=== PATIENT | female | born 1995 | race Caucasian/White ===

== ENCOUNTER 2022-05-11 14:06 | Outpatient (CLI) | payer BC, SELFPAY ==
--- OUTSIDE RECORDS SUMMARY | 2022-05-11 14:14 | XMS_ITS | Encounter Summary ---
:1995 Author Organization [place] Address [address] [place] [address] Care Team Providers Name Role Phone Arnol Cesar Unavailable Jonny Moralez Primary Care Provider Encounter Details Date Type Department Care Team Description 02/25/2021 Travel Social History Tobacco Use Types Packs/Day Years Used Date Smoking Tobacco: Former Cigarettes 6 Quit : 07/09/2016 Smokeless Tobacco: Never Sex Assigned at Date Recorded Not on file COVID-19 Exposure Response Date Recorded In the last month, have you been in contact with No / Unsure 02/25/2021 6:40 AM CDT someone who was confirmed or suspected to have Coronavirus / COVID-19? documented as of this encounter Plan of Treatment Not on filedocumented as of this encounter Visit Diagnoses Not on filedocumented in this encounter Care Teams Construction Coordinator Relationship Specialty Start Date End Date Jonny Moralez PCP - General Family Medicine 02/11/21 [facility] [address] [facility] [place] [address] Arnol Cesar Assigned Heart and Vascular 11/21/20 [facility] [address] [place] [address] documented as of this encounter
--- OUTSIDE RECORDS SUMMARY | 2022-05-11 14:14 | XMS_ITS | Encounter Summary ---
:1995 Author Organization [place] Address [facility] [place] [address] Care Team Providers Name Role Phone Arnol Cesar Unavailable Jonny Moralez Primary Care Provider Reason for Visit Diagnostic Imaging Ultrasound (Routine) - Closed Specialty Diagnoses / Procedures Referred By Contact Refer red To Contact Diagnoses Varicose veins of bilateral lower extremities with pain Arnol Cesar Procedures US Lower Extremity Venous Duplex Left [address] [place] [address] Referral ID Status Reason Start Date Expiration Date Visits Requ ested Visits Authorized [id number] Closed 02/01/2021 02/01/2022 1 1 Encounter Details Date Type Department Care Team Description 02/28/2021 Ancillary Procedure [facility] Arnol Cesar [facility] bilateral lower Solutions [address] extremities with [address] [place] [address] [address] [place] (Work) [phone] Social History Tobacco Use Types Packs/Day Years Used Date Smoking Tobacco: Former Cigarettes 6 Quit : 07/09/2016 Smokeless Tobacco: Never Sex Assigned at Date Recorded Not on file COVID-19 Exposure Response Date Recorded In the last month, have you been in contact with No / Unsure 02/28/2021 8:02 AM CDT someone who was confirmed or suspected to have Coronavirus / COVID-19? documented as of this encounter Plan of Treatment Not on filedocumented as of this encounter Procedures Procedure Name Priority Date/Time Associated Diagnosis Comme nts US LOWER EXTREMITY Routine 02/28/2021 8:36 AM Varicose veins o f Results for this VENOUS DUPLEX LEFT CDT bilateral lower proced ure are in extremities with the results pain section. documented in this encounter Results US Lower Extremity Venous Duplex Left (02/28/2021 8:36 AM CDT) Anatomical Region Laterality Modality Vascular, Thigh, Leg Ultrasound Specimen (Source) Anatomical Location Collection Method / Collectio n Time Received Time / Laterality Volume Impressions 02/28/2021 12:05 PM CDT ? Examined by: Janell Mcclure RVT Age: ??25 year old ? Reading MD: LARISSA ?? INDICATIONS: ?Post VNUS Closure ?? EXAM TYPE LEFT LOWER EXTREMITY VENOUS DUPLEX 72 HOUR POST VNUS CLOSURE GSV ?? TECHNICAL SUMMARY ?? Multiple transverse and longitudinal lula ges of left lower extremity were obtained. ?? LEFT: ? The CFV demonstrates phasic flow, compre sses ,and responds to augmentations. ??No evidence of DVT at t his time. ??The remainder of deep veins including left femoral, popliteal, posterior tibial, and peroneal veins are widely patent and fully compre ssible with no evidence for DVT at this time. ?? The GSV is closed 20.9 mm from the SFJ t o the proximal calf with evidence of thrombus seen throughout. ?? FINAL SUMMARY: 1. ? Left CFV is patent. 2. ? The left GSV is closed 20 .9 mm from the SFJ to the proximal calf. ?? Narrative 02/28/2021 12:05 PM CDT US Lower Extremity Venous Duplex Left Order #: [id number] Study Notes? Dacia Mcclure on 02/28/2021 ??8:36 AM Name: ??Chiqui Olmos Leilani ? Date: February 28, 2021 ?: 1995 Sex: female Arnol Cesar IMPippa ORDERABLES documented in this encounter Visit Diagnoses Diagnosis Varicose veins of bilateral lower extrem ities with pain documented in this encounter Care Teams Motorcycle Subassembly Repairer Relationship Specialty Start Date End Date Jonny Moralez PCP - General Family Medicine 02/11/21 [facility] [address] [place] [address] Arnol Cesar Assigned Heart and Vascular 11/21/20 [address] [place] [address] documented as of this encounter
--- OUTSIDE RECORDS SUMMARY | 2022-05-11 14:14 | XMS_ITS | Encounter Summary ---
:1995 Author Organization [place] Address [address] [place] [address] Care Team Providers Name Role Phone Arnol Cesar Unavailable Jonny Moralez Primary Care Provider Encounter Details Date Type Department Care Team Description 02/28/2021 Travel Social History Tobacco Use Types Packs/Day [...] on filedocumented in this encounter Care Teams Glass Decorator Relationship Specialty Start Date End Date Jonny Moralez PCP - General Family Medicine 02/11/21 [facility] [address] [facility] [address] Arnol Cesar Assigned Heart and Vascular 11/21/20 [address] [facility] [address] [place] [address] documented as of this encounter
--- OUTSIDE RECORDS SUMMARY | 2022-05-11 14:14 | XMS_ITS | Encounter Summary ---
:1995 Author Organization [place] Address [facility] [place] [address] Care Team Providers Name Role Phone AbdielArnol pittman Unavailable Jonny Moralez Primary Care Provider Reason for Visit Reason Comments Surgical Followup 6 month post op, left leg VN US closure GSV and phlebs and right leg GSV and phlebs. Encounter Details Date Type Department Care Team Description 04/10/2022 Office Visit [facility] Arsenio Arnol Varicose veins of leg with pain, left (Primary Dx); [facility] Elissa Bullard Spider veins of both lower extremities; [address] Va ricose veins of leg with pain, right; [address] Dermatitis [place] [phone] [place] [address] [phone] Social History Tobacco Use Types Packs/Day Years Used Date Smoking Tobacco: Former Cigarettes 6 Quit : 07/09/2016 Smokeless Tobacco: Never Sex Assigned at Date Recorded Not on file COVID-19 Exposure Response Date Recorded In the last 10 days, have you been in contact with No / Unsu re 04/10/2022 3:07 PM CDT someone who was confirmed or suspected to have Coronavirus/COVID-19? documented as of this encounter Progress Notes Arsenio Arnol Juan Miguel - 04/10/2022 4:00 PM CDT [facility]: Elissa Olmos Leilani returns for 6-week follow-up. She had previously undergone closure of the right greater saphenous vein on 02/11/2021 with cosmetic phlebectomies with very good results. She developed painful varicosities in the left leg related to incompetence of the greater and lesser saphenous veins. 02/25/2021 radiofrequency ablation left GSV from saphenofemoral junction to ankle. The left accessorysaphenous vein leading to the thigh varicosities was too short for ablation but we did ligate this is removed the surface varicosities along with the other stab phlebectomies(#33). She did well following the procedure. Appropriate closure of the GSV 20.9 mm from the junction. Did notice some numbness in the medial ankle and burning paresthesias on the dorsal left foot on her 72-hour follow-up. As far as her venous issues she is done well with no recurrent varicosities or discomfort. She did have some numbness along the left greater saphenous nerve distribution several centimeters above our entrance site. This is improved and more localized almost to the medial malleolus. Numbness is quite mild and not bothersome at all. Her major concern is very small punctate subcutaneous nodules that developed primarily on her right calf from the knee to the ankle with marked pruritus and excoriations resulting in superficial woundsthat are gradually healing. This is been present for several months and still a major issue on her right leg. She has tried Benadryl spray with no help. A few issues on the left calf but very minor. Nohistory of any significant allergies. Exam: Alert and appropriate. Normal affect. Significant excoriations on her right leg from the knee to the ankle. One early less than a millimeter subcutaneous nodule just below the right patella anterior laterally which is how these develop initially before she started scratching these. No visible recurrent varicose veins. Multiple tattoos. Very fine spider veins Slight numbness along the left ankle GSN. Very well-healed almost imperceptible phlebectomy incisions. Ultrasound today revealed no DVT. Right GSV is closed 6.2 mm from the junction of the distal calf. Left GSV closed 9.4 mm from the junction to the distal calf. IMPRESSION: #1. Successful closure of both greater saphenous veins and cosmetic stab phlebectomies. No recurrent varicosities. Slight numbness which is gradually improving on the left greater saphenousnerve distribution that was discussed. No need for further venous follow-up. Compression as needed for comfort reasons only. #2. Very small asymptomatic spider veins. She is not interested in treatment which is just fine. #3. Multiple very small subcutaneous nodules that have significant pruritus and excoriations particular on the right calf. She will try an [id number] topical steroid and if this is not successful she needs to see a board handler since this is been going on several months and she has significantexcoriation throughout entire right calf and to a lesser degree on the left calf. Post procedure bilateral VCSS= 0 CEAP: C1 Arnol Cesar MD documented in this encounter Plan of Treatment Not on filedocumented as of this encounter Visit Diagnoses Diagnosis Varicose veins of leg with pain, left - Primary Spider veins of both lower extremities Varicose veins of leg with pain, right Dermatitis Contact dermatitis and other eczema, due to unspecified cause documented in this encounter Care Teams Biological Inspector Relationship Specialty Start Date End Date Jonny Moralez PCP - General Family Medicine 02/11/21 [facility] [address] [place] [address] Arnol Cesar Assigned Heart and Vascular 11/21/20 [address] Provider [place] [address] documented as of this encounter
--- OUTSIDE RECORDS SUMMARY | 2022-05-11 14:14 | XMS_ITS | Encounter Summary ---
:1995 Author Organization [place] Address [facility] [place] [address] Care Team Providers Name Role Phone Arnol Cesar Unavailable Jonny Moralez Primary Care Provider Reason for Visit Diagnostic Imaging Ultrasound (Routine) - Pending Review Specialty Diagnoses / Procedures Referred By Contact Refer red To Contact Diagnoses Postop check Varicose veins of both lower extremities with pain Arnol Cesar Procedures US Lower Extremity Venous Duplex Bilateral [address] [place] [address] Referral ID Status Reason Start Date Expiration Date Visits V isits Requested Authorized [id number] Pending 06/27/2021 06/27/2022 1 1 Review Encounter Details Date Type Department Care Team Description 04/10/2022 Ancillary Procedure [facility] Arnol Cesar ostop check; [place] Bullard Varicose veins of both lower extremities with pain Solutions [address] [facility] [address] [facility] [place] [address] [address] [place] (Work) [phone] Social History Tobacco Use Types Packs/Day Years [...] have Coronavirus/COVID-19? documented as of this encounter Plan of Treatment Not on filedocumented as of this encounter Procedures Procedure Name Priority Date/Time Associated Diagnosis Comme nts US LOWER EXTREMITY Routine 04/10/2022 3:54 PM Postop karolyn ck Results for this VENOUS DUPLEX CDT Varicose veins of procedure are in BILATERAL both lower the results extremities with section. pain documented in this encounter Results US Lower Extremity Venous Duplex Bilateral (04/10/2022 3:54 PM CDT) Anatomical Region Laterality Modality Vascular, Thigh, Leg Ultrasound Specimen (Source) Anatomical Location Collection Method / Collectio n Time Received Time / Laterality Volume Impressions 04/12/2022 9:33 AM CDT Examined by: Ge Longo RVT Age: ??26 year old ? Reading MD: Toshia Cesar MD ?? INDICATIONS: ?Post VNUS Closure ?? EXAM TYPE BILATERAL LOWER EXTREMITY VENOUS DUPLEX 6 MONTH POST VNUS CLOSURE GSV ?? TECHNICAL SUMMARY ?? Multiple transverse and longitudinal lula ges of bilateral lower extremities were obtained. ? RIGHT: ? The CFV demonstrates phasic flow, compre sses and responds to augmentations. ??No evidence of DVT at t his time. ??The remainder of deep veins including right femoral, popliteal , posterior tibial and peroneal veins are widely patent and fully compre ssible with no evidence for DVT at this time. ?? The GSV is closed ??6.2 mm from the SFJ to the distal calf with evidence of thrombus seen throughout. ?? LEFT: ? The CFV demonstrates phasic flow, compre sses and responds to augmentations. ??No evidence of DVT at t his time. ??The remainder of deep veins including left femoral, popliteal, posterior tibial and peroneal veins are widely patent and fully compre ssible with no evidence for DVT at this time. ?? The GSV is closed ??9.4 mm from the SFJ to the distal calf with evidence of thrombus seen throughout. ? FINAL SUMMARY: 1. ? Bilateral CFV's are paten t. 2. ? The right GSV is closed 6 .2 mm from the SFJ to the distal calf. 3. ? The left GSV is closed 9. 4 mm from the SFJ to the distal calf. ?? Narrative 04/12/2022 9:33 AM CDT Lower Extremity Venous Duplex Bilater al Order #: [id number] Study Notes? Emeterio Longo on 04/10/2022 ??3:54 PM Name: ??Chiqui Duke ? Date: April 10, 2022 ?: 1995 Sex: female Arnol Cesar [facility] ORDERABLES documented in this encounter Visit Diagnoses Diagnosis Postop check Follow-up examination, following unspeci fied surgery Varicose veins of both lower extremities with pain Varicose veins of lower extremities with other complications documented in this encounter Care Teams Fish Conservationist Relationship Specialty Start Date End Date Jonny Moralez PCP - General Family Medicine 02/11/21 [facility] [address] [place] [address] Arnol Cesar Assigned Heart and Vascular 11/21/20 [address] Provider [place] [address] documented as of this encounter
--- OUTSIDE RECORDS SUMMARY | 2022-05-11 14:14 | XMS_ITS | Encounter Summary ---
:1995 Author Organization [place] Address [facility] [place] [address] Care Team Providers Name Role Phone Arnol Cesar Unavailable Jonny Moralez Primary Care Provider Reason for Visit Reason Onset Date Comments Symptoms 03/02/2021 Left leg post proced ure Encounter Details Date Type Department Care Team Description 03/02/2021 Telephone [facility] Vein Arnol Cesra ptoms (Left leg post Clinic [place] Juan Miguel procedure) [address] [place], [place] [id number] [phone] Social History Tobacco Use Types Packs/Day Years [...] / COVID-19? documented as of this encounter Miscellaneous Notes Telephone Encounter - Davis Mendez RN - 03/02/2021 4:15 PM CDT Pt called stating she had Left leg VNUS closure GSV(med nec) 1 unit phlebs(cosmetic) on 02/25/21 [address] Cesar. She noted that on left anteriomedial calf near ankle (she states insertion site of the catheter), has some clear weeping from area. She did say when the dressings were removed at home she hada 'string' type area pulled with the bandage. She denies redness, warmth or any signs of infection in this area. She is wearing her compression hose during the day and some drainage is on her hose. Plan: Continue to observe area, apply a band aide over area, wear compression hose as directed and elevate leg 2-3x a day for 15 min. She will call back if signs of infection, change in amount of drainage or any concerns. Pt agrees with plan. documented in this encounter Plan of Treatment Not on filedocumented as of this encounter Visit Diagnoses Not on filedocumented in this encounter Care Teams Mold Bunch Trimmer Relationship Specialty Start Date End Date Jonny Moralez PCP - General Family Medicine 02/11/21 [facility] [address] [place] [address] Arnol Cesar Assigned Heart and Vascular 11/21/20 [address] Provider [place] [address] documented as of this encounter
--- OUTSIDE RECORDS SUMMARY | 2022-05-11 14:14 | XMS_ITS | Encounter Summary ---
:1995 Author Organization [place] Address [address] [place] [address]. [place] [address] Care Team Providers Name Role Phone Arnol Cesar Unavailable Jonny Moralez Primary Care Provider Encounter Details Date Type Department Care Team Description 04/09/2022 Travel Social History Tobacco Use Types Packs/Day Years Used Date Smoking Tobacco: Former Cigarettes 6 Quit : 07/09/2016 Smokeless Tobacco: Never Sex Assigned at Date Recorded Not on file COVID-19 Exposure Response Date Recorded In the last 10 days, have you been in contact with No / Unsu re 04/09/2022 1:12 PM CDT someone who was confirmed or suspected to have Coronavirus/COVID-19? documented as of this encounter Plan of Treatment Not on filedocumented as of this encounter Visit Diagnoses Not on filedocumented in this encounter Care Teams Leadership Coach Relationship Specialty Start Date End Date Jonny Moralez PCP - General Family Medicine 02/11/21 [facility] [address] [facility] [place] [address] Arnol Cesar Assigned Heart and Vascular 11/21/20 [address] Provider [place] [address] documented as of this encounter
--- OUTSIDE RECORDS SUMMARY | 2022-05-11 14:14 | XMS_ITS | Encounter Summary ---
:1995 Author Organization [place] Address [facility] [place] [address] Care Team Providers Name Role Phone FiliArnol pacheco Unavailable Jonny Moralez Primary Care Provider Encounter Details Date Type Department Care Team Description 02/28/2021 Telephone [facility]ascular Arnol Cesar [facility] [place] [address] [place] [address] [place] [phone] Social History Tobacco Use Types Packs/Day Years [...] this encounter Miscellaneous Notes Telephone Encounter - Arnol Cesar - 02/28/2021 12:10 PM CDT [facility]: Elissa I called Chiqui Duke about her left GSV closure and extensive stab phlebectomies on 02/25/2023. She had a follow-up duplex performed this morning. She was reporting some tingling along the left distal greater saphenous nerve which is not uncommon and usually improves with time and we have discussed this preoperatively. Greater saphenous vein was closed 20.9 mm from the junction down to the mid calf where there is a thickened GSV but still some patency and closed in the distal calf and ankle. We did treat this. We do note the partially thrombosed GSV which does occasionally occur but usually of no clinical significance. Since are no feeding sidebranch is oftentimes this will thrombose on further follow-up. I discussed this with her on the phone this afternoon. All questions were answered. She will have her 6-week follow-up where we can reevaluate the situation. Arnol Cesar MD documented in this encounter Plan of Treatment Not on filedocumented as of this encounter Visit Diagnoses Not on filedocumented in this encounter Care Teams Button Breaker Operator Relationship Specialty Start Date End Date Jonny Moralez PCP - General Family Medicine 02/11/21 [facility] [address] [place] [address] Arnol Cesar Assigned Heart and Vascular 11/21/20 [address] [facility] [address] Provider [place] [address] documented as of this encounter
--- OUTSIDE RECORDS SUMMARY | 2022-05-11 14:14 | XMS_ITS | Encounter Summary ---
:1995 Author Organization [place] Address [address] [place] [address]. [place] [address] Care Team Providers Name Role Phone Arnol Cesar Unavailable Jonny Moralez Primary Care Provider Encounter Details Date Type Department Care Team Description 04/10/2022 Travel Social History Tobacco Use Types Packs/Day [...] on filedocumented in this encounter Care Teams Senior Electronics Technician Relationship Specialty Start Date End Date Jonny Moralez PCP - General Family Medicine 02/11/21 [facility] [address] [facility] [place] [address] rAnol Cesar Assigned Heart and Vascular 11/21/20 [address] Provider [place] [address] documented as of this encounter
--- OUTSIDE RECORDS SUMMARY | 2022-05-11 14:14 | XMS_ITS | Encounter Summary ---
:1995 Author Organization [place] Address [facility] [place] [address] Care Team Providers Name Role Phone Arnol Cesar Unavailable Jonny Moralez Primary Care Provider Reason for Referral Diagnostic Imaging Ultrasound (Routine) - Pending Review Specialty Diagnoses / Procedures Referred By Contact Refer red To Contact Diagnoses Postop check Varicose veins of both lower extremities with pain Arnol Cesar Procedures US Lower Extremity Venous Duplex Bilateral [address] [place] [address] Referral ID Status Reason Start Date Expiration Date Visits V isits Requested Authorized [id number] Pending 06/27/2021 06/27/2022 1 1 Review ATIONAL DIAGNOSTICIAN Reason for Visit Reason Comments Surgical Followup post op, eval numbness Encounter Details Date Type Department Care Team Description 06/27/[address] [facility] Arnol Cesar Postop c roxyk (Primary Dx); Vein Clinic Elissa Bullard Varicose veins of both lower extremities with pain [address] [place] [address] [place] [address] [phone] Social History Tobacco Use Types Packs/Day Years Used Date Smoking Tobacco: Former Cigarettes 6 Quit : 07/09/2016 Smokeless Tobacco: Never Sex Assigned at Date Recorded Not on file COVID-19 Exposure Response Date Recorded In the last month, have you been in contact with No / Unsure 06/27/2021 3:55 PM EDUCATIONAL DIAGNOSTICIAN someone who was confirmed or suspected to have Coronavirus / COVID-19? documented as of this encounter Progress Notes Arnol Cesar - 06/27/2021 4:00 PM CST [facility] Chiqui Duke returns for venous follow-up. She had undergone ablation of the right greater saphenous vein and cosmetic stab phlebectomies on 02/11/2021 with a very good result. She had a similar procedure performed on her left leg with ablation of the greater saphenous vein and stab phlebectomies on02/25/2021. Several residual right posterior thigh varicosities were also removed. 72-hour follow-up on both of the procedures confirmed appropriate closure of the greater saphenous vein. In the mid calf the left greater saphenous vein still had some patency but occluded proximally and distally thus ofno clinical significance. She did have some numbness along the left greater saphenous nerve following the treatments. Her follow-up is mid to late since she had left great toe bunion surgery for which she is recoveringvery well. She does notice still some residual numbness that is not painful or hypersensitive in the left ankleregion. No problems on the right. The stab phlebectomy sites are gradually fading. She does have a palpable cord on the right side from the knee to the proximal one third of the calf with some very mild brawny skin discoloration overlying this. Exam: All sites are doing well. Palpable cord along the ablated right greater saphenous vein in the calf. No visible or palpable remaining varicose veins in either leg Mild subcutaneous fullness in the left medial ankle-not related to venous issue Reticular veins are noted in the posterior thigh bilaterally Very fine area of spider veins in the left proximal medial calf And also on the mid anterior lateral left calf Impression: #1. Overall doing very well following ablation of both greater saphenous veins and extensive stab phlebectomies. Does have the residual cord in the right medial calf that should improve with time and this was discussed. Heat may also be helpful such as a heating pad. Follow-up duplex in 6 months post procedure. #2. Still ongoing distal left ankle greater saphenous nerve numbness. This may or may not improve with time and this is discussed. #3. We will send a 6-month follow-up with me isolated segment in the left proximal medial calf has thrombosed. #4. Very fine spider veins particular in the left calf. Discussed sclerotherapy with its pros and cons. At the present time these are not overly bothersome to her and thus no treatment is indicated. Arnol Cesar MD ATIONAL DIAGNOSTICIAN documented in this encounter Plan of Treatment Not on filedocumented as of this encounter Results US Lower Extremity Venous [...] Extremity Venous Duplex Bilater al Order #: [id number] Study Notes? Emeterio Longo on 04/10/2022 ??3:54 PM Name: ??Chiqui Duke ? Date: April 10, 2022 ?: 1995 Sex: female Arnol Cesar [facility] [place] ORDERABLES documented in this encounter Visit Diagnoses Diagnosis Postop check - Primary Follow-up examination, following unspeci fied surgery Varicose veins of both lower extremities with pain Varicose veins of lower extremities with other complications Postop check Follow-up examination, following unspeci fied surgery Varicose veins of both lower extremities with pain Varicose veins of lower extremities with other complications documented in this encounter Care Teams Mult Au Matic Operator Relationship Specialty Start Date End Date Jonny Moralez PCP - General Family Medicine 02/11/21 [facility] [address] [place] [address] Arnol Cesar Assigned Heart and Vascular 11/21/20 1026 [facility] [address] Provider [place] [id number] documented as of this encounter
--- OUTSIDE RECORDS SUMMARY | 2022-05-11 14:14 | XMS_ITS | Encounter Summary ---
:1995 Author Organization [place] Address [facility] [place] [address] Care Team Providers Name Role Phone AbdielArnol pittman Unavailable Jonny Moralez Primary Care Provider Reason for Visit Reason Comments Surgical Followup 72 hour postop Encounter Details Date Type Department Care Team Description 02/28/2021 Office Visit [facility] Arnol Cesar [address] [place] [address] Postop check (Primary Vein Clinic Mara Nurse, Sh Vein Dx) [address] [place] [address] Social History Tobacco Use Types Packs/Day [...] / COVID-19? documented as of this encounter Patient Instructions Patient InstructionsAnat Rivero RN - 02/28/2021 8:30 AM CDT Vein Closure (Ablation) Common Things to Expect - Small lumps may develop beneath phlebectomy sites and the site where the vein closure device was inserted. This is a normal step in healing. These should not be painful, but may be tender to the touch. It can take 6 weeks to 3 months for these lumps/firmness to resolve. - Bruising will look worse before it looks better and can last for 4-6 weeks. - After about 10 days, you may notice tightness/pulling on the inside thigh and knee. As your ablated vein is healing, it contracts, causing a tightness or pulling sensation. This may last for several weeks, but will resolve. Treat it with Ibuprofen or Advil. - Numbness will get better with time, but may take 3 months to a year to resolve. - You may notice that the skin on your legs has become ultra-sensitive to touch. For example, the weight of your sheets may feel painful. This usually resolves in 6 weeks. - Ankle swelling is not uncommon and may last 4-6 weeks. - To get optimal results from your procedure, wearing your compression hose is tovar for the first 7 days. This is necessary to ensure proper closure of the ablated vein. - For 2 weeks, no weight lifting over 25lbs, no running, and no vigorous aerobic exercise. After this time, ease back into your normal activities. If you do too much too soon, you will have more pain and bruising and possibly re-open the vein that was closed. It takes about 2 weeks for the ablated vein to permanently close. Keep in mind your body is still healing. - For 2 weeks, do not shave your legs or use lotions, powders, creams to allow proper healing of phlebectomy sites and vein access sites. Vein Removal (Phlebectomy) Common Things to Expect - Small lumps may develop beneath phlebectomy sites and the site where the vein closure device was inserted. This is a normal step in healing. These should not be painful, but may be tender to the touch. It can take 6 weeks to 3 months for these lumps/firmness to resolve. - Bruising will look worse before it looks better and can last for 4-6 weeks. - Ankle swelling is not uncommon and may last 4-6 weeks. If you are experiencing any of the following symptoms, please seek immediate medical attention at your local emergency department. - Significant pain in the back of the calf possibly with difficulty walking - Significant swelling and/or tenderness in the back of the calf - Redness that continues to spread - Chest pain and/or shortness of breath documented in this encounter Progress Notes Anat Rivero RN - 02/28/2021 8:30 AM CDT Images from the original note were not included. Vein Clinic Postoperative Nurse Note Patient is here for their 72 hour postoperative visit. Procedure: Left leg VNUS closure GSV(med nec) 1 unit phlebs($) Procedure Date: 02/25/21 Surgeon: Dr. Cesar Ultrasound Result: The left GSV is closed 20.9mm from the SFJ to the proximal calf with evidence of thrombus throughout. No evidence of LLE DVT. Physical Exam: Incisions are approximated without signs of infection. Ecchymosis: moderate especially to left medial thigh/groin and left lateral leg Swelling: minimal Paresthesia: pt stated she does have numbness to her left medial ankle and a burning sensation on top of left foot which is exacerbated when she elevates her leg/foot. Pt also stated having kind of a jolt or shock sensation to her left ankle/foot. Patient Questions or Concerns: Pt is doing well and has no concerns. Denies pain. Reviewed postoperative instructions with patient and provided them with written material of common things to expect from their procedure. Patient's Next Vein Clinic Appointment: [address] Cesar (scheduled for 05/09/21 as pt has bunionectomy surgery on 03/22/21 and her feet/legs may be casted for 6 weeks following.). Anat Rivero RN documented in this encounter Plan of Treatment Not on filedocumented as of this encounter Visit Diagnoses Diagnosis Postop check - Primary Follow-up examination, following unspeci fied surgery documented in this encounter Care Teams Cash Surrender Calculator Relationship Specialty Start Date End Date Jonny Moralez PCP - General Family Medicine 02/11/21 [facility] [address] [place] [address] Arnol Cesar Assigned Heart and Vascular 11/21/20 [address] Provider [place] [address] documented as of this encounter
--- OUTSIDE RECORDS SUMMARY | 2022-05-11 14:14 | XMS_ITS | Clinical Summary ---
:1995 Author Organization [facility] Address [address] [place] [address] Care Team Providers Name Role Phone Arnol Cesar Unavailable Jonny Moralez Primary Care Provider Allergies No known active allergies Medications Medication Sig Dispensed Refills Start Date End Date Status buPROPion (WELLBUTRIN Take 300 mg by 0 Active XL) 300 MG 24 hr mouth every tablet morning ALBUTEROL IN Inhale into the 0 A ctive lungs as needed WEI 07/28 1-20 MG-MCG 0 01/19/2021 Active tablet AZAR 3-0.03 MG tablet 0 03/27/2022 Active Encounters Date Type Specialty Care Team Description 04/10/2022 Office Visit Vascular Surgery Arnol Cesar Varicose veins of leg with pain, left (Primary Dx); Juan Miguel Spider veins of both lower extremities; Varicose veins of leg with pain, right; Dermatitis 04/10/2022 Ancillary Procedure Radiology. Arnol Cesar Postop check; Juan Miguel Varicose veins of both lower extremities with pain 04/10/2022 Travel 04/09/2022 Travel from Last 3 Months Social History Tobacco Use Types Packs/Day Years Used Date Smoking Tobacco: Former Cigarettes 6 Quit : 07/09/2016 Smokeless Tobacco: Never Sex Assigned at Date Recorded Not on file Last Filed Vital Signs Vital Sign Reading Time Taken Comments Blood Pressure 105/67 02/25/2021 8:45 AM CDT Pulse 84 02/25/2021 8:45 AM CDT Temperature - - Respiratory Rate - - Oxygen Saturation 95% 02/25/2021 8:45 AM CDT Inhaled Oxygen Concentration - - Weight - - Height - - Body Mass Index - - Plan of Treatment Health Maintenance Due Date Last Done Comments ADVANCE CARE PLANNING 1995 ANNUAL REVIEW OF HM ORDERS 1995 HIV SCREENING 2008 HEPATITIS C SCREENING 2011 PAP 2014 YEARLY PREVENTIVE VISIT 02/19/2020 02/18/2019, 04/23/2018 COVID-19 Vaccine (3 - 10/22/2020 08/27/2020, 07/30/2020 Booster for Moderna series) PHQ-2 (once per calendar 07/09/2021 year) INFLUENZA VACCINE (#1) 2022 04/09/2018, 04/10/2017 DTAP/TDAP/TD IMMUNIZATION 05/27/2029 05/27/2019, 10/16/2017 , (8 - Td or Tdap) 12/20/2005, Additional history exists HEPATITIS B IMMUNIZATION Completed 04/25/1994, 01/11/1994, 1995 IPV IMMUNIZATION Completed 09/29/1998, 04/23/1995, 04/23/1995, Additional history exists MENINGITIS IMMUNIZATION Aged Out 03/01/2005 No longe r eligible based on patient 's age to complete this topic Pneumococcal Vaccine: Aged Out No longer eligible Pediatrics (0 to 5 Years) based on patient's age and At-Risk Patients (6 to to co mplete this topic 64 Years) Medical Devices Explanted Type Area Insole Rasper Device Shelf Model / Serial Identifier Expiration Date / L ot Catheter-02/11/2021 Catheter [employer] [id number] 09/05/2022 / Implanted: 02/11/2021 by Arnol Cesar (Quantity not on file) / Explanted: 02/11/2021 by Arnol Cesar (Quantity not on file) [id number] Catheter-02/25/2021 Catheter [employer] [id number] 09/05/2022 / Implanted: 02/25/2021 by Arnol Cesar (Quantity not on file) / Explanted: 02/25/2021 by Arnol Cesar (Quantity not on file) [id number] Procedures Procedure Name Priority Date/Time Associated Diagnosis Comme nts US LOWER EXTREMITY Routine 04/10/2022 3:54 PM Postop karolyn ck Results for this VENOUS DUPLEX CDT Varicose veins of procedure are in BILATERAL both lower the results extremities with section. pain from Last 3 Months Results US Lower Extremity Venous Duplex Bilateral [...] calf. ?? Narrative 04/12/2022 9:33 AM CDT US Lower Extremity Venous Duplex Bilater al Order #: [id number] Study Notes? Emeterio Longo on 04/10/2022 ??3:54 PM Name: ??Chiqui Duke ? Date: April 10, 2022 ?: 1995 Sex: female Arnol Cesar IMG US ORDERABLES from Last 3 Months Insurance Payer Benefit Plan / Subscriber ID Effective Dates Phone Addre ss Type Group BCBS BCBS OUT OF [id number] 2021-Present [phone] [address] [address] [place] [address] Care Teams Litigation Associate Relationship Specialty Start Date End Date Jnony Moralez PCP - General Family Medicine 02/11/21 [facility] [address] [place] [address] Arnol Cesar Assigned Heart and Vascular 11/21/20 [address] [place] [id number]
--- OUTSIDE RECORDS SUMMARY | 2022-05-11 14:14 | XMS_ITS | Encounter Summary ---
:1995 Author Organization [place] Address [address] [place] [address] Care Team Providers Name Role Phone Arnol Cesar Unavailable Jonny Moralez Primary Care Provider Encounter Details Date Type Department Care Team Description 06/27/2021 Travel Social History Tobacco Use Types Packs/Day Years Used Date Smoking Tobacco: Former Cigarettes 6 Quit : 07/09/2016 Smokeless Tobacco: Never Sex Assigned at Date Recorded Not on file COVID-19 Exposure Response Date Recorded In the last month, have you been in contact with No / Unsure 06/27/2021 3:55 PM [facility] someone who was confirmed or suspected to have Coronavirus / COVID-19? documented as of this encounter Plan of Treatment Not on filedocumented as of this encounter Visit Diagnoses Not on filedocumented in this encounter Care Teams Post Hole Digger Relationship Specialty Start Date End Date Jonny Moralez PCP - General Family Medicine 02/11/21 [facility] [address] [facility] [place] [address] Arnol Cesar Assigned Heart and Vascular 11/21/20 [address] [facility] [address] [facility] [place] [id number] documented as of this encounter
--- OUTSIDE RECORDS SUMMARY | 2022-05-11 14:15 | XMS_ITS | Encounter Summary ---
:1995 Author Organization [place] Address [address] [place] [address] Care Team Providers Name Role Phone Unavailable Primary Care Provider Unavailable Encounter Details Date Type Department Care Team Description 11/15/2020 Travel Social History Tobacco Use Types Packs/Day Years Used Date Smoking Tobacco: Former Cigarettes 6 Quit : 07/09/2016 Smokeless Tobacco: Never Sex Assigned at Date Recorded Not on file COVID-19 Exposure Response Date Recorded In the last month, have you been in contact with No / Unsure 11/15/2020 3:54 PM CDT someone who was confirmed or suspected to have Coronavirus / COVID-19? documented as of this encounter Plan of Treatment Not on filedocumented as of this encounter Visit Diagnoses Not on filedocumented in this encounter
--- OUTSIDE RECORDS SUMMARY | 2022-05-11 14:15 | XMS_ITS | Encounter Summary ---
:1995 Author Organization [facility] Address [address] [place] [address] Care Team Providers Name Role Phone Arnol Cesar Unavailable Jonny Moralez Primary Care Provider Reason for Visit Reason Comments Vein Procedure Encounter Details Date Type Department Care Team Description 02/25/2021 Office Visit [facility] ArsenioArnol [address] [place] [id number] Varicose veins of leg with pain, left (P rimary Dx); Vein [facility] [place] Nurse, Sh Vein Varicose veins of left lower extremity w ith pain [address] [place] [phone] Social History Tobacco Use Types Packs/Day Years [...] / COVID-19? documented as of this encounter Last Filed Vital Signs Vital Sign Reading Time Taken Comments Blood Pressure 105/67 02/25/2021 8:45 AM CDT Pulse 84 02/25/2021 8:45 AM CDT Temperature - - Respiratory Rate - - Oxygen Saturation 95% 02/25/2021 8:45 AM CDT Inhaled Oxygen Concentration - - Weight - - Height - - Body Mass Index - - documented in this encounter Patient Instructions Patient InstructionsMayer, Jenny, RN - 02/25/2021 7:30 AM CDT Post-Procedure Instructions: VNUS Closure and Phlebectomies Post-Op Day Zero - The Day of Your Procedure:0 1. Medication for Pain Control and Inflammation Control - The numbing medication injected during your procedure will last for several hours. The pre-procedure tablets may make you very sleepy and you might not remember everything from the procedure or from the day. This will usually wear off by the next day. - Ibuprofen: If tolerated, take ibuprofen (e.g., Advil) to reduce inflammation whether or not you have pain. For three days, take two tablets (200mg each) with every meal and at bedtime with a snack. If your pain is not controlled with ibuprofen, you may take prescription pain medication (such as [place]), if prescribed. - You may resume taking any medications you were taking before your procedure. 2. Activity - Rest with your leg(s) elevated above your heart. This will prevent from a lot of swelling and bleeding. You do not need to elevate your leg(s) while sleeping at night. You may go upstairs, sit up to eat, use the bathroom, and take several five minute walks. Otherwise, keep your leg(s) elevated. Minimize the amount of time you are up on your feet to about 30 minutes at a time. 3. Bandages - The incision sites will be covered with soft bandages and an HAI wrap. Keep your bandages on and dry for 48 hours. The HAI should provide ???snug?? compression, but should not cause pain or numbness in the toes. If you have significant discomfort or your toes become cold or numb, unwrap your HAI and rewrap with less tension starting at the toes wrapping upward. 4. Incisions - Bleeding: You may see some incision sites that are oozing through the bandages. This is not unusual and can be managed with Rest, Ice, Compression and Elevation (CHARITO). Apply ice and firm pressure directly to the site that is bleeding and rest with your leg(s) elevated above your heart for 20-30minutes. Post-Op Day One: 1. Medication - Ibuprofen: Continue the same as the Day of Your Procedure. If your pain is not controlled with ibuprofen, you may take prescription pain medication (such as [place]), if prescribed. 2. Activity - We would like you to get up at least six times and walk around for short periods of time, unless it is causing you pain. You should not be on your feet more than 90 minutes at a time. Elevate your leg above your heart when you are not walking. 3. Bandages - Your bandages must be kept on and dry for 48 hours. 4. Driving - You may resume driving when you can do so safely. Do not drive if you are taking narcotic pain medication. Post-Op Day Two: 1. Medication - Ibuprofen: Continue the same as the Day of Your Procedure. 2. Activity - Walk as tolerated. Elevate as much as possible when not walking. 3. Bandages and Compression - Remove HAI wrap and padding. Shower and put on your compression hose during waking hours only for at least 5 days. (Your doctor may instruct you to keep your bandages on until your return appointment; please follow your doctor's instructions.) 4. Incisions - Your leg(s) will be bruised; there may be swelling, hard knots under the skin and possibly some numbness. These will likely resolve over time. If you see ???hair-like?? strings coming out of your incisions, do not pull them (this will only cause pain/discomfort). We will trim them when you come back for your follow-up appointment. 5. Call Us If: - You see any areas on your leg that are red and angry in appearance. - You notice any drainage that is milky or cloudy in appearance or that has a foul odor. - You run a temperature of 100.5 or greater. Post-Op Day Three: Your follow up appointment is: At this appointment, you will have an ultrasound and we will check your incisions. If your doctor isnot scheduled to be in the clinic at the time of your appointment, you will be seen by a different doctor or nurse. The Two Weeks Following Your Procedure 1. Skin Care - Do not use any lotions, creams or powders on your leg for 14 days or until the incisions have healed. - Do not soak in a bathtub, whirlpool, or hot tub or go swimming for 14 days or until your incisions have healed. 2. Medications - You may use ibuprofen or acetaminophen (e.g., Tylenol) as needed for pain or discomfort. 3. Activity - Do not lift over 25 pounds. After about two weeks you may resume exercise such as aerobics, running, tennis or weight lifting. Use your common sense and ease back into your exercise routine slowly. - You may feel a cord-like tightness along the inside of your leg. Gentle stretching can be helpful. 4. Compression Hose - Your doctor may instruct you to wear compression for longer than seven days; please follow your doctor's instructions. As a comfort measure, you may choose to wear compression for longer than required. 5. Travel - Do not fly in an airplane for 14 days after your procedure. If you have a long car trip planned within two to three weeks following your procedure, stop and walk for a few minutes every two hours. Periodic ankle pumps during the ride may be helpful. Six Week Appointment At your six week appointment, you will see your surgeon for an exam and evaluation. This office visit will be scheduled when you return for Post-op Day Three Return Appointment. Return to Work 1. If you work outside the home, you may return to work in a few days depending on the extent of your procedure, how you tolerate it, and the type of work you perform. 2. Paperwork: If your employer requires paperwork or you would like a letter written to your employer, please let us know. We will complete disability type forms at no charge. Please allow five business days for forms to be completed. documented in this encounter Progress Notes Jenny Reynaga RN - 02/25/2021 7:30 AM CDT Pre-procedure Nursing Note Chiqui Duke presents to clinic for Vein Procedure . Technology Integration Specialist/Person Responsible for Patient: Ramon gupat) Prophylactic Medication:Anti-Nausea Zofran 4 mg Time Taken: 0600 Sedation Medication: Ativan, 3 mg Time Taken: 0640 and Clonidine, 0.1 mg, Time Taken: 0640 Compression Stockings: Hose at home The procedure is being performed on LLE. Patient understanding of procedure matches consent? YES Patient's pre-procedure medications verified by Jenny Reynaga RN. Jenny Reynaga RN on 02/25/2021 at 6:42 AM Arnol Cesar - 02/25/2021 7:30 AM CDTAssociated Order(s): Ela Closure; Phlebectomy Post-Procedure Diagnose(s): Varicose veins of leg with pain, left Images from the original note were not included. Vein Clinic Procedure Note Preoperative diagnosis: 1. Painful left leg varicose veins due to incompetent greater and lesser saphenous vein 2. Residual right posterior thigh painful varicose veins Post operative diagnosis: Same Procedure: 1. Radiofrequency ablation left greater saphenous vein from saphenofemoral junction and ankle 2. Extensive stab phlebectomies left thigh/lateral calf/anterior ankle varicosities 3. Stab phlebectomy right posterior thigh residual varicosities Preoperative medications: 3 mg ativan, 0.1 mg clonidine Ela Closure Date/Time: 02/25/2021 8:58 AM Performed by: Arnol Cesar Authorized by: Arnol Cesar Time out: Immediately prior to the procedure a time out was called Preparation: Patient was prepped and draped in usual sterile fashion 1st Assist: Vanessa Peña CST/CHET Mechanical Design Engineer Products: Anat Rivero RN Procedure: VNUS Procedure side: Left Vein Treated: GSV Patient tolerance: Patient tolerated the procedure well with no immediate complications Wrap/Hose: Wraps Phlebectomy Date/Time: 02/25/2021 8:59 AM Performed by: Arnol Cesar Authorized by: Arnol Cesar Procedure: Phlebectomies Type: Cosmetic Procedure side: Bilateral Session: Full Patient tolerance: Patient tolerated the procedure well with no immediate complications Wrap/Hose: Wraps Operative description Indications: 25-year-old patient had bilateral painful varicose veins due to incompetent greater saphenous veins bilaterally in the left accessory saphenous vein. She is undergone successful ablation of the right greater saphenous vein extensive stab bacteremias. She does have a residual varicosity inthe right proximal posterior thigh that we did not previously appreciated. On the left leg extensive varicosities were noted in the thigh region proximally. Discontinued aboutthe lateral thigh to the left lateral mid calf. Also varicosity over the ankle lateral to the greater saphenous vein. Thigh varicosities are related to the greater saphenous vein but also the accessory saphenous vein. It was unclear for ultrasound whether there would be adequate length of treatment ofthis with a closure device. Plan closure the entire left greater saphenous vein where there may be some temporary permanent numbness of the cutaneous saphenous nerve that was discussed. This was reviewed with the patient and her fianc?? this morning. With her standing we marked all the varicosities in the left leg and the residual varicosity in the right posterior thigh. Procedure: Brought to the procedure room. Placed supine. The entire left leg and groin were prepped and draped. Patient was noted to be thin. Timeout was called the sites were identified. VNUS: Placed in reverse Trendelenburg. We identified a single incompetent greater saphenous vein which is quite dilated from the saphenofemoral junction down to the ankle. We anesthetized the ankle needle was introduced into the ankle greater saphenous vein under ultrasound 7 [place] sheath. Significant reflux was noted and this was flushed with saline. Closure past catheter was selected and flushed and easily passed to the saphenofemoral junction. This was withdrawn 2.25 cm from the junction and secured. Placed in Trendelenburg where the tip of the catheter was confirmed and documented. We then injected the tumescent solution under ultrasound guidance from the knee to the groin and from the ankle to the knee ensuring a minimum of 1 cm of tumescence between the catheter and the dermis. Begin the treatment sessions. 5 of the 6 thigh segments required 2 treatments at 120 ??C for 20 seconds. Ultrasound compression was held with good visualization effect and no discomfort. In the calf the proximal first segment required 2 treatments and the rest of single treatment with a similar fashion with no discomfort and good visualization effect. Treatment. Pressure was held at the ankle. We documented patency of the common femoral vein at the saphenofemoral junction upon completion. Stab phlebectomy: We then anesthetized the thigh/calf/ankle sites. With a microophthalmic blade a total of 33 stepladder incisions were made. Veins were removed in entirety. We follow that the accessory saphenous vein was too short for treatment and we did ligate the branches of the groin going into this with a 3-0 Vicryl suture to prevent bleeding and allow thrombosis of the segment. This was also ligated in the ankle region. All marked segments were removed. Vaseline ointment was applied over all areas followed by ABD pads/ cast roll. Right posterior thigh phlebectomy: We then placed the patient supine and again in Trendelenburg. We prepped the right posterior thigh at the marked sites. Timeout was again called. Tumescent solution was injected. The 9 stepladder incisions were made and the varicosities were removed in their entirety. Similar dressings were applied. Hai bandages to both sides of the patient in the supine position. Patient tolerated both procedures well. Continuous blood pressure/pulse oximeter/pulse were monitored by myself and was very stable. Patient was quite comfortable. She recovered with us and discharged to home with her fianc?? with postop instructions and follow-up. EBL: Less than 5 mL Flowsheet Data 02/25/2021 Procedure Start Time: 7:34 AM Prep: Chloraprep Side: Bilateral Tx Length (cm): LEFT GSV: 85.5 Junction (cm): LEFT GSV: 2.25 RF Cycles: LEFT GSV: 20 RF TX Time (Minutes): LEFT GSV: 6:38 # PHLEB Sites: RIGHT: 8 LEFT: 33 Sedation taken: Yes Pre Pt. Physical / Cognitive Limitations: WNL TOTAL Local anesthesia Injected (ml): 1.5 Max Volume Local Anesthesia (ml): 11 TOTAL Tumescent Injected volume (ml): 572 Max Volume Tumescent (ml): 572 Post Pt. Physical / Cognitive Limitations: WNL Procedure End Time: 8:48 AM D/C Instructions given, states readiness to leave and escorted to car: Yes Patient's blood pressure, pulse and pulse oximetry were continuously monitored throughout the procedure under my direct supervision and was stable during the procedure. Patient recovered in our suites and discharged home with their family with postoperative instructions and follow up. Arnol Cesar MD documented in this encounter Plan of Treatment Not on filedocumented as of this encounter Procedures Procedure Name Priority Date/Time Associated Comments Diagnosis WI SC PHLEBECTOMY PER Routine 02/25/2021 8:59 AM Varicose vein s of Results for this QUADRANT CDT leg with pain, left procedur e are in the results section. WI SC FACILITY CHARGE Routine 02/25/2021 8:58 AM Varicose vein s of Results for this FOR PHLEBECTOMY WHEN CDT leg with pain, left procedure are in DONE WITH VNUS the results section. documented in this encounter Results WI SC PHLEBECTOMY PER QUADRANT (02/25/2021 8:59 AM CDT) Narrative Arnol Cesar - 02/25/2021 8:59 AM CDT Arnol Cesar ? 02/25/2021 ??8:59 AM Phlebectomy Date/Time: 02/25/2021 8:59 AM Performed by: Arnol Cesar Authorized by: Arnol Cesar Procedure: ??Phlebectomies Type: ??Cosmetic Procedure side: ??Bilateral Session: ??Full Patient tolerance: ??Patient tolerated t he procedure well with no immediate complications Wrap/Hose: ??Wraps Arnol Cesar PROCEDURE/MINOR SURGICAL ORD ERABLES [place] Closure (02/25/2021 8:58 AM CDT) Narrative Arnol Cesar - 02/25/2021 8:58 AM CDT Arnol Cesar ? 02/25/2021 ??8:59 AM Ela Closure Date/Time: 02/25/2021 8:58 AM Performed by: Arnol Cesar Authorized by: Arnol Cesar Time out: Immediately prior to the proce dure a time out was called ?? Preparation: Patient was prepped and chicho ped in usual sterile fashion ?? 1st Assist: ??Vanessa Peña CST/CSFA Mechanical Design Engineer Products: ??Anat Rivero RN Procedure: ??VNUS Procedure side: ??Left Vein Treated: ??GSV Patient tolerance: ??Patient tolerated t he procedure well with no immediate complications Wrap/Hose: ??Wraps Arnol Cesar PROCEDURE/MINOR SURGICAL ORD ERABLES documented in this encounter Visit Diagnoses Diagnosis Varicose veins of leg with pain, left - Primary Varicose veins of left lower extremity w ith pain Varicose veins of lower extremities with other complications documented in this encounter Care Teams Community Marketing Manager Relationship Specialty Start Date End Date Jonny Moralez PCP - General Family Medicine 02/11/21 [facility] [address] [place] [address] Arnol Cesar Assigned Heart and Vascular 11/21/20 [address] Provider [place] [id number] documented as of this encounter
--- OUTSIDE RECORDS SUMMARY | 2022-05-11 14:15 | XMS_ITS | Encounter Summary ---
:1995 Author Organization [facility] Address Replaced by [facility] [place] [address] Care Team Providers Name Role Phone Arnol Cesar Unavailable Jonny Moralez Primary Care Provider Reason for Visit Diagnostic Imaging Ultrasound (Routine) - Closed Specialty Diagnoses / Procedures Referred By Contact Refer red To Contact Diagnoses Varicose veins of right lower extremity with pain Arnol Cesar Procedures US Lower Extremity Venous Duplex Right [address] [place] [id number] Referral ID Status Reason Start Date Expiration Date Visits Requ ested Visits Authorized [id number] Closed 01/26/2021 01/26/2022 1 1 Encounter Details Date Type Department Care Team Description 02/14/2021 Ancillary Procedure [facility] Arnol Cesar V aricose veins of [facility] Vein Juan Miguel right lower Solutions [address] extremity with pain [address] [facility] [place] [address] [address] [place] (Work) [phone] Social History Tobacco Use Types Packs/Day Years Used Date Smoking Tobacco: Former Cigarettes 6 Quit : 07/09/2016 Smokeless Tobacco: Never Sex Assigned at Date Recorded Not on file COVID-19 Exposure Response Date Recorded In the last month, have you been in contact with No / Unsure 02/14/2021 8:36 AM CDT someone who was confirmed or suspected to have Coronavirus / COVID-19? documented as of this encounter Plan of Treatment Not on filedocumented as of this encounter Procedures Procedure Name Priority Date/Time Associated Diagnosis Comme nts US LOWER EXTREMITY Routine 02/14/2021 8:55 AM Varicose veins o f Results for this VENOUS DUPLEX RIGHT CDT right lower procedur e are in extremity with pain the resu lts section. documented in this encounter Results US Lower Extremity Venous Duplex Right (02/14/2021 8:55 AM CDT) Anatomical Region Laterality Modality Lower Extremity Ultrasound Specimen (Source) Anatomical Location Collection Method / Collectio n Time Received Time / Laterality Volume Impressions 02/14/2021 9:13 AM CDT ? Examined by: Janell Mcclure RVT Age: ??25 year old ? Reading MD: LARISSA ?? INDICATIONS: ?Post VNUS Closure ?? EXAM TYPE RIGHT LOWER EXTREMITY VENOUS DUPLEX 72 HOUR POST VNUS CLOSURE GSV ?? TECHNICAL SUMMARY ?? Multiple transverse and longitudinal lula ges of right lower extremity were obtained. ?? RIGHT: ? The CFV demonstrates phasic flow, compre sses, and responds to augmentations. ??No evidence of DVT at t his time. ??The remainder of deep veins including left femoral, popliteal, posterior tibial, and peroneal veins are widely patent and fully compre ssible with no evidence for DVT at this time. ?? The GSV is closed 15.4 mm from the SFJ t o the distal calf with evidence of thrombus seen throughout. ?? FINAL SUMMARY: 1. Right CFV is patent. 2. The right GSV is closed 15.4 mm from the SFJ to the distal calf. Narrative 02/14/2021 9:13 AM CDT US Lower Extremity Venous Duplex Right Order #: [id number] Study Notes? Dacia Mcclure on 02/14/2021 ??8:55 AM Name: ??Chiqui Duke ? Date: February 14, 2021 ? : 1995 Sex: female Arnol Cesar IMPippa ORDERABLES documented in this encounter Visit Diagnoses Diagnosis Varicose veins of right lower extremity with pain Varicose veins of lower extremities with other complications documented in this encounter Care Teams Corridor Redevelopment Manager Relationship Specialty Start Date End Date Jonny Moralez PCP - General Family Medicine 02/11/21 [facility] [address] [place] [address] Arnol Cesar Assigned Heart and Vascular 11/21/20 [address] Provider [place] [id number] documented as of this encounter
--- OUTSIDE RECORDS SUMMARY | 2022-05-11 14:15 | XMS_ITS | Encounter Summary ---
:1995 Author Organization [facility] Address [address] [place] [address] Care Team Providers Name Role Phone Arsenio Arnol Juan Miguel Unavailable Jonny Moralez Primary Care Provider Reason for Visit Reason Comments Surgical Followup 72 hour postop Encounter Details Date Type Department Care Team Description 02/14/2021 Office Visit [facility] Arnol Cesar Juan Miguel [address] [place] [address] Postop check (Primary Dx); Vein Clinic [place] Nurse, Sh Vein Varicose veins of bilateral lower extrem ities with pain [address] [place] [phone] Social History Tobacco Use Types Packs/Day [...] Patient Instructions Patient InstructionsAnat Rivero RN - 02/14/2021 9:00 AM CDT Vein Closure (Ablation) Common Things [...] encounter Progress Notes Anat Rivero RN - 02/14/2021 9:00 AM CDT Vein Clinic Postoperative Nurse Note Patient is here for their 72 hour postoperative visit. Procedure: Right leg VNUS closure GSV(med nec) and 1 unit phlebs($) Procedure Date: 02/11/21 Surgeon: Dr. Cesar Ultrasound Result: The right GSV is closed 15.4mm from the SFJ to the distal calf with evidence of thrombus throughout. No evidence of RLE DVT. Physical Exam: Incisions are approximated without signs of infection. Ecchymosis: moderate Swelling: minimal Paresthesia: pt denies numbness Patient Questions or Concerns: Pt stated she was really nauseous when she got home after her procedure. Pt did go into work for a couple hours on Sunday morning from about 3-5am. Pt stated she did havea light breakfast. Recommended taking 1 tablet (4mg) zofran a half hour prior to her sedation medication for her next procedure on 02/25/21. Pt stated her leg is really sore and tender to touch. Instructed pt to continue ibuprofen and tylenol for the discomfort and instructed her to try and take breaks throughout her work day to rest her leg/elevate it for a bit if possible as pt stands at work all day. Reviewed postoperative instructions with patient and provided them with written material of common things to expect from their procedure. Patient's Next Vein Clinic Appointment: Left leg procedure with Dr. Cesar (02/26/21). Anat Rivero RN documented in this encounter Plan of Treatment Not on filedocumented as of this encounter Visit Diagnoses Diagnosis Postop check - Primary Follow-up examination, following unspeci fied surgery Varicose veins of bilateral lower extrem ities with pain documented in this encounter Care Teams Security Shift Manager Relationship Specialty Start Date End Date Jonny Moralez PCP - General Family Medicine 02/11/21 [facility] [address] [place] [address] Arnol Cesar Assigned Heart and Vascular 11/21/20 [address] [place] [address] documented as of this encounter
--- OUTSIDE RECORDS SUMMARY | 2022-05-11 14:15 | XMS_ITS | Encounter Summary ---
:1995 Author Organization [place] Address [facility] [place] [address] Care Team Providers Name Role Phone Arnol Cesar Unavailable Encounter Details Date Type Department Care Team Description 02/01/2021 Telephone [facility] [place] [address] [facility] [address] [place], [place] [phone] [address] [place] [address] (Wo rk) Social History Tobacco Use Types Packs/Day Years Used Date Smoking Tobacco: Former Cigarettes 6 Quit : 07/09/2016 Smokeless Tobacco: Never Sex Assigned at Date Recorded Not on file documented as of this encounter Miscellaneous Notes Telephone Encounter - Kadi Wray - 02/02/2021 2:17 PM CDT Faxed compression order to [employer]. Kadi Wray, Squash Centre Manager [facility] Vein Clinic Telephone Encounter - Kadi Wray - 02/01/2021 2:19 PM CDT [employer] Compression Hose Order Pt would like 1 pair(s) of black, open-toe, thigh high, 20-30mmhg compression hose. Please fax patient's Rx to the [employer]. Fax number Phone number Patient has Procedure on 02/11/[address] Cesar. Kadi Wray [facility] Vein Clinic documented in this encounter Plan of Treatment Not on filedocumented as of this encounter Visit Diagnoses Not on filedocumented in this encounter Care Teams Dry Boss Relationship Specialty Start Date End Date Arnol Cesar Assigned Heart and Vascular 11/21/20 [address] Provider [place] [address] documented as of this encounter
--- OUTSIDE RECORDS SUMMARY | 2022-05-11 14:15 | XMS_ITS | Encounter Summary ---
:1995 Author Organization [place] Address [address] [facility] [place] [address] Care Team Providers Name Role Phone Jonny Moralez Primary Care Provider Arnol Cesar Unavailable Reason for Visit Diagnostic Imaging Ultrasound (Routine) - Closed Specialty Diagnoses / Procedures Referred By Contact Refer red To Contact Diagnoses Varicose veins of both lower extremities with pain Arnol Cesar Procedures US Venous Competency Bilateral [address] [place] [address] Referral ID Status Reason Start Date Expiration Date Visits Requ ested Visits Authorized [id number] Closed 11/15/2020 11/15/2021 1 1 Encounter Details Date Type Department Care Team Description 11/23/2020 Ancillary Procedure [facility] Arnol Cesar V aricose veins of [place] [facility] Juan Miguel both lower Solutions [address] extremities with [address] [place] [address] [address] [place] (Work) [phone] Social History Tobacco Use Types Packs/Day Years Used Date Smoking Tobacco: Former Cigarettes 6 Quit : 07/09/2016 Smokeless Tobacco: Never Sex Assigned at Date Recorded Not on file COVID-19 Exposure Response Date Recorded In the last month, have you been in contact with No / Unsure 11/23/2020 12:52 PM CDT someone who was confirmed or suspected to have Coronavirus / COVID-19? documented as of this encounter Plan of Treatment Not on filedocumented as of this encounter Procedures Procedure Name Priority Date/Time Associated Diagnosis Comme nts US VENOUS COMPETENCY Routine 11/24/2020 4:44 PM Varicose veins of Results for this BILATERAL CDT both lower procedure are i n extremities with the results pain section. US VASCULAR - HIM 11/24/2020 12:00 SCAN AM CDT documented in this encounter Results US Venous Competency Bilateral (11/24/2020 4:44 PM CDT) Anatomical Region Laterality Modality Lower Extremity Ultrasound Specimen (Source) Anatomical Location Collection Method / Collectio n Time Received Time / Laterality Volume Impressions 11/25/2020 6:31 PM CDT ? Examined by: Janell Mcclure RVT Age: ??25 year old ? Reading MD: LARISSA ?? INDICATION: ??Varicose veins of bilatera l lower extremities with pain. ?? EXAM TYPE BILATERAL LOWER EXTREMITY VENOUS DUPLEX FOR VENOUS INSUFFICIENCY TECHNICAL SUMMARY ?? A duplex ultrasound study using color fl ow was performed, to evaluate the bilateral lower extremity veins for valv ular incompetence with the patient in a steep reversed trendelenberg. ?? RIGHT: ?? The deep veins demonstrate phasic flow, compress, and respond to augmentations. ??There is no evidence of DVT. ??The common femoral vein is incompetent and free of thrombus. The re maining deep veins are competent and free of thrombus. ?? The GSV demonstrates phasic flow, compre sses, and responds to augmentations from the saphenofemoral ju nction to the ankle with no evidence of thrombus. The greater saphen ous vein measures 11.6 mm at the saphenofemoral junction, 10.6 in the pro ximal thigh, and 8.6 mm at the knee. ??The GSV is incompetent from the SFJ to the proximal calf with the greatest reflux time of 5840 millisecond s. ?? The GSV gives rise to multiple incompetent varicose veins, the largest measures 7.5 mm off the proximal calf that courses medially with a reflux time of 4735 milliseconds. ?? The AASV is competent ( 3.8 mm) from the saphenofemoal junction to the proximal thigh. ?? The Giacomini vein is absent. ?? The SSV demonstrates phasic flow, compre sses, and responds to augmentations from the popliteal space t o the ankle. ??No reflux or thrombus is seen. The saphenopopliteal j unction is competent (2.7 mm). ?? The SSV gives rise to a varicose branch measuring 3.2 mm off the mid calf that courses posteromedially with a refl ux time of 2194 milliseconds. ?? Perforators: There is an incompetent per forator vein ( 6.2 mm) at 15 cm from medial malleolus that communicates with a varicose vein measuring 7.6 mm. A second incompetent treasury manager (2.9 mm) is found 29 cm from the medial malleolus that communicates with the GSV. ?? LEFT: ?? The deep veins demonstrate phasic flow, compress, and respond to augmentations. ??There is no evidence of DVT. ??The common femoral and proximal femoral veins are incompetent a nd free of thrombus. The remaining deep veins are competent and free of thr ombus. ?? The GSV demonstrates phasic flow, compre sses, and responds to augmentations from the saphenofemoral ju nction to the ankle with no evidence of thrombus. The greater saphen ous vein measures 9.6 mm at the saphenofemoral junction, 5.9 mm in the p roximal thigh, and 7.9 mm at the knee. ??The GSV is incompetent from the SFJ to the distal calf with the greatest reflux time of 6467 millisecond s. The GSV gives rise to multiple incompetent varicose veins, the largest measures 6.3 mm off the mid thigh that courses medially with a reflux time of 1353 milliseconds. ?? The AASV is incompetent ( 9.9 mm) ??from the saphenofemoal junction to the mid thigh with a reflux time of 6054 mil liseconds. The AASV takes a straight course for 18 cm before coursin g out of the fascia and giving rise to a varicose vein measuring 4.0 mm . ?? The Giacomini vein is absent. ?? The SSV demonstrates phasic flow, compre sses, and responds to augmentations from the popliteal space t o the ankle. ??No reflux or thrombus is seen. The saphenopopliteal j unction is competent ( 2.7 mm). ?? Perforators: There is an incompetent per forator vein ( 4.9 mm) at 14cm from medial malleolus that communicates with a varicose vein measuring 4.8 mm. ?? FINAL SUMMARY: 1. ? No evidence of bilateral lower extremity deep vein thrombus. 2. ? Right common femoral vein incompetence. ??Left common femoral and proximal femoral vein incompetence. 3. ? Right greater saphenous v ein incompetence. 4. ? Right multiple incompeten t treasury manager veins. 5. ? Right varicose vein incom petence. 6. ? Left greater saphenous ve in incompetence. 7. ? Left anterior accessory s aphenous vein incompetence. 8. ? Left incompetent perforat or vein. 9. ? Left varicose vein incomp etence. 10. ? Superficial and perforating vein time of incompetence is >500 ms and >1000 ms for deep vein incompetence. Narrative 11/25/2020 6:31 PM CDT Venous Competency Bilateral Order #: [id number] Study Notes? Dacia Mcclure on 11/24/2020 ??4:44 PM Name: ??Chiqui Duke ? Date: November 24, 2020 ? : 1995 Sex: female Arnol Cesar [facility] US ORDERABLES US VASCULAR - HIM SCAN (11/24/2020 12:00 AM CDT) Anatomical Region Laterality Modality Ultrasound Specimen (Source) Anatomical Location Collection Method / Collectio n Time Received Time / Laterality Volume 11/24/2020 Narrative This result has an attachment that is no t available. Provider Outside IMG US ORDERABLES documented in this encounter Visit Diagnoses Diagnosis Varicose veins of both lower extremities with pain Varicose veins of lower extremities with other complications documented in this encounter Care Teams Ocean Forwarder Relationship Specialty Start Date End Date Jonny Moralez PCP - General Family Medicine 11/23/20 11/23/20 [facility] [address] [place] [address] Arnol Cesar Assigned Heart and Vascular 11/21/20 [address] Provider [place] [address] documented as of this encounter
--- OUTSIDE RECORDS SUMMARY | 2022-05-11 14:15 | XMS_ITS | Encounter Summary ---
:1995 Author Organization [place] Address [address] [place] [address] Care Team Providers Name Role Phone Arnol Cesar Unavailable Jonny Moralez Primary Care Provider Encounter Details Date Type Department Care Team Description 02/11/2021 Travel Social History Tobacco Use Types Packs/Day Years Used Date Smoking Tobacco: Former Cigarettes 6 Quit : 07/09/2016 Smokeless Tobacco: Never Sex Assigned at Date Recorded Not on file COVID-19 Exposure Response Date Recorded In the last month, have you been in contact with No / Unsure 02/11/2021 6:35 AM CDT someone who was confirmed or suspected to have Coronavirus / COVID-19? documented as of this encounter Plan of Treatment Not on filedocumented as of this encounter Visit Diagnoses Not on filedocumented in this encounter Care Teams Field Staff Relationship Specialty Start Date End Date Jonny Moralez PCP - General Family Medicine 02/11/21 [facility] [address] [facility] [place] [address] Arnol Cesar Assigned Heart and Vascular 11/21/20 [address] [facility] [address] [place] [address] documented as of this encounter
--- OUTSIDE RECORDS SUMMARY | 2022-05-11 14:15 | XMS_ITS | Encounter Summary ---
:1995 Author Organization [place] Address [address] [facility] [place] [address] Care Team Providers Name Role Phone Arnol Cesar Unavailable Jonny Moralez Primary Care Provider Reason for Visit Reason Comments Nurse Visit purchased thigh high hose Encounter Details Date Type Department Care Team Description 02/11/2021 Office Visit [facility] Vein Nurse, Vein [place] icose veins of [facility] [place] bilateral lower [address] extremi ties with pain [address] (Primary Dx) [place] [address] Social History Tobacco Use Types [...] documented as of this encounter Progress Notes Anat Rivero, RN - 02/11/2021 7:45 AM CDT Patient purchased (via telephone on 02/10/21) 1 pair(s) of black, thigh high, open-toe, size 3 compression hose from the clinic today. Re-measured pt's ankle to be about 24.5cm (after her procedure, while lying down) and size 3 should fit more snug around her thigh compared to a size 4. Pt in agreement with plan. Informed patient all compression hose purchases are final. Anat Rivero, RN on 02/11/2021 at 7:21 AM documented in this encounter Plan of Treatment Not on filedocumented as of this encounter Visit Diagnoses Diagnosis Varicose veins of bilateral lower extrem ities with pain - Primary documented in this encounter Care Teams Utilization Specialist Relationship Specialty Start Date End Date Jonny Moralez PCP - General Family Medicine 02/11/21 [facility] [address] [place] [address] Arnol Cesar Assigned Heart and Vascular 11/21/20 [address] Provider [place] [address] documented as of this encounter
--- OUTSIDE RECORDS SUMMARY | 2022-05-11 14:15 | XMS_ITS | Encounter Summary ---
:1995 Author Organization [place] Address [address] [place] [address] Care Team Providers Name Role Phone Arnol Cesar Unavailable Jonny Moralez Primary Care Provider Encounter Details Date Type Department Care Team Description 02/14/2021 Travel Social History Tobacco Use Types Packs/Day [...] on filedocumented in this encounter Care Teams Science Manager Relationship Specialty Start Date End Date Jonny Moralez PCP - General Family Medicine 02/11/21 [facility] [address] [facility] [address] Arnol Cesar Assigned Heart and Vascular 11/21/[address] [facility] [address] Provider [place] [address] documented as of this encounter
--- OUTSIDE RECORDS SUMMARY | 2022-05-11 14:15 | XMS_ITS | Encounter Summary ---
:1995 Author Organization [place] Address [facility] [place] [address] Care Team Providers Name Role Phone Arnol Cesar Unavailable Reason for Referral Diagnostic Imaging Ultrasound (Routine) - Closed Specialty Diagnoses / Procedures Referred By Contact Refer red To Contact Diagnoses Varicose veins of bilateral lower extremities with pain Arnol Cesar Procedures US Lower Extremity Venous Duplex Left [address] [place] [address] Referral ID Status Reason Start Date Expiration Date Visits Requ ested Visits Authorized [id number] Closed 02/01/2021 02/01/2022 1 1 Encounter Details Date Type Department Care Team Description 02/01/2021 Orders Only [facility] Vein Arnol Cesar veins of Clinic Elissa Bullard bilateral lower [address] ex tremities with pain [address] (Primary Dx) [place] [address] [place] [address] [phone] Social History Tobacco Use Types Packs/Day Years Used Date Smoking Tobacco: Former Cigarettes 6 Quit : 07/09/2016 Smokeless Tobacco: Never Sex Assigned at Date Recorded Not on file documented as of this encounter Plan of [...] RVT Age: ??25 year old ? Reading : LARISSA ?? INDICATIONS: ?Post VNUS Closure ?? [...] calf. ?? Narrative 02/28/2021 12:05 PM CDT Lower Extremity Venous Duplex Left Order #: [id number] Study Notes? Dacia Mcclure on 02/28/2021 ??8:36 AM Name: ??Chiqui Duke ? Date: February 28, 2021 ?: 1995 Sex: female Arnol Cesar [facility] ORDERABLES documented in this encounter Visit Diagnoses Diagnosis Varicose veins of bilateral lower extrem ities with pain - Primary Varicose veins of bilateral lower extrem ities with pain documented in this encounter Care Teams Blood Bank Business Manager Relationship Specialty Start Date End Date Arnol Cesar Assigned Heart and Vascular 11/21/20 [address] Provider [place] [address] documented as of this encounter
--- OUTSIDE RECORDS SUMMARY | 2022-05-11 14:15 | XMS_ITS | Encounter Summary ---
:1995 Author Organization [place] Address [address] [place] [address]. [place] [address] Care Team Providers Name Role Phone Jonny Moralez Primary Care Provider Arnol Cesar Unavailable Encounter Details Date Type Department Care Team Description 11/23/2020 Travel Social History Tobacco Use Types Packs/Day [...] on filedocumented in this encounter Care Teams Correctional Supervisor Lieutenant Relationship Specialty Start Date End Date Jonny Moralez PCP - General Family Medicine 11/23/20 11/23/20 [facility] [address] [facility] [place] [address] Arnol Cesar Assigned Heart and Vascular 11/21/20 [address] Provider [place] [address] documented as of this encounter
--- OUTSIDE RECORDS SUMMARY | 2022-05-11 14:15 | XMS_ITS | Encounter Summary ---
:1995 Author Organization [place] Address [facility] [place] [address] Care Team Providers Name Role Phone Arnol Cesar Unavailable Reason for Visit Reason Onset Date Comments Vein Procedure 01/19/2021 Encounter Details Date Type Department Care Team Description 01/19/2021 Telephone [facility] Vein [facility] Vein Procedure [facility] [place] [address] [place] [address] [address] [place] [id number] [phone] Social History Tobacco Use Types Packs/Day Years Used Date Smoking Tobacco: Former Cigarettes 6 Quit : 07/09/2016 Smokeless Tobacco: Never Sex Assigned at Date Recorded Not on file documented as of this encounter Miscellaneous Notes Telephone Encounter - Wanda Miguel MA - 02/04/2021 12:04 PM CDT On day of surgery, patient will like to purchase 1 pair(s) of black, thigh high, open-toe, size 5 compression hose from the clinic. Informed patient all compression hose purchases are final. A pair was saved for pt at the back of the clinic. SEVEN Muñoz on 02/04/2021 at 12:04 PM Telephone Encounter - Kadi Wray - 01/24/2021 2:48 PM CDT LM to schedule Telephone Encounter - Wanda Miguel MA - 01/19/2021 4:28 PM CDT Pt had a ultrasound results video visit with Dr. Cesar on 11/15/20. She was recommended surgery, but has not heard back from anyone since. Please call her for an update. She was also given your direct line. documented in this encounter Plan of Treatment Not on filedocumented as of this encounter Visit Diagnoses Not on filedocumented in this encounter Care Teams Steward/Stewardess Third Class Relationship Specialty Start Date End Date Arnol Cesar Assigned Heart and Vascular 11/21/20 [address] Provider [place] [address] documented as of this encounter
--- OUTSIDE RECORDS SUMMARY | 2022-05-11 14:15 | XMS_ITS | Encounter Summary ---
:1995 Author Organization [place] Address [facility] [place] [address] Care Team Providers Name Role Phone AbdielArnol pittman Unavailable Jonny Moralez Primary Care Provider Encounter Details Date Type Department Care Team Description 02/14/2021 Telephone [facility] Vascular Arnol Cesar [facility] [address] [place] [address] [place] [id number] [phone] Social History Tobacco Use Types Packs/Day Years [...] Notes Telephone Encounter - Arnol Cesar - 02/14/2021 12:44 PM CDT [facility]: Elissa Duke had closure of her incompetent greater saphenous vein and stab phlebectomies on 02/11/2021. She overall is done very well complaining of only mild soreness. 72-hour duplex this morning confirmed closure of the greater saphenous vein 14.6 mm from the junction with no DVT. She actually returned from work this afternoon and I spoke with her at work during her break. She iswearing her thigh-high compression. She should wear this for a minimum of 10 days with 10 days during the day but since her job does require that she standing may want to wear this for a longer period of time. Arnol Cesar MD documented in this encounter Plan of Treatment Not on filedocumented as of this encounter Visit Diagnoses Not on filedocumented in this encounter Care Teams Adobe Developer Relationship Specialty Start Date End Date Jonny Moralez PCP - General Family Medicine 02/11/21 [facility] [address] [place] [address] Arnol Cesar Assigned Heart and Vascular 11/21/20 [address] [facility] [address] Provider [place] [address] documented as of this encounter
--- OUTSIDE RECORDS SUMMARY | 2022-05-11 14:15 | XMS_ITS | Encounter Summary ---
:1995 Author Organization [place] Address [facility] [place] [address] Care Team Providers Name Role Phone Arnol Cesar Unavailable Reason for Referral Diagnostic Imaging Ultrasound (Routine) - Closed Specialty Diagnoses / Procedures Referred By Contact Refer red To Contact Diagnoses Varicose veins of right lower extremity with pain Arnol Cesar Procedures US Lower Extremity Venous Duplex Right [address] [place] [address] Referral ID Status Reason Start Date Expiration Date Visits Requ ested Visits Authorized [id number] Closed 01/26/2021 01/26/2022 1 1 Encounter Details Date Type Department Care Team Description 01/26/[address] [facility] Vein Arnol Cesar veins of Clinic Elissa Bullard right lower extremity [address] wi th pain (Primary Dx) [address] [place] [address] [place] [address] [phone] Social History Tobacco Use Types Packs/Day Years [...] distal calf. Narrative 02/14/2021 9:13 AM CDT Lower Extremity Venous Duplex Right Order #: [id number] Study Notes? Dacia Mcclure on 02/14/2021 ??8:55 AM Name: ??Chiqui Duke ? Date: February 14, 2021 ? : 1995 Sex: female Arnol Cesar [place] ORDERABLES documented in this encounter Visit Diagnoses Diagnosis Varicose veins of right lower extremity with pain - Primary Varicose veins of lower extremities with other complications Varicose veins of right lower extremity with pain Varicose veins of lower extremities with other complications documented in this encounter Care Teams Legal Examiner Relationship Specialty Start Date End Date Arnol Cesar Assigned Heart and Vascular 11/21/20 [address] Provider [place] [address] documented as of this encounter
--- OUTSIDE RECORDS SUMMARY | 2022-05-11 14:15 | XMS_ITS | Encounter Summary ---
:1995 Author Organization [place] Address [facility] [place] [address] Care Team Providers Name Role Phone Arnol Cesar Unavailable Jonny Moralez Primary Care Provider Reason for Visit Reason Comments Vein Procedure Encounter Details Date Type Department Care Team Description 02/11/2021 Office Visit [facility] ArsenioArnol [address] [place] [id number] Varicose veins of leg Vein Clinic [place] Nurse, Sh Vein with pain, right [address] (Primar y Dx) [address] [place] [address] Social History Tobacco Use Types [...] Sign Reading Time Taken Comments Blood Pressure 111/72 02/11/2021 8:17 AM CDT Pulse 73 02/11/2021 8:17 AM CDT Temperature - - Respiratory Rate - - Oxygen Saturation 100% 02/11/2021 8:17 AM CDT Inhaled Oxygen Concentration - - Weight - - Height - - Body Mass Index - - documented in this encounter Progress Notes Anat Rivero, RN - 02/11/2021 7:30 AM CDT Pre-procedure Nursing Note Chiqui Duke presents to clinic for Vein Procedure . Senior Investigator/Person Responsible for Patient: Ramon gupta) Prophylactic Medication:N/A Sedation Medication: Ativan, 3mg , Time Taken: 0639 and Clonidine, 0.1mg, Time Taken: 0639 Compression Stockings: Picked up in clinic today The procedure is being performed on RLE. Patient understanding of procedure matches consent? YES Patient's pre-procedure medications verified by JIMBO Coppola. Anat Rivero RN on 02/11/2021 at 6:42 AM Arnol Cesar - 02/11/2021 7:30 AM CDTAssociated Order(s): Gilbert Closure; Phlebectomy Post-Procedure Diagnose(s): Varicose veins of leg with pain, right Images from the original note were not included. Vein Clinic Procedure Note Preoperative diagnosis: 1. Painful right leg varicose veins 2. Incompetent right greater saphenous vein Post operative diagnosis: Same Procedure: 1. Radiofrequency ablation right greater saphenous vein from saphenofemoral junction to ankle. 2. Cosmetic stab phlebectomies right distal lateral thigh/medial calf/lateral ankle varicosities Preoperative medications: 3 mg ativan, 0.1 mg clonidine Gilbert Closure Date/Time: 02/11/2021 8:47 AM Performed by: Arnol Cesar Authorized by: Arnol Cesar Time out: Immediately prior to the procedure a time out was called Preparation: Patient was prepped and draped in usual sterile fashion 1st Assist: Vanessa Peña CST/CHET Extension Division Director: Anat Rivero RN Procedure: VNUS Procedure side: Right One Vein Patient tolerance: Patient tolerated the procedure well with no immediate complications Wrap/Hose: Wraps Phlebectomy Date/Time: 02/11/2021 8:47 AM Performed by: Arnol Cesar Authorized by: Arnol Cesar Procedure: Phlebectomies Type: Cosmetic Procedure side: Right Session: Full Operative description Indications: 25-year-old patient has developed significant painful varicosities primarily in the right medial calf and lateral ankle. This is associated with primarily with her second . 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 She has a markedly incompetent dilated greater saphenous vein from the saphenofemoral junction down to thedistal calf measuring 10.6 mm in the proximal thigh and 9.2 mm in the calf. Multiple varicosities come off primarily the medial calf area and is also lateral ankle varicosity. She has a large vein in the right groin area also noted. Marked reflux noted throughout the entire greater saphenous vein avera ging over 5000 ms. We felt that she benefit from complete closing entire greater saphenous vein aware that she may have some temporary permanent numbness in the distal greater saphenous nerve. Risks and benefits reviewed and the surface varicosities marked with her standing. She is quite thin. Procedure: Brought to our procedure room. Entire right leg and groin were prepped and draped in thispetite woman. Timeout was called and sites were identified. VNUS: Placed in reverse Trendelenburg. We identified the incompetent greater saphenous vein from thesaphenofemoral junction down to the ankle. The vein that she could palpate in the groin was a sidebranch coming off the common femoral vein into short for treatment for removal. We anesthetized the ankle and under ultrasound guidance entered the vein with with a needle followed by a guidewire a 7 Bulgarian sheath. Closure fast catheter was selected and flushed and passed through the sheath to the saphenofemoral junction. We did require some manipulation to get the sheath up to the junction and then withdrew this 2.38 cm and secured in position. Confirmed with the patient now in Trendelenburg. Tumescent solution injected initially from the knee to the groin and from the ankle to the knee under ultrasound guidance ensuring there was a minimal 1 cm between the sheath and the catheter. We then began the treatment sessions. There were four 7 cm segments treated with a dual treatment at120 ??C for 20 seconds in the thigh with ultrasound pressure being held and good visualization effect and no discomfort. Segments were treated with a single session with good visualization effect and no discomfort. Sheath and catheter removed. Documented patency of the common femoral vein at the saphenofemoral junction in the groin. Stab phlebectomy: With the patient still in Trendelenburg we anesthetized the marked sites right lateral distal thigh/anterior medial calf/lateral ankle. Using a microophthalmic blade and 25 stepladderincisions all varicosities removed. The left lateral ankle there were multiple feeding branches which were ligated with 3-0 Vicryl suture. Vaseline ointment was applied over all sites followed by ABD pads cast rolls and Hai bandage from the toes to the groin. Patient tolerated procedure well. Continuous blood pressure/pulse oximeter/pulse were monitored under my direct supervision very stable. EBL: Less than 5 mL mL Flowsheet Data 02/11/2021 Procedure Start Time: 7:36 AM Prep: Chloraprep Side: Right Tx Length (cm): RIGHT GSV 81.5 Junction (cm): RIGHT GSV 2.35 RF Cycles: RIGHT GSV 15 RF TX Time (Minutes): RIGHT GSV 5:00 # PHLEB Sites: RIGHT LE Sedation taken: Yes Pre Pt. Physical / Cognitive Limitations: WNL TOTAL Local anesthesia Injected (ml): 3.5 Max Volume Local Anesthesia (ml): 11 TOTAL Tumescent Injected volume (ml): 500 Max Volume Tumescent (ml): 572 Post Pt. Physical / Cognitive Limitations: WNL Procedure End Time: 8:38 AM D/C Instructions given, states readiness to [...] Procedure Name Priority Date/Time Associated Comments Diagnosis RI SC PHLEBECTOMY PER Routine 02/11/2021 8:47 AM Varicose vein s of Results for this QUADRANT CDT leg with pain, procedure are in right the results section. RI SC ENDOVENOUS Routine 02/11/2021 8:47 AM Varicose veins of Results for this ABLAT THERAPY INCOMP CDT leg with pain, proce dure are in VEIN, INCL GUIDANCN right the resu lts section. documented in this encounter Results RI SC PHLEBECTOMY PER QUADRANT (02/11/2021 8:47 AM CDT) Narrative Arnol Cesar - 02/11/2021 8:47 AM CDT Arnol Cesar ? 02/11/2021 ??8:48 AM Phlebectomy Date/Time: 02/11/2021 8:47 AM Performed by: Arnol Cesar Authorized by: Arnol Cesar Procedure: ??Phlebectomies Type: ??Cosmetic Procedure side: ??Right Session: ??Full Arnol Cesar PROCEDURE/MINOR SURGICAL ORD ERABLES RI SC ENDOVENOUS ABLAT THERAPY INCOMP VEIN, INCL GUIDANCN (02/11/2021 8:47 AM CDT) Narrative Arnol Cesar - 02/11/2021 8:47 AM CDT Arnol Cesar ? 02/11/2021 ??8:48 AM Ela Closure Date/Time: 02/11/2021 8:47 AM Performed by: Arnol Cesar Authorized by: Arnol Cesar Time out: Immediately prior to the proce dure a time out was called ?? Preparation: Patient was prepped and chicho ped in usual sterile fashion ?? 1st Assist: ??Vanessa Peña, JACKIE/CSFA Extension Division Director: ??Anat Rivero, hris analyst: ??VNUS Procedure side: ??Right One Vein ?? Patient tolerance: ??Patient tolerated t he procedure well with no immediate complications Wrap/Hose: ??Wraps Arnol Cesar PROCEDURE/MINOR SURGICAL ORD ERABLES documented in this encounter Visit Diagnoses Diagnosis Varicose veins of leg with pain, right - Primary documented in this encounter Care Teams Asset Protection Manager Relationship Specialty Start Date End Date Jonny Moralez PCP - General Family Medicine 02/11/21 [facility] [address] [place] [address] Arnol Cesar Assigned Heart and Vascular 11/21/20 [address] [place] [id number] documented as of this encounter
--- OUTSIDE RECORDS SUMMARY | 2022-05-11 14:15 | XMS_ITS | Encounter Summary ---
:1995 Author Organization [place] Address [address] [facility] [place] [address] Care Team Providers Name Role Phone Arnol Cesar Unavailable Reason for Visit Reason Comments RECHECK Oni venous comp U/S 11/23 130 0. Video F/U 11/26 1100 w/ WRO. Encounter Details Date Type Department Care Team Description 11/26/2020 Virtual Visit [facility] Arnol Cesar Varicos e veins of Vein Clinic Boiselalo [place] bilateral lower [address] ex tremities with pain [address] (Primary Dx) [place] [address] [place] [address] Social History Tobacco Use Types Packs/Day Years [...] this encounter Progress Notes Arnol Cesar - 11/26/2020 11:00 AM CDT [facility]: [place] Duke was recently seen in the clinic for evaluation of bilateral varicose veins and spider veins with occasional leg swelling. Initially in the right medial calf and left proximal anterior thigh associated with her pregnancies in 2018. No evidence of DVT. 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 Had one compression intermittently but not on a constant basis until her recent visit on 11/15/2020. Exam with 4 to 5 mm right mid medial calf varicose veins. 3 to 4 mm varicosities left proximal thigh. We performed a venous duplex ultrasound. No DVT. Right common femoral vein was incompetent but the rest of the deep veins were normal. Left common femoral and proximal superficial femoral vein were incompetent but the rest of the deep veins were competent and of no clinical significance. On the right leg greater saphenous vein was dilated and incompetence from the saphenofemoral junction all the way down to the mid calf giving off varicosities in the proximal and mid calf. Diameter up to 10.5 mm in the distal thigh with a maximum reflux of 5840 ms and over 4200 ms in all other segments. Accessory and lesser saphenous veins were normal and small. On the left leg again the greater saphenous vein was quite dilated incompetent from the saphenofemoral junction all the way down to the ankle. Diameter of 10.1 mm at the distal thigh with a maximum reflux of 6467 ms. Accessory saphenous vein is also dilated at 7.1 mm incompetent with a reflux time of 4949 ms giving off the varicosities in the thigh. Multiple varicosities coming off the greater saphenous vein at the mid thigh/knee/proximal/mid/distal calf. Lesser saphenous vein is normal. There are 2 incompetent perforators on the right leg and 1 in the left ankle of no clinical significance. VIDEO CONFERENCE: I visited with Chiqui Duke via [facility]. She has been wearing compression but has ongoing issues. I discussed the duplex findings. No significant deep venous insufficiency despite the proximal common femoral and SFV incompetence with the rest of the SFV and popliteal valves are working well. Both greater saphenous veins are incompetent with marked dilatation significant reflux causing the marked Varicosities in the right and left thigh and calf varicosities in the left. We again discussed the treatment options. If she decides to proceed with surgery which is likely thesituation due to her job and age. Her right leg is more bothersome and we recommend closing entire right greater saphenous vein from the saphenofemoral junction down to the ankle or that she may have some temporary permanent numbness of the greater saphenous nerve along with cosmetic stab phlebectomies on the calf. I do not feel the incompetent perforators need to be treated. This would be performed under tumescent anesthetic with a light oral sedation as an outpatient in the office. She would be able to return to work in several days but would be wearing her compression thigh-high stockings for a minimum of 2 weeks and perhaps longer due to her job requirements. When she is recovered from the right surgery a very similar procedure will be performed on the left and this was also discussed. Spent 12 minutes on the video conference today ending at 1130 hrs. Arnol Cesar MD Arnol Cesar - 11/26/2020 11:00 AM CDT Chiqui is a 25 year old who is being evaluated via a billable video visit. How would you like to obtain your AVS? Mail a copy If the video visit is dropped, the invitation should be resent by: Text to cell phone: [phone] Will anyone else be joining your video visit? No Video Start Time: 1115 {Video-Visit Details Type of service: Video Visit Video End Time:1130 Originating Location (pt. Location): Home Distant Location (provider location): [facility] [place] Platform used for Video Visit: Doximity documented in this encounter Plan of Treatment Not on filedocumented as of this encounter Visit Diagnoses Diagnosis Varicose veins of bilateral lower extrem ities with pain - Primary documented in this encounter Care Teams Employment Assistant Relationship Specialty Start Date End Date Arnol Cesar Assigned Heart and Vascular 11/21/20 [address] Provider [place] [id number] documented as of this encounter
--- OUTSIDE RECORDS SUMMARY | 2022-05-11 14:15 | XMS_ITS | Encounter Summary ---
:1995 Author Organization [place] Address [facility] [place] [address] Care Team Providers Name Role Phone Arnol Cesar Unavailable Jonny Moralez Primary Care Provider Reason for Visit Reason Onset Date Comments Preop Call 02/02/2021 Encounter Details Date Type Department Care Team Description 02/02/2021 Telephone [facility] Dario Cesar Preop Call Clinic Dorothy [address] [place] [place] [address] [address] [place] [id number] [phone] Social History Tobacco Use Types Packs/Day Years [...] this encounter Miscellaneous Notes Telephone Encounter - Anat Rivero RN - 02/04/2021 12:43 PM CDT Faxed completed Certificate of Medical Necessity form back to [facility] at [phone]. Fax confirmed. KLAUDIA Houser, RN [facility] Vein Clinic Telephone Encounter - Anat Rivero RN - 02/02/2021 2:46 PM CDT Images from the original note were not included. Vein Clinic Preoperative Nurse Call Procedure: Right leg VNUS closure GSV(med nec) and 1 unit phlebs($) Date: Sunday 02/11 Surgeon: Dr. Cesar Time: 729 Check in time: 629 Called and spoke to patient. Informed patient: when to check in (629) to sign consent, to bring their preop medications in their original bottle with them (3mg ativan, 0.1mg clonidine (2 sets)). Patient will take the medications after signing the consent to the procedure. Instructed patient to wear amask, wear loose-fitting comfortable clothing, and bring their compression hose. Ensured patient hasa four horse hitch driver/someone that will be responsible for them the rest of the day. Visitors are allowed in the clinic, but they would need to stay in an exam room or wait in the parking lot or leave. If four horse hitch driver does leave, IF POSSIBLE, we ask that they do not go more than 15-20 mins from our clinic. Once procedure is completed, we will keep patient in recovery for 30-45 mins, and call four horse hitch driver with aftercare instructions. Informed patient, that if possible, they should sit in the backseat to elevate their leg on the ride home. Pt needs thigh-high compression hose for procedure. Status of the hose: patient's Rx was faxed to [facility] (see previous telephone note) and she should receive them in time. Special COVID-19 instructions: Patient aware they need to wear a mask to our clinic and during theirprocedure. Patient aware that their four horse hitch driver can come in with them, but would need to stay in an exam room during the procedure or wait in the parking lot or leave. Nurse will call pt's four horse hitch driver when procedure is over. Patient understands that if they have any of the following symptoms (fever, cough, shortness of breath, rash), they need to notify us immediately to cancel their procedure and will have to reschedule for a later date. Pt in agreement with plan and had no further questions at this time. Anat Rivero RN 02/02/2021 documented in this encounter Plan of Treatment Not on filedocumented as of this encounter Visit Diagnoses Not on filedocumented in this encounter Care Teams Tower Supervisor Relationship Specialty Start Date End Date Jonny Moralez PCP - General Family Medicine 02/11/21 [facility] [address] [place] [address] Arnol Cesar Assigned Heart and Vascular 11/21/20 [address] [place] [id number] documented as of this encounter
--- OUTSIDE RECORDS SUMMARY | 2022-05-11 14:15 | XMS_ITS | Encounter Summary ---
:1995 Author Organization [place] Address [facility] [place] [address] Care Team Providers Name Role Phone Unavailable Primary Care Provider Unavailable Reason for Referral Diagnostic Imaging Ultrasound (Routine) - Closed Specialty Diagnoses / Procedures Referred By Contact Refer red To Contact Diagnoses Varicose veins of both lower extremities with pain Arnol Cesar Procedures US Venous Competency Bilateral [address] [place] [id number] Referral ID Status Reason Start Date Expiration Date Visits Requ ested Visits Authorized [id number] Closed 11/15/2020 11/15/2021 1 1 Reason for Visit Reason Comments Consult BVV w/pain and swelling, no previous surgeries Encounter Details Date Type Department Care Team Description 11/15/2020 Office Visit [facility] Arnol Cesar Varicose veins of both Vein Clinic Elissa Bull[place] lower extremities with [address] pa in (Primary Dx) [address] [place] [id number] [place] [address] [phone] Social History Tobacco Use Types Packs/Day Years [...] documented as of this encounter Progress Notes FiliabnerArnol pittman - 11/15/2020 4:00 PM CDT [facility]: Elissa Duke comes to see us today for evaluation of her bilateral varicose veins and spider veins along with occasional leg swelling. She did apparently have an ultrasound at [facility] in 2017 that ruled out a DVT. Varicose veins started in her right medial calf and left proximal anterior thigh with her first delivering in December 2017. She did wear compression during most of the . Did have pain in her right calf which led to the ultrasound that was negative. Her veins did improve somewhat after the delivery. However she became again and delivered in July 2019. She wore compression on both her legs during the entire but again she stillhad ongoing swelling particular in the calfs and discomfort. Much more uncomfortable in the right medial calf varicosities in the left thigh. Has not worn compression for the last several months. (Primarily since it did not help during her pregnancies). No history of phlebitis/DVT/ulceration/bleeding. 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 Her job requires that she is standing all day by the end of the day her legs are swollen and quite uncomfortable. PMH: Medications: Wellbutrin 300 mg daily Medical: History of depression and anxiety Former smoker quitting 2014 ROS: Unremarkable except for varicose veins. Depression has been well controlled with her medications that she started in approximately 2049 but held during her pregnancies. FMH: Mother with some varicose veins but did not require surgery. Exam: Very pleasant petite young woman. Alert and appropriate. Normal affect. Glasses. Chest= clear Cardiovascular= regular rate Extremities= mild swelling of both calf And ankles distally. Normal skin. +3 palpable DP pulses bilaterally 4 to 5 mm right mid medial calf varicose veins. 3 to 4 mm varicosities over the left proximal thigh Impression: Symptomatic right medial calf and left thigh varicose veins. Associate with . No evidence of deep venous insufficiency though this would be evaluated duplex ultrasound. I suspect that at least on the right she has incompetence of the greater saphenous vein causing these varicosities. On the left this perhaps is related to the accessory saphenous vein from location of the varicosities. She has done extensive over 2 years of compression therapy with her pregnancies and not helped as described above. We will perform a bilateral venous duplex ultrasound to look at the deep and superficial venous systems. Particular in the right leg if we do see incompetence of the greater saphenous vein and recommend closure the entire right greater saphenous vein along with cosmetic stab phlebectomies. I discussed the procedure with its risks and benefits and recovery and compression protocol along with duplex protocol with the patient. On the left side treatment will depend on the state of the superficial veins. It is isolated in the accessory saphenous vein only this could be removed as a cosmetic procedure at the same time of the right leg surgery. However if the greater saphenous vein is involved 2 separate procedures would be necessary and this was discussed. 30 minutes with patient today. Once the ultrasound has been completed we will call her on the video conference to discuss the findings and recommendations. VCSS Right=6 Left=5 CEAP: C3 Bilateral Arnol Cesar MD documented in this encounter Plan of Treatment Not on filedocumented as of this encounter Results US Venous Competency Bilateral (11/24/2020 4:44 PM CDT) Anatomical Region Laterality Modality Lower Extremity Ultrasound Specimen (Source) Anatomical Location Collection Method / Collectio n Time Received Time / Laterality Volume Impressions 11/25/2020 6:31 PM CDT ? Examined by: Janell Mcclure RVT Age: ??25 year old ? Reading : LARISSA ?? INDICATION: ??Varicose veins of bilatera [...] vein measuring 7.6 mm. A second incompetent club attendant (2.9 mm) is found 29 cm from [...] incompetence. 4. ? Right multiple incompeten t club attendant veins. 5. ? Right varicose vein incom [...] PM CDT Venous Competency Bilateral Order #: [id number] Study Notes? Dacia Mcclure on 11/24/2020 ??4:44 PM Name: ??Chiqui Duke ? Date: November 24, 2020 ? : 1995 Sex: female Arnol CASH US ORDERABLES documented in this encounter Visit Diagnoses Diagnosis Varicose veins of both lower extremities with pain - Primary Varicose veins of lower extremities with other complications Varicose veins of both lower extremities with pain Varicose veins of lower extremities with other complications documented in this encounter
--- OUTSIDE RECORDS SUMMARY | 2022-05-11 14:15 | XMS_ITS | Encounter Summary ---
:1993 Author Organization [facility] Address [facility] [place] [address] Care Team Providers Name Role Phone Arnol Cesar Unavailable Jonny Moralez Primary Care Provider Reason for Visit Reason Onset Date Comments Refill Request 02/02/2021 Encounter Details Date Type Department Care Team Description 02/02/2021 Refill M [facility] Vein Dario Cesar Refill Request Clinic [facility] [address] [place] [place] [address] [address] [place] [phone] Social History Tobacco Use Types Packs/Day Years [...] Primary documented in this encounter Care Teams Screener And Blender Operator Relationship Specialty Start Date End Date Jonny Moralez PCP - General Family Medicine 02/11/21 [facility] [address] [facility] [place] [address] Arnol Cesar Assigned Heart and Vascular 11/21/20 [address] Provider ION TERRY [id number] documented as of this encounter
--- OUTSIDE RECORDS SUMMARY | 2022-05-11 14:15 | XMS_ITS | Encounter Summary ---
:1993 Author Organization [facility] Address [address] [place] [address] Care Team Providers Name Role Phone Unavailable Primary Care Provider Unavailable Encounter Details Date Type Department Care Team Description 03/03/2005 Abstract [facility] [place] Viry Love [address] [place], [place] [phone] Social History Tobacco Use Types Packs/Day Years Used Date Smoking Tobacco: Never Assessed Sex Assigned at Date Recorded Not on file documented as of this encounter Plan of Treatment Not on filedocumented as of this encounter Visit Diagnoses Not on filedocumented in this encounter
--- OUTSIDE RECORDS SUMMARY | 2022-05-11 14:15 | XMS_ITS | Encounter Summary ---
:1995 Author Organization [place] Address [address] [place] [address]. [place] [address] Care Team Providers Name Role Phone Jonny Moralez A Primary Care Provider Jonny Moralez A Primary Care Provider Arnol Cesar Unavailable Encounter Details Date Type Department Care Team Description 10/11/2020 Medical Correspondence [facility] Scan, CLINIC REFERRAL Health Info [facility] Non-Provider [facility] [address] [place] [phone] Social History Tobacco Use Types Packs/Day Years [...] on filedocumented in this encounter Care Teams Punch Press Operator Relationship Specialty Start Date End Date Jonny Moralez PCP - General Family Medicine 10/14/20 10/14/20 [facility] [address] [place] [address] Jonny Moralez PCP - General Family Medicine 11/23/20 11/23/20 [facility] [address] [place] [address] Arnol Cesar Assigned Heart and Vascular 11/21/20 [address] Provider ION TERRY [id number] documented as of this encounter
--- OUTSIDE RECORDS SUMMARY | 2022-05-11 14:16 | XMS_ITS | Encounter Summary ---
:1995 Author Organization [facility] Address [address] [place] [address] Care Team Providers Name Role Phone Herbert Mcguire M.D. Primary Care Provider Encounter Details Date Type Department Care Team Description 10/08/2020 Orders Only [facility] Sa luca Devi M.D. [address] [place], [place] [phone] (Wo rk) Social History Tobacco Use Types Packs/Day Years Used Date Smoking Tobacco: Former Cigarettes Quit : 05/07/2017 Smokeless Tobacco: Never Alcohol Use Standard Drinks/Week Comments No 0 (1 standard drink = 0.6 oz pure alcoho l) Alcohol Habits Answer Date Recorded How often do you have a drink containing alcohol? Never 02/17/2019 How many drinks containing alcohol do you have on a typical day 1 or 2 12/31/2018 when you are drinking? How often do you have six or more drinks on one occasion? Ne delbert 12/31/2018 Social Isolation Answer Date Recorded In a typical week, how many times do you talk on Once a week 02/17/2019 the phone with family, friends, or neighbors? How often do you get together with friends or Once a week 12/31/2018 relatives? How often do you attend nondenominational or samaritan Never 12/31/2018 services? Do you belong to any clubs or organizations such as No 12/31/2018 nondenominational groups, unions, fraternal or athletic groups, or school groups? How often do you attend meetings of the clubs or Never 12/31/2018 organizations you belong to? Are you now , , , , Living wi th partner 02/17/2019 never or living with a partner? Physical Activity Answer Date Recorded On average, how many days per week do you engage in moderate to 1 day 02/17/2019 strenuous exercise (like walking fast, running, jogging, dancing, swimming, biking, or other activities that cause a light or heavy sweat)? On average, how many minutes do you engage in exercise at th is 20 min 02/17/2019 level? Stress Answer Date Recorded Do you feel stress - tense, restless, nervous, or anxious, o r Very much 02/17/2019 unable to sleep at night because your mind is troubled all the time - these days? Financial Resource Strain Answer Date Recorded How hard is it for you to pay for the very basics like Not v missy hard 12/31/2018 food, housing, medical care, and heating? Intimate Partner Violence Answer Date Recorded Within the last year, have you been afraid of your partner o r No 12/31/2018 ex-partner? Within the last year, have you been humiliated or emotionall y No 12/31/2018 abused in other ways by your partner or ex-partner? Within the last year, have you been kicked, hit, slapped, or No 12/31/2018 otherwise physically hurt by your partner or ex-partner? Within the last year, have you been raped or forced to have any No 12/31/2018 kind of sexual activity by your partner or ex-partner? Food Insecurity Answer Date Recorded Within the past 12 months, you worried that your food would Never true 12/31/2018 run out before you got money to buy more. Within the past 12 months, the food you bought just didn't N ever true 12/31/2018 last and you didn't have money to get more. Transportation Needs Answer Date Recorded In the past 12 months, has lack of transportation kept you f rom No 12/31/2018 medical appointments or from getting medications? In the past 12 months, has lack of transportation kept you f rom No 12/31/2018 meetings, work, or getting things needed for daily living? Education Answer Date Recorded What is the highest level of school you have GED or equivale nt 12/30/2018 completed or the highest degree you have received? Sex Assigned at Date Recorded Not on file documented as of this encounter Plan of Treatment Not on filedocumented as of this encounter Visit Diagnoses Not on filedocumented in this encounter Additional Health Concerns Assessment Noted Time PHQ-9 Depression Total Score: 10 12/29/2019 6:21 PM CD T documented as of this encounter Care Teams Fan Blade Aligner Relationship Specialty Start Date End Date Herbert Mcguire M.D. PCP - General Family Medicine 01/07/[address] [place] [phone] documented as of this encounter
--- OUTSIDE RECORDS SUMMARY | 2022-05-11 14:16 | XMS_ITS | Clinical Summary ---
:1995 Author Organization [facility] Address [address] [place] [address] Care Team Providers Name Role Phone Herbert Mcguire M.D. Primary Care Provider Source Comments Patient records contain information from all sites at [facility]. For routine questions regarding patient records, call [phone] during business hours, M-F 8:00 AM - 5:00 PM Central Time. Record requests for emergency care only can be directed to [phone] at any time.[facility] Allergies No known active allergies Medications Medication Sig Dispensed Refills Start Date End Date Status METOPROLOL TARTRATE ORAL Take by mouth as 0 Active needed. ondansetron ODT 0 04/30/2019 Act anoop (ZOFRAN-ODT) 4 mg disintegrating tablet albuterol (Ventolin HFA) Inhale 2 puffs 4 1 Inhaler 0 07/01/20 19 Active 90 mcg/actuation inhaler (four) times a day. Active Problems Problem Noted Date Examination Other Normal Second Tri [facility] 02/18/2019 Depression Major Recurrent Full Remission 01/24/2018 Asthma NOS 05/10/2017 Overview: Asthma NOS Resolved Problems Problem Noted Date Resolved Date Retained Placenta Without Hemorrhage 02/07/2018 05/14/2018 Overview: Added automatically from request for suzanna price [id number] Need Vaccine Immunization Rubella 01/02/20182017 Asthma 01/02/2018 01/07/2018 Delivery Vaginal Normal Spontaneous 01/02/2018 07/0 08/2017 39 Weeks Gestation 01/01/2018 01/02/2018 Encounter For Supervision Of Normal First Unspecif ied 05/22/2017 01/02/2018 Trimester Depression Anxiety 05/10/2017 01/24/2018 Overview: Depression Anxiety Labor Threatened Not Premature 8 Immunizations Name Administration Dates Next Due DTP / Hib 04/23/1995 DTaP (Infanrix, Tripedia) 09/29/1998, 04/23/1995, 01/11/1994 , 1993, 1993 HepB Pediatric/Adolescent 04/25/1994, 01/11/1994, 1993 IPV 09/29/1998, 04/23/1995, 03/14/1994, 1993 Influenza, Unspecified 04/10/2017 MCV4 (Menactra) 03/01/2005 MMR 01/04/2018, 09/29/1998, 10/11/1994 OPV 04/23/1995 Tdap 10/16/2017, 12/20/2005 influenza vaccine quad 04/09/2018 (FLUZONE/FLUARIX) (6 months and older)(PF) Social History Tobacco Use Types Packs/Day Years [...] 12/31/2018 relatives? How often do you attend jew or yarsanism Never 12/31/2018 services? Do you belong to any clubs or organizations such as No 12/31/2018 jew groups, unions, fraternal or athletic groups, or [...] Sign Reading Time Taken Comments Blood Pressure 119/70 02/18/2019 7:27 AM CDT Pulse 79 02/18/2019 7:27 AM CDT Temperature 36.9 ??C (98.4 ??F) 02/18/2019 7:27 AM CDT Respiratory Rate 16 02/18/2019 7:27 AM CDT Oxygen Saturation 100% 02/18/2019 7:27 AM CDT Inhaled Oxygen Concentration - - Weight 67.8 kg (149 lb 7.6 oz) 02/18/2019 7:27 AM CDT Height 175.3 cm (5' 9.02) 02/18/2019 7:27 AM CDT Body Mass Index 22.06 02/18/2019 7:27 AM CDT Plan of Treatment Health Maintenance Due Date Last Done Comments Hepatitis C Screening 1993 Pneumococcal vaccine (0-64 years) 1999 (1 - PCV) Asthma Action Plan 05/12/2017 Asthma Control Test Questionnaire 05/12/2017 Depression Monitoring (PHQ-9) 04/29/2020 12/29/2019 COVID-19 Vaccine (3 - Booster for 10/22/2020 08/27/2020, Moderna series) Influenza Vaccine (#1) 2022 04/09/2018, 04/10/2017 Cervical Cancer Screening 09/09/2022 09/10/2019, 05/10/2017 DTaP,Tdap,and Td Vaccines (8 - Td 05/27/2029 05/27/2019, , or Tdap) 12/20/2005, Additional history exists Hepatitis B Vaccines Completed 04/25/1994, 01/11/1994, 1993 Insurance Payer Benefit Plan / Subscriber ID Effective Dates Phone Addre ss Type Group CIGNA CIGNA OPEN [id number] 2017-Present [phone] [id number] PPO ACCESS PLUS JESI GUILLORY [id number] Advance Directives For more information, please contact: [phone] Latest Code Status on File Code Status Date Activated Date Inactivated Comments Full Code 02/07/2018 11:42 AM 02/07/2018 8:17 PM Question Answer Comments Full Code: Discussed Code Status History Code Status Date Activated Date Inactivated Comments Full Code 01/02/2018 8:26 AM 01/04/2018 1:53 PM Question Answer Comments Full Code: Discussed Full Code 01/02/2018 8:26 AM 01/02/2018 8:26 AM Question Answer Comments Full Code: Discussed Care Teams Digital Marketing Intern Relationship Specialty Start Date End Date Herbert Mcguire M.D. PCP - General Family Medicine 01/07/[address] [place] [address] [phone]
--- OUTSIDE RECORDS SUMMARY | 2022-05-11 14:16 | XMS_ITS | Encounter Summary ---
:1995 Author Organization [facility] Address [address] [place] [address] Care Team Providers Name Role Phone Herbert Mcguire M.D. Primary Care Provider Reason for Visit Outpatient (Routine) - Canceled Specialty Diagnoses / Procedures Referred By Contact Refer red To Contact Diagnoses Bunion Left Marty Bauman, D.P.MGermaine [facility] Procedures [place] Fluoro Less Than [address] [place] [phone] Referral ID Status Reason Start Date Expiration Date Visits V isits Requested Authorized [id number] Canceled 04/12/2021 04/12/2022 1 1 Encounter Details Date Type Department Care Team Description 04/12/2021 Hospital Encounter Department of Radiology Eloy Bauman [place] [facility] [place] [facility] [address] [address] [place], [place] [phone] (Wo rk) Social History Tobacco Use Types [...] 12/31/2018 relatives? How often do you attend sikh or jewish Never 12/31/2018 services? Do you belong to any clubs or organizations such as No 12/31/2018 sikh groups, unions, fraternal or athletic groups, or [...] minutes do you engage in exercise at is 20 min 02/17/2019 level? Stress Answer [...] on file documented as of this encounter Medications at Time of Discharge Medication Sig Dispensed Refills Start Date End Date albuterol (Ventolin HFA) 90 Inhale 2 puffs 4 1 Inhaler 0 mcg/actuation inhaler (four) times a day. METOPROLOL TARTRATE ORAL Take by mouth as 0 needed. ondansetron ODT (ZOFRAN-ODT) 0 019 4 mg disintegrating tablet documented as of this encounter Plan of Treatment Not on filedocumented as of this encounter Visit Diagnoses Diagnosis Bunion Left documented in this encounter Additional Health Concerns Assessment Noted Time PHQ-9 Depression Total Score: 10 12/29/2019 6:21 PM CD T documented as of this encounter Care Teams Asphalt Distributor Tender Relationship Specialty Start Date End Date Herbert Mcguire M.D. PCP - General Family Medicine 01/07/[address] [place] [phone] documented as of this encounter
--- OUTSIDE RECORDS SUMMARY | 2022-05-11 14:16 | XMS_ITS | Encounter Summary ---
:1995 Author Organization [facility] Address [address] [place] [address] Care Team Providers Name Role Phone Herbert Mcguire M.D. Primary Care Provider Reason for Referral Specialty Diagnoses / Procedures Referred By Contact Refer red To Contact Herbert Mcguire M. D. [address] [phone] Referral ID Status Reason Start Date Expiration Date Visits Requ ested Visits Authorized AROUND FACILITATOR Encounter Details Date Type Department Care Team Description 06/02/2021 [facility] Herbert Mcguire M.D. [address] [place] [phone] (Wo rk) Social History Tobacco Use Types [...] 12/31/2018 relatives? How often do you attend baptism or holiness Never 12/31/2018 services? Do you belong to any clubs or organizations such as No 12/31/2018 baptism groups, unions, fraternal or athletic groups, or school groups? How often do you attend meetings of the clubs or Never 12/31/2018 organizations you belong to? Are you now , , , , Living wi partner 02/17/2019 never or living with a [...] as of this encounter Plan of Treatment Scheduled Referrals Name Type Priority Associated Order Schedule Diagnoses Covid immunization Outpatient Referral Routine Ex pected: office visit Booster 021 (Approximate), Expires: 06/02/2022 documented as of this encounter Visit Diagnoses Not on filedocumented in this encounter Additional Health Concerns Assessment Noted Time PHQ-9 Depression Total Score: 10 12/29/2019 6:21 PM CD T documented as of this encounter Care Teams Traffic Court Magistrate Relationship Specialty Start Date End Date Herbert Mcguire M.D. PCP - General Family Medicine 01/07/[address] [place] [phone] documented as of this encounter
--- OUTSIDE RECORDS SUMMARY | 2022-05-11 14:16 | XMS_ITS | Encounter Summary ---
:1995 Author Organization [facility] Address [address] [place] [address] Care Team Providers Name Role Phone Herbert Mcguire M.D. Primary Care Provider Encounter Details Date Type Department Care Team Description 09/10/2021 Lab Department of Herbert Montemayor Pr eprocedural Lab Exam [facility], in [address] [address] [place] [address] [facility] [phone] Social History Tobacco Use Types Packs/Day Years [...] How often do you attend baptism or anglican Never 12/31/2018 services? Do you belong to [...] Name Priority Date/Time Associated Diagnosis Comme nts SARS CORONAVIRUS-2 Routine 09/10/2021 10:59 Preprocedural Lab Exam Results for this RNA, V AM POWER PROJECT MANAGER procedure are i n the results section. documented in this encounter Results SARS Coronavirus-2 RNA, V Asymptomatic (09/10/2021 10:59 AM POWER PROJECT MANAGER) [facility] Method Time Signature SARS-CoV-2 Swab, 09/11/2021 [facility] Specimen Nasopharynx 9:02 AM POWER PROJECT MANAGER Source SARS CoV-2 Undetected Undetected 09/11/2021 MKTO RNA, TMA 9:02 AM POWER PROJECT MANAGER Comment: SARS-CoV-2 RNA absent. This result does not rule out COVID-19 in the patient, as the sensitivity of the test depends o n the timing of the specimen collection and the quality of the specim en. Result should be correlated with patient's history and clinical presentat ion. ----ADDITIONAL INFORMATION---- This molecular amplification test was pe rformed using the Aptima SARS-CoV-2 assay ([employer] on the Kidaros tem under emergency use authorization (EUA) by the U.S. Food and Drug Administ ration. Fact sheets for this EUA assay can be fo und at the following links: For Healthcare Providers: https://www.fd a.gov/media/120694/download For Patients: https://www.fda.gov/media/ 143784/download Specimen Anatomical Collection Method Collection Time Receive d Time (Source) Location / / Volume Laterality Varies 09/10/2021 10:59 09/11/2021 5:19 (Nasopharynx) AM POWER PROJECT MANAGER AM POWER PROJECT MANAGER Herbert Mcguire M.D. LAB MICROBIOLOGY - GENERAL O RDERABLES Performing Organization Address City/State/ZIP Code Phon e Number [facility]- [address] [place] [id number] [place] [address] System in [address] documented in this encounter Visit Diagnoses Diagnosis Preprocedural Lab Exam documented in this encounter Additional Health Concerns Infection Onset Date Last Indicated Resolved Time COVID19 Pending 09/09/2021 09/10/2021 09/11/2021 9:03 AM POWER PROJECT MANAGER Assessment Noted Time PHQ-9 Depression Total Score: 10 12/29/2019 6:21 PM CD T documented as of this encounter Care Teams Neonatal Intensive Care Nurse Relationship Specialty Start Date End Date Herbert Mcguire M.D. PCP - General Family Medicine 01/07/[address] [place] [phone] documented as of this encounter
--- OUTSIDE RECORDS SUMMARY | 2022-05-11 14:16 | XMS_ITS | Encounter Summary ---
:1993 Author Organization [facility] Address [address] [place] [address] Care Team Providers Name Role Phone Herbert Mcguire M.D. Primary Care Provider Reason for Visit Outpatient (Routine) - Canceled Specialty Diagnoses / Procedures Referred By Contact Refer red To Contact Diagnoses Bunion Right Marty Bauman, D.P.MGermaine [facility] Procedures [place] Fluoro Less Than [address] [place] [phone] Referral ID Status Reason Start Date Expiration Date Visits V isits Requested Authorized [id number] Canceled 09/13/2021 09/13/2022 1 1 Encounter Details Date Type Department Care Team Description 09/13/2021 Hospital Encounter Department of Radiology Eloy Bauman Bunion Right in [facility] Herman victoria D.P.M. [address] [phone] [place], [place] [phone] Social History Tobacco Use Types Packs/Day Years [...] 12/31/2018 relatives? How often do you attend quaker or holiness Never 12/31/2018 services? Do you belong to any clubs or organizations such as No 12/31/2018 quaker groups, unions, fraternal or athletic groups, or [...] of this encounter Visit Diagnoses Diagnosis Bunion Right documented in this encounter Additional Health Concerns Assessment Noted Time PHQ-9 Depression Total Score: 10 12/29/2019 6:21 PM CD T documented as of this encounter Care Teams Splunk Architect Relationship Specialty Start Date End Date Herbert Mcguire M.D. PCP - General Family Medicine 01/07/[address] [place] [phone] documented as of this encounter
--- OUTSIDE RECORDS SUMMARY | 2022-05-11 14:17 | XMS_ITS | Encounter Summary ---
:1993 Author Organization [facility] Address [address] [place] [address] Care Team Providers Name Role Phone Herbert Mcguire M.D. Primary Care Provider Reason for Visit Reason Comments Depression PHQ-9 sent for follow-up. Encounter Details Date Type Department Care Team Description 05/04/2020 Clinical Communication Department of Marielle Mcguire (PHQ-9 [facility] for [address] follow-up.) Clinic, in [address] [phone] [facility] [phone] [place], [place] (Work) [phone] Social History Tobacco Use Types Packs/Day Years [...] 12/31/2018 relatives? How often do you attend temple or druze Never 12/31/2018 services? Do you belong to any clubs or organizations such as No 12/31/2018 temple groups, unions, fraternal or athletic groups, or [...] this encounter Miscellaneous Notes Telephone Encounter - Cindy Nolan - 05/04/2020 12:16 PM CDT PHQ-9 sent for follow-up. documented in this encounter Plan of Treatment Not on filedocumented as of this encounter Visit Diagnoses Not on filedocumented in this encounter Additional Health Concerns Assessment Noted Time PHQ-9 Depression Total Score: 12/29/2019 6:21 PM CD T documented as of this encounter Care Teams Production Underwriter Relationship Specialty Start Date End Date Herbert Mcguire M.D. PCP - General Family Medicine 01/07/[address] [place] [phone] documented as of this encounter
--- OUTSIDE RECORDS SUMMARY | 2022-05-11 14:17 | XMS_ITS | Encounter Summary ---
:1995 Author Organization [facility] Address [address] [place] [address] Care Team Providers Name Role Phone Herbert Mcguire M.D. Primary Care Provider Reason for Visit Reason Comments URI Cough, runny nose, chills, s weats, Lost voice, Sore throat, Headache. Symptoms started sunday. Appointment Request (Routine) - Closed Specialty Diagnoses / Procedures Referred By Contact Refer red To Contact Family Medicine Referral ID Status Reason Start Date Expiration Date Visits Requ ested Visits Authorized [id number] Closed 06/13/2018 06/13/2019 1 Encounter Details Date Type Department Care Team Description 06/13/2018 Office Visit Department of Family Kisha North, In [facility] Upper Medicine, [place] CUFF SLITTER, C.N.P., Resp iratory (Primary Clinic, in Kin Saxena.N.P. Dx) [address] [phone] Social History Tobacco Use Types Packs/Day [...] How often do you attend quaker or adventist Never 12/31/2018 services? Do you belong to [...] pay for the very basics like Not charisse missy hard 12/31/2018 food, housing, medical care, [...] or getting things needed for daily living? Sex Assigned at Date Recorded Not on file documented as of this encounter Last Filed Vital Signs Vital Sign Reading Time Taken Comments Blood Pressure 126/77 06/13/2018 10:11 AM MASTERCAM PROGRAMMER Pulse 90 06/13/2018 10:11 AM MASTERCAM PROGRAMMER Temperature 36.9 ??C (98.4 ??F) 06/13/2018 10:11 AM MASTERCAM PROGRAMMER Respiratory Rate 18 06/13/2018 10:11 AM MASTERCAM PROGRAMMER Oxygen Saturation 98% 06/13/2018 10:11 AM MASTERCAM PROGRAMMER Inhaled Oxygen Concentration - - Weight 63.7 kg (140 lb 6.9 oz) 06/13/2018 10:11 AM MASTERCAM PROGRAMMER Height - - Body Mass Index 20.73 05/14/2018 12:43 PM MASTERCAM PROGRAMMER documented in this encounter Progress Notes Kisha North, DIDIER, C.N.P., D.N.P. - 06/13/2018 10:15 AM CST SUBJECTIVE CHIEF COMPLAINT / REASON FOR VISIT Chiqui Duke is a 22 y.o. female who presents for evaluation of URI (Cough, runny nose, chills, sweats, Lost voice, Sore throat, Headache. Symptoms started sunday. ). HISTORY OF PRESENT ILLNESS Chiqui is a pleasant 22 y.o. female, with a history of asthma, that presents to the clinic today forevaluation of upper respiratory symptoms - chills, sweats, hoarse voice, sore throat, headaches, runny nose and cough for the past 3 days. She has tried rxzi-inn-inrmadk DayQuil/NyQuil, ibuprofen, and throat lozenges with some improvement in symptoms. She was also recently treated for acute pharyngitis about a month ago with a course of Augmentin. She reports these symptoms are different. She did recently travel to [place] when symptoms started. She denies any ill contacts. She has a 4-month-old son but is not . The following portions of the patient's history were reviewed and updated as appropriate: allergies,current medications, family history, medical history, social history, surgical history and problem list. REVIEW OF SYSTEMS A brief review of systems was negative except for that mentioned in the history of present of illness. Current Outpatient Medications Medication Sig ??? acetaminophen (TYLENOL) 325 mg tablet Take 325 mg by mouth every 6 (six) hours. Pt took 3 tabs earlier today ??? albuterol (VENTOLIN HFA) 90 mcg/actuation inhaler Inhale 2 puffs 4 (four) times a day. ??? buPROPion XL (WELLBUTRIN XL) 300 mg 24 hr tablet Take 1 tablet (300 mg total) by mouth every morning. ??? METOPROLOL TARTRATE ORAL Take by mouth as needed. ??? norgestimate-ethinyl estradiol (ORTHO-CYCLEN, 28,) 0.25- mg-35 mcg per tablet Take 1 tablet by mouth daily. No Known Allergies OBJECTIVE PHYSICAL EXAMINATION BP 126/77 (BP Location: Left arm, Patient Position: Sitting, Cuff Size: Regular) Pulse 90 Temp 36.9 ??C (Temporal) Resp 18 Wt 63.7 kg SpO2 98% ? No BMI 20.73 kg/m?? Body massindex is 20.73 kg/m??. General: Patient is in no distress. Capable of full communication without difficulty. Patient is polite and cooperative. HEENT: Normocephalic. EOMI, PERRL, Canals patent, TMs normal. Nasal turbinates are erythematous and swollen bilaterally. Oropharynx without lesion of mucosa. Pharyngeal rises symmetrically without exudate. Neck: Supple. No nodes. Heart: Regular rate and rhythm. No murmurs, gallops or rubs noted. Lungs: Clear to auscultation bilaterally. No expiratory wheeze. No accessory muscles of respiration noted. Skin: No rashes noted. Neuro: Alert and oriented x3, nonfocal, moving all 4 extremities. CN II-XII grossly intact. Psych: Affect is appropriate. ASSESSMENT / PLAN ASSESSMENT/PLAN #1 Infection Upper Respiratory Given the length of time with symptoms, I suspect viral infection at this time. I did offer a burst of prednisone for symptoms however patient declines today. She will continue oicl-fkf-njeofhz remedies for symptoms, push plenty of fluids and rest. If symptoms persist over the next couple days, she will contact the clinic and we can consider a Z-Tomás at that time. Patient was instructed to present urgently to the clinic/ER if symptoms worsen or fail to improve over the next several days. Follow-up otherwise as mentioned above. Plan was discussed with patient and is in agreement with plan. All questions were answered, side effects of any/all new medications were discussed. Patient left in no acute distress. Ready to learn. No apparent learning barriers were identified. Learning preferences include listening. Explained diagnosis and treatment plan. Patient/Child/Caregiver expressed understanding of the content. Kisha North APRN, C.N.P., D.N.P. ERCAM PROGRAMMER documented in this encounter Plan of Treatment Not on filedocumented as of this encounter Visit Diagnoses Diagnosis Infection Upper Respiratory - Primary documented in this encounter Additional Health Concerns Assessment Noted Time PHQ-9 Depression Total Score: 16 04/23/2018 11:08 AM C DT documented as of this encounter Care Teams Student Driving Instructor Relationship Specialty Start Date End Date Herbert Mcguire M.D. PCP - General Family Medicine 01/07/[address] [place] [phone] documented as of this encounter
--- OUTSIDE RECORDS SUMMARY | 2022-05-11 14:17 | XMS_ITS | Encounter Summary ---
:1995 Author Organization [facility] Address [address] [place] [address] Care Team Providers Name Role Phone Herbert Mcguire M.D. Primary Care Provider Encounter Details Date Type Department Care Team Description 03/14/2018 Clinical Communication Department of Madeline Montemayor, Medicine, Kin Becerra M.D. [facility], in [address] [phone] Social History Tobacco Use Types Packs/Day [...] 12/31/2018 relatives? How often do you attend yazidi or quaker Never 12/31/2018 services? Do you belong to any clubs or organizations such as No 12/31/2018 yazidi groups, unions, fraternal or athletic groups, or [...] this encounter Miscellaneous Notes Telephone Encounter - Madeleine Leo L.P.N. - 03/16/2018 1:14 PM CDT A copy of this note mailed to patient. Telephone Encounter - Nelida Briggs L.P.N. - 03/14/2018 1:50 PM CDT Left message asking patient to return our call, regarding Dr. Mcguire's message. Telephone Encounter - Herbert Mcguire M.D. - 03/14/2018 1:00 PM CDT New prescription for Ortho tri-cyclen (without the lo) was sent to pharmacy. Please let me know how it goes for her over the next few months. Thanks much. documented in this encounter Plan of Treatment Not on filedocumented as of this encounter Visit Diagnoses Not on filedocumented in this encounter Additional Health Concerns Assessment Noted Time PHQ-9 Depression Total Score: 12 01/24/2018 5:43 PM CD T documented as of this encounter Care Teams Diamond Sawer Relationship Specialty Start Date End Date Herbert Mcguire M.D. PCP - General Family Medicine 01/07/[address] [place] [phone] documented as of this encounter
--- OUTSIDE RECORDS SUMMARY | 2022-05-11 14:17 | XMS_ITS | Encounter Summary ---
:1995 Author Organization [facility] Address [address] [place] [address] Care Team Providers Name Role Phone Herbert Mcguire M.D. Primary Care Provider Reason for Visit Reason Onset Date Comments Depression 06/30/2019 PHQ9 Follow-up 2nd A ttempt Encounter Details Date Type Department Care Team Description 06/30/2019 Clinical Communication Department of Marielle Mcguire (PHQ9 Family MedicineHerbert M.D. Follow-up 2nd [address] Clinic, in [address] [phone] [facility] [phone] [place], [place] (Work) [phone] Social History Tobacco Use [...] 12/31/2018 relatives? How often do you attend rastafari or jew Never 12/31/2018 services? Do you belong to any clubs or organizations such as No 12/31/2018 rastafari groups, unions, fraternal or athletic groups, or [...] this encounter Miscellaneous Notes Telephone Encounter - Leslie Elizabeth - 06/30/2019 3:48 PM CST PHQ9 Follow-up 2nd Attempt CLEANER documented in this encounter Plan of Treatment Not on filedocumented as of this encounter Visit Diagnoses Not on filedocumented in this encounter Additional Health Concerns Assessment Noted Time PHQ-9 Depression Total Score: 13 07/18/2019 3:00 PM CS T documented as of this encounter Care Teams Academic Support Coordinator Relationship Specialty Start Date End Date Herbert Mcguire M.D. PCP - General Family Medicine 01/07/[address] [place] [phone] documented as of this encounter
--- OUTSIDE RECORDS SUMMARY | 2022-05-11 14:17 | XMS_ITS | Encounter Summary ---
:1995 Author Organization [facility] Address [address] [place] [address] Care Team Providers Name Role Phone Herbert Mcguire M.D. Primary Care Provider Reason for Visit Reason Onset Date Comments Asthma 02/05/2019 ACT/AMQ Encounter Details Date Type Department Care Team Description 02/05/2019 Clinical Communication Department of Ngozi Smith ma (ACT/AMQ) [place] [address] [facility] [place], [place] [phone] [place] [address] [facility] (Work) [place] [phone] Social History Tobacco Use Types Packs/Day [...] 12/31/2018 relatives? How often do you attend amish or yarsanism Never 12/31/2018 services? Do you belong to any clubs or organizations such as No 12/31/2018 amish groups, unions, fraternal or athletic groups, or [...] this encounter Miscellaneous Notes Telephone Encounter - dAe Smith - 02/05/2019 1:43 PM CDT Update ACT/AMQ at appt on 02-18 documented in this encounter Plan of Treatment Not on filedocumented as of this encounter Visit Diagnoses Not on filedocumented in this encounter Additional Health Concerns Assessment Noted Time PHQ-9 Depression Total Score: 16 04/23/2018 11:08 AM C DT documented as of this encounter Care Teams Environmental Professional Relationship Specialty Start Date End Date Herbert Mcguire M.D. PCP - General Family Medicine 01/07/[address] [place] [phone] documented as of this encounter
--- OUTSIDE RECORDS SUMMARY | 2022-05-11 14:17 | XMS_ITS | Encounter Summary ---
:1995 Author Organization [facility] Address [address] [place] [address] Care Team Providers Name Role Phone Herbert Mcguire M.D. Primary Care Provider Reason for Visit Reason Comments Follow-up cramping/bleeding Outpatient (Routine) - Closed Specialty Diagnoses / Procedures Referred By Contact Refer red To Contact Obstetrics and Dior Guerrero APRN, [facility] Gynecology C.N.P. [address] [place] [address] Referral ID Status Reason Start Date Expiration Date Visits Requ ested Visits Authorized [id number] Closed 02/06/2018 02/06/2019 1 1 Encounter Details Date Type Department Care Team Description 02/07/2018 Comprehensive Visit Department of Jona Clifford Retaine d Placenta Obstetrics and M.B.B.S. Without Hemor rhage Gynecology in [facility] [place], [place] (Primary Dx) [address] [place] [address] Social History Tobacco Use Types Packs/Day Years [...] 12/31/2018 relatives? How often do you attend yarsani or temple Never 12/31/2018 services? Do you belong to any clubs or organizations such as No 12/31/2018 yarsani groups, unions, fraternal or athletic groups, or [...] Sign Reading Time Taken Comments Blood Pressure 118/74 02/07/2018 10:09 AM CDT Pulse - - Temperature - - Respiratory Rate - - Oxygen Saturation - - Inhaled Oxygen Concentration - - Weight 68.1 kg (150 lb 2.1 oz) 02/07/2018 10:09 AM CDT Height - - Body Mass Index 21.98 09/23/2017 10:06 AM CDT documented in this encounter Progress Notes Jona Clifford M.D., M.B.B.S. - 02/07/2018 10:15 AM CDT Subjective: Patient is a 22 y.o. female who status post vaginal delivery on 01/02/2018 who is here with heavy vaginal bleeding for the past 5 weeks. She presented to the ER on 01/16/2018, for heavy bleeding. She was discharged home on cytotec. She notes that she continued to have vaginal bleeding. She had an ultrasound on 02/05/18 that shows a mass like expansion measuring 36 mm x 33 mm in the endometrial cavity. She denies vaginal discharge, fever. She is having significant cramping. Objective: Blood pressure 118/74, weight 68.1 kg, not currently . General: no acute distress Assessment/Plan: 1. Retained Products of Conception - I reviewed with the patient her history and recent ultrasound findings that are suggestions of retained products of conception. I discussed with her surgical management in the form of a Suction D&C. Patient has not had any food to eat or liquids to drink since 9 am. I reviewed the procedure including the risks such as that of hemorrhage, blood transfusion, perforation, Asherman's syndrome. retained tissue, hysterectomy and laparotomy. Patient agrees and is wanting to proceed with surgery. I spoke to the OR and the next available time is at 2 pm. I spoke to who is coupon collection clerk. He met with the patient and reviewed the plan. - Plan is procedure a Suction D&C today at 2 pm. ?? I spent a total of 20 minutes with the patient out of which 15 minutes were spent counseling and coordinating care documented in this encounter Plan of Treatment Not on filedocumented as of this encounter Visit Diagnoses Diagnosis Retained Placenta Without Hemorrhage Pos tpartum (HCC) - Primary documented in this encounter Additional Health Concerns Assessment Noted Time PHQ-9 Depression Total Score: 12 01/24/2018 5:43 PM CD T documented as of this encounter Care Teams Gas Plant Specialist Relationship Specialty Start Date End Date Herbert Mcguire M.D. PCP - General Family Medicine 01/07/[address] [place] [phone] documented as of this encounter
--- OUTSIDE RECORDS SUMMARY | 2022-05-11 14:17 | XMS_ITS | Encounter Summary ---
:[address] [facility] Address [address] [place] [address] Care Team Providers Name Role Phone Herbert Mcguire M.D. Primary Care Provider Reason for Visit Reason Comments Sore Throat Started , headache o n Sunday and having some neck pain Appointment Request (Routine) - Closed Specialty Diagnoses / Procedures Referred By Contact Refer red To Contact Family Medicine Referral ID Status Reason Start Date Expiration Date Visits Requ ested Visits Authorized [id number] Closed 05/14/2018 05/14/2019 1 Encounter Details Date Type Department Care Team Description 05/14/2018 Office Visit Department of Family Trinh Bright Phadelaney yngitis Acute (Primary Dx); Medicine, [place] Dinesh PGermaineADavid Herron Sore Throat; Clinic, in [address] Pain Neck [phone] [place] [address] [phone] (Work) [phone] Social History Tobacco Use Types Packs/Day Years [...] 12/31/2018 relatives? How often do you attend zoroastrian or gnosticist Never 12/31/2018 services? Do you belong to any clubs or organizations such as No 12/31/2018 zoroastrian groups, unions, fraternal or athletic groups, or [...] Sign Reading Time Taken Comments Blood Pressure 119/78 05/14/2018 12:43 PM SYNTHETIC FILAMENT EXTRUDER Pulse 92 05/14/2018 12:43 PM SYNTHETIC FILAMENT EXTRUDER Temperature 37.1 ??C (98.8 ??F) 05/14/2018 12:43 PM SYNTHETIC FILAMENT EXTRUDER Respiratory Rate 16 05/14/2018 12:43 PM SYNTHETIC FILAMENT EXTRUDER Oxygen Saturation - - Inhaled Oxygen Concentration - - Weight 64.5 kg (142 lb 3.2 oz) 05/14/2018 12:43 PM SYNTHETIC FILAMENT EXTRUDER Height 175.3 cm (5' 9.02) 05/14/2018 12:43 PM SYNTHETIC FILAMENT EXTRUDER Body Mass Index 20.99 05/14/2018 12:43 PM SYNTHETIC FILAMENT EXTRUDER documented in this encounter Progress Notes Trinh Bright P.A.-C. - 05/14/2018 1:00 PM CST SUBJECTIVE CHIEF COMPLAINT / REASON FOR VISIT Chiqui Duke is a 22 y.o. female who presents for evaluation of Sore Throat (Started , headache on Sunday and having some neck pain). HISTORY OF PRESENT ILLNESS Chiqui is a 22 year old female who presents today for evaluation of sore throat. The patient notes she has been ill with a sore throat for about 5 days. The throat is sore on the right side only and she has tender/swollen lymph nodes as well. The patient indicates she awoke 3 days ago with a headache and nausea. The nausea is still intermittent however the headache is gone. She developed neck pain later that same day the headache started and that has continued. She is wondering if she slept on the neck wrong. She has been using ibuprofen and topical heat over the neck. She denies any cough, nasal congestion, rhinorrhea, fevers or chills. The following portions of the patient's history were reviewed and updated as appropriate: allergies,current medications, medical history, social history and problem list. Brief Review of Systems: A brief review of systems was negative [...] mouth daily. No Known Allergies OBJECTIVE PHYSICAL EXAM BP 119/78 Pulse 92 Temp 37.1 ??C (Temporal) Resp 16 Ht 175.3 cm Wt 64.5 kg BMI 20.99 kg/m?? Body mass index is 20.99 kg/m??. GENERAL: Patient is in no distress. HEENT: Normocephalic. PERRL, Canals patent, bilateral TMs are nonerythematous and non-bulging. Nasalmucosa is nonerythematous and not boggy, turbinates bilaterally are normal in appearance. Right posterior oropharynx and peritonsillar area is erythematous and mildly edematous compared to left side. No uvular deviation NECK: Tender anterior right cervical lymphadenopathy. No supraclavicular lymphadenopathy. Tendernessover the right superior trapezius muscle. No nuchal rigidity. HEART: Regular rate and rhythm. No murmurs, gallops or rubs noted. LUNGS: Clear to auscultation bilaterally. No expiratory wheeze. No accessory muscles of respiration noted. NEURO: Alert and nonfocal, moving all 4 extremities ASSESSMENT/PLAN: #1 Pharyngitis Acute Patient does not have acute peritonsillar abscess at this time however there is some asymmetry on her exam. Due to the exam showing erythema of the right posterior oropharynx as well as a tender right anterior lymphadenopathy I felt acute treatment with antibiotics was indicated. I did caution patientthat if her symptoms worsen or she begins to have significant swelling in the right side of her throat she should return immediately or present to the ER. Otherwise she can continue with symptomatic relief including ibuprofen at home. #2 Sore Throat As noted above. #3 Pain Neck In regards to patient's neck pain I think this is mechanical in nature. She has tenderness in the right trapezius muscle. I recommended she continue with topical heat and she can alternate ice as well.She can use ibuprofen as needed for pain. I did offer a muscle relaxer however she declined. Trinh Bright P.A.-C. HETIC FILAMENT EXTRUDER documented in this encounter Plan of Treatment Not on filedocumented as of this encounter Visit Diagnoses Diagnosis Pharyngitis Acute - Primary Sore Throat Pain Neck documented in this encounter Additional Health Concerns Assessment Noted Time PHQ-9 Depression Total Score: 16 04/23/2018 11:08 AM C DT documented as of this encounter Care Teams Flat Breakdown Processor Relationship Specialty Start Date End Date Herbert Mcguire M.D. PCP - General Family Medicine 01/07/[address] [place] [phone] documented as of this encounter
--- OUTSIDE RECORDS SUMMARY | 2022-05-11 14:17 | XMS_ITS | Encounter Summary ---
:1995 Author Organization [facility] Address [address] [place] [address] Care Team Providers Name Role Phone Herbert Mcguire M.D. Primary Care Provider Encounter Details Date Type Department Care Team Description 03/14/2018 Orders Only Department of Amos Montemayor M.D. [address], [facility] [phone] [place] [address] [place] [phone] Social History Tobacco Use Types Packs/Day Years [...] 12/31/2018 relatives? How often do you attend holiness or mormonism Never 12/31/2018 services? Do you belong to any clubs or organizations such as No 12/31/2018 holiness groups, unions, fraternal or athletic groups, or [...] documented as of this encounter Care Teams Operations Supervisor 2Nd Shift Relationship Specialty Start Date End Date Herbert Mcguire M.D. PCP - General Family Medicine 01/07/[address] [place] [phone] documented as of this encounter
--- OUTSIDE RECORDS SUMMARY | 2022-05-11 14:17 | XMS_ITS | Encounter Summary ---
:1995 Author Organization [facility] Address [address] [place] [address] Care Team Providers Name Role Phone Herbert Mcguire M.D. Primary Care Provider Reason for Visit Reason Onset Date Comments Outpatient COVID-19 Testing 12/29/2019 Encounter Details Date Type Department Care Team Description 12/29/2019 External Outreach Department of Mark Kincaid [facility] Internal Medicine in [place]. Respiratory (Primary [place], [place] [address] Dx) [address] [place] [phone] Social History Tobacco Use Types Packs/Day Years [...] 12/31/2018 relatives? How often do you attend christian or sabianist Never 12/31/2018 services? Do you belong to any clubs or organizations such as No 12/31/2018 christian groups, unions, fraternal or athletic groups, or [...] on file documented as of this encounter Progress Notes Raegan Campa R.N. - 12/29/2019 4:37 PM CDT Encounter created for the drive-through COVID-19 testing. documented in this encounter Plan of Treatment Not on filedocumented as of this encounter Procedures Procedure Name Priority Date/Time Associated Diagnosis Comme nts SARS CORONAVIRUS-2 Routine 12/29/2019 5:05 PM Infection Upper Results for this RNA, V CDT Respiratory procedure are i n the results section. documented in this encounter Results SARS Coronavirus-2 RNA, V Symptomatic (12/29/2019 5:05 PM CDT) [facility] Method Time Signature SARS-CoV-2 Swab, 12/30/2019 MKTO Specimen Nasopharynx 11:31 PM Source CDT SARS CoV-2 Undetected Undetected 12/30/2019 MKTO RNA, TMA 11:31 PM CDT Comment: SARS-CoV-2 RNA absent. This result does not rule out COVID-19 in the patient, as the sensitivity of the test depends o n the timing of the specimen collection and the quality of the specim en. Result should be correlated with patient's history and clinical presentat ion. ----ADDITIONAL INFORMATION---- This test is performed using the Aptima SARS-CoV-2 assay ([employer] which has received Emergency Use Authori zation (EUA) by the U.S. Food and Drug Administration. Fact sheets for this Emergency Use Autho rization (EUA) assay can be found at the following links: For Healthcare Providers: https://www.fd a.gov/media/201840/download For Patients: https://www.fda.gov/media/ 034900/download Specimen Anatomical Collection Method Collection Time Receive d Time (Source) Location / / Volume Laterality Varies 12/29/2019 5:05 PM 0 8:00 (Nasopharynx) CDT PM CDT Mark Kincaid D.O. LAB MICROBIOLOGY - GENERAL O ROBI Performing Organization Address City/State/ZIP Code Phon e Number [facility]- [address] [place] [id number] [place] [address] System in [place] [address] [place] [address] documented in this encounter Visit Diagnoses Diagnosis Infection Upper Respiratory - Primary documented in this encounter Additional Health Concerns Infection Onset Date Last Indicated Resolved Time COVID19 Pending 12/29/2019 12/29/2019 12/30/2019 11:32 PM CDT Assessment Noted Time PHQ-9 Depression Total Score: 10 12/29/2019 6:21 PM CD T documented as of this encounter Care Teams Air Brush Artist Relationship Specialty Start Date End Date Herbert Mcguire M.D. PCP - General Family Medicine 01/07/[address] [place] [phone] documented as of this encounter
--- OUTSIDE RECORDS SUMMARY | 2022-05-11 14:17 | XMS_ITS | Encounter Summary ---
:1995 Author Organization [facility] Address [address] [place] [address] Care Team Providers Name Role Phone Herbert Mcguire M.D. Primary Care Provider Reason for Visit Reason Comments Sore Throat Thinks she had an abcess too th earlier this week but feels that infection has possibly moved into her throat Appointment Request (Routine) - Closed Specialty Diagnoses / Procedures Referred By Contact Refer red To Contact Family Medicine Referral ID Status Reason Start Date Expiration Date Visits Requ ested Visits Authorized [id number] Closed 09/11/2018 09/11/2019 1 Encounter Details Date Type Department Care Team Description 09/11/2018 Office Visit Department of Family Kisha North, So re Throat (Primary Medicine, [place] PRECISION ASSEMBLER BENCH, C.N.P., Dx) Clinic, in [address] [phone] Social History Tobacco Use Types Packs/Day Years [...] 12/31/2018 relatives? How often do you attend uatsdin or scientology Never 12/31/2018 services? Do you belong to any clubs or organizations such as No 12/31/2018 uatsdin groups, unions, fraternal or athletic groups, or [...] Sign Reading Time Taken Comments Blood Pressure 121/89 09/11/2018 10:09 AM CLIENT SERVICES ACCOUNT MANAGER Pulse 76 09/11/2018 10:09 AM CLIENT SERVICES ACCOUNT MANAGER Temperature 37.2 ??C (99 ??F) 09/11/2018 10:09 AM CLIENT SERVICES ACCOUNT MANAGER Respiratory Rate 16 09/11/2018 10:09 AM CLIENT SERVICES ACCOUNT MANAGER Oxygen Saturation 99% 09/11/2018 10:09 AM CLIENT SERVICES ACCOUNT MANAGER Inhaled Oxygen Concentration - - Weight 61.2 kg (135 lb) 09/11/2018 10:09 AM CLIENT SERVICES ACCOUNT MANAGER Height 175.3 cm (5' 9.02) 09/11/2018 10:09 AM CLIENT SERVICES ACCOUNT MANAGER Body Mass Index 19.93 09/11/2018 10:09 AM CLIENT SERVICES ACCOUNT MANAGER documented in this encounter Progress Notes Kisha North, DIDIER, C.N.P., D.N.P. - 09/11/2018 10:15 AM CST SUBJECTIVE CHIEF COMPLAINT / REASON FOR VISIT Chiqui Duke is a 23 y.o. female who presents for evaluation of Sore Throat (Thinks she had an abcess tooth earlier this week but feels that infection has possibly moved into her throat). HISTORY OF PRESENT ILLNESS Chiqui is a pleasant 23 y.o. female that presents to the clinic today for evaluation of an abscess behind her front tooth that she noticed about 5 days ago. She reports that since that time the abscesshas drained purulent fluid significantly improving her pain symptoms. She reports the drainage continues as milky white fluid. She denies any subsequent pain. She also reports sore throat and is concerned that the infection has possibly moved. She denies any significant fevers or chills. She denies any swallowing concerns. She was able to see her dentist 2 days ago who reassured her that she does nothave a dental abscess at this time. The following portions of the patient's history were reviewed and updated as appropriate: allergies,current medications, family history, medical history, social history, surgical history and problem list. REVIEW OF SYSTEMS A brief review of systems was negative except for that mentioned in the history of present of illness. CURRENT MEDICATIONS Current Outpatient Medications Medication Sig ??? buPROPion XL (WELLBUTRIN XL) 300 mg 24 hr tablet Take 1 tablet (300 mg total) by mouth every morning. ??? norgestimate-ethinyl estradiol (ORTHO-CYCLEN, 28,) 0.25- mg-35 mcg per tablet Take 1 tablet by mouth daily. ??? albuterol (VENTOLIN HFA) 90 mcg/actuation inhaler Inhale 2 puffs 4 (four) times a day. ??? METOPROLOL TARTRATE ORAL Take by mouth as needed. ALLERGIES/CONTRAINDICATIONS No Known Allergies OBJECTIVE PHYSICAL EXAMINATION Vital Signs: BP 121/89 Pulse 76 Temp 37.2 ??C (Temporal) Resp 16 Ht 175.3 cm Wt 61.2 kg SpO2 99% BMI 19.93 kg/m?? Body mass index is 19.93 kg/m??. General: Patient is in no distress. Capable of full communication without difficulty. Patient is polite and cooperative. HEENT: Normocephalic. EOMI, PERRL.Oropharynx without lesion of mucosa. Pharyngx rises symmetrically without exudate. Dentition is intact. I am unable to express any fluid from the gums behind her frontlower teeth. Gums are pink without evidence of gingivitis. Neck: Supple. No nodes. Neuro: Alert and oriented x3, nonfocal, moving all 4 extremities. CN II-XII grossly intact. Psych: Affect is appropriate. ASSESSMENT / PLAN #1 Sore Throat Patient was reassured that I do not suspect ongoing dental abscess. She does have a follow-up appointment with an Superintendent Track tomorrow morning for further evaluation. At this time I do not feel antibiotics is warranted however she was encouraged to keep her appointment tomorrow with her pomologist. She will continue to monitor symptoms closely. If symptoms persist, may consider empiric treatment with an antibiotic at that time. Patient was instructed to [...] understanding of the content. Kisha North APRN, C.NSuzanne., D.N.P. NT SERVICES ACCOUNT MANAGER documented in this encounter Plan of Treatment Not on filedocumented as of this encounter Visit Diagnoses Diagnosis Sore Throat - Primary documented in this encounter Additional Health Concerns Assessment Noted Time PHQ-9 Depression Total Score: 16 04/23/2018 11:08 AM C DT documented as of this encounter Care Teams Mineral Technologist Relationship Specialty Start Date End Date Herbert Mcguire M.D. PCP - General Family Medicine 01/07/[address] [place] [phone] documented as of this encounter
--- OUTSIDE RECORDS SUMMARY | 2022-05-11 14:17 | XMS_ITS | Encounter Summary ---
:1995 Author Organization [facility] Address [address] [place] [address] Care Team Providers Name Role Phone Herbert Mcguire M.D. Primary Care Provider Reason for Visit Auth/Cert Specialty Diagnoses / Procedures Referred By Contact Refer red To Contact Diagnoses Retained Placenta Without Hemorrhage (HCC) DILATATION AND SUCTION CURETTAGE for retained product(Dr. Juvencio Vera) Procedures DILATATION AND SUCTION CURETTAGE for retained product(Dr. Juvencio Vera) Referral ID Status Reason Start Date Expiration Date Visits Requ ested Visits Authorized [id number] 1 1 Encounter Details Date Type Department Care Team Description 02/07/2018 Anesthesia Event [facility] MAIN OR Wen Lopez M.D. [address] [place] [address] [place] [phone] (Wo rk) Anesthesia Record Procedure Summary Procedure Name Responsible Anesthesia Start Anesthesia Stop Anesthesiologist Time Time SRAVANTHI AND Wen Lopez M.D. 02/07/18 1431 02/07/18 15 23 SUCTION CURETTAGE for retained product(Dr. Juvencio Vera) Events Date Time Event Comment 02/07/2018 1315 1431 An Start Machine/Equipmen t Checked Infection Precautions Foll owed Procedure/Site Verified NPO Sta tus Verified Supine Standard ASA Mon itors Applied 1432 In Room 1438 Turnover to Proceduralist 1447 Proc Start 1504 Proc Fin 1509 Turnover to ANE Staff 1516 an stop data 1519 Out of Room 1523 An End I completed my h andoff to the receiving staff during i ch we 1. Identified the patient 2. Ident ified the responsible provider 3. Revi ewed the pertinent medical history 4. Discu ssed the surgical course 5. Reviewed intra-o p anesthesia management and issues during an esthesia 6. Set expectations for post-procedure period 7. Allowed opportun ity for questions and acknowledgement of understanding. Name Total midazolam PF injection 1 mg/mL 4 mg fentanyl injection 50 mcg/mL 200 mcg propofol 10 mg/mL infusion 286.02 mg ketamine 10 mg/mL injection 50 mg ondansetron PF 4 mg/2 mL injection 4 mg methylergonovine 0.2 mg/mL injection 0.2 mg miSOPROStol 200 mcg tablet 800 mcg lactated ringers 800 mL Agents No agents on file. Blood No blood administrations on file. Lines, Drains, and Airways Type Details Placement Removal Peripheral IV Placement Date: 02/07/18; 02/07/18 1240 by 02/07 1713 by Placement Time: 1240; Stephanie Almeida, Meghan Acosta, R.NGermaine Catheter Size: 20 G; R.N. Orientation: Left; Location: Wrist; Site Prep: Chlorhexidine (Preferred); Technique: Anatomical landmarks; Insertion Attempts: 1; Removal Date: 02/07/18; Removal Time: 1713 (RETIRED) Incision 02/07/18; 1500; Perineum; 02/07/18 1500 by 1418 by Peripad to perineum; Narcisa Peters, [facility] c-Backgroun 03/29/21 (Removed by Ovi Tomlinson background completion Automated Batch Job utility); 1418 (Removed by background completion utility) documented in this encounter Social History Tobacco Use Types Packs/Day Years [...] How often do you attend uatsdin or gnosticism Never 12/31/2018 services? Do you belong to [...] on file documented as of this encounter OR Notes Anesthesia Postprocedure Evaluation - Wen Lopez M.D. - 02/07/2018 3:37 PM CDT Patient: Chiqui Duke Procedure Summary Date: 02/07/18 Room / Location: OR [address] [place] [address] 1407 / [facility] OR Anesthesia Start: 1431 Anesthesia Stop: 1523 Procedure: DILATATION AND SUCTION CURETTAGE for retained product(Dr. Juvencio Vera) (N/A ) Diagnosis: Retained Placenta Without Hemorrhage (HCC) (Retained Placenta Without Hemorrhage (HCC) [O73.0]) Surgeon: Jona Clifford M.D., M.B.B.S. Responsible Provider: Wen Lopez M.D. Anesthesia Type: MAC ASA Status: 2 Anesthesia Type: MAC Last vitals BP (!) 124/91 (02/07/18 1520) Temp 37 ??C (02/07/18 1156) Pulse 88 (02/07/18 1520) Resp 16 (02/07/18 1520) SpO2 100 % (02/07/18 1520) Anesthesia Post Evaluation 02/07/2018 3:37 PM Patient Disposition: dismissal Cardiovascular status: hemodynamics (HR & BP) acceptable Respiratory status: patent airway with spontaneous effort Temperature: normothermic Oxygen requirements: room air Level of consciousness: awake Pain score: pain adequately controlled and/or at baseline Post Op nausea/vomiting: none Hydration status: euvolemic Anesthesia Preprocedure Evaluation - Wen Lopez M.D. - 02/07/2018 11:41 AM CDT Anesthesia Pre-Evaluation Pertinent components of the patient's history including current problem list, medical history, surgical history, family history, social history, medications and allergies were reviewed and updated as appropriate. The patient was examined and the Pre-op diagnosis, planned procedure, and H&P were reviewed and remain unchanged. PROBLEM LIST Relevant Problems RESP (+) Asthma NOS S/p delivery 01/01/18 Lip piercing OBJECTIVE PHYSICAL EXAMINATION Airway (HEENT) Mallampati: II TM Distance: >3 FB Neck ROM: Full Cardiovascular Rhythm: Regular Rate: Normal Cardiovascular Assessment: Normal Pulmonary Pulmonary Assessment: Clear Neurological Normal Dental Normal General / Constitutional Normal ASSESSMENT / PLAN ANESTHESIA PLAN ASA: 2 Anesthesia Plan: MAC Patient seen and allergies reviewed; anesthesia plan and risks discussed directly with patient / legal guardian, or through an rotary filter operator; patient evaluated and approved for anesthesia / sedation. The use of blood products not discussed documented in this encounter Plan of Treatment Not on filedocumented as of this encounter Visit Diagnoses Not on filedocumented in this encounter Administered Medications Inactive Administered Medications - up to 3 most recent administrations Medication Order MAR Action Action Date Dose Rate Site fentaNYL injection (SUBLIMAZE) Given 02/07/2018 2:59 PM CDT 50 mcg intravenous, As needed, severe pain or score 7-10 of 10, Starting on Mary Jane 02/07/18 at 1431, Anesthesia Intra-op Given 02/07/2018 2:50 PM CDT 50 mcg Given 02/07/2018 2:31 PM CDT 100 mcg ketamine injection (KETALAR) Given 02/07/2018 2:50 PM CDT 20 mg intravenous, As needed, Starting on Mary Jane 02/07/18 at 1435, Anesthesia Intra-op Given 02/07/2018 2:35 PM CDT 10 mg Given 02/07/2018 2:33 PM CDT 20 mg lactated ringers Rate/Dose Verify 02/07/2018 2:31 PM CDT 20 mL/hr, intravenous, Continuous, Starting on Mary Jane 02/07/18 at 1145, Pre-Op methylergonovine injection (METHERGINE) Given 02/07/2018 3:01 PM CDT 0.2 mg As needed, Starting on Mary Jane 02/07/18 at 1501, Anesthesia Intra-op midazolam (PF) injection (VERSED) Given 02/07/2018 2:32 PM CDT 2 mg As needed, Starting on Mary Jane 02/07/18 at 1431, Anesthesia Intra-op Given 02/07/2018 2:31 PM CDT 2 mg miSOPROStol tablet (CYTOTEC) Given 02/07/2018 3:01 PM CDT 800 mcg As needed, Starting on Mary Jane 02/07/18 at 1501, Anesthesia Intra-op ondansetron (PF) injection (ZOFRAN) Given 02/07/2018 2:44 PM CDT 4 mg As needed, nausea, vomiting, Starting on Mary Jane 02/07/18 at 1444, Anesthesia Intra-op propofol 10 mg/mL infusion New Bag 02/07/2018 2:35 100 mcg/kg/min 40.9 mL/hr (DIPRIVAN) PM CDT intravenous, Continuous Infusion: Per Instructions PRN, Starting on Mary Jane 02/07/18 at 1435, Anesthesia Intra-op documented in this encounter Additional Health Concerns Assessment Noted Time PHQ-9 Depression Total Score: 12 01/24/2018 5:43 PM CD T documented as of this encounter Care Teams Mill Laborer Relationship Specialty Start Date End Date Herbert Mcguire M.D. PCP - General Family Medicine 01/07/[address] [place] [phone] documented as of this encounter
--- OUTSIDE RECORDS SUMMARY | 2022-05-11 14:17 | XMS_ITS | Encounter Summary ---
:1995 Author Organization [facility] Address [address] [place] [id number] Care Team Providers Name Role Phone Herebrt Mcguire M.D. Primary Care Provider Reason for Visit Reason Comments Depression follow up Outpatient (Routine) - Closed Specialty Diagnoses / Procedures Referred By Contact Refer red To Contact Family Herbert Nieves M. D. [address] [phone] Referral ID Status Reason Start Date Expiration Date Visits Requ ested Visits Authorized [id number] Closed 01/24/2018 01/24/2019 1 1 Encounter Details Date Type Department Care Team Description 04/23/2018 Office Visit Department of Herbert [facility]emay[facility] n[facility] Medical Examination Adult (Primary Dx); Lisa Witt M.D. [facility], in [address] [phone] Social History Tobacco Use Types Packs/Day [...] How often do you attend christian or baptist Never 12/31/2018 services? Do you belong to [...] Sign Reading Time Taken Comments Blood Pressure 118/78 04/23/2018 11:01 AM CDT Pulse 76 04/23/2018 11:01 AM CDT Temperature 37.1 ??C (98.8 ??F) 04/23/2018 11:01 AM CDT Respiratory Rate 16 04/23/2018 11:01 AM CDT Oxygen Saturation - - Inhaled Oxygen Concentration - - Weight 65.4 kg (144 lb 2.9 oz) 04/23/2018 11:01 AM CDT Height 175.3 cm (5' 9) 04/23/2018 11:01 AM CDT Body Mass Index 21.29 04/23/2018 11:01 AM CDT documented in this encounter Progress Notes Herbert Mcguire M.D. - 04/23/2018 11:00 AM CDT SUBJECTIVE CHIEF COMPLAINT / REASON FOR VISIT Chiqui is a 22 y.o. female who presents for evaluation of Depression (follow up). HISTORY OF PRESENT ILLNESS Chiqui is a pleasant 22 y.o. female who presents to clinic today with concerns of ongoing managementof depression and intermittent, substernal chest pain. Pain is described as a burning sensation. Lasts less than 5 minutes. Random. Not associated with food. No caffeine or nicotine. Mood improved withWellbutrin. No other concerns. The following portions of the patient's history were reviewed and updated as appropriate: allergies,current medications, family history, medical history, social history, surgical history and problem list. Brief Review of [...] ORAL Take by mouth as needed. ??? amoxicillin-pot clavulanate (AUGMENTIN) 875-125 mg per tablet Take 1 tablet by mouth 2 (two) times a day for 10 days. ??? norgestimate-ethinyl estradiol (ORTHO-CYCLEN, 28,) 0.25- mg-35 mcg per tablet Take 1 tablet by mouth daily. No Known Allergies OBJECTIVE PHYSICAL EXAM BP 118/78 Pulse 76 Temp 37.1 ??C (Temporal) Resp 16 Ht 175.3 cm Wt 65.4 kg BMI 21.29 kg/m?? Body mass index is 21.29 kg/m??. GENERAL: Patient is in no distress. Capable of full communication without difficulty. Patient is polite and cooperative. HEENT: Normocephalic. EOMI, PERRL, Canals patent, TMs normal. Oropharynx without lesion of mucosa. Pharyngeal rises symmetrically without exudate. HEART: Regular rate and rhythm. No murmurs, gallops or rubs noted. LUNGS: Clear to auscultation bilaterally. No expiratory wheeze. No accessory muscles of respiration noted. ABDOMEN: Nontender to palpation. No hepato-splenomegaly. No mass. Normal bowel sounds in all 4 quadrants. EXTREMITIES: No neurovascular compromise. No cyanosis, clubbing or edema. NEURO: Alert and oriented x3, nonfocal, moving all 4 extremities. CN II-XII grossly intact. PSYCH: Affect is appropriate DIAGNOSTICS: Office Visit on 04/23/2018 Component Date Value Ref Range Status ??? Ventricular Rate ECG/Min 04/23/2018 71 BPM Final ??? NC Interval 04/23/2018 152 ms Final ??? QRSD Interval 04/23/2018 86 ms Final ??? QT Interval 04/23/2018 386 ms Final ??? QTC Interval 04/23/2018 419 ms Final ??? P [place] 04/23/2018 53 degrees Final ??? R [place] 04/23/2018 57 degrees Final ??? T Wave [place] 04/23/2018 58 degrees Final ??? Cholesterol, Total, S 04/23/2018 208* mg/dL Final ??? Triglycerides, S 04/23/2018 88 mg/dL Final ? ? Cholesterol, HDL, S 04/23/2018 66 >=50 mg/dL Final ??? Calculated LDL 04/23/2018 124 mg/dL Final ??? Non HDL Cholesterol 04/23/2018 142 mg/dL Final ??? Glucose, Fasting, S 04/23/2018 82 70 - 99 mg/dL Final ??? Hemoglobin A1c, B 04/23/2018 5.2 4.2 - 5.6 % Final ASSESSMENT / PLAN #1 General Medical Examination Adult Provided age appropriate lifestyle and risk reduction eduction. Lab evaluation requested for health maintenance. ECG requested given chest pain. Symptoms most consistent with JORDAN. Discussed conservative management. #2 Depressive Disorder Improved on Wellbutrin. Continue as prescribed. Follow up in 3 months. Patient was instructed to follow up in primary care if symptoms are worsening or there is no improvement over the next several days. Plan was discussed with patient and is in agreement with plan. All questions were answered, side effects of any/all new medications were discussed. Patient left in no acute distress. Ready to learn. No apparent learning barriers were identified. Learning preferences include listening. Explained diagnosis and treatment plan. Patient/Child/Caregiver expressed understanding of the content. Bonifacio Mcguire M.D. RELIEF documented in this encounter Plan of Treatment Not on filedocumented as of this encounter Procedures Procedure Name Priority Date/Time Associated Diagnosis Comme nts LIPID PANEL, S Routine 04/23/2018 12:37 General Medical Result s for this PM CDT Examination Adult procedure are in the results section. HEMOGLOBIN A1C, B Routine 04/23/2018 12:37 General Medical Res ults for this PM CDT Examination Adult procedure are in the results section. GLUCOSE, FASTING, Routine 04/23/2018 12:37 General Medical Res ults for this S/P PM CDT Examination Adult procedure are in the results section. ECG Routine 04/23/2018 12:22 General Medical Results for this PM CDT Examination Adult procedure are in the results section. documented in this encounter Results Hemoglobin A1c (04/23/2018 12:37 PM CDT) athologist [facility] Hemoglobin A1c, 5.2 4.2 - 5.6 04/23/2018 [facility] B % 1:18 PM CDT [facility] Specimen Anatomical Collection Method Collection Time Receive d Time (Source) Location / / Volume Laterality Blood (Blood, 04/23/2018 12:37 04/23/2018 Venous) PM CDT 12:47 PM CDT Herbert Mcguire M.D. LAB BLOOD ADD-ON Performing Organization Address City/[facility] Phon e Number [address] [id number] [facility] Glucose, Fasting (04/23/2018 12:37 PM CDT) athologist [facility] Glucose, 82 70 - 99 04/23/2018 [facility] Fasting, S mg/dL 2:06 PM CDT [facility] Specimen Anatomical Collection Method Collection Time Receive d Time (Source) Location / / Volume Laterality Blood (Blood, 04/23/2018 12:37 04/23/2018 Venous) PM CDT 12:47 PM CDT Herbert Mcguire M.D. LAB BLOOD NON ADD-ON Performing Organization Address City/[facility] Phon e Number [address] [phone] [facility] (ABNORMAL) Lipid Panel (04/23/2018 12:37 PM CDT) athologist [facility] Cholesterol, 208 (H) mg/dL 04/23/2018 [facility] Total 2:06 PM CDT [facility] Comment: ----REFERENCE VALUE---- Desirable: < 200 Borderline high: 200 - 239 High: > or = 240 Triglycerides 88 mg/dL 04/23/2018 2:06 PM CDT [facility] Comment: ----REFERENCE VALUE---- Normal: <150 Borderline high: 150-199 High: 200-499 Very high: > or =500 Cholesterol, HDL, S 66 >=50 mg/dL 04/23/2018 2:06 PM CDT [facility] Calculated LDL 124 mg/dL 04/23/2018 2:[address] [facility] [employer] [facility] [facility] Comment: ----REFERENCE VALUE---- Desirable: <100 Above Desirable: 100-129 Borderline high: 130-159 High: 160-189 Very high: > or =190 Cholesterol, Non-HDL, 142 mg/dL 04/23/2018 2:06 PM CDT [facility] Comment: ----REFERENCE VALUE---- Desirable: <130 Above Desirable: 130-159 Borderline high: 160-189 High: 190-219 Very high: > or =220 Specimen Anatomical Collection Method Collection Time Receive d Time (Source) Location / / Volume Laterality Blood (Blood, 04/23/2018 12:37 04/23/2018 Venous) PM CDT 12:47 PM CDT Herbert Mcguire M.D. LAB BLOOD ADD-ON Performing Organization Address City/[facility]/ZIP Code Phon e Number [phone] [place] [address] LAB ECG 12 Lead (04/23/2018 12:22 PM CDT) P athologist Signature Ventricular Rate 71 BPM MUSE ECG/Min NC Interval 152 ms MUSE QRSD Interval 86 ms MUSE QT Interval 386 ms MUSE QTC Interval 419 ms MUSE P [place] 53 degrees MUSE R [place] 57 degrees MUSE T Wave [place] 58 degrees MUSE Specimen Anatomical Collection Method Collection Time Receive d Time (Source) Location / / Volume Laterality 04/23/2018 12:22 04/23/2018 PM CDT 12:26 PM CDT Impressions MUSE - 04/23/2018 12:26 PM CDT Normal sinus rhythm Normal ECG No previous ECGs available Narrative This result has an attachment that is no t available. Herbert Mcguire M.D. ECG ORDERABLES Performing Organization Address City/[facility]/ZIP Code Phon e Number MUSE MUSE NA documented in this encounter Visit Diagnoses Diagnosis General Medical Examination Adult - Prim chinedu Depressive Disorder documented in this encounter Additional Health Concerns Assessment Noted Time PHQ-9 Depression Total Score: 16 04/23/2018 11:08 AM C DT documented as of this encounter Care Teams Trust Administrator Relationship Specialty Start Date End Date Herbert Mcguire M.D. PCP - General Family Medicine 01/07/[address] [place] [phone] documented as of this encounter
--- OUTSIDE RECORDS SUMMARY | 2022-05-11 14:17 | XMS_ITS | Encounter Summary ---
:1995 Author Organization [facility] Address [address] [place] [address] Care Team Providers Name Role Phone Herbert [...] Expiration Date Visits Requ ested Visits Authorized [id number] 1 1 Encounter Details Date Type Department Care Team Description 02/07/2018 Surgery [facility] OR Anika Clifford, DILATATION AND SUCTION [address] MALDON[address]O M.B.B.S. [place] [phone] product(Dr. Henning [phone] Jody) Social History Tobacco Use Types Packs/Day Years [...] 12/31/2018 relatives? How often do you attend restoration or presybeterian Never 12/31/2018 services? Do you belong to any clubs or organizations such as No 12/31/2018 restoration groups, unions, fraternal or athletic groups, or [...] Sign Reading Time Taken Comments Blood Pressure 116/76 02/07/2018 11:56 AM CDT Pulse - - Temperature 37 ??C (98.6 ??F) 02/07/2018 11:56 AM CDT Respiratory Rate 16 02/07/2018 11:56 AM CDT Oxygen Saturation 99% 02/07/2018 11:56 AM CDT Inhaled Oxygen Concentration - - Weight 68.1 kg (150 lb 2.1 oz) 02/07/2018 11:56 AM CDT Height - - Body Mass Index 21.98 09/23/2017 10:06 AM CDT documented in this encounter Discharge Instructions AttachmentsThe following attachments cannot be sent through Care Everywhere. Dilation and Curettage (D & C) (Uzbek)documented in this encounter Medications at Time of Discharge Medication Sig Dispensed Refills Start Date End Date buPROPion XL (WELLBUTRIN Take 1 tablet 90 tablet 3 01/25/20 18 04/23/2018 XL) 300 mg 24 hr tablet (300 mg total) by mouth every morning. norgestimate-ethinyl Take 1 tablet by 84 tablet 3 8 03/14/2018 estradiol (ORTHO mouth daily. TRI-CYCLEN LO, 28,) 0.18/0.215/0.25 mg-25 mcg per tablet ibuprofen (ADVIL,MOTRIN) Take 1 tablet 30 tablet 1 02/08/20 18 03/09/2018 600 mg tablet (600 mg total) by mouth every 6 (six) hours as needed for mild pain or score 1-3 of 10 or moderate pain or score 4-6 of 10. methylergonovine Take 1 tablet 6 tablet 0 02/07/201802/09 (METHERGINE) 0.2 mg tablet (0.2 mg total) by mouth 3 (three) times a day for 2 days. acetaminophen (TYLENOL) Take 325 mg by 0 09/11/2018 325 mg tablet mouth every 6 (six) hours. Pt took 3 tabs earlier today albuterol (VENTOLIN HFA) Inhale 2 puffs 4 0 11/2307/01/2019 90 mcg/actuation inhaler (four) times a day. docusate sodium (DOK) 100 Take 1 capsule 100 capsule 1 10/2205/14/2018 mg capsuleIndications: (100 mg total) by Constipation mouth 2 (two) times a day. TAKE WITH FULL GLASS OF WATER documented as of this encounter OR Notes Op Note - Rafita Vera M.D. - 02/07/2018 3:24 PM CDT Operative Note Patient: Chiqui Ram : 1995 Date of Service: 02/07/2018 Pre-operative diagnosis: - Vaginal bleeding - Retained products of conception Post-operative diagnosis: - Same Procedure: - Suction dilation and curettage Surgeon: Rafita Vera M.D. Anesthesia: Local with MAC Antibiotics: doxycycline EBL: 50 mL Urine: 100 mL clear Fluids: 700 mL crystalloid Specimens: retained products of conception Complications: none Findings: Normal vagina and cervix, uterus enlarged to 8 weeks size, bleeding per os, suction with good return of tissue and clot Indications: Chiqui Ram is a 22 y.o. female who is 5 weeks s/p with persistent vaginal bleeding. US showed mass like expansion measuring 36 mm x 33 mm in the endometrial cavity. She denies vaginal discharge, fever. She is having significant cramping. Decision made to proceed with above procedures. Discussed risks, benefits, and alternatives to the procedure including risk of infection, bleeding, damage to local organs, blood clots, perforation. The patient's questions were answered, understanding confirmed, and the patient signed written informed consent. Technique: The patient was taken to the operating room and placed on the table in dorsal lithotomy position with legs in yellow-fin stirrups. MAC anesthesia was administered. An EUA was performed. The patient was prepped and draped in the usual sterile fashion. A time-out was performed. The bladder was drained with a straight catheter. The anterior lip of the cervix was infiltrated with 1% lidocaine with epinephrine and a single-toothed tenaculum placed. A paracervical block of same local anesthetic was placed at 4 and 8 o'clock of the cervicovaginal junction. The cervix was dilated using sequential dilators up to 10 mm. A 10 mm curved suction curet was inserted through the cervix to the uterine fundus and suction applied to 60 PSI. The curet was rotated in the uterine cavity with noted return of tissue. This process was repeated until no tissue was returned. A sharp curet was used on all aspects of the uterine cavity with minimal return of tissue and a gritty texture throughout. The suction contents were sent to pathology for examination. The tenaculum was removed from the cervix and good hemostasis achieved with pressure from ring forceps. The speculumwas removed from the vagina. The uterus was palpated and noted to be atonic, and bimanual massage was performed. The patient received methylergonovine 0.2 mg IM and misoprostol 800 mcg KS. The uterus became firm with massage and medication. Final vaginal exam yielded no foreign objects. Instrument, needle, and sponge counts were correct times 2. The patient was transferred to the PACU in stable condition. Rafita Vera M.D. Full Operative Note Details documented in this encounter Plan of Treatment Not on filedocumented as of this encounter Procedures Procedure Name Priority Date/Time Associated Comments Diagnosis PATHOLOGY SERVICES Routine 02/07/2018 3:06 PM Retained Placent a Results for this CDT Without Hemorrhage procedure are in (HCC) the results section. DILATATION AND 02/07/2018 2:32 PM Retained Placenta SUCTION CURETTAGE CDT Without Hemorrhage (HCC) documented in this encounter Results Pathology Services (02/07/2018 3:06 PM CDT) Component Value Ref Test Analysis Performed At [facility] Range Method Time Signature PATHOLOGY Patient Name: CHIQUI RAM [facility] MR#: [id number] [facility] Submitting Physician: ANIKA CLIFFORD MD [id number] Specimen #[id number] Performing Lab: ??[facility] ? [address] [place] [id number] Source: Products of conception Clinical History/Pre-Op Retained placenta without hemorrhage [O73.0] Gross Description Received in a container labeled uterus is a 6.2 x 5.5 x 2. 3 cm aggregate of red-brown soft tissue and cl otted blood. ??No tissue is grossly identified. Statistical Engineer sections are submitted in three cassettes. KG/ed ?? Diagnosis Products of conception: PLACENTAL TISSUE INCLUDING N ONMOLAR CHORIONIC VILLI WITH BLOOD AND FRAGMENTS OF BENIGN ENDOMETRIUM. Electronically Signed By CONCEPCION COOPER MD - 02/11/2018 tc/02/11/2018 Specimen (Source) Anatomical Collection Method Collection Time Re ceived Time Location / / Volume Laterality Products of 02/07/2018 3:06 Conception PM CDT (Uterus) Anika Chanel LAB SURG PATH ORDERABLES Performing Organization Address City/State/ZIP Code Phon e Number [facility] [address] [place] [id number] documented in this encounter Visit Diagnoses Diagnosis Retained Placenta Without Hemorrhage Pos tpartum (HCC) Retained Placenta Without Hemorrhage Pos tpartum (HCC) - Primary documented in this encounter Admitting Diagnoses Diagnosis Retained Placenta Without Hemorrhage Pos tpartum (HCC) documented in this encounter Administered Medications Inactive Administered Medications - up to 3 most recent administrations Medication Order MAR Action Action Date Dose Rate Site doxycycline 200 mg in NaCl New Bag 02/07/2018 1:07 PM CDT 200 mg 125 mL/hr 0.9% IVPB (VIBRAMYCIN) 200 mg, intravenous, at 125 mL/hr, Administer over 120 Minutes, Once, On Mary Jane 02/07/18 at 1230, For 1 dose, AVOID EXTRAVASATION, Indications: Prophylaxis, surgical fentaNYL injection 25 mcg (SUBLIMAZE) Given 02/07/2018 3:49 PM CDT 25 mcg 25 mcg, intravenous, Every 2 min PRN, For pain 4 or greater (maximum 100 mcg). If max dose of Fentanyl is reached and if pain is greater than 4, discontinue Fentanyl: give Hydromorphone, Starting on Mary Jane 02/07/18 at 1525, PACU (only) Given 02/07/2018 3:40 PM CDT 25 mcg Given 02/07/2018 3:38 PM CDT 25 mcg ibuprofen tablet 600 mg (ADVIL,MOTRIN) 600 mg, oral, Every 6 hours, First dose on Sun02/08/18 at 1615, start 6 hours after last ketorolac dose administered ketorolac injection 15 mg (TORADOL) Given 02/07/2018 4:18 PM CDT 15 mg 15 mg, intravenous, Every 6 hours, First dose on Mary Jane 02/07/18 at 1615, For 4 doses, start no sooner than 6 hours after last intraoperative dose Adult IV push rate: Over 15 seconds. Peds IV push rate: Over 1 minute. 60 mg dose only for IM, not recommended for IV., Drug Monitoring Program: Pharmacist to adjust medication order based on comorbities and indication. lactated ringers Rate/Dose Verify 02/07/2018 2:31 PM CDT 20 mL/hr, intravenous, Continuous, Starting on Mary Jane 02/07/18 at 1145, Pre-Op lactated ringers New Bag 02/07/2018 1:07 PM CDT 30 mL/hr 30 mL/hr 30 mL/hr, intravenous, Continuous, Starting on Mary Jane 02/07/18 at 1145, Pre-Op lidocaine-EPINEPHrine 1 %-1:100,000 injection Given 2:56 PM CDT 10 mL (XYLOCAINE W/EPI) As needed, Starting on Mary Jane 02/07/18 at 1456, Intra-Op sodium chloride injection 3 mL 3 mL, intravenous, As needed, line care, Starting on Mary Jane 02/07/18 at 1142, Pre-Op, Prior to and following infusion and betw een multiple consecutive infusions: sodium chloride 0.9 % injection sodium chloride injection 3 mL 3 mL, intravenous, Every 12 hours scheduled, First dos e on Mary Jane 02/07/18 at 2100, Pre-Op, Peripheral Intravenous Catheter and Rapid Infu bari Catheter, when no infusion to maintain patency documented in this encounter Active and Recently Administered Medications Times are shown in CDT. Scheduled Medication Order 02/05/2018 02/06/2018 02/07/2018 doxycycline 200 mg in NaCl 0.9% IVPB (VIBRAMYCIN) (COMPLETED) 1307 (New Bag - Provider: Stephanie Almeida R.N.) 200 mg, intravenous, at 125 mL/hr, Admin ister over 120 Minutes, Once, On Mary Jane 02/07/18 at 1230, For 1 dose, AVOID EXTRAVASATION, Indications: Prophylaxis, surgical ibuprofen tablet 600 mg (ADVIL,MOTRIN)(Linked Group 1) 600 mg, oral, Every 6 hours, First dose on Sun02/08/18 at 1615, start 6 hours after last ketorolac dose administered ketorolac injection 15 mg (TORADOL)(Linked Group 1) 1618 (Given - Provider: Solange Cortés RGermaineNGermaine) 15 mg, intravenous, Every 6 hours, First dose on Mary Jane 02/07/18 at 1615, For 4 doses, start no sooner than 6 hours after last intraoperative dose Adult IV push rate: Over 15 seconds. Peds IV push rate: Over 1 minute. 60 mg dose only for IM, not r ecommended for IV., Drug Monitoring Program: Pharmacist to adjust medication order based on comorbities and indication. lidocaine 10 mg/mL (1 %) injection 1 mL (XYLOCAINE) 1145 (Due) 1 mL, infiltration, Once, Mary Jane 02/07/18 at 1145, For 1 dose, Pre-Op, May admin up to 1 mL at the site of IV site if not allergic to lidocaine sodium chloride injection 10 mL 1500 (Due) 10 mL, intravenous, Every 8 hours schedu led (RT), First dose on Mary Jane 02/07/18 at 1500, Pre-Op, Peripheral Intravenous Catheter and Rapid Infusion Catheter, prior to blood sampling, post blood transfusion or post blood sampling sodium chloride injection 3 mL 3 mL, intravenous, Every 12 hours schedu led, First dose on Mary Jane 02/07/18 at 2100, Pre-Op, Peripheral Intravenous Catheter and Rapid Infusion Catheter, when no infusion to maintain patency sodium chloride injection 3 mL 3 mL, intravenous, Every 12 hours schedu led, First dose on Mary Jane 8 at 2100, Pre-Op, Peripheral Intravenous Catheter and Rapid Infusion Catheter, when no infusion to maintain patency Continuous Medication Order 02/05/2018 02/06/2018 02/07/2018 lactated ringers 1145 (Due)1431 (Rate/Dose Verify - Provider: Selwyn Nur APRN, MELYSSA, D.N.P.)1517 (Anesthesia Volume Adjustment - Provider: Selwyn Nur APRN, MELYSSA, D.N.P.) 20 mL/hr, intravenous, Continuous, Starting on Mary Jane 02/07/18 at 114 5, Pre-Op lactated ringers 1307 (New Bag - Provider: Stephanie Almeida RGermaineNGermaine) 30 mL/hr, intravenous, Continuous, Starting on Mary Jane 8/2/18 at 114 5, Pre-Op PRN Medication Order 02/05/2018 02/06/2018 02/07/2018 dexamethasone injection 4 mg (DECADRON) 4 mg, intravenous, Once as needed, nause a, vomiting, Starting Mary Jane 18 at 1525, For 1 dose, PACU (only), Give only if NOT given during the pre or intraoperative period. If ondansetron ordered, give dexamethasone with first dose of ondansetron. dexamethasone injection 4 mg (DECADRON) 4 mg, intravenous, Once as needed, nause a, vomiting, Starting Mary Jane 818 at 1600, For 1 dose, Give only if NOT given during the pre or intraoperative period. If ondansetron ordered, give dexamethasone with first dose of ondansetron. droperidol injection 0.625 mg (INAPSINE) 0.625 mg, intravenous, Every 6 hours PRN , nausea, vomiting, Starting Mary Jane 8/18 at 1525, For 48 hours, PACU (only), Total of 3 doses in 24 hour period. RASS must be -2 or higher to administer. Reassess for nausea or vomiting after at least 10 minutes. If nausea or vomiting persists administer next ordered antiemetic medications (order for antiemetic medication administration ondansetron then droperido l then promethazine)., Indications: Nausea and Vomiting droperidol injection 0.625 mg (INAPSINE) 0.625 mg, intravenous, Every 6 hours PRN , nausea, vomiting, Starting Mary Jane 8/18 at 1600, For 48 hours, Total of 3 doses in 24 hour period. RASS must be -2 or higher to administer. Reassess for nausea or vomiting after at least 10 minutes. If nausea or vomiting persists administer next ordered antiemetic medications (order for antiemetic medication administration ondansetron then droperidol then promethazine). fentaNYL injection 25 mcg (SUBLIMAZE) 1536 (Given - Provider: Solange Cortés, R.N.)1538 (Given - Provider: Solange Cortés, R.N.)1540 (Given - Provider: Solange Cortés, R.N.)1549 (Given - Provider: Solange Cortés R.N.) 25 mcg, intravenous, Every 2 min PRN, Fo r pain 4 or greater (maximum 100 mcg). If max dose of Fentanyl is reached and if pain is greater than 4, discontinue Fentanyl: give Hydromorphone, Starting on Mary Jane 02/07/18 at 1525, PACU (only) HYDROmorphone injection 0.2 mg (DILAUDID) 0.2 mg, intravenous, Every 2 hour PRN, f or breakthrough pain, Starting Mary Jane 02/07/18 at 1600, Unrelieved 30 minutes after PRN oral pain medication is used; if unable to take oral pain medication; or if clarisa n is greater than or equal to 7, use instead of oral pain medica tion. HYDROmorphone injection 0.5 mg (DILAUDID) 0.5 mg, intravenous, Every 5 min PRN, mo derate pain or score 4-6 of 10, severe pain or score 7-10 of 10, Starting Mary Jane 02/07/18 at 1525, For 4 doses, PACU (only), Up to maximum total dose of 2 mg lidocaine-EPINEPHrine 1 %-1:100,000 injection (XYLOCAINE W/EPI) (CANCELED) 1456 (Given - Provider: Anika Clifford M.D., M.B.B.S. - Comment: Med given by Dr. Juvencio Brown) As needed, Starting on Mary Jane 02/07/18 at 1456, Intra-Op naloxone injection 0.2 mg (NARCAN) 0.2 mg, intravenous, As needed, respirat ory depression, Starting Mary Jane 02/07/18 at 1600, For respiratory rate less than 8 breaths per minute or RASS score of -3, - 4, -5. Apply oxygen to keep oxygen saturations greater than 90% and notify service. ondansetron (PF) injection 4 mg (ZOFRAN) 4 mg, intravenous, Every 6 hours PRN, na usea, vomiting, Starting Mary Jane 02/07/18 at 1525, For 48 hours, PACU (only), Reassess for nausea or vomiting after at least 10 minutes. If nausea or vomiting persists administer next ordered antiemetic medic ations (order for antiemetic medication administration ondansetron then droperidol then promethazine). ondansetron (PF) injection 4 mg (ZOFRAN) 4 mg, intravenous, Every 6 hours PRN, na usea, vomiting, Starting Mary Jane 02/07/18 at 1600, For 48 hours, Reassess for nausea or vomiting after at least 10 minutes. If nausea or vomiting persists administer ne xt ordered antiemetic medications (order for antiemetic medication administration ondansetron then droperidol then promethazine). promethazine injection 6.25 mg (PHENERGAN) 6.25 mg, intravenous, Every 6 hours PRN, nausea, vomiting, Starting Mary Jane 02/07/18 at 1525, For 48 hours, PACU (only), RASS must be -2 or higher to administer. Reassess for nausea/vomiting after at least 10 minutes. If nausea or vomiting persists administer next ordered antiemetic medications (order for antiemetic medication administration ondansetron then droperidol then promethazine). promethazine injection 6.25 mg (PHENERGAN) 6.25 mg, intravenous, Every 6 hours PRN, nausea, vomiting, Starting Mary Jane 02/07/18 at 1600, For 48 hours, RASS must be -2 or higher to administer. Reassess for nausea/vomiting after at least 10 minutes. If nausea or vomiting persists administer n ext ordered antiemetic medications (order for antiemetic medication administration ondansetron then droperidol then promethazine). sodium chloride injection 3 mL 3 mL, intravenous, As needed, line care, Starting on Mary Jane 02/07/18 at 1142, Pre-Op, Prior to and following infusion and between multiple consecutive infusions: sodium chloride 0.9 % injection Linked Groups Order Group 1: ketorolac injection 15 mg (TORADOL)Jump to med 15 mg, intravenous, Every 6 hours, First dose on Mary Jane 02/07/18 at 1615, For 4 doses
start no sooner than 6 hours after last intraoperative dose Adult IV push rate: Over 15 seconds.&nb sp;Peds IV push rate: Over 1 minute.&nbs p;60 mg dose only for IM, not recommended for IV.
Drug Monitoring Program: Pharmacist to adjust medication order based on comorbities and indication. Followed by ibuprofen tablet 600 mg (ADVIL,MOTRIN)Jump to med 600 mg, oral, Every 6 hours, First dose on Sun02/08/18 at 1615
start 6 hours after last ketorolac dose administered
documented in this encounter Additional Health Concerns Assessment Noted Time PHQ-9 Depression Total Score: 12 01/24/2018 5:43 PM CD T documented as of this encounter Care Teams Water Ski Assembler Relationship Specialty Start Date End Date Herbert Mcguire M.D. PCP - General Family Medicine 01/07/[address] [place] [phone] documented as of this encounter
--- OUTSIDE RECORDS SUMMARY | 2022-05-11 14:17 | XMS_ITS | Encounter Summary ---
:1995 Author Organization [facility] Address [address] [place] [address] Care Team Providers Name Role Phone Herbert Mcguire M.D. Primary Care Provider Reason for Visit Reason Comments Care 6 weeks- c/o still bleeding Encounter Details Date Type Department Care Team Description 02/19/2018 Office Visit Department of Dior Guerrero Care Postpar ross (HCC) Obstetrics and DIDIER C.N.PGermaine (Primary Dx) Gynecology in [address] [address] [place], [place] [phone] (Work) [phone] Social History Tobacco Use Types Packs/Day Years [...] 12/31/2018 relatives? How often do you attend hoahaoism or synagogue Never 12/31/2018 services? Do you belong to any clubs or organizations such as No 12/31/2018 hoahaoism groups, unions, fraternal or athletic groups, or [...] Sign Reading Time Taken Comments Blood Pressure 111/71 02/19/2018 9:54 AM CDT Pulse 82 02/19/2018 9:54 AM CDT Temperature - - Respiratory Rate 20 02/19/2018 9:54 AM CDT Oxygen Saturation - - Inhaled Oxygen Concentration - - Weight 67.2 kg (148 lb 2.4 oz) 02/19/2018 9:54 AM CDT Height - - Body Mass Index 21.69 09/23/2017 10:06 AM CDT documented in this encounter Progress Notes Dior Guerrero, Addison VELÁSQUEZNSuzanne. - 02/19/2018 10:00 AM CDT CHIEF COMPLAINT/REASON FOR VISIT Chief Complaint Patient presents with ??? Care 6 weeks- c/o still bleeding HISTORY OF PRESENT ILLNESS: Ms. Duke is a 22 y.o. here for a 6-week checkup. She had a vaginal delivery of a viable boy weight with complication of retained products requiring D&C. Since delivery, she has not been breast feeding. She has no signs of infection. She is 2 weeks post D&C and her bleeding has been buckle assembler, intermittent, with minimal to no cramping. She is using OCPs as prescribed. She did skip the placebo pills this month. Last pap smear 05/2017 and was NIL Patient Active Problem List Diagnosis ??? Asthma NOS ??? Depression Major Recurrent Full Remission (HCC) ??? Retained Placenta Without Hemorrhage (HCC) Past Medical History: Diagnosis Date ??? Anxiety Generalized Disorder ??? Asthma NOS ??? Depression Anxiety ??? Depressive Disorder Past Surgical History: Procedure Laterality Date ??? APPENDECTOMY N/A 06/22/2015 Appendectomy ??? DILATATION AND SUCTION CURETTAGE N/A 02/07/2018 Procedure: DILATATION AND SUCTION CURETTAGE for retained product(Dr. Juvencio Vera); Surgeon: Jona Clifford M.D., M.B.B.S.; Location: [facility] OR Current Outpatient Prescriptions Medication Sig Dispense Refill ??? acetaminophen (TYLENOL) 325 mg tablet Take 325 mg by mouth every 6 (six) hours. Pt took 3 tabs earlier today ??? albuterol (VENTOLIN HFA) 90 mcg/actuation inhaler Inhale 2 puffs 4 (four) times a day. ??? buPROPion XL (WELLBUTRIN XL) 300 mg 24 hr tablet Take 1 tablet (300 mg total) by mouth every morning. 90 tablet 3 ??? docusate sodium (DOK) 100 mg capsule Take 1 capsule (100 mg total) by mouth 2 (two) times a day.TAKE WITH FULL GLASS OF WATER (Patient taking differently: Take 100 mg by mouth as needed. TAKE WITHFULL GLASS OF WATER ) 100 capsule 1 ??? ibuprofen (ADVIL,MOTRIN) 600 mg tablet Take 1 tablet (600 mg total) by mouth every 6 (six) hoursas needed for mild pain or score 1-3 of 10 or moderate pain or score 4-6 of 10. 30 tablet 1 ??? norgestimate-ethinyl estradiol (ORTHO TRI-CYCLEN LO, 28,) 0.18/0.215/0.25 mg-25 mcg per tablet Take 1 tablet by mouth daily. 84 tablet 3 No current facility-administered medications for this visit. No Known Allergies SYSTEMS REVIEW GENERAL: negative BREASTS: negative GI: no constipation, diarrhea REPRODUCTIVE: see above, no pelvic pain : no burning/pain with urination, no urinary incontinence PSYCH: no depression or anxiety BP 111/71 Pulse 82 Resp 20 Wt 67.2 kg BMI 21.69 kg/m?? PHYSICAL EXAMINATION GENERAL: Patient is in no distress, alert HEENT: Grossly normal NECK: No nodes, no thyromegaly. HEART: Regular rate and rhythm. LUNGS: Clear to auscultation bilaterally. No rales, no crackles ABDOMEN: Soft, nontender to palpation. BS + x4. No masses, guarding or tenderness. PELVIS: Normal external genitalia, repair well healed. BUS normal Urethra normal Bladder non tender, not enlarged Vagina no abnormal discharge. No lesions. Normal mucosa and rugae Cervix appears normal, without lesion, well healed. Pap smear is not taken No cervical motion tenderness. Dark red blood noted in vaginal vault. Bimanual exam uterus non in size. Firm, mobile. Adnexa nontender, without masses Anus normal EXTREMITIES: No neurovascular compromise. No cyanosis, clubbing or edema. No edema, non tender ASSESSMENT/PLAN #1 exam Normal exam today. She understandably has concern about bleeding and what to expect. We discussed that while she is taking the OCPs, she may have some bleeding has her body is adjusting to the hormones. She will continue with the pills for at least 3 months, and contact me as needed if she has concerns about bleeding. documented in this encounter Plan of Treatment Not on filedocumented as of this encounter Visit Diagnoses Diagnosis Care (HCC) - Primary documented in this encounter Additional Health Concerns Assessment Noted Time PHQ-9 Depression Total Score: 12 01/24/2018 5:43 PM CD T documented as of this encounter Care Teams Apigee Developer Relationship Specialty Start Date End Date Herbert Mcguire M.D. PCP - General Family Medicine 01/07/[address] [place] [phone] documented as of this encounter
--- OUTSIDE RECORDS SUMMARY | 2022-05-11 14:17 | XMS_ITS | Encounter Summary ---
:1995 Author Organization [facility] Address [address] [place] [address] Care Team Providers Name Role Phone Herbert Mcguire M.D. Primary Care Provider Reason for Visit Reason Comments Employment Physical Outpatient (Routine) - Closed Specialty Diagnoses / Procedures Referred By Contact Refer red To Contact Family Medicine Herbert Mcguire M. D. [address] [address] Referral ID Status Reason Start Date Expiration Date Visits Requ ested Visits Authorized [id number] Closed 11/26/2018 11/26/2019 1 1 Encounter Details Date Type Department Care Team Description 02/18/2019 Comprehensive Visit Department of Shayla General Medical Examination Adult (Primary Dx); Family Herbert Witt M.D. Depression Major Recurrent Full Remissio n (HCC); [place] [id number] Asthma Mild Intermittent (HCC); Clinic, in [facility] Examination Other Normal Pregna ncy Second Trimester [address] [address] [facility] [phone] [place], [place] (Work) [phone] Social History Tobacco Use [...] 12/31/2018 relatives? How often do you attend yarsanism or jehovah's witness Never 12/31/2018 services? Do you belong to any clubs or organizations such as No 12/31/2018 yarsanism groups, unions, fraternal or athletic groups, or [...] Mass Index 22.06 02/18/2019 7:27 AM CDT documented in this encounter H&P Notes Herbert Mcguire M.D. - 02/18/2019 7:30 AM CDT SUBJECTIVE CHIEF COMPLAINT / REASON FOR VISIT Chiqui Duke is a 23 y.o. female who presents for evaluation of Employment Physical. HISTORY OF PRESENT ILLNESS Patient is a pleasant 23-year-old female who presents to clinic today for wellness exam. No active concerns. Currently 16 weeks with her 2nd child. No complications noted so far. She has been feeling well. Plans obtain her OB care at [facility] is closer to her home. Continues to work without difficulty. Mood has been excellent. No difficulty with breathing no experiences wheezing with extreme exercise. Has not needed to use her inhaler in quite some time. Current Outpatient Medications Medication Sig ??? albuterol (VENTOLIN HFA) 90 mcg/actuation inhaler Inhale 2 puffs 4 (four) times a day. ??? METOPROLOL TARTRATE ORAL Take by mouth as needed. Patient Active Problem List Diagnosis ??? Asthma NOS ??? Depression Major Recurrent Full Remission (HCC) ??? Examination Other Normal Second Trimester The following portions of the patient's history were reviewed and updated as appropriate: allergies,current medications, social history, surgical history and problem list. REVIEW OF SYSTEMS Constitutional: Positive for fatigue and weight gain of more than 10 pounds. Respiratory: Positive for dyspnea. Cardiovascular: Positive for rapid or fluttering heart beat. Gastrointestinal: Positive for constipation. Neurological: Positive for excessive daytime sleepiness. Psychiatric/Behavioral: Positive for excessive daytime sleepiness/tiredness, little interest or pleasure in doing things over past two weeks, feeling down, depressed, or hopeless over past two weeks, not being able to stop or control worrying over past two weeks and feeling nervous, anxious, or on edge in past two weeks. The following systems were negative: Skin, Eyes, ENT, , Hematologic, Musculoskeletal OBJECTIVE Blood pressure 119/70, pulse 79, temperature 36.9 ??C, temperature source Temporal, resp. rate 16, height 175.3 cm, weight 67.8 kg, SpO2 100 %, not currently . Body mass index is 22.06 kg/m??. PHYSICAL EXAM Constitutional: She is oriented to person, place, and time. She appears well-developed. HENT: Head: Normocephalic and atraumatic. Eyes: Conjunctivae and EOM are normal. Pupils are equal, round, and reactive to light. Cardiovascular: Normal rate, regular rhythm, normal heart sounds and intact distal pulses. Exam reveals no gallop and no friction rub. No murmur heard. Pulmonary/Chest: Effort normal and breath sounds normal. No respiratory distress. She has no wheezes. She has no rales. She exhibits no tenderness. Musculoskeletal: Normal range of motion. Neurological: She is alert and oriented to person, place, and time. Skin: Capillary refill takes less than 2 seconds. Psychiatric: She has a normal mood and affect. DIAGNOSTICS Results for orders placed or performed in visit on 04/23/18 Lipid Panel Result Value Ref Range Cholesterol, Total, S 208 (H) mg/dL Triglycerides, S 88 mg/dL Cholesterol, HDL, S 66 >=50 mg/dL Calculated LDL 124 mg/dL Non HDL Cholesterol 142 mg/dL Glucose, Fasting Result Value Ref Range Glucose, Fasting, S 82 70 - 99 mg/dL Hemoglobin A1c Result Value Ref Range Hemoglobin A1c, B 5.2 4.2 - 5.6 % ECG 12 Lead Result Value Ref Range Ventricular Rate ECG/Min 71 BPM IA Interval 152 ms QRSD Interval 86 ms QT Interval 386 ms QTC Interval 419 ms P [place] 53 degrees R [place] 57 degrees T Wave [place] 58 degrees ASSESSMENT / PLAN #1 General Medical Examination Adult Provided age appropriate lifestyle and risk reduction eduction. Immunizations up-to-date. Cervical cancer screening completed May 2017. She plans to have this completed at [facility] at completion of her . Will fax work form to number noted upon lab results. - Lipid Panel; Future; Expected date: 02/18/2019 - Hemoglobin A1c; Future; Expected date: 02/18/2019 - Glucose, Fasting; Future; Expected date: 02/18/2019 - Glucose, Fasting - Hemoglobin A1c - Lipid Panel #2 Depression Major Recurrent Full Remission (HCC) Stable at this time. No medications. Continue to monitor. #3 Asthma Mild Intermittent (HCC) Excellent control. #4 Examination Other Normal Second Trimester Obtaining care at [facility]. Continue support as indicated. Other orders - Family Medicine office visit (clinic) documented in this encounter Plan of Treatment Not on filedocumented as of this encounter Procedures Procedure Name Priority Date/Time Associated Diagnosis Comme nts GLUCOSE, FASTING, Routine 02/18/2019 8:31 AM General Medical R esults for this S/P CDT Examination Adult procedure are in the results section. LIPID PANEL, S Routine 02/18/2019 8:28 AM General Medical Resu lts for this CDT Examination Adult procedure are in the results section. HEMOGLOBIN A1C, B Routine 02/18/2019 8:28 AM General Medical R esults for this CDT Examination Adult procedure are in the results section. documented in this encounter Results Glucose, Fasting (02/18/2019 8:31 AM CDT) P athologist Signature Glucose, P 85 70 - 100 02/18/2019 mg/dL 8:47 AM CDT Last Intake 15 hr 02/18/2019 8:31 AM CDT Specimen Anatomical Collection Method Collection Time Receive d Time (Source) Location / / Volume Laterality Blood (Blood, 02/18/2019 8:31 AM 02/19/20 19 8:31 Venous) CDT AM CDT Herbert Mcguire M.D. LAB BLOOD NON ADD-ON Performing Organization Address [facility] Phon e Number [address] [id number] [facility] Hemoglobin A1c (02/18/2019 8:28 AM CDT) athologist Signature Hemoglobin A1c, 5.1 4.2 - 5.6 02/18/2019 B % 8:46 AM CDT Specimen Anatomical Collection Method Collection Time Receive d Time (Source) Location / / Volume Laterality Blood (Blood, 02/18/2019 8:28 AM 02/19/20 19 8:31 Venous) CDT AM CDT Herbert Mcguire M.D. LAB BLOOD ADD-ON Performing Organization Address [facility] Phon e Number [address] [phone] [facility] (ABNORMAL) Lipid Panel (02/18/2019 8:28 AM CDT) athologist Signature Cholesterol, 200 (H) mg/dL 02/18/2019 Total 9:51 AM CDT Comment: ----REFERENCE VALUE---- Desirable: < 200 Borderline high: 200 - 239 High: > or = 240 Triglycerides 87 mg/dL 02/18/2019 9:51 AM CDT Comment: ----REFERENCE VALUE---- Normal: <150 Borderline high: 150-199 High: 200-499 Very high: > or =500 Cholesterol, HDL, S 76 >=50 mg/dL 02/18/2019 9:51 AM CDT Calculated LDL 107 mg/dL 02/18/2019 9:51 AM CDT Comment: ----REFERENCE VALUE---- Desirable: <100 Above Desirable: 100-129 Borderline high: 130-159 High: 160-189 Very high: > or =190 Cholesterol, Non-HDL, Calculated 124 mg/dL 019 9:51 AM CDT Comment: ----REFERENCE VALUE---- Desirable: <130 Above Desirable: 130-159 Borderline high: 160-189 High: 190-219 Very high: > or =220 Specimen Anatomical Collection Method Collection Time Receive d Time (Source) Location / / Volume Laterality Blood (Blood, 02/18/2019 8:28 AM 02/19/20 19 8:31 Venous) CDT AM CDT Herbert Mcguire M.D. LAB BLOOD ADD-ON Performing Organization Address City/State/[facility] Code Phon e Number [facility]- [address] [place] [phone] [facility] documented in this encounter Visit Diagnoses Diagnosis General Medical Examination Adult - Prim chinedu Depression Major Recurrent Full Remissio n (HCC) Asthma Mild Intermittent (HCC) Examination Other Normal Pregna ncy Second Trimester (HCC) documented in this encounter Additional Health Concerns Assessment Noted Time PHQ-9 Depression Total Score: 11 02/18/2019 7:26 AM CD T documented as of this encounter Care Teams Inspector Aligning Relationship Specialty Start Date End Date Herbert Mcguire M.D. PCP - General Family Medicine 01/07/[address] [place] [phone] documented as of this encounter
--- OUTSIDE RECORDS SUMMARY | 2022-05-11 14:17 | XMS_ITS | Encounter Summary ---
:1995 Author Organization [facility] Address [address] [place] [address] Care Team Providers Name Role Phone Herbert Mcguire M.D. Primary Care Provider Reason for Visit Reason Comments Follow-up Outpatient (Routine) - Closed Specialty Diagnoses / Procedures Referred By Contact Refer red To Contact Obstetrics and Dior Guerrero APRN, [facility] C.N[facility] [address] [place] [address] Referral ID Status Reason Start Date Expiration Date Visits Requ ested Visits Authorized [id number] Closed 02/06/2018 02/06/2019 1 1 Encounter Details Date Type Department Care Team Description 02/07/2018 Routine Department of Jona Clifford Canceled ( Clinic: Obstetrics and M.B.B.S. Request) Gynecology in [place], [place] [address] [place] [address] Social History Tobacco Use Types [...] How often do you attend yarsani or mu-ism Never 12/31/2018 services? Do you belong to [...] documented as of this encounter Care Teams Circulation Director Relationship Specialty Start Date End Date Herbert Mcguire M.D. PCP - General Family Medicine 01/07/[address] [place] [phone] documented as of this encounter
--- OUTSIDE RECORDS SUMMARY | 2022-05-11 14:17 | XMS_ITS | Encounter Summary ---
:1995 Author Organization [facility] Address [address] [place] [address] Care Team Providers Name Role Phone Herbert Mcguire M.D. Primary Care Provider Encounter Details Date Type Department Care Team Description 05/12/2020 Clinical Communication Central Appointment Cesario lucas, Office in [facility] [address] [place] [address] Social History Tobacco Use Types Packs/Day Years [...] How often do you attend amish or baptist Never 12/31/2018 services? Do you [...] this encounter Miscellaneous Notes Telephone Encounter - Chavira Angella Reed - 05/12/2020 3:24 PM CST COVID DOS/PASS Screening What is the patient requesting?: COVID-19 Testing Only (End screening - follow local process) Plan: Endpoint recommendation: Testing indicated, sent patient to [facility] located at [address] [place] [address]. The entrance is on the north side of the building. A staff member will kristal you access to get inside. You must call [phone] for an appointment time.Testing hours are M-F 10 am to 5 pm and Sat-Sun 9 am to 2 pm. and Please avoid using public transportation per CDC recommendation. If you do not have personal transportation please self-quarantine until a personal transportation option is available. *Reminder if sending patient for testing [facility], an email notification is required. UTIVE RECEPTIONIST documented in this encounter Plan of Treatment Not on filedocumented as of this encounter Visit Diagnoses Not on filedocumented in this encounter Additional Health Concerns Assessment Noted Time PHQ-9 Depression Total Score: 10 12/29/2019 6:21 PM CD T documented as of this encounter Care Teams Heating Operators Engineer Relationship Specialty Start Date End Date Herbert Mcguire M.D. PCP - General Family Medicine 01/07/[address] [place] [phone] documented as of this encounter
--- OUTSIDE RECORDS SUMMARY | 2022-05-11 14:17 | XMS_ITS | Encounter Summary ---
:1995 Author Organization [facility] Address [address] [place] [address] Care Team Providers Name Role Phone Herbert Mcguire M.D. Primary Care Provider Reason for Referral Outpatient (Routine) - Closed Specialty Diagnoses / Procedures Referred By Contact Refer red To Contact Family Medicine Herbert Mcguire M. D. [address] [address] Referral ID Status Reason Start Date Expiration Date Visits Requ ested Visits Authorized [id number] Closed 11/26/2018 11/26/2019 1 1 Scheduling Instructions Please schedule her at 1200 on the 27th for 30 minutes. Thanks much. Encounter Details Date Type Department Care Team Description 11/26/2018 Orders Only Department of Amos Montemayor M.D. [address], [facility] [phone] [place] [address] [place], [place] [address] [phone] Social History Tobacco Use Types Packs/Day Years [...] 12/31/2018 relatives? How often do you attend sabianism or mandaen Never 12/31/2018 services? Do you belong to any clubs or organizations such as No 12/31/2018 sabianism groups, unions, fraternal or athletic groups, or [...] Treatment Scheduled Referrals Name Type Priority Associated Diagnoses Order S [facility] Family Medicine Outpatient Referral Routine Expec misael: office visit 01/02/2019 (clinic) (Approximate), Expires: 11/26/2021 documented as of this encounter Visit Diagnoses Not on filedocumented in this encounter Additional Health Concerns Assessment Noted Time PHQ-9 Depression Total Score: 16 04/23/2018 11:08 AM C DT documented as of this encounter Care Teams Front Services Agent Relationship Specialty Start Date End Date Herbert Mcguire M.D. PCP - General Family Medicine 01/07/[address] [place] [phone] documented as of this encounter
--- OUTSIDE RECORDS SUMMARY | 2022-05-11 14:17 | XMS_ITS | Encounter Summary ---
:1995 Author Organization [facility] Address [address] [place] [address] Care Team Providers Name Role Phone Herbert [...] Expiration Date Visits Requ ested Visits Authorized [id number] 1 1 Encounter Details Date Type Department Care Team Description 02/07/2018 Hospital Encounter [facility] OR Venessa Tenorio, Retained Placenta [address] [facility] Without Hemorrhage [place], [place] (HCC ) [address] Social History Tobacco Use Types Packs/Day [...] 12/31/2018 relatives? How often do you attend muslim or worship Never 12/31/2018 services? Do you belong to any clubs or organizations such as No 12/31/2018 muslim groups, unions, fraternal or athletic groups, or [...] Sign Reading Time Taken Comments Blood Pressure 121/79 02/07/2018 4:30 PM CDT Pulse 80 02/07/2018 5:00 PM CDT Temperature 37 ??C (98.6 ??F) 02/07/2018 11:56 AM CDT Respiratory Rate 16 02/07/2018 3:20 PM CDT Oxygen Saturation 96% 02/07/2018 5:00 PM CDT Inhaled Oxygen Concentration - - Weight 68.1 kg (150 lb 2.1 oz) 02/07/2018 11:56 AM CDT Height - - Body Mass Index 21.98 09/23/2017 10:06 AM CDT documented in this encounter Discharge Instructions AttachmentsThe following attachments cannot be sent through Care Everywhere. Dilation and Curettage (D & C) (Slovak)documented in this encounter Medications at Time of [...] 0.2 mg IM and misoprostol 800 mcg AR. The uterus became firm with massage and [...] Component Value Ref Test Analysis Performed At [facility] Range Method Time Signature PATHOLOGY Patient Name: CHIQUI RAM [facility] MR#: [id number] [facility] Submitting Physician: ANIKA CLIFFORD MD [id number] Specimen #[id number] Performing Lab: ??[facility] ? [address] [place] [id number] Source: Products of conception Clinical History/Pre-Op Retained placenta without hemorrhage [O73.0] Gross Description Received in a container labeled uterus is a 6.2 x 5.5 x 2. 3 cm aggregate of red-brown soft tissue and cl otted blood. ??No tissue is grossly identified. Skip Loader sections are submitted in three cassettes. KG/ed [...] Address City/State/ZIP Code Phon e Number [facility] [address] [place] [phone] documented in this encounter Visit Diagnoses Diagnosis [...] on Mary Jane 02/07/18 at 1145, Pre-Op sodium chloride injection 3 mL 3 mL, [...] 1) 1618 (Given - Provider: Solange Cortés R.N.) 15 mg, intravenous, Every 6 hours, First dose on Mary Jane 8/2/18 at 1615, For 4 doses, start no [...] (Rate/Dose Verify - Provider: Selwyn Nur APRN, SENIOR SOFTWARE PROJECT MANAGER, D.N.P.)1517 (Anesthesia Volume Adjustment - Provider: Selwyn Nur APRN, SENIOR SOFTWARE PROJECT MANAGER, D.N.P.) 20 mL/hr, intravenous, Continuous, Starting on Mary Jane 02/07/18 at 114 5, Pre-Op lactated ringers 1307 (New Bag - Provider: Stephanie Almeida R.N.) 30 mL/hr, intravenous, Continuous, Starting on Mary Jane 8 at 114 5, Pre-Op PRN Medication Order 02/05/2018 02/06/2018 02/07/2018 dexamethasone injection 4 mg (DECADRON) 4 mg, intravenous, Once as needed, nause a, vomiting, Starting Mary Jane 02/07/18 at 1525, For 1 dose, PACU (only), Give only if NOT given during the pre or intraoperative period. If ondansetron ordered, give dexamethasone with first dose of ondansetron. dexamethasone injection 4 mg (DECADRON) 4 mg, intravenous, Once as needed, nause a, vomiting, Starting Mary Jane 02/07/18 at 1600, For 1 dose, Give only if NOT given during the pre or intraoperative period. If ondansetron ordered, give dexamethasone with first dose of ondansetron. droperidol injection 0.625 mg (INAPSINE) 0.625 mg, intravenous, Every 6 hours PRN , nausea, vomiting, Starting Mary Jane 02/07/18 at [...] PRN , nausea, vomiting, Starting Mary Jane 02/07/18 at 1600, For 48 hours, Total of [...] Solange Cortés, R.N.)1549 (Given - Provider: Solange Cortés, R.N.) 25 mcg, intravenous, Every 2 min [...] score 7-10 of 10, Starting Mary Jane 8 at 1525, For 4 doses, PACU (only), [...] PRN, na usea, vomiting, Starting Mary Jane 818 at 1600, For 48 hours, Reassess for [...] hours PRN, nausea, vomiting, Starting Mary Jane 18 at 1600, For 48 hours, RASS must [...] oral, Every 6 hours, First dose on 02/08/18 at 1615
start 6 hours after last ketorolac dose administered
documented in this encounter Additional Health Concerns Assessment Noted Time PHQ-9 Depression Total Score: 12 01/24/2018 5:43 PM CD T documented as of this encounter Care Teams Casino Porter Relationship Specialty Start Date End Date Herbert Mcguire M.D. PCP - General Family Medicine 01/07/[address] [place] [phone] documented as of this encounter
--- OUTSIDE RECORDS SUMMARY | 2022-05-11 14:18 | XMS_ITS | Encounter Summary ---
:1995 Author Organization [facility] Address [address] [place] [address] Care Team Providers Name Role Phone Unavailable Primary Care Provider Unavailable Reason for Visit Reason Comments Contractions Auth/Cert Specialty Diagnoses / Procedures Referred By Contact Refer red To Contact Diagnoses na Procedures na Referral ID Status Reason Start Date Expiration Date Visits Requ ested Visits Authorized [id number] 1 1 Encounter Details Date Type Department Care Team Description 12/26/2017 Hospital Encounter [facility] Agustin Butt M.D. [address] [place] [address] 39 Weeks [facility] Janak Aden M.D., Ph.D. [address] [place] [address] [facility], Third Floor [address] [place] [address] Social History Tobacco Use Types [...] 12/31/2018 relatives? How often do you attend congregational or buddhism Never 12/31/2018 services? Do you belong to any clubs or organizations such as No 12/31/2018 congregational groups, unions, fraternal or athletic groups, or [...] Sign Reading Time Taken Comments Blood Pressure 119/76 12/26/2017 10:22 PM CDT Pulse - - Temperature 36.5 ??C (97.7 ??F) 12/26/2017 10:22 PM CDT Respiratory Rate 18 12/26/2017 10:22 PM CDT Oxygen Saturation - - Inhaled Oxygen Concentration - - Weight - - Height - - Body Mass Index - - documented in this encounter Discharge Instructions Discharge InstructionsPerla Okeefe R.N. - 12/26/2017 10:59 PM CDT PATIENT EDUCATION Ready, Set, Not Yet . . . These last weeks of sometimes seem to go forever. Contractions may get stronger at times and make you wonder if this could be it. Sometimes it???s frustrating to come to the hospital with these labor pains, only to be sent home without a baby in your arms. Contractions may stop or your labormay be in its early stages. This pre-labor period is helping your body get ready for the big day, but not yet. We recommend that during this early, pre-labor period you find a comfortable place to relax. In the meantime, if you are finding it difficult to concentrate on anything but the of this baby, here are some tips to help keep you comfortable through these hours, days or weeks while you are waiting. If labor has stopped or slowed down: ??? Sleep or just rest. ??? Snuggle with or be close to your partner. ??? Listen to relaxing music. ??? Eat or drink something. ??? Get a hug. ??? Go for a walk. ??? Get a foot, hand, back, or shoulders massage. ??? Go shopping. ??? Go to a movie or rent the funniest video you can find. ??? Go to your favorite room in the apartment or house and slowly relax each part of your body. Remind yourself that you will not be forever. As contractions get stronger, you may need added ways to cope with labor: ??? Go for a walk ??? Rock in a rocking chair ??? Take a shower or a bath ??? Slow dance ??? Relax between contractions ??? Change positions often ??? Find someone to tell you what a good job you are doing ??? Try slow, deep breathing ??? Drink water, juice or other clear liquids ??? Use lip balm on dry lips ??? Watch a movie ??? Hold hands with someone you love ??? [place] ??? Tell jokes; listen to jokes ??? Call your labor rhythmic gymnastics coach ??? Suck on a sour lollipop or popsicle ??? Cool yourself with a washcloth dipped in ice water ??? Use the bathroom often ??? For lower backache try ice packs or heat or switch between hot and cold; use tennis balls or rolling pin or doorknob for counter pressure/MOVE YOUR PELVIS. Congratulate yourself for being such a patient new parent. Think of the baby coming down and out to meet you very soon. When should you come to the hospital? Anytime you have bright red vaginal bleeding -- like a period. ??? When your water breaks or if you notice a leaking of fluids or wetness in your underwear. ??? When you are having strong contractions every 5 minutes for an hour. documented in this encounter Medications at Time of Discharge Medication Sig Dispensed Refills Start Date End Date ferrous gluconate 324 mg Take 37.5 mg of 0 01/16/2018 (37.5 mg iron) tablet iron by mouth daily. vitamin-iron Take 1 tablet by 0 01/16/2018 fumarate-FA 28 mg iron- mouth daily. 800 mcg per tablet acetaminophen (TYLENOL) Take 325 mg by 0 [...] OF WATER documented as of this encounter Nursing Notes Perla Okeefe R.N. - 12/26/2017 11:00 PM CDT Patient left ambulatory at this time. Labor precautions explained. Patient states that ctx have spaced out since earlier. Every 6-10 min. At home when resting space to 10-20 min. AVS given. Will call with any questions. documented in this encounter Plan of Treatment Not on filedocumented as of this encounter Visit Diagnoses Diagnosis 39 Weeks Gestation (HCC) documented in this encounter Additional Health Concerns Assessment Noted Time PHQ-9 Depression Total Score: 12 05/10/2017 2:20 PM CD T documented as of this encounter
--- OUTSIDE RECORDS SUMMARY | 2022-05-11 14:18 | XMS_ITS | Encounter Summary ---
:1995 Author Organization [facility] Address [address] [place] [address] Care Team Providers Name Role Phone Unavailable Primary Care Provider Unavailable Reason for Visit Reason Comments Contractions Auth/Cert Specialty Diagnoses / Procedures Referred By Contact Refer red To Contact Diagnoses N/A Procedures N/A Referral ID Status Reason Start Date Expiration Date Visits Requ ested Visits Authorized [id number] 1 1 Encounter Details Date Type Department Care Team Description 12/29/2017 - Hospital Encounter [facility] Jona Clifford, 39 Weeks Gestation 12/30/2017 [facility], Third Floor [address] [place] [address] Social History Tobacco Use Types [...] How often do you attend amish or buddhist Never 12/31/2018 services? Do you belong to [...] Sign Reading Time Taken Comments Blood Pressure 130/88 12/29/2017 10:49 PM CDT Pulse 79 12/29/2017 10:47 PM CDT Temperature 36.6 ??C (97.9 ??F) 12/29/2017 10:47 PM CDT Respiratory Rate 18 12/29/2017 10:47 PM CDT Oxygen Saturation - - Inhaled Oxygen Concentration - - Weight - - Height - - Body Mass Index - - documented in this encounter Discharge Instructions Discharge InstructionsEhAlexa samano R.N. - 12/29/2017 11:57 PM CDT PATIENT EDUCATION Ready, Set, Not [...] Hold hands with someone you love ??? [place] ??? Tell jokes; listen to jokes ??? 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 Suck on a sour lollipop or [...] Sig Dispensed Refills Start Date End Date acetaminophen (TYLENOL) Take 325 mg by mouth 0 09/11/2018 325 mg tablet every 6 (six) hours. Pt took 3 tabs earlier today docusate sodium (DOK) Take 1 capsule (100 100 capsule 1 10/0705/14/2018 100 mg mg total) by mouth 2 capsuleIndications: (two) times a day. Constipation TAKE WITH FULL GLASS OF WATER ferrous gluconate 324 Take 37.5 mg of iron 0 01/16/2018 mg (37.5 mg iron) by mouth daily. tablet vitamin-iron Take 1 tablet by 0 01/16/2018 fumarate-FA 28 mg iron- mouth daily. 800 mcg per tablet albuterol (VENTOLIN Inhale 2 puffs 4 0 11/24/2015 07/01/2019 HFA) 90 mcg/actuation (four) times a day. inhaler breast pump device 1 each Cyclic PN - 1 Device 1 8 01/24/2018 see admin instructions. ibuprofen Take 1 tablet (600 30 tablet 1 01/04/20182017 (ADVIL,MOTRIN) 600 mg mg total) by mouth tablet every 6 (six) hours as needed for mild pain or score 1-3 of 10 or moderate pain or score 4-6 of 10. witch ashok (TUCKS) 50 Apply 1 application 100 each 0 12/0801/16/2018 % pad topically 3 (three) times a day as needed (or pain.). documented as of this encounter Progress Notes Jona Clifford M.D., M.B.B.S. - 12/29/2017 11:46 PM CDT Subjective: Patient is a 22 yo female at 39w3d gestation who is here for contractions that started up again at around 20:30 tonight. She denies leaking or vaginal bleeding. She denies recent intercourse or trauma. 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 Objective: Blood pressure 130/88, pulse 79, temperature 36.6 ??C, temperature source Temporal, resp. rate 18, last menstrual period 03/08/2017, not currently . General: uncomfortable and breathing through her contractions Abdomen: soft and non tender, gravid FHT: 135/mod [place]/accel+/ no decels [place]: q 2 -5 minutes Cervix: 1-2/80/-2 rechecked no change (checks by RN) Assessment/Plan: 22 yo at 39w4d 1. Rule out labor - I offered the patient therapeutic rest. Ambien 5 mg PO given to the patient - I discussed with the patient the option to keep her for longer hours and recheck or let her go home. Since she has not changed since her last check on Sunday12/26/2017 patient decided to go home. - Labor precautions reviewed - Patient to return for her next scheduled appointment on 01/03/2018 2. Back pain in - Tylenol 1000 mg PO once given to patient, heat packs - Abdominal binder as a maternity support belt given to the patient documented in this encounter Nursing Notes Alexa Garsia R.N. - 12/30/2017 12:15 AM CDT Pt here for r/o labor. VSS. Rates ctx pain 10/10 in abdomen and lower back. Cat 1 tracing, FHTs 135.Ctx irreg 2-5 min. Moderate to palpation, soft at rest. Cervix with no change, remained 1-2/80/-2 1 hr after initial exam. Some spotting present. Given ambien and ES tylenol and heat packs to back and discharged home with labor precautions. documented in this encounter Plan of Treatment Not on filedocumented as of this encounter Visit Diagnoses Diagnosis 39 Weeks Gestation (HCC) Labor Threatened Not Premature (HCC) documented in this encounter Administered Medications Inactive Administered Medications - up to 3 most recent administrations Medication Order MAR Action Action Date Dose Rate Site acetaminophen (TYLENOL) 500 mg tablet - ADS Override Pull Starting on 12/29/17 at 2340, For 1 dose, Created b y cabinet override acetaminophen tablet 1,000 mg (TYLENOL) Given 12/29/2017 11:41 PM CDT 1,000 mg 1,000 mg, oral, Once, On 12/29/17 at 2345, For 1 dose zolpidem (AMBIEN) 5 mg tablet - ADS Over ride Pull Starting on 12/29/17 at 2336, For 1 dose, Created b y cabinet override zolpidem tablet 5 mg (AMBIEN) Given 12/29/2017 11:41 PM CDT 5 mg 5 mg, oral, Once, On 12/29/17 at 2345, For 1 dose documented in this encounter Active and Recently Administered Medications Times are shown in CDT. Scheduled Medication Order 12/28/2017 12/29/2017 12/30/2017 acetaminophen tablet 1,000 mg (TYLENOL) (COMPLETED) 2341 (Given - Provider: Alexa Garsia R.N. - Comment: per provider order based on ctx pain) 1,000 mg, oral, Once, On 12/29/17 at 2345, For 1 dose zolpidem tablet 5 mg (AMBIEN) (COMPLETED) 2341 (Given - Provider: Alexa Garsia R.N.) 5 mg, oral, Once, On 12/29/17 at 2345, For 1 dose documented in this encounter Additional Health Concerns Assessment Noted Time PHQ-9 Depression Total Score: 12 05/10/2017 2:20 PM CD T documented as of this encounter
--- OUTSIDE RECORDS SUMMARY | 2022-05-11 14:18 | XMS_ITS | Encounter Summary ---
:1995 Author Organization [facility] Address [address] [place] [address] Care Team Providers Name Role Phone Herbert Mcguire M.D. Primary Care Provider Encounter Details Date Type Department Care Team Description 02/05/2018 Hospital Encounter Department of Dior Guerrero [facility] [address] [phone] Social History Tobacco Use Types Packs/Day Years [...] 12/31/2018 relatives? How often do you attend taoism or denominational Never 12/31/2018 services? Do you belong to any clubs or organizations such as No 12/31/2018 taoism groups, unions, fraternal or athletic groups, or [...] took 3 tabs earlier today albuterol (VENTOLIN Inhale 2 puffs 4 0 11/24/2015 07/01/2019 HFA) 90 mcg/actuation (four) times a day. inhaler buPROPion (WELLBUTRIN Take 1 tablet (150 60 tablet 2 201702/07/2018 SR) 150 mg 12 hr tablet mg total) by mouth 2 (two) times a day for 60 doses. Take 1 tab daily for 3 days then take one tab 2x daily for 4 days. Quit smoking on day 7 and continue to take medication 2x daily. buPROPion XL Take 1 tablet (300 90 tablet 3 01/24/201804/08 (WELLBUTRIN XL) 300 mg mg total) by mouth 24 hr tablet every morning. docusate sodium (DOK) Take 1 capsule (100 100 capsule 1 10/0705/14/2018 100 mg mg total) by mouth 2 capsuleIndications: (two) times a day. Constipation TAKE WITH FULL GLASS OF WATER ibuprofen Take 1 tablet (600 30 tablet 1 01/04/20182017 (ADVIL,MOTRIN) 600 mg mg total) by mouth tablet every 6 (six) hours as needed for mild pain or score 1-3 of 10 or moderate pain or score 4-6 of 10. norgestimate-ethinyl Take 1 tablet by 84 tablet 3 8 03/14/2018 estradiol (ORTHO mouth daily. TRI-CYCLEN LO, 28,) 0.18/0.215/0.25 mg-25 mcg per tablet documented as of this encounter Plan of Treatment Not on filedocumented as of this encounter Procedures Procedure Name Priority Date/Time Associated Comments Diagnosis US PELVIS RAD - Routine 02/05/2018 2:57 Exam Results for TRANSVAGINAL AND (most inpatients PM CDT (HCC) this pr ocedure TRANSABDOMINAL and all are in the outpatients) results section. documented in this encounter Results US Pelvis Transvaginal and Transabdominal (02/05/2018 2:57 PM CDT) Anatomical Region Laterality Modality Pelvis, Ultrasound RST LOS N/A Ultrasound Specimen (Source) Anatomical Collection Method Collection Time Re ceived Time Location / / Volume Laterality 02/05/2018 3:28 PM CDT Impressions 02/05/2018 3:32 PM CDT IMPRESSION: Masslike expansion of the endometrium in the upper uterine segment measuring 36 mm in greatest diameter demonstrating in ternal vascularity on color flow analysis, particularly along its superio r margin. Imaging findings are suspicious for focal endometrial hyperpl chely, endometrial malignancy or a large endometrial polyp. Normal-appearing ovaries. Narrative 02/05/2018 3:32 PM CDT EXAM: US PELVIS TRANSVAGINAL AND TRANSABDOMINAL COMPARISON: None FINDINGS: Uterus: ??5.9 x 8.7 x 10.0 cm cm Myometrium: Probable submucosal fibroid along the lower right uterine segment measuring 2.1 cm. Endometrial thickness: Abnormal. Masslik e expansion of the endometrium measuring 36 x 33 mm. Color flow demonstrates inte rnal vascularity within this masslike expansion of the upper endometrium, part icularly along its superior margin. Other: N/A. Right ovary volume: 13.2 mL. Normal size and appearance. Left ovary volume: 8.1 mL. Normal size and appearance. Fluid: No free fluid. Transvaginal exam performed to better vi sualize the endometrium and adnexa. Procedure Note Hunter Blevins M.D. - 02/05/2018Formatt ing of this note might be different from the original. EXAM: US PELVIS TRANSVAGINAL AND TRANSAB DOMINAL COMPARISON: None FINDINGS: Uterus: 5.9 x 8.7 x 10.0 cm cm Myometrium: Probable submucosal fibroid along the lower right uterine segment measuring 2.1 cm. Endometrial thickness: Abnormal. Masslik e expansion of the endometrium measuring 36 x 33 mm. Color flow demonstrates inte rnal vascularity within this masslike expansion of the upper endometrium, part icularly along its superior margin. Other: N/A. Right ovary volume: 13.2 mL. Normal size and appearance. Left ovary volume: 8.1 mL. Normal size and appearance. Fluid: No free fluid. Transvaginal exam performed to better vi sualize the endometrium and adnexa. IMPRESSION: Masslike expansion of the endometrium in the upper uterine segment measuring 36 mm in greatest diameter demonstrating in ternal vascularity on color flow analysis, particularly along its superio r margin. Imaging findings are suspicious for focal endometrial hyperpl chely, endometrial malignancy or a large endometrial polyp. Normal-appearing ovaries. Addison Archuleta APRNNGraeme IMG US PROCEDURES documented in this encounter Visit Diagnoses Diagnosis Exam (HCC) documented in this encounter Additional Health Concerns Assessment Noted Time PHQ-9 Depression Total Score: 12 01/24/2018 5:43 PM CD T documented as of this encounter Care Teams Tinner Automatic Relationship Specialty Start Date End Date Herbert Mcguire M.D. PCP - General Family Medicine 01/07/[address] [place] [phone] documented as of this encounter
--- OUTSIDE RECORDS SUMMARY | 2022-05-11 14:18 | XMS_ITS | Encounter Summary ---
:1995 Author Organization [facility] Address [address] [place] [address] Care Team Providers Name Role Phone Herbert Mcguire M.D. Primary Care Provider Reason for Referral Outpatient (Routine) - Closed Specialty Diagnoses / Procedures Referred By Contact Refer red To Contact Obstetrics and Dior Guerrero APRN, [facility] C.N.P. [address] [place] [phone] Referral ID Status Reason Start Date Expiration Date Visits Requ ested Visits Authorized [id number] Closed 02/06/2018 02/06/2019 1 1 Encounter Details Date Type Department Care Team Description 02/06/2018 Orders Only Department of Obstetrics Dior Guerrero, [place] PRN, and Gynecology in [place], C.N. P. [address] [address] [place] [address] [phone] Social History Tobacco Use Types Packs/Day Years [...] 12/31/2018 relatives? How often do you attend catholic or scientology Never 12/31/2018 services? Do you belong to any clubs or organizations such as No 12/31/2018 catholic groups, unions, fraternal or athletic groups, or [...] Name Type Priority Associated Order Schedule Diagnoses Obstetrics and Outpatient Referral Routine Expect ed: Gynecology office 02/06/2018 visit (clinic) (Approximate) , Expires: 02/06/2021 documented as of this encounter Visit Diagnoses Not on filedocumented in this encounter Additional Health Concerns Assessment Noted Time PHQ-9 Depression Total Score: 12 01/24/2018 5:43 PM CD T documented as of this encounter Care Teams Rail Manager Relationship Specialty Start Date End Date Herbert Mcguire M.D. PCP - General Family Medicine 01/07/[address] [place] [phone] documented as of this encounter
--- OUTSIDE RECORDS SUMMARY | 2022-05-11 14:18 | XMS_ITS | Encounter Summary ---
:[address] [facility] Address [address] [place] [address] Care Team Providers Name Role Phone Unavailable Primary Care Provider Unavailable Reason for Visit Reason Comments Routine Visit Outpatient (Routine) - Canceled Specialty Diagnoses / Procedures Referred By Contact Refer red To Contact Obstetrics and Dior Guerrero APRN, [facility] C.N.P. [address] [facility] [place] [address] Referral ID Status Reason Start Date Expiration Date Visits V isits Requested Authorized [id number] Canceled 12/06/2017 12/06/2018 1 1 Encounter Details Date Type Department Care Team Description 12/20/2017 Routine Department of Dior Guerrero Encounte r For Obstetrics and DIDIER, C.N.P. Supervision Of Normal Gynecology in [facility] [address] [facility] [place], [place] Unspecified Trimester [address] [place] [phone] (Primary Dx) [place], [place] [phone] [address] (Work) [phone] Social History Tobacco Use Types Packs/Day Years [...] How often do you attend yarsani or jainism Never 12/31/2018 services? Do you belong to [...] Sign Reading Time Taken Comments Blood Pressure 112/60 12/20/2017 9:25 AM CDT Pulse - - Temperature - - Respiratory Rate - - Oxygen Saturation - - Inhaled Oxygen Concentration - - Weight 81.4 kg (179 lb 7.3 oz) 12/20/2017 9:25 AM CDT Height - - Body Mass Index 26.28 09/23/2017 10:06 AM CDT documented in this encounter Progress Notes Dior Guerrero APRN, C.N.P. - 12/20/2017 9:45 AM CDT Feeling well. No signs of labor. Good movement. Reviewed where to go when in labor. Questions answered. documented in this encounter Plan of Treatment Not on filedocumented as of this encounter Visit Diagnoses Diagnosis Encounter For Supervision Of Normal Firs t Unspecified Trimester (HCC) - Primary documented in this encounter Additional Health Concerns Assessment Noted Time PHQ-9 Depression Total Score: 12 05/10/2017 2:20 PM CD T documented as of this encounter
--- OUTSIDE RECORDS SUMMARY | 2022-05-11 14:18 | XMS_ITS | Encounter Summary ---
:1995 Author Organization [facility] Address [address] [place] [address] Care Team Providers Name Role Phone Unavailable Primary Care Provider Unavailable Reason for Visit Auth/Cert Specialty Diagnoses / Procedures Referred By Contact Refer red To Contact Diagnoses 39 Weeks Gestation (HCC) 39 Weeks Gestation (HCC) Procedures NA Referral ID Status Reason Start Date Expiration Date Visits Requ ested Visits Authorized [id number] 1 1 Encounter Details Date Type Department Care Team Description 01/01/2018 Anesthesia Event [facility] LEAD PROGRAMMER ANALYST Third Floor [address] [place] [phone] Anesthesia Record Procedure Summary Procedure Name Responsible Anesthesia Start Time Anesthesia Stop Time Anesthesiologist LABOR ANALGESIA Anita Polk APRN, MELYSSA 01/01/182236 Events Date Time Event Comment 01/01/2018 1906 2237 An Start Machine/Equipmen t Checked Infection Precautions Followed Procedure/Site V erified NPO Status Verified Supine Standard ASA Monitors Jael lied 01/02/2018 06 An End Name Total bupivacaine PF 0.25% injection 0.8 mL fentaNYL PF 50 mcg/mL Regional 100 mcg Agents No agents on file. Blood No blood administrations on file. Lines, Drains, and Airways Type Details Placement Removal Peripheral IV Placement Date: 01/01/18; 01/01/182044 by 01/02 1500 by Placement Time: 2044; Alexa Garsia Pearson, Ashley M, Catheter Size: 20 G; R.N. R.N. Orientation: Left; Location: Wrist; Site Prep: Chlorhexidine (Preferred); Inserted by: joao CHOI; Insertion Attempts: 2; Removal Date: 01/02/18; Removal Time: 1500; Removal Reason: Per protocol Epidural Catheter Placement Date: 01/01/18; 01/01/18 2305 by [id number] by Placement Time: 2305; Joao Gan Pearson, Ashley M, Inserted by: Anita Polk R.N. R.N. CRNA; Removal Date: 01/02/18; Removal Time: 1120; Removal Assessment: Tip intact, Hemostasis achieved Indwelling Urinary Placement Date: 01/02/18; 01/02/18 0100 by [id number] by Catheter Placement Time: 0100; Joao Gan Riester, Carrie M, Inserted by: Joao Gan RN; Size: 16 Fr.; Balloon Size: 10 mL; Urine Returned: Yes; Removal Date: 01/02/18; Removal Time: 610; Removal Reason: Criteria for drain removal met documented in this encounter Social History Tobacco [...] 12/31/2018 relatives? How often do you attend orthodox or shinto Never 12/31/2018 services? Do you belong to any clubs or organizations such as No 12/31/2018 orthodox groups, unions, fraternal or athletic groups, or [...] Postprocedure Evaluation - Wen Lopez M.D. - 01/02/2018 11:04 AM CDT Patient: Chiqui Duke Procedure Summary Date: 01/01/18 Room / Location: Anesthesia Start: 2236 Anesthesia Stop: 01/02/18622 Procedure: LABOR ANALGESIA Diagnosis: Scheduled Providers: Responsible Provider: Anita Polk APRN, CRNA Anesthesia Type: regional ASA Status: 1 Anesthesia Type: regional Last vitals BP 126/82 (01/02/18 0815) Temp 37 ??C (01/02/18 0714) Pulse 93 (01/01/18 2314) Resp 18 (01/02/18 0800) SpO2 100 % (01/01/18 2314) Anesthesia Post Evaluation 01/02/2018 11:04 AM Patient Disposition: general care unit Cardiovascular status: hemodynamics (HR & BP) acceptable Respiratory status: patent airway with spontaneous effort Temperature: normothermic Oxygen requirements: room air Level of consciousness: awake Pain score: pain adequately controlled and/or at baseline Post Op nausea/vomiting: none Hydration status: euvolemic Anesthesia Procedure Notes - Anita Polk APRN, CRNA - 01/01/2018 11:16 PM CDT Associated Order(s): ANESTHESIA REGIONAL BLOCK Regional Block Date/Time: 01/01/2018 11:30 PM Performed by: ANITA POLK Authorized by: ANITA POLK Location: labor room [place] protocol: All relevant documentation and testing were reviewed and available. All required blood products, implants, devices and/or special equipment were made available as applicable. The pre-procedure verification was conducted, the correct site was marked if required, and the procedural time out was conducted prior to performing the procedure and confirmed in a procedural pause: yes Pre-procedure details: Appropriate hand hygiene, gown, cap, mask, protective eyewear, sterile gloves, skin preparation, sterile drape, and strict aseptic technique were utilized as applicable for the procedure.: yes Skin prep: chlorhexidine Sedation/Anesthesia (see MAR for exact dosages): Anesthesia method: local infiltration Procedure details: Block type: OB block Neuraxial: combined spinal and epidural Positioning: sitting Approach: midline Level inserted: L 4-5 Injection technique: combined spinal epidural Epidural space identification technique: loss of resistance - air Loss of resistance depth: 4 Needle type: saavedra Gauge: 17G Length: 10 Needle type spinal: bull Needle gauge - spinal: 25G Needle length- spinal (cm): 10 CSF for CSE: CSF with spinal needle Test dose: yes- negative test dose Pain with needle advancement or injection of local anesthetic: no Post-procedure details: Procedure completed successfully: successful procedure Other complications: none Anesthesia Preprocedure Evaluation - Wen Lopez M.D. - 01/01/2018 11:14 PM CDT Anesthesia Pre-Evaluation Pertinent components of the patient's history including current problem list, medical history, surgical history, family history, social history, medications and allergies were reviewed and updated as appropriate. The patient was examined and the Pre-op diagnosis, planned procedure, and H&P were reviewed and remain unchanged. PROBLEM LIST Relevant Problems RESP (+) Asthma NOS OBJECTIVE PHYSICAL EXAMINATION Airway (HEENT) Mallampati: II TM Distance: >3 FB Neck ROM: Full Cardiovascular Rhythm: Regular Rate: Normal Cardiovascular Assessment: Normal Pulmonary Pulmonary Assessment: Clear Neurological Neurologic Assessment: Alert and oriented X 3 Dental Dental Assessment: Dentition intact General / Constitutional Normal ASSESSMENT / PLAN ANESTHESIA PLAN ASA: 1 Anesthesia Plan: regional Patient seen and allergies reviewed; anesthesia plan and risks discussed directly with patient / legal guardian, or through an die presser; patient evaluated and approved for anesthesia / sedation. The use of blood products not discussed documented in this encounter Plan of Treatment Not on filedocumented as of this encounter Procedures Procedure Name Priority Date/Time Associated Comments Diagnosis ANESTHESIA REGIONAL Routine 01/01/2018 11:16 PM R esults for this BLOCK CDT procedure are i n the results section. documented in this encounter Results LDA ANE EPIDURAL CATHETER (01/01/2018 11:16 PM CDT) Narrative Anita Polk APRN, CRNA - 01/01/2018 1 1:16 PM CDT Anita Polk APRN, CRNA ? 01/01/2018 11:17 PM Regional Block Date/Time: 01/01/2018 11:30 PM Performed by: ANITA POLK Authorized by: ANITA POLK Location: labor room [place] protocol: All relevant documentation and testing w ere reviewed and available. All required blood products, implants, devic es and/or special equipment were made available as applicable. The pre-pr ocedure verification was conducted, the correct site was marked i f required, and the procedural time out was conducted prior to performi ng the procedure and confirmed in a procedural pause: yes ?? Pre-procedure details: Appropriate hand hygiene, gown, cap, mas k, protective eyewear, sterile gloves, skin preparation, sterile drape, and strict aseptic technique were utilized as applicable for the procedure .: yes ?? Skin prep: chlorhexidine Sedation/Anesthesia (see MAR for exact d osages): Anesthesia method: local infiltration Procedure details: Block type: OB block ?? Neuraxial: combined spinal and epidural ?? Positioning: sitting ?? Approach: midline Level inserted: L 4-5 Injection technique: combined spinal epi dural Epidural space identification technique: loss of resistance - air Loss of resistance depth: 4 Needle type: saavedra Gauge: 17G Length: 10 Needle type spinal: bull Needle gauge - spinal: 25G Needle length- spinal (cm): 10 CSF for CSE: CSF with spinal needle Test dose: yes- negative test dose ?? Pain with needle advancement or injectio n of local anesthetic: no ?? Post-procedure details: Procedure completed successfully: succes sful procedure Other complications: none Procedure Note Anita Polk, PSYCHIATRIC TECHNICIAN ASSISTANT, LEAD PROGRAMMER ANALYST - 01/01/2018 1 1:16 PM CDT Regional Block Date/Time: 01/01/2018 11:30 PM Performed by: ANITA POLK Authorized by: ANITA POLK Location[facility] [place] protocol: All relevant documentation and testing w ere reviewed and available. All required blood products, implants, devices and/or special equipment were made available as applicable. The pre-procedure verification was conducted, the correct site was marked i f required, and the procedural time out was conducted prior to performing the procedure and confirmed in a procedural pause: yes Pre-procedure details: Appropriate hand hygiene, gown, cap, mas k, protective eyewear, sterile gloves, skin preparation, sterile drape, and strict aseptic technique were utilized as applicable for the procedure.: yes Skin prep: chlorhexidine Sedation/Anesthesia (see MAR for exact d osages): Anesthesia method: local infiltration Procedure details: Block type: OB block Neuraxial: combined spinal and epidural Positioning: sitting Approach: midline Level inserted: L 4-5 Injection technique: combined spinal epi dural Epidural space identification technique: loss of resistance - air Loss of resistance depth: 4 Needle type: saavedra Gauge: 17G Length: 10 Needle type spinal: bull Needle gauge - spinal: 25G Needle length- spinal (cm): 10 CSF for CSE: CSF with spinal needle Test dose: yes- negative test dose Pain with needle advancement or injectio n of local anesthetic: no Post-procedure details: Procedure completed successfully: succes sful procedure Other complications: none Anita Polk PSYCHIATRIC TECHNICIAN ASSISTANT, LEAD PROGRAMMER ANALYST PROCEDURE/MINOR SURGICAL ORD ERABLES documented in this encounter Visit Diagnoses Not on filedocumented in this encounter Administered Medications Inactive Administered Medications - up to 3 most recent administrations Medication Order MAR Action Action Date Dose Rate Site bupivacaine PF 0.25 % (2.5 mg/mL) Given 01/02/2018 6:21 AM CDT 2 5 mg injection (MARCAINE) As needed, Starting on Sun01/01/18 at 2250, Anesthesia Intra-op Given 01/02/2018 6:20 AM CDT 25 mg Given 01/01/2018 10:50 PM CDT 0.8 mL fentaNYL injection Regional (SUBLIMAZE) Given 01/01/2018 11:00 PM CDT 80 mcg As needed, Starting on Sun01/01/18 at 2250, Anesthesia Intra-op Given 01/01/2018 10:50 PM CDT 20 mcg documented in this encounter Additional Health Concerns Assessment Noted Time PHQ-9 Depression Total Score: 12 05/10/2017 2:20 PM CD T documented as of this encounter
--- OUTSIDE RECORDS SUMMARY | 2022-05-11 14:18 | XMS_ITS | Encounter Summary ---
:1995 Author Organization [facility] Address [address] [place] [address] Care Team Providers Name Role Phone Herbert Mcguire M.D. Primary Care Provider Encounter Details Date Type Department Care Team Description 01/08/2018 Encounter Social History Tobacco Use Types Packs/Day Years [...] 12/31/2018 relatives? How often do you attend mandaeism or jew Never 12/31/2018 services? Do you belong to any clubs or organizations such as No 12/31/2018 mandaeism groups, unions, fraternal or athletic groups, or [...] documented as of this encounter Miscellaneous Notes Note - Mylene Mcneil R.N., I.B.C.L.C. - 01/08/2018 2:41 PM CDT This note was copied from a baby's chart. SUBJECTIVE Jose Roberto Vieira, at 6 days old of age, was [facility] [place] OBJECTIVE Delivery Details: Risk Factors: Asthma Other Obstetric Procedures-This : None Labor Complications: Delivery Type: Vaginal, Spontaneous Delivery [place] Weight: 3710 g 1 Minute 5 Minute 10 Minute Totals: 9 9 Maternal Breast Assessment Assessment Baby was slightly jaundiced in the eyes, cord was off , circ was healing well, no adhesions Vaselineapplied. White milk protein to baby's tongue. Encouraged to use a wet wash cloth to gently scrub baby's tongue. Assessed mouth and no white patched to gums or buccal area. Encouraged mom to clean everyday and watch for potential white patches to gums and buccal area then see MD. Infant Input: 8 feedings/24 hours Output: 8 voids/24 hours, 1 yellow stools/24 hours, weight: 3710 g Current weight: Weight: 3629 g Percent of weight change since : -2% Weight change since previous weight: Weight Change (gm) : 0 Pct Wt Change: -2.19 % ASSESSMENT/PLAN Mom stated that she went to formula. No pumping, she wants to stop . She is using a tight bra and ice to stay comfortable. She is feeding formula every 4 hrs day 2-3 oz. And at night baby feeds more frequently. PLAN; try to feed every 2-3 hrs during the day. She is going to give 2 oz and s lowly increase to 3 oz as tolerated over the next week. Currently baby is very spit-ty post 3 oz. But no spiting with 2 oz. [facility] Follow Up: follow up plan: consult at [facility] next sunday Mylene Mcneil R.N., I.B.C.L.C.} documented in this encounter Plan of Treatment Not on filedocumented as of this encounter Visit Diagnoses Not on filedocumented in this encounter Additional Health Concerns Assessment Noted Time PHQ-9 Depression Total Score: 19 01/07/2018 12:49 PM C DT documented as of this encounter Care Teams News Video Editor Relationship Specialty Start Date End Date Herbert Mcguire M.D. PCP - General Family Medicine 01/07/[address] [address] documented as of this encounter
--- OUTSIDE RECORDS SUMMARY | 2022-05-11 14:18 | XMS_ITS | Encounter Summary ---
:1995 Author Organization [facility] Address [address] [place] [address] Care Team Providers Name Role Phone Herbert Mcgiure M.D. Primary Care Provider Encounter Details Date Type Department Care Team Description 02/06/2018 Orders Only Department of Jona Clifford Mole Hydatidif orava (HCC) Obstetrics and M.B.B.S. (Primary Dx) Gynecology in [address] [phone] Social History Tobacco Use Types Packs/Day [...] 12/31/2018 relatives? How often do you attend rastafarian or evangelical Never 12/31/2018 services? Do you belong to any clubs or organizations such as No 12/31/2018 rastafarian groups, unions, fraternal or athletic groups, or [...] on filedocumented as of this encounter Results hCG (Human Chorionic Gonadotropin), Quantitative, (02/06/2018 12:37 PM CDT) P athologist Signature HCG, 7.3 IU/L 02/06/2018 [facility] Quantitative, 1:50 PM CDT [facility] Comment: The test result is indetermina te, repeat the test in 72 hours. Biotin has been identified by the deondre mayorga as a potential interfering substance. ??Higher concentr ations of biotin may be found in multivitamins, hair/nail supple ments, and workout supplements. ??If the result does not [facility] clinical observations, repeat testing after patient refrains fr om the use of supplements for at least 12 hours. 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 PCP - General Family Medicine 01/07/[address] [place], [place] [address] [place] [address] documented as of this encounter
--- OUTSIDE RECORDS SUMMARY | 2022-05-11 14:18 | XMS_ITS | Encounter Summary ---
:1995 Author Organization [facility] Address [address] [place] [address] Care Team Providers Name Role Phone Unavailable Primary Care Provider Unavailable Encounter Details Date Type Department Care Team Description 01/06/2018 Encounter Social History Tobacco Use Types Packs/Day [...] 12/31/2018 relatives? How often do you attend episcopalian or church Never 12/31/2018 services? Do you belong to any clubs or organizations such as No 12/31/2018 episcopalian groups, unions, fraternal or athletic groups, or [...] of this encounter Miscellaneous Notes Note - Kenna Olivarez RGermaineN. - 01/06/2018 2:31 PM CDT This note was copied from a baby's chart. 4 day old here for weight/TcB check. Today's weight 3588 g, -3% loss from . Tcb 12.1, low risk zone. Switched to formula feeding over night. Mom not wanting to latch/pump. Baby has been taking 1 oz. Of formula every 2-3 hours, tolerating well. Encouraged to mix with distilled water. Baby with large cephalohematoma to left side of head, Dr. Schmidt assessed and reassured parents at this time, no n ew orders. Circ site healing, some swelling noted with yellow healing tissue present. Encouraged to use ice therapy throughout the day along with expressing some for comfort if needed to help with breast fullness. Baby has had 3 brown stools/5-6+ voids last 24 hours. Encouraged to gradually increase volumes of formula to 2-2.5 oz. Every 2-3 hours. Paced bottle feeding discussed. Plans on attending [facility] in [place] Sunday for weight check. documented in this encounter Plan of Treatment Not on filedocumented as of this encounter Visit Diagnoses Not on filedocumented in this encounter Additional Health Concerns Assessment Noted Time PHQ-9 Depression Total Score: 12 05/10/2017 2:20 PM CD T documented as of this encounter
--- OUTSIDE RECORDS SUMMARY | 2022-05-11 14:18 | XMS_ITS | Encounter Summary ---
:1995 Author Organization [facility] Address [address] [place] [address] Care Team Providers Name Role Phone Unavailable Primary Care Provider Unavailable Reason for Visit Reason Comments Contractions Auth/Cert Specialty Diagnoses / Procedures Referred By Contact Refer red To Contact Diagnoses NA Procedures NA Referral ID Status Reason Start Date Expiration Date Visits Requ ested Visits Authorized [id number] 1 1 Encounter Details Date Type Department Care Team Description 12/25/2017 Hospital Encounter [facility] Janak Aden [address] [facility], Jose Bird M.D., Ph.D . [facility], [address] [place] [address] [address] [place], [place] [phone] [address] (Work) [phone] Social History Tobacco Use Types Packs/Day Years [...] 12/31/2018 relatives? How often do you attend confucianist or episcopal Never 12/31/2018 services? Do you belong to any clubs or organizations such as No 12/31/2018 confucianist groups, unions, fraternal or athletic groups, or [...] Sign Reading Time Taken Comments Blood Pressure 112/83 12/25/2017 6:47 AM CDT Pulse - - Temperature 37.3 ??C (99.1 ??F) 12/25/2017 6:13 AM CDT Respiratory Rate 16 12/25/2017 6:13 AM CDT Oxygen Saturation - - Inhaled Oxygen Concentration - - Weight - - Height - - Body Mass Index - - documented in this encounter Discharge Instructions Discharge InstructionsStefania Farris R.N. - 12/25/2017 8:25 AM CDT PATIENT EDUCATION Ready, Set, Not Yet [...] Hold hands with someone you love ??? [place] ??? Tell jokes; listen to jokes ??? Call your labor men's golf coach ??? Suck on a sour lollipop [...] Sig Dispensed Refills Start Date End Date docusate sodium (DOK) Take 1 capsule (100 100 capsule 1 10/0705/14/2018 100 mg mg total) by mouth capsuleIndications: 2 (two) times a Constipation day. TAKE WITH FULL GLASS OF WATER ferrous gluconate 324 mg Take 37.5 mg of 0 01/16/2018 (37.5 mg iron) tablet iron by mouth daily. vitamin-iron Take 1 tablet by 0 01/16/2018 fumarate-FA 28 mg iron- mouth daily. 800 mcg per tablet albuterol (VENTOLIN HFA) Inhale 2 puffs 4 0 11/2307/01/2019 90 mcg/actuation inhaler (four) times a day. documented as of this encounter Nursing Notes Stefania Farris R.N. - 12/25/2017 8:23 AM CDT Discharged to home, undelivered, ambulatory to private car with significant other. Labor precautionsgiven to patient, states understanding. documented in this encounter Plan of Treatment Not on filedocumented as of this encounter Visit Diagnoses Diagnosis 38 Weeks Gestation (HCC) documented in this encounter Additional Health Concerns Assessment Noted Time PHQ-9 Depression Total Score: 12 05/10/2017 2:20 PM CD T documented as of this encounter
--- OUTSIDE RECORDS SUMMARY | 2022-05-11 14:18 | XMS_ITS | Encounter Summary ---
:1995 Author Organization [facility] Address [address] [place] [address] Care Team Providers Name Role Phone Herbert Mcguire M.D. Primary Care Provider Reason for Visit Reason Comments Vaginal Bleed 22 year female 14 days post . Pt states she had a level two tear that she has had to have sew up twice last 2017. Pt states she started haveing vagianl blee ding around 1800 today. when pt stood up to sit on cart she had large gu sh of blood and loss of a large clot . Encounter Details Date Type Department Care Team Description 01/16/2018 Emergency [place] [facility] Sheryl baltazar Bleeding Vaginal Department Marino TORRES M.D. (Primary Dx) [id number] [phone] (Wo rk) Social History Tobacco Use Types [...] 12/31/2018 relatives? How often do you attend synagogue or sabianist Never 12/31/2018 services? Do you belong to any clubs or organizations such as No 12/31/2018 synagogue groups, unions, fraternal or athletic groups, or [...] Sign Reading Time Taken Comments Blood Pressure 115/82 01/16/2018 8:09 PM CDT Pulse 74 01/16/2018 8:09 PM CDT Temperature 37 ??C (98.6 ??F) 01/16/2018 6:43 PM CDT Respiratory Rate 18 01/16/2018 8:09 PM CDT Oxygen Saturation 99% 01/16/2018 8:09 PM CDT Inhaled Oxygen Concentration - - Weight 69.7 kg (153 lb 10.6 oz) 01/16/2018 6:40 PM CDT Height - - Body Mass Index 22.5 09/23/2017 10:06 AM CDT documented in this encounter Discharge Instructions AttachmentsThe following attachments cannot be sent through Care Everywhere. Vaginal Delivery Care After ([place])documented in this encounter Medications at Time of Discharge Medication Sig Dispensed Refills Start Date End Date buPROPion (WELLBUTRIN Take 1 tablet (150 60 tablet 2 201702/07/2018 SR) 150 mg 12 hr tablet mg total) by mouth 2 (two) times a day for 60 doses. Take 1 tab daily for 3 days then take one tab 2x daily for 4 days. Quit smoking on day 7 and continue to take medication 2x daily. docusate sodium (DOK) Take 1 capsule (100 100 capsule 1 10/0705/14/2018 100 mg mg total) by mouth 2 capsuleIndications: (two) times a day. Constipation TAKE WITH FULL GLASS OF WATER acetaminophen (TYLENOL) Take 325 mg by mouth [...] moderate pain or score 4-6 of 10. documented as of this encounter ED Notes Fernie Grey P.A.-C. - 01/16/2018 8:53 PM CDT I assumed care of the patient from Dr. Mariscal shift change. Dr. Mariscal had discussed the case with the patient's contracts representative who advised that patient be observed in the ER after receiving [employer]. After 1 hr blood of observation patient's bleeding improved significantly. Patient understands thatshe is likely to experience bleeding off and on over the next several days. She is able to schedule appointment with her contracts representative tomorrow morning. Strict return to ER warnings were given. Patient's hemoglobin is stable and vital signs are within acceptable limits. Patient is discharged in good condition. VITAL SIGNS BP 115/82 Pulse 74 Temp 37 ??C Resp 18 Wt 69.7 kg SpO2 99% ? No BMI 22.50kg/m?? Final Diagnoses: as of Jan 19 1944 Bleeding Vaginal Fernie Grey P.A.-C. 01/18/181946 Krishna Mariscal III, M.D. - 01/16/2018 6:54 PM CDT SUBJECTIVE CHIEF COMPLAINT/REASON FOR VISIT Vaginal Bleed (22 year female 14 days post . Pt states she had a level two tear that she has had to have sew up twice last 2017. Pt states she started haveing vagianl bleeding around 1800 today. when pt stood up to sit on cart she had large gush of blood and loss of a large clot . ) HISTORY OF PRESENT ILLNESS Vaginal Bleeding Quality: Clots Severity: Moderate Onset quality: Sudden Duration: 2 weeks Timing: Sporadic Progression: Worsening Possible : no Context: at rest Relieved by: Nothing Worsened by: Activity Ineffective treatments: Acetaminophen Associated symptoms: no abdominal pain, no dysuria, no fatigue, no fever, no nausea and no vaginal discharge Associated symptoms comment: Vaginal pain Risk factors comment: Recent delivery REVIEW OF SYSTEMS Constitutional: Negative for chills, fatigue and fever. HENT: Negative for congestion, ear pain, sore throat and trouble swallowing. Eyes: Negative. Respiratory: Negative for cough, shortness of breath and wheezing. Cardiovascular: Negative for chest pain, palpitations and leg swelling. Gastrointestinal: Negative for abdominal pain, constipation, diarrhea, nausea and vomiting. Endocrine: Negative for cold intolerance and heat intolerance. Genitourinary: Positive for vaginal bleeding and vaginal pain. Negative for dysuria, frequency, urgency and vaginal discharge. Musculoskeletal: Negative. Skin: Negative for color change and rash. Allergic/Immunologic: Negative. Neurological: Negative. Hematological: Negative for adenopathy. Does not bruise/bleed easily. Psychiatric/Behavioral: Negative for depression. OBJECTIVE Initial Vitals Temperature Pulse Rate Heart Rate Resp Rate Blood Pressure SpO2 01/16/18183801/16/181838 -- 01/16/18183801/16/18183801/16/181838 37 ??C 93 20 (!) 130/102 100 % Pain Score 01/16/181837 0 - No pain PHYSICAL EXAMINATION Constitutional: She appears well-developed and well-nourished. HENT: Head: Normocephalic and atraumatic. Mouth/Throat: Mucous membranes are moist. Eyes: Conjunctivae and EOM are normal. Pupils are equal, round, and reactive to light. Neck: Normal range of motion. Neck supple. No JVD present. No neck adenopathy. Cardiovascular: Normal rate, regular rhythm, S1 normal, S2 normal and normal heart sounds. Pulses are strong and palpable. Abdominal: Soft. Bowel sounds are normal. She exhibits no distension. There is no tenderness. Genitourinary: Pelvic exam was performed with patient supine. There is tenderness and bleeding in the vagina. Genitourinary Comments: Sutures are intact. There is a small amount of blood at the vaginal opening. Neurological: She is alert and oriented to person, place, and time. No cranial nerve deficit. Skin: Skin is warm, dry, intact and normal color. Psychiatric: She has a normal mood and affect. Differential diagnoses includes but is not limited to: bleeding ASSESSMENT/PLAN Care Handoff Row Name 01/16/18 8084 Care Handoff Type of Handoff Shift change handoff Providers Name Fernie Grey Alexander W III, M.D. 01/16/181912 documented in this encounter Plan of Treatment Not on filedocumented as of this encounter Procedures Procedure Name Priority Date/Time Associated Comments Diagnosis MORPHOLOGY STAT 01/16/2018 6:46 PM Results f or this EVALUATION CDT procedure are i n the results section. CBC WITH STAT 01/16/2018 6:46 PM Results f or this DIFFERENTIAL, B CDT procedure ar e in the results section. BASIC METABOLIC STAT 01/16/2018 6:46 PM Result s for this PANEL, S/P CDT procedure are i n the results section. documented in this encounter Results (ABNORMAL) Morphology Evaluation (01/16/2018 6:46 PM CDT) Patholo gist Method Time Signature RBC Morphology Normal 01/16/2018 [facility] 7:30 PM CDT [facility] PLT Morphology Normal 01/16/2018 [facility] 7:30 PM CDT [facility] PLT Estimate Adequate Adequate 01/16/2018 [facility] 7:30 PM CDT [facility] Large PLT Present (A) Not Seen 01/16/2018 [facility] 7:30 PM CDT [facility] Specimen Anatomical Collection Method Collection Time Receive d Time (Source) Location / / Volume Laterality Blood 01/16/2018 6:46 PM 8 6:49 CDT PM CDT Krishna Mariscal III, M.D. LAB BLOOD ADD-ON Performing Organization Address City/State/[facility] Code Phon e Number [facility] [id number] [address] [place] [facility] BMP (Basic Metabolic Panel) (01/16/2018 6:46 PM CDT) P athologist Signature Potassium, P 3.8 3.6 - 5.2 01/16/2018 [facility] mmol/L 7:07 PM CDT [facility] Sodium, P 139 135 - 145 01/16/2018 [facility] mmol/L 7:07 PM CDT [facility] Chloride, P 100 98 - 107 01/16/2018 [facility] mmol/L 7:07 PM T [facility] Bicarbonate, P 24 22 - 29 01/16/2018 [facility] mmol/L 7:08 PM T [facility] Anion Gap, P 15 7 - 15 01/16/2018 [facility] 7:07 PM T [facility] BUN (Blood Urea 12 6 - 21 01/16/2018 [facility] Nitrogen), P mg/dL 7:08 PM T [facility] Creatinine 0.70 0.59 - 01/16/2018 [facility] 1.04 mg/dL 7:08 PM T [facility] eGFR-Black/Afri >90 >=60 01/16/2018 [facility] can [place] mL/min/BSA 7:08 PM T [facility] Comment: ----ADDITIONAL INFORMATION---- Estimated GFR calculated using the 2009 CKD_EPI creatinine equation. eGFR Non-Black/ >90 >=60 mL/min/BSA 01/16/2018 7:08 PM [facility] [place] [facility] Comment: ----ADDITIONAL INFORMATION---- Estimated GFR calculated using the 2009 CKD_EPI creatinine equation. Calcium, Total, P 9.2 8.6 - 10.0 mg/dL 01/16/2018 7 :08 PM CDT [facility] Glucose, P 111 70 - 140 mg/dL 01/16/2018 7:08 PM CDT [facility] Specimen Anatomical Collection Method Collection Time Receive d Time (Source) Location / / Volume Laterality Blood (Blood, 01/16/2018 6:46 PM 01/17/20 18 6:49 Venous) CDT PM CDT Krishna Mariscal III, M.D. LAB BLOOD ADD-ON Performing Organization Address City/State/ZIP Code Phon e Number [facility]- [id number] [place] [address] LAB (ABNORMAL) CBC with Differential (01/16/2018 6:46 PM CDT) [facility] Method Time Signature Hemoglobin 12.5 11.6 - 01/16/2018 [facility] 15.0 g/dL 6:57 PM CDT [facility] Hematocrit 36.5 35.5 - 01/16/2018 [facility] 44.9 % 6:57 PM CDT [facility] Erythrocytes 3.81 (L) 3.92 - 01/16/2018 [facility] 5.13 6:57 PM CDT [facility](12[facility] MCV 95.8 78.2 - 01/16/2018 [facility] 97.9 fL 6:57 PM CDT [facility] RBC Distrib Width 11.3 (L) 12.2 - 01/16/2018 [facility] 16.1 % 6:57 PM CDT [facility] Platelet Count 373 (H) 157 - 371 01/16/2018 [facility] x10(9)/L 6:58 PM CDT [facility] Leukocytes 10.1 (H) 3.4 - 9.6 01/16/2018 [facility] x10(9)/L 6:58 PM CDT [facility] Neutrophils 6.31 1.56 - 01/16/2018 [facility] 6.45 7:29 PM CDT HEALTH x10(9)/L SYSTEM [employer] [facility] Lymphocytes 2.53 0.95 - 01/16/2018 [facility] 3.07 7:29 PM CDT HEALTH x10(9)/L SYSTEM [employer] [facility] Monocytes 0.94 (H) 0.26 - 01/16/2018 [facility] 0.81 7:29 PM CDT [facility] [employer] [facility] Eosinophils 0.30 0.03 - 01/16/2018 [facility] 0.48 7:29 PM CDT HEALTH x10(9)/L SYSTEM [employer] [facility] Basophils 0.06 0.01 - 01/16/2018 [facility] 0.08 7:29 PM CDT [facility] x10(9)/L SYSTEM [employer] [facility] Specimen Anatomical Collection Method Collection Time Receive d Time (Source) Location / / Volume Laterality Blood (Blood, 01/16/2018 6:46 PM 01/17/20 18 7:29 Venous) CDT PM CDT Krishna Mariscal III, M.D. LAB BLOOD ADD-ON Performing Organization Address City/State/ZIP Code Phon e Number [facility] [phone] [facility] [address] [place] [address] [facility] documented in this encounter Visit Diagnoses Diagnosis Bleeding Vaginal - Primary documented in this encounter Administered Medications Inactive Administered Medications - up to 3 most recent administrations Medication Order MAR Action Action Date Dose Rate Site miSOPROStol tablet 800 mcg Given 01/16/2018 7:08 PM CDT 800 mcg (CYTOTEC) 800 mcg, rectal, Once, On Sun01/16/18 at 1908, For 1 dose sodium chloride injection 10 mL 10 mL, intravenous, As needed, line care, Starting on Sun01/16/18 at 1836, Peripheral Intravenous Catheter and Rapid Infusion Cat heter, prior to blood sampling, post blood transfusion or post blood samplin g sodium chloride injection 3 mL 3 mL, intravenous, As needed, line care, Starting on Sun01/16/18 at 1836, Prior to and following infusion and between multi ple consecutive infusions: sodium chloride 0.9 % injection sodium chloride injection 3 mL 3 mL, intravenous, Every 12 hours scheduled, First dos e on Sun01/16/18 at 2100, Peripheral Intravenous Catheter and Rapi d Infusion Catheter, when no infusion to maintain patency documented in this encounter Active and Recently Administered Medications Times are shown in CDT. Scheduled Medication Order 01/14/2018 01/15/2018 01/16/2018 miSOPROStol tablet 800 mcg (CYTOTEC) (COMPLETED) 1908 (Given - Provider: Raegan Rosales R.N.) 800 mcg, rectal, Once, On Sun01/16/18 at 1908, For 1 dose sodium chloride injection 3 mL 3 mL, intravenous, Every 12 hours schedu led, First dose on Sun01/16/18 at 2100, Peripheral Intravenous Catheter and Rapid Infusion Catheter, when no infusion to maintain patency PRN Medication Order 01/14/2018 01/15/2018 01/16/2018 sodium chloride injection 10 mL 10 mL, intravenous, As needed, line care , Starting on Sun01/16/18 at 1836, Peripheral Intravenous Catheter and Rapid Infusion Catheter, prior to blood sampling, post blood transfusion or post blood sampling sodium chloride injection 3 mL 3 mL, intravenous, As needed, line care, Starting on Sun01/16/18 at 1836, Prior to and following infusion and between multiple consecutive infusions: sodium chloride 0.9 % injection documented in this encounter Additional Health Concerns Assessment Noted Time PHQ-9 Depression Total Score: 19 01/07/2018 12:49 PM C DT documented as of this encounter Care Teams Product Accountant Relationship Specialty Start Date End Date Herbert Mcguire M.D. PCP - General Family Medicine 01/07/[address] [place] [id number] documented as of this encounter
--- OUTSIDE RECORDS SUMMARY | 2022-05-11 14:18 | XMS_ITS | Encounter Summary ---
:1995 Author Organization [facility] Address [address] [place] [address] Care Team Providers Name Role Phone Unavailable Primary Care Provider Unavailable Reason for Visit Reason Comments Contractions Auth/Cert Specialty Diagnoses / Procedures Referred By Contact Refer red To Contact Diagnoses 39 Weeks Gestation (HCC) 39 Weeks Gestation (HCC) Procedures NA Referral ID Status Reason Start Date Expiration Date Visits Requ ested Visits Authorized [id number] 1 1 Encounter Details Date Type Department Care Team Description 01/01/2018 - Hospital Encounter [facility] Anika Clifford, 39 Weeks Gestation [facility] Third Floor [address] [place] [address] Social History Tobacco Use Types [...] How often do you attend episcopalian or mormonism Never 12/31/2018 services? Do you [...] Sign Reading Time Taken Comments Blood Pressure 117/81 01/04/2018 9:26 AM CDT Pulse 83 01/04/2018 9:26 AM CDT Temperature 36.7 ??C (98.1 ??F) 01/04/2018 9:26 AM CDT Respiratory Rate 16 01/04/2018 9:26 AM CDT Oxygen Saturation 98% 01/04/2018 9:26 AM CDT Inhaled Oxygen Concentration - - Weight - - Height - - Body Mass Index - - documented in this encounter Discharge Summaries Renny Gonzalez M.D. - 01/04/2018 8:26 AM CDT Discharge Summary DISCHARGE DIAGNOSIS: 1. Intrauterine at term 2. Vaginal delivery ADMISSION DATE: 01/01/2018 DISCHARGE DATE: 01/04/18 Chiqui Duek was admitted for the above obstetrical care and had no complications. Her hospital course was uneventful and she is tolerating a regular diet without restriction on discharge.Pain is currently controlled with oral medications and patient is voiding and ambulating well. Vital signs: BP 126/77 Pulse 93 Temp 36.7 ??C (Temporal) Resp 16 LMP 03/08/2017 SpO2 100% ? Yes Patient is afebrile and normotensive at discharge. Abdomen is nondistended with positive bowel sounds. Lungs are clear to auscultation bilaterally. Perineum is clean, dry and intact. A firm uterine fundus is palpated below the umbilicus. Labs are within expected limits at discharge. Discharge medications are completely documented in the hospital chart and potential adverse reactions to medications were discussed. Your Home Medicines Chiqui Duke Home Medication Instructions TIFFANIE:[id number] Printed on:01/04/18 0826 Medication Information acetaminophen (TYLENOL) 325 mg tablet Take 325 mg by mouth every 6 (six) hours. Pt took 3 tabs earlier today albuterol (VENTOLIN HFA) 90 mcg/actuation inhaler Inhale 2 puffs 4 (four) times a day. breast pump device 1 each Cyclic PN - see admin instructions. docusate sodium (DOK) 100 mg capsule Take 1 capsule (100 mg total) by mouth 2 (two) times a day. TAKE WITH FULL GLASS OF WATER ferrous gluconate 324 mg (37.5 mg iron) tablet Take 37.5 mg of iron by mouth daily. ibuprofen (ADVIL,MOTRIN) 600 mg tablet Take 1 tablet (600 mg total) by mouth every 6 (six) hours as needed for mild pain or score 1-3 of 10or moderate pain or score 4-6 of 10. vitamin-iron fumarate-FA 28 mg iron- 800 mcg per tablet Take 1 tablet by mouth daily. witch ashok (TUCKS) 50 % pad Apply 1 application topically 3 (three) times a day as needed (or pain.). You are advised in the appropriate use of stool softeners to avoid constipation. A common recommendation is to use Colace 100 mg by mouth two times a day as needed (hold Colace for loose stools). Patients may often be constipated after a prolonged period of bedrest or with use of pain medications. If there is no bowel movement for 2 days after dismissal, or if the patient is uncomfortable and unable to pass stool, she will try one or all of the following measures: 1. Milk of Magnesia, 30 cc by mouth every 12 hours 2. Dulcolax suppository, one suppository per rectum every 6 hours 3. Metamucil, Fibercon or other bulk former, used as directed 4. Fleets Enema 5. Prunes or Prune Juice 6. Miralax Contact the [facility] if these measures are unsuccessful or accompanied by severe abdominal pain, nausea and emesis, or fever. Emergency Medical Treatment and Active Labor Act (EMTALA): The patient has no emergency condition and is stable for discharge. Condition at discharge is independent but with activity restrictions of nolifting >20 lbs., no driving while on narcotic pain medications, and nothing per vagina for six weeks. The warning signs of depression have been reviewed, and the patient is aware that this can be a common occurrence. You are encouraged to seek immediate medical evaluation and assistance for any questions or concerns. You should refrain from placing anything in the vagina within the next six weeks. This pelvic rest includes intercourse, douching, and tampons. Call the [facility] at [phone] for problems such as fever with chills, nausea, vomiting, constipation, heavy odorous vaginal discharge, burning, or pain associated with urination. Also call for excessive vaginal bleeding, saturating more than one pad an hour for more than three consecutive hours. Options for control have been discussed. The specific form of control will be further elucidated and prescribed at the examination. Please follow up in the OB clinic in six weeks for a post visit. You should return to clinic earlier for any of the above post concerns. Post services related to this admission arewith the OB clinic for the next six weeks, and then follow-on care will revert to Primary Care Provider. Renny Gonzalez MD FACOG 8:26 AM 01/04/18 documented in this encounter Discharge Instructions Discharge InstructionsKiersten Parr RGermaineN. - 01/04/2018 11:06 AM CDT Discharge education completed. Education materials provided and reviewed: ??? Feeding your baby the first year ??? Caring for yourself after Giving ??? Caring for your ??? Keeping your safe ??? Beyond classes/ services ??? Shaken Baby Syndrome ??? Patient online services ??? Period of purple crying ??? [place] Oximetry screening/hearing screening/ screening ??? Carseat safety ??? Safe crib ??? Community resources/phone numbers ??? Circumcision pamphlet if applicable documented in this encounter Medications at Time of Discharge Medication Sig Dispensed Refills Start Date End Date acetaminophen (TYLENOL) Take 325 mg by mouth 0 09/11/2018 325 mg tablet every 6 (six) hours. Pt took 3 tabs earlier today albuterol (VENTOLIN Inhale 2 puffs 4 0 11/24/2015 07/01/2019 HFA) 90 mcg/actuation (four) times a day. inhaler docusate sodium (DOK) Take 1 capsule (100 [...] iron- mouth daily. 800 mcg per tablet breast pump device 1 each Cyclic PN [...] documented as of this encounter Progress Notes Wen Lopez M.D. - 01/03/2018 9:04 AM CDT Post Anesthesia Assessment Note Patient: Chiqui Duke General Info Post-procedure day: 1 Follow-up type: OB OB Assessment day: 1 Vital signs: vitals reviewed Ambulation: has ambulated Urinary retention: No Patient received a neuraxial anesthetic: Yes OB Complications New or progressive sensory deficit since admission: No New or progressing motor deficit since admission: No Headache: No Clinical signs or symptoms of neuraxial infection: none apparent Clinical signs or symptoms of neuraxial hematoma: none apparent Clinical signs or symptoms of TOOL SMITH toxicity (during this admission): none Does patient display any postoperative anesthesia complication warranting further documentation: No Barbara Jarrett APRN, CNM - 01/03/2018 8:43 AM CDT SUBJECTIVE Chiqui Duke is currently status-post vaginal delivery. She was admitted to the hospital for spontaneous onset of labor. Events over the past 24 hours - Pain is somewhat controlled- discussed sitting in tub twice daily use of tucks and proctofoam, continues with ice - Tolerating PO: yes - Ambulating: yes OBJECTIVE Vitals: 01/02/18 0815 01/02/18 1755 06/204301/02/182045 BP: 126/82 115/70 126/81 126/81 Temp: 36.8 ??C 36.6 ??C Pulse: Heart Rate: 80 92 84 84 Resp: 16 18 SpO2: Temp (24hrs), Av.7 ??C, Min:36.6 ??C, Max:36.8 ??C Weight change: I/O 01/01 701 - 01/02 0701/02 - 01/03 0701/03 07 Urine 200 Blood 350 49 Total Output 550 49 Net -550 -49 PHYSICAL EXAM Perineum: intact STATUS sex: Information for the patient's : Sergey Duke [[id number]] male Infant name: Information for the patient's : Sergey Duke [[id number]] Sergey Duke room: Information for the patient's : Sergey Duke [[id number]] NRY 3310/3310-A DIAGNOSTICS Lab results last 24 hours: Recent Results (from the past 24 hour(s)) Hemoglobin Collection Time: 01/03/18 6:23 AM Result Value Hemoglobin 10.3 (L) No results found for this visit on 01/01/18 (from the past 72 hour(s)). Blood Type: Lab Results Component Value Date ABO A 01/01/2018 RHTYPE POS 01/01/2018 Antibody Screen: Lab Results Component Value Date ABSCREEN NEG 01/01/2018 RhoGAM: not applicable ASSESSMENT / PLAN Condition: doing well without problems Routine care Problem List Depression Anxiety Depression Anxiety Asthma NOS Asthma NOS Need Vaccine Immunization Rubella Asthma (HCC) Delivery Vaginal Normal Spontaneous (HCC) Barbara Jarrett APRN, CNM Anika Clifford M.D., M.B.B.S. - 01/02/2018 5:39 AM CDT Patient was checked and noted to be complete. We began pushing. She delivered a vigorous baby boy with Apgars 9 and 9 over a second degree perineal laceration which was repaired per routine. Please seedelivery note for details of delivery. Anika Clifford M.D., M.B.B.S. - 01/02/2018 4:53 AM CDT FHT are 145/mod waleska/accel+/ intermittent variables. I checked the patient at around 4:30 a.m.. She is now a rim. I do not feel a bag of membranes. I attempted an AROM with no success. Plan is to recheck in about an hour. Will monitor heart tones closely. Anika Clifford M.D., M.B.B.S. - 01/02/2018 3:48 AM CDT I was called as the patient started having recurrent late decelerations from 3:04 am. I checked the patient and she was noted to be 7-8 cm 100% effaced -1 station with a bulging bag of membranes. Her Arnold bag showed minimal urine output. Her blood pressures were running in the 100s/50s. We gave the patient a bolus of 1 L of fluid. I also gave the patient a dose of ephedrine to help with her blood pressures. I discussed with the patient the need for delivery if the heart tones continued to remain category 2 or 3 keen category 3 and she remained remote from delivery. [place] showed contractions every 1-2 minutes. I discussed with her a trial of terbutaline. With the bolus ephedrine the variability improved with intermittent variables. Plan is to continue to monitor the heart tones closely. Anika Clifford M.D., M.B.B.S. - 01/02/2018 1:13 AM CDT SUBJECTIVE: Patient is a 22 y.o. at 40w0d who was admitted to Labor and delivery following spontaneous onset of labor. She is doing well. She recently received her epidural and is comfortable now. She denies any leaking or vaginal bleeding. She reports normal movements. OBJECTIVE: Vitals: 01/01/18 2323 BP: 114/69 Pulse: Resp: Temp: SpO2: Heart Tracing: Baseline Rate (BR): 155 bpm Variability: Moderate Acceleration Pattern: Absent Deceleration Pattern: Variable;Late FHR Category: Category II Contraction Frequency (minutes): 1-3 Dilation: 6 Effacement (%): 90 Station: -1 Membrane Status: Intact, bulging bag of membranes. Pitocin: NA - no pitocin ASSESSMENT/PLAN: #1 Depression Anxiety #2 Asthma NOS #3 39 Weeks Gestation #4 Need Vaccine Immunization Rubella #5 Asthma (HCC) Patient recently had a brief period of recurrent late appearing decelerations that resolved with position changes. I checked her cervix and she is now 6 cm dilated. Plan to recheck in 2 hr. Continues to hurting toco monitoring. Anticipating vaginal delivery. Anika Clifford M.D., M.B.B.S. documented in this encounter H&P Notes Anika Clifford M.D., M.B.B.S. - 01/01/2018 11:03 PM CDT Chief Complaint: Contractions HPI: Ms Duke is a 22 y.o. at 40w0d. She is here with regular contractions that started around 5:30 pm today. She denies leaking of fluids or vaginal bleeding. She reports normal movement. She denies any headaches, visual disturbances or upper abdominal pain. She changed from 3/100/-1 to 4/100/-1. She is being admitted with spontaneous onset of labor. She states baby is moving, no significant bleeding. Estimated Date of Delivery: 01/02/18 is established by 6w1d. Labs: Blood Type: A psoitive and Jojo screen negative Rubella Immune Hepatitis B Surface Antigen negative Chlamydia and GC negative Syphilis negative HIV negative Urine culture negative GCT 102 GBS Negative Her has been complicated by: Rubella Non immune status Vaginal bleeding in second trimester Asthma Depression and Anxiety Care Coordination Notes: 1. Vag bleeding at 25 weeks: ER [facility] transferred to [facility].BMTZ given. At 32 weeks placenta 3.5 cm from the os Rubella non-immune Unplanned BOY! circumcision is covered, Patient Active Problem List Diagnosis ??? Depression Anxiety ??? Asthma NOS ??? Encounter For Supervision Of Normal First Unspecified Trimester ??? 39 Weeks Gestation OB History Para Term AB Living 1 SAB TAB Ectopic Molar Multiple Live Births # Outcome Date GA Lbr Ricardo/2nd Weight Sex Delivery Anes PTL Lv 1 Current Past Surgical History: Procedure Laterality Date ??? APPENDECTOMY N/A 06/22/2015 Appendectomy No current facility-administered medications on file prior to encounter. Current Outpatient Prescriptions on File Prior to Encounter Medication Sig Dispense Refill ??? acetaminophen (TYLENOL) 325 mg tablet Take 325 mg by mouth every 6 (six) hours. Pt took 3 tabs earlier today ??? albuterol (VENTOLIN HFA) 90 mcg/actuation inhaler Inhale 2 puffs 4 (four) times a day. ??? docusate sodium (DOK) 100 mg capsule Take 1 capsule (100 mg total) by mouth 2 (two) times a day.TAKE WITH FULL GLASS OF WATER (Patient taking differently: Take 100 mg by mouth as needed. TAKE WITHFULL GLASS OF WATER ) 100 capsule 1 ??? ferrous gluconate 324 mg (37.5 mg iron) tablet Take 37.5 mg of iron by mouth daily. ??? vitamin-iron fumarate-FA 28 mg iron- 800 mcg per tablet Take 1 tablet by mouth daily. REVIEW OF SYSTEMS Physical Exam: BP 105/57, Temp afebrile, Pulse Rate 91, Sp02 100 GENERAL: well developed, well-nourished female HEENT: normocephalic NECK: no thyromegaly or lymphadenopathy LUNGS: clear to auscultation bilaterally, no wheezes, rales or rhonchi HEART: regular rate and rhythm, ABDOMEN: uterus is non tender and soft between contractions, vertex by bedside ultrasound. EFW 7 pounds 5 oz COMMISSION SALES ASSOCIATE: external genitalia - no lesions cervix - change from /-1 to 4/100/-1 (RN check) EXTREMITIES: non tender, no edema SKIN: no lesions EFM: 155 bpm baseline with moderate variability, + accelerations and no decelerations. Category 1 tracing TOCO: Contractions every 2- 4 minutes Diagnostics none ASSESSMENT / PLAN This is a 22 y.o. at 40w0d #1 39 Weeks Gestation #2 Spontaneous onset of labor #3 Rubella Non Immune Status #4 History of Vaginal Bleeding during 2nd trimester #5 Depression and Anxiety #6 Asthma controlled Patient to be admitted to labor and delivery. She was in a lot of pain and we gave her 50 mcg of fentanyl prn pain. She had some mild range blood pressure readings initially which we suspect were likely due to the pain. She denies any headaches visual disturbances or upper abdominal pain. She is getting an epidural. Offer pain medication, epidural We discussed Chiqui 's preferences. We discussed delayed cord clamping, immediate iiat-dl-rthwyy baby is vigorous and breast feeding ideally started within the first hour of life. documented in this encounter Nursing Notes Kiersten Parr R.N. - 01/04/2018 11:48 AM CDT Patient given and explained discharge instructions. Patient verbalized understanding. Patient ambulated to exit with and baby and left via private vehicle. Kiersten Parr R.N. - 01/04/2018 11:47 AM CDT DISCHARGE PLANNING ??? Patient discharge needs identified Adequate for Discharge INFECTION - ADULT ??? Absence of infection during hospitalization Adequate for Discharge KNOWLEDGE DEFICIT ??? Patient/family/caregiver demonstrates understanding of disease process, treatment plan, medications, and discharge instructions Adequate for Discharge PAIN - ADULT ??? PT VERBALIZES/DEMONSTRATES ADEQUATE COMFORT LEVEL OR BASELINE Adequate for Discharge ??? Optimize recovery Adequate for Discharge ??? Facilitate maternal - bonding Adequate for Discharge SAFETY ADULT ??? Maintain a safe environment Adequate for Discharge SAFETY ADULT - RISK FOR FALL AND OR FALL INJURY ??? Patient remains free from fall/fall injury Adequate for Discharge SKIN/TISSUE INTEGRITY ??? Skin/Tissue integrity maintained or improved Adequate for Discharge ??? Oral and Nasal mucous membranes remain intact Adequate for Discharge Goals: Clinical Goals for the Shift: Discharge patient home. Identify possible barriers to meeting goals/advancing plan of care: none Stability of the patient: Moderately Stable - Low risk of patient condition declining or worsening End of Shift Summary: Patient has met goals adequately for discharge. Discharge patient home. documented in this encounter Miscellaneous Notes Note - Stephanie Mcclain R.N., I.LilianCGermaineLGermaineC. - 01/03/2018 11:05 AM CDT This note was copied from a baby's chart. SUBJECTIVE Boy Chiqui Duke, at 1 days old of age, was seen for a Consultation on [facility] rounds. Consultation Reason for Consult: Initial assessment, discretion, Patient request, Difficult latch, Other (Comment) (Post circumcision feeding with sleepy baby.) OBJECTIVE Delivery Details: Risk Factors: Asthma Other Obstetric Procedures-This : None Labor Complications: Delivery Type: Vaginal, Spontaneous Delivery Weight: 3710 g 1 Minute 5 Minute 10 Minute Totals: 9 9 Maternal Breast Assessment Breast Surgery: None Breast Size: Small Breast Characteristics: Round, Symmetrical Nipple Type-Right: Everted Nipple Assessment-Right: Intact Right Breast: Soft Nipple Type-Left: Everted Nipple Assessment-Left: Intact Left Breast: Soft Colostrum Expressed: Yes (Brought in 6 syringes of 2-3 ml of expressed colostrum) Assessment class: No Has mother breastfed before?: No. . Tools: Feeding cup Exclusive Pump and Bottle Feed: No Significant other/father of baby: Significant other, living together Assisted with eliciting cueing behaviors, instructed parents on thawing colostrum, cup feeding of 5.5 ml and positioning and latch for direct . Infant Assessment State: Active, alert Infant Suck: Rhythmic, Mature suck: 10-20 suckling bursts, Strong Oral Anatomy: Normal palate, tongue, jaw, chin, Appropriate frenulum Mucus Membranes: Moist Molding of head is reducing from immediately after , still present at caput. Baby has lusty cryif position changed too fast or head manipulated or touched. Latch Score: Latch: Repeated attempts, hold nipple in mouth, stimulate to suck (Mom tried to offer breast baby won't latch. Expressed milk touched to lips and tongue, needed thumb touch to organize suck on thumb. Still no latch. Cup fed thawed colostrum prior to offering latch again.) Audible Swallowing: Spontaneous and intermittent (24 hours old) (Mom having strong uterine cramps with nursing, swallowing heard after milk released. Using one breast each session now.) Type of Nipple: Everted (After stimulation) Comfort (Breast/Nipple): Soft/non-tender Hold (Positioning): Full assist, teach one side, mother does other, staff holds LATCH Score: 8 Infant Input: 10 feedings/24 hours Output: 2 voids/24 hours, 3 stools/24 hours, Stool Amount: Medium Stool Appearance: Meconium weight: 3710 g Current weight: Weight: 3682 g Percent of weight change since : -1% Weight change since previous weight: Weight Change (gm) : -28 Pct Wt Change: -0.76 % ASSESSMENT/PLAN Baby difficult to latch after circumcision. Used some of her colostrum she brought in, taught parents options for use. Discussed latch and positioning, many questions about feeding patterns, pumping, adding bottle before she goes to work at 8 weeks, her plan is at 4 weeks. Medela pump in car. Follow Up: follow up plan: consult on [facility] rounds prior to discharge. Stephanie Mcclain R.N., I.B.C.L.C. Note - Kenna Olivarez R.N. - 01/02/2018 7:45 AM CDT This note was copied from a baby's chart. SUBJECTIVE Boy Chiqui Duke, at 0 days old of age, was seen for a Consultation. Consultation Reason for Consult: Initial assessment OBJECTIVE Delivery Details: Risk Factors: Asthma Other Obstetric Procedures-This : None Labor Complications: Delivery Type: Vaginal, Spontaneous Delivery Weight: 3710 g 1 Minute 5 Minute 10 Minute Totals: 9 9 Maternal Breast Assessment Breast Surgery: None Breast Size: Small Breast Characteristics: Symmetrical Nipple Type-Right: Everted Nipple Assessment-Right: Intact Right Breast: Soft Nipple Type-Left: Everted Nipple Assessment-Left: Intact Left Breast: Soft Colostrum Expressed: Yes Assessment class: No Has mother breastfed before?: No. . Exclusive Pump and Bottle Feed: No Assessment State: Active, alert Infant Suck: Rhythmic, Mature suck: 10-20 suckling bursts Latch Score: Latch: Grasps breast, tongue down, lips flanged, rhythmic sucking Audible Swallowing: A few with stimulation Type of Nipple: Everted (After stimulation) Comfort (Breast/Nipple): Soft/non-tender Hold (Positioning): Full assist, teach one side, mother does other, staff holds LATCH Score: 8 Infant Input: 1 feedings/24 hours Output: 0 voids/24 hours, 1 stools/24 hours, Stool Amount: Medium Stool Appearance: Meconium weight: 3710 g Current weight: Weight: 3710 g (Filed from Delivery Summary) Percent of weight change since : 0% Weight change since previous weight: Weight Change (gm) : 0 Pct Wt Change: 0 % ASSESSMENT/PLAN: Baby in the cradle hold, mom lying back in bed, appears comfortable at this time. Encouraged feeding on cue, at least every 2-3 hours, offering both breasts. Increase stimulation/breast compression when needed to help keep baby alert to feed. Discussed expressing colostrum before and after feeds and rub into nipples to help with nipple tenderness. Follow Up: follow up plan: prn/am rounds Kenna Olivarez R.N.} L&D Delivery Note - Anika Clifford M.D., M.B.B.S. - 01/02/2018 7:06 AM CDT 01/02/2018 Chiqui Duke 22 Sergey Hassan [[id number]] Delivery Providers Delivering clinician: Anika Clifford M.D., M.B.B.S. Provider Role Shannon Gan R.N. Delivery Nurse Alexa Garsia R.N. Nursery Nurse Motorcyles Final Inspector Review the Delivery Report for details. GA: 40w0d GP: GBS: Lab Results Component Value Date GRPBSTREP Negative 12/06/2017 Risk Factors: Asthma Other Other Risk Factors, if any: Depression and Anxiety, Rubella Non Immune Labor Complications: EBL: 350 mL Delivery Type: Vaginal, Spontaneous Delivery ROM to Delivery Time: 1h 51m [place] Sex: Male [place] Weight: 3.71 kg 1 Minute 5 Minute 10 Minute Totals: 9 9 Delivery Details: Chiqui Duke, a 22 y.o. female delivered a viable infant at 01/02/2018 6:23 AM . Induction (if any): NA Indications for induction (if any): Augmentation (if any): NA The patient began pushing. Anesthesia (if any): Epidural Analgesics administered (if any): A viable was born after 4.00 hours 35.00 minutes in active labor by Vaginal, Spontaneous Delivery making spontaneous effort. Placenta delivered at 01/02 6:30 AM intact with a 3 vessels umbilical cord. Placenta removal: Spontaneous Placenta appearance: Normal Placental disposition: Pathology The uterus firmed up well using massage and IV Pitocin. Perineum, vagina, cervix were inspected, and the following lacerations were noted: Sergey Duke [[phone]] Delivery (Maternal) Perineal lacerations: 2nd Repaired?: Yes Vicryl suture: 4-0, 2-0 Vicryl rapide suture: 3-0 Final count was accurate Mother and in stable condition following delivery. Other Delivery Details: Sergey Duke [[phone]] Labor Events Rupture type: Spontaneous Rupture date: 01/02/18 Rupture time: 4:32 AM Fluid characteristics: Clear Induction date/time: Augmentation date/time: Delivery Details Forceps attempted?: No Vacuum extractor attempted?: No Shoulder dystocia present?: No Vessels: 3 vessels Delayed cord clamping?: Yes Anika Clifford M.D., M.B.B.S. documented in this encounter Plan of Treatment Not on filedocumented as of this encounter Procedures Procedure Name Priority Date/Time Associated Comments Diagnosis HEMOGLOBIN, B Routine 01/03/2018 6:23 Results for this AM CDT procedure are i n the results section. PROTEIN/CREATININE Routine 01/02/2018 2:03 Result s for this RATIO, RANDOM, URINE AM CDT procedu re are in the results section. SYPHILIS TOTAL AB W/ Routine 01/01/2018 8:48 Resu lts for this REFLEX S PM CDT procedure are i n the results section. CBC WITHOUT Routine 01/01/2018 8:48 Results for this DIFFERENTIAL, B PM CDT procedure ar e in the results section. TYPE AND SCREEN Routine 01/01/2018 8:48 Results f or this PM CDT procedure are i n the results section. ASPARTATE Routine 01/01/2018 8:48 Results for this AMINOTRANSFERASE (AST), PM CDT proc edure are in S/P the results section. CREATININE WITH EGFR, Routine 01/01/2018 8:48 Res ults for this S/P PM CDT procedure are i n the results section. PATHOLOGY SERVICES Routine 01/01/2018 12:00 Resul ts for this AM CDT procedure are i n the results section. documented in this encounter Results (ABNORMAL) Hemoglobin (01/03/2018 6:23 AM CDT) P athologist Signature Hemoglobin 10.3 (L) 11.6 - 15.0 01/03/[address] [facility] g/dL 7:06 AM CDT [facility] Specimen Anatomical Collection Method Collection Time Receive d Time (Source) Location / / Volume Laterality Blood (Blood, 01/03/2018 6:23 AM 01/04/20 18 6:33 Venous) CDT AM CDT Barbara Jarrett APRN, CNM, M.S.N., B.S.N., R.N. LAB BLO OD ADD-ON Performing Organization Address City/State/ZIP Code Phon e Number [facility] [address] [id number] [place] [facility] Protein/Creatinine Ratio, Random, Urine (01/02/2018 2:03 AM CDT) Analysis Performed At Patho logist Time Signature Protein, Total, 25 mg/dL 01/02/[address] [facility] Random, U 2:51 AM [facility] Creatinine 163 mg/dL 01/02/[address] [facility] Concentration 2:51 AM [facility] Protein/Creatinine 0.15 <0.18 01/02/2018 [facility] Ratio mg/mg 2:51 AM [facility] Specimen Anatomical Collection Method Collection Time Receive d Time (Source) Location / / Volume Laterality Urine (Urine, 01/02/2018 2:03 AM 01/03/20 18 2:11 Clean Catch) CDT AM CDT Anika MckinneyB.S. LAB URINE ORDERABLES Performing Organization Address City/[facility]/ZIP Code Phon e Number [address] [address] [place] [facility] Creatinine with Estimated GFR (01/01/2018 8:48 PM CDT) P athologist Signature Creatinine 0.59 0.59 - 01/02/[address] [facility] 1.04 mg/dL 1:37 AM [facility] eGFR-Non >90 >=60 01/02/[address] [facility] Black/ mL/min/BSA 1:37 AM [facility] Comment: ----ADDITIONAL INFORMATION---- Estimated GFR calculated using the 2009 CKD_EPI creatinine equation. eGFR-Black/ >90 >=60 mL/min/BSA 2017 1:37 AM [facility] Comment: ----ADDITIONAL INFORMATION---- Estimated GFR calculated using the 2009 CKD_EPI creatinine equation. Specimen Anatomical Collection Method Collection Time Receive d Time (Source) Location / / Volume Laterality Blood (Blood, 01/01/2018 8:48 PM 01/03/20 18 1:21 Venous) CDT AM CDT Anika MckinneyB.S. LAB BLOOD ADD-ON Performing Organization Address City/State/ZIP Code Phon e Number [address] [place] [address] [place] [facility] AST (Aspartate Aminotransferase) (01/01/2018 8:48 PM CDT) [facility] Method Time Signature Aspartate 21 8 - 43 01/02/[address] [facility] Aminotransferase U/L 1:37 AM CDT [facility] [place] [facility] Specimen Anatomical Collection Method Collection Time Receive d Time (Source) Location / / Volume Laterality Blood (Blood, 01/01/2018 8:48 PM 01/03/20 18 1:21 Venous) CDT AM CDT Anika MckinneyB.S. LAB BLOOD ADD-ON Performing Organization Address City/State/ZIP Code Phon e Number [facility] [address] [phone] [place] [facility] Type and screen (01/01/2018 8:48 PM CDT) [facility] Method Time Signature ABO Group A 01/01/[address] [facility] 9:27 PM CDT [facility] Rh Type POS 01/01/[address] [facility] 9:27 PM CDT [facility] Antibody Screen NEG 01/01/[address] [facility] 9:27 PM CDT [facility] Type & Screen 01/04/2018 01/01/[address] [facility] Expiration 23:59 9:27 PM CDT [facility] ELXM Eligible Y 01/01/[address] [facility] 9:27 PM CDT [facility] Specimen Anatomical Collection Method Collection Time Receive d Time (Source) Location / / Volume Laterality Blood (Blood, 01/01/2018 8:48 PM 01/02/20 18 8:52 Venous) CDT PM CDT Anika MckinneyB.S. LAB BLOOD BANK TEST ORDERABL ES Performing Organization Address City/State/ZIP Code Phon e Number [facility] [place] [id number] [place] [facility] Syphilis IgG Antibody with Reflex (01/01/2018 8:48 PM CDT) athologist Signature Syphilis IgG Negative Negative 01/02/[address] [facility] Ab, S 12:05 PM CDT [facility] Comment: No serologic evidence of exposu re to syphilis. Specimen Anatomical Collection Method Collection Time Receive d Time (Source) Location / / Volume Laterality Blood (Blood, 01/01/2018 8:48 PM 01/03/20 18 Venous) CDT 10:10 AM CDT Anika Sifuentes.S. LAB BLOOD ADD-ON Performing Organization Address City/[facility]/ZIP Code Phon e Number [facility] [address] [place] [address] [address] [facility] (ABNORMAL) CBC without Differential (01/01/2018 8:48 PM CDT) [facility] Method Time Signature Hemoglobin 14.3 11.6 - 01/01/[address] [facility] 15.0 g/dL 8:54 PM CDT [facility] Hematocrit 41.8 35.5 - 01/01/[address] [facility] 44.9 % 8:54 PM CDT [facility] Erythrocytes 4.38 3.92 - 01/01/[address] [facility] 5.13 8:54 PM CDT [facility] x10(12)/L [facility] MCV 95.4 78.2 - 01/01/[address] [facility] 97.9 fL 8:54 PM T [facility] RBC Distrib Width 12.1 (L) 12.2 - 01/01/[address] [facility] 16.1 % 8:54 PM T [facility] Platelet Count 157 157 - 371 01/01/[address] [facility] x10(9)/L 8:54 PM CDT [facility] Leukocytes 10.2 (H) 3.4 - 9.6 01/01/[address] [facility] x10(9)/L 8:54 PM T [facility] Specimen Anatomical Collection Method Collection Time Receive d Time (Source) Location / / Volume Laterality Blood (Blood, 01/01/2018 8:48 PM 01/02/20 18 8:52 Venous) CDT PM CDT Anika CarrionS. LAB BLOOD ADD-ON Performing Organization Address City/State/ZIP Code Phon e Number [facility] [address] [place] [address] [place] [facility] Pathology Services (01/01/2018 12:00 AM CDT) Component Value Ref Test Analysis Performed At [facility] gist Range Method Time Signature PATHOLOGY Patient Name: [facility] MR#: [id number] SILAS Submitting Physician: ANIKA CLIFFORD MD [id number] Specimen #[id number] Performing Lab: ??[facility] ? [address] [place] [id number] Source: Placenta Gross Description Received is a 22.0 x 19.0 x 2.5 cm placenta with a central ly placed 23.0 cm trivascular umbilical cord. ??The umbilical cord is normal. ??The surface of the placenta is slight meconium-stained. ??The membranes are inserted in a marginal manner. ??Complete membranes are present. ??After r emoval of the umbilical cord and membranes, the placenta weighs 548 gram s. ??The maternal surface of the placenta has a normal cotyledon pattern. ?? Multiple parallel sections are taken through the placenta revealing normal cho rionic tissue. There are 8 grams of attached blood clot . ??Photographs are taken of the and maternal surfaces and manufacturer's representative sections are subm itted as follows: Umbilical cord sections from the base and at mid-section are submitted in cassette 1, membrane rolls from two different areas are submitted in cassette 2, two placenta sections are submitted in cassette 3, an d two placenta sections are submitted in cassette 4. KG/ed ?? Diagnosis Placenta: MATURE THIRD TRIMESTER PLACE NTA WITH TRIVASCULAR UMBILICAL CORD. ??THERE IS MILD MECONIUM STAINING OF MEMBRANES. ??THERE IS MILD CHORIO AMNIONITIS AND FUNISITIS. ?? Electronically Signed By RACHELLE ABEBE MD - 01/03/2018 ed/01/03/2018 Specimen (Source) Anatomical Location Collection Method / Collectio n Time Received Time / Laterality Volume Tissue 01/01/2018 01/02/2018 [facility] SURG PATH ORDERABLES Performing Organization Address City/State/ZIP Code Phon e Number [address] [address] documented in this encounter Visit Diagnoses Diagnosis 39 Weeks Gestation (HCC) - Prim chinedu 39 Weeks Gestation (HCC) Depression Anxiety Need Vaccine Immunization Rubella Delivery Vaginal Normal Spontaneous (HCC ) Asthma (HCC) documented in this encounter Admitting Diagnoses Diagnosis 39 Weeks Gestation (HCC) documented in this encounter Administered Medications Inactive Administered Medications - up to 3 most recent administrations Medication Order MAR Action Action Date Dose Rate Site acetaminophen tablet 1,000 mg Given 01/04/2018 6:12 AM CDT 1,000 mg (TYLENOL) 1,000 mg, oral, Every 6 hours PRN, mild pain or score 1-3 of 10, Starting on Sun01/02/18 at 0825, Post-, Alternate aceaminophen and ibuprofen with 3 hour intervals. Given 01/03/2018 11:10 PM CDT 1,000 mg Given 01/03/2018 4:56 PM CDT 1,000 mg bupivacaine PF (MARCAINE) 0.25 % (2.5 mg/mL) Given 8 6:32 AM CDT 25 mg injection - ADS Override Pull Starting on Sun01/01/18 at 2231, For 1 dose, Created by cabinet override bupivacaine PF (MARCAINE) 0.25 % (2.5 mg/mL) Given 8 6:32 AM CDT 25 mg injection - ADS Override Pull Starting on Sun01/02/18 at 0627, For 1 dose, Created by cabinet override bupivacaine PF 0.25 % (2.5 mg/mL) injection Given 01/02/2018 6:2 1 AM CDT 25 mg (MARCAINE) As needed, Starting on Sun01/01/18 at 2250, Anesthesia Intra-op Given 01/02/2018 6:20 AM CDT 25 mg Given 01/01/2018 10:50 PM CDT 0.8 mL calcium carbonate chewable tablet 400 mg of calcium (TUMS) 400 mg of calcium, oral, Every 2 hour ID N, indigestion, Starting on Sun01/02/18 at 0825, Post-, One 500 mg tablet contains 200 mg o f calcium. 500 mg calcium carbonate contains 200 mg of elemental calcium. docusate sodium capsule 100 mg (COLACE) Given 01/04/2018 9:27 AM CDT 100 mg 100 mg, oral, 2 times daily, First dose on Sun01/02/18 at 0900, Post-, Do NOT crush or chew. Given 01/03/2018 8:01 PM CDT 100 mg Given 01/03/2018 12:24 PM CDT 100 mg ePHEDrine (PF) injection 5 mg Given 01/02/2018 4:04 AM CDT 5 mg 5 mg, intravenous, Every 5 min PRN, Until systolic blood pressure greater than or equal to 90 mmHg, Starting on Sun01/01/18 at 2238, For 3 doses, L&D Pre-Delivery, Notify anesthesia and UMBRELLA SUPERVISOR provider if given. If hypotension persists despite 3 doses (15 mg), give phenylephrine. fentaNYL 2 mcg/mL, ropivacaine 0.2 % (PF) in New Bag 01/01/2018 11 :04 PM CDT NaCl 0.9 % epidural (premix) Continuous Rate: 8 mL/hr, PCEA Dose (PCEA only): 4 mL, PCEA Lockout (PCEA only): 30 Minutes, One Hour Limit (PCEA only): 16 mL, epidural, Continuous, Starting on Sun01/01/18 at 2245, For 72 hours, L&D Pre-Delivery, premix bag, Location: Lumbar, Mode: Continuous + PCEA fentaNYL injection 50 mcg (SUBLIMAZE) Given 01/01/2018 9:55 PM CDT 50 mcg 50 mcg, intravenous, Every 1 hour PRN, severe pain or score 7-10 of 10, Starting on Sun01/01/18 at 2036 Given 01/01/2018 8:46 PM CDT 50 mcg Other hydrocortisone-pramoxine (PROCTOFOAM-HS) 1-1 % foam - ADS Override Pull Starting on Sun01/02/18 at 0918, For 1 dose, Created b y cabinet override hydrocortisone-pramoxine 1-1 % foam 1 Given 01/04/2018 1:58 AM CDT 1 application application (PROCTOFOAM-HS) 1 application, topical, As needed, hemorrhoids, Starting on Sun01/02/18 at 0916, Use applicator to instill rectally. Given 01/02/2018 9:30 AM CDT 1 application ibuprofen tablet 600 mg (ADVIL,MOTRIN) Given 01/04/2018 9:28 AM CDT 600 mg 600 mg, oral, Every 6 hours PRN, mild pain or score 1-3 of 10, moderate pain or score 4-6 of 10, Starting on Sun01/02/18 at 0825, Post-, Alternate acetaminophen and ibuprofen with 3 hour intervals. Given 01/04/2018 1:58 AM CDT 600 mg Given 01/03/2018 8:01 PM CDT 600 mg lactated Ringer's bolus 1,000 mL New Bag 01/02/2018 3:40 AM CDT 1,000 mL 1000 mL/hr 1,000 mL, intravenous, at 1,000 mL/hr, Administer over 1 Hours, Once, On Sun01/01/18 at 2245, For 1 dose, L&D Pre-Delivery lactated Ringer's bolus 500 Rate Changed 01/02/2018 1:03 AM CDT 500 mL 1000 mL/hr mL 500 mL, intravenous, at 1,000 mL/hr, Administer over 30 Minutes, As needed, If Category II or III heart rate pattern, Starting on Sun01/01/18 at 2218, For 1 dose, L&D Pre-Delivery New Bag 01/01/2018 10:23 PM CDT 500 mL 1000 mL/hr lactated ringers - ADS Override Pull Starting on Sun01/01/18 at 2216, For 1 dose, Created b y cabinet override lactated ringers New Bag 01/02/2018 4:51 AM CDT 125 mL/hr 125 mL/hr 125 mL/hr, intravenous, Continuous, Starting on Sun01/01/18 at 2230, L&D Pre-Delivery, Indications: prn in active labor or with epidural in place New Bag 01/02/2018 3:41 AM CDT 125 mL/hr 125 mL/hr New Bag 01/01/2018 11:58 PM CDT 125 mL/hr 125 mL/hr MMR: measles, mumps and Given 01/04/2018 9:41 AM CDT 0.5 mL Right Upper Arm rubella (PF) vaccine 0.5 mL (Back) 0.5 mL, subcutaneous, Once, On Sun01/02/18 at 0900, For 1 dose naloxone injection 0.2 mg (NARCAN) 0.2 mg, intravenous, As needed, respirat ory depression, Starting on Sun01/01/18 at 2037, For respiratory rate less than 8 b reaths per minute or RASS score of -3, -4, -5. Apply oxygen to keep oxygen saturati ons greater than 90% and notify service. naloxone injection 0.2 mg (NARCAN) 0.2 mg, intravenous, As needed, respirat ory depression, Starting on Sun01/02/18 at 0825, Post-, For respiratory rate less than 8 br eaths per minute or RASS score of -3, -4, -5. Apply oxygen to harriet p oxygen saturations greater than 90% and notify service. ondansetron (PF) injection 4 mg (ZOFRAN) 4 mg, intravenous, Every 6 hours PRN, na usea, vomiting, Starting on Sun01/02/18 at 0825, Post-, If patient unable to take oral oxytocin (PITOCIN) 60 New Bag 01/02/2018 6:31 AM CDT 30 Units 25 0 mL/hr deedee-Units/mL in NaCl 500 mL infusion - ADS Override Pull Starting on Sun01/01/18 at 2231, For 1 dose, Created by cabinet override Premix ba Units in 500 mL witch ashok pad 1 application (TUCKS) 1 application, topical, 3 times daily ID N, irritation, or pain., Starting on Sun01/02/18 at 0825, Post-, To perineu m - If ordered may use in combination with benzocaine-menthol topical spray (DERMOPLAST) documented in this encounter Active and Recently Administered Medications Times are shown in CDT. Scheduled Medication Order 01/02/2018 01/03/2018 01/04/2018 docusate sodium capsule 100 mg (COLACE) 0900 (Not Give n - Provider: Stefania Farris R.N. - Reason: Patient/family refused)2050 (Given - Provider: Alexa Garsia, R.N.) 122 (Given - Provider: Mylene Castaneda R.N. )2000 (Given - Provider: Gala Shah R.N.) 09 (Given - Provider: Kiersten Parr R .N.) 100 mg, oral, 2 times daily, First dose on Sun01/02/18 at 0900, Post-, Do NOT crush or chew. lactated Ringer's bolus 1,000 mL (COMPLETED) 0340 (New Bag - Provider: Shannon Gan R.N.) 1,000 mL, intravenous, at 1,000 mL/hr, A dminister over 1 Hours, Once, On Sun01/01/18 at 2245, For 1 dose, L&D Pre-Delivery MMR: measles, mumps and rubella (PF) vaccine 0.5 mL (COMPLETED) 0941 (Given - Provider: Kiersten Parr R.N.) 0.5 mL, subcutaneous, Once, On Sun01/02/18 at 0900, For 1 dose Continuous Medication Order 01/02/2018 01/03/2018 01/04/2018 lactated ringers (CANCELED) 0341 (New Bag - Provider: Shannon Gan R.N.)0451 (New Bag - Provider: Shannon Gan R.N.) 125 mL/hr, intravenous, Continuous, Star ting on Sun01/01/18 at 2230, L&D Pre- Delivery, Indications: prn in active labor or with epidural in place PRN Medication Order 01/02/2018 01/03/2018 01/04/2018 acetaminophen tablet 1,000 mg (TYLENOL) 1138 (Given - Provider: Stefania Farris RGermaineN.)1756 (Given - Provider: Perla Okeefe R.N.)2345 (Given - Provider: Alexa Garsia RGermaineN.) 0648 (Given - Provider: Alexa Garsia RGermaineN.)1656 (Given - Provider: Marli Han R.N.)2310 (Given - Provider: Mc Bonilla.N.) 0612 (Given - Provider: Shannon Gan RGermaineNGermaine) 1,000 mg, oral, Every 6 hours PRN, mild pain or score 1-3 of 10, Starting on Sun01/02/18 at 0825, Post-, Alternate aceaminophen and ibuprofen with 3 hour intervals. bupivacaine PF 0.25 % (2.5 mg/mL) injection (MARCAINE) (CANCELED) 0620 (Given - Provider: Shannon Gan R.N.)0621 (Given - Provider: Shannon Gan R.N.) As needed, Starting on Sun01/01/18 at 2250, Anesthesia Intra-op calcium carbonate chewable tablet 400 mg of calcium (TUMS) 400 mg of calcium, oral, Every 2 hour ID N, indigestion, Starting on Sun01/02/18 at 0825, Post-, One 500 mg tablet contains 200 mg of calcium. 500 mg calcium carbonate contains 200 mg of elemental calcium. ePHEDrine (PF) injection 5 mg (CANCELED) 0404 (Given - Provider: Shannon Gan R.N.) 5 mg, intravenous, Every 5 min PRN, Unti l systolic blood pressure greater than or equal to 90 mmHg, Starting on Sun01/01/18 at 2238, For 3 doses, L&D Pre- Delivery, Notify anesthesia and UMBRELLA SUPERVISOR provi awa if given. If hypotension persists de spite 3 doses (15 mg), give phenylephrine. fentaNYL injection 50 mcg (SUBLIMAZE) 50 mcg, intravenous, Every 1 hour PRN, s evere pain or score 7-10 of 10, Starting on Sun01/01/18 at 2036 hydrocortisone-pramoxine 1-1 % foam 1 application (PRO CTOFOAM-HS) 0930 (Given - Provider: Stefania Farris R.N.) 0158 (Given - Provid er: Shannon Gan R.N.) 1 application, topical, As needed, hemor rhoids, Starting on Sun01/02/18 at 0916, Use applicator to instill rectally. ibuprofen tablet 600 mg (ADVIL,MOTRIN) 0829 (Given - P rovider: Stefania Farris R.N.)0830 (Not Given - Provider: Stefania Farris R.N. - Reason: Other - Comment: duplicate)1424 (Given - Provider: Stefania Farris R.N.)2050 (Given - Provider: Alexa Garsia R.N.) 0508 (Given - Provider: Alexa Garsia R.N.)1224 (Given - Provider: Mylene Castaneda R.N.)2000 (Given - Provider: Gala Shah R.N.) 0158 (Given - Provider: Shannon Gan R.N.)0996 (Given - Provider: Kiersten Parr R.N.) 600 mg, oral, Every 6 hours PRN, mild pa in or score 1-3 of 10, moderate pain or score 4-6 of 10, Starting on Sun01/02/18 at 0825, Post-, Alternate acetaminophen and ibuprofen with 3 hour intervals. lactated Ringer's bolus 500 mL (COMPLETED) 0103 (Rate Changed - Provider: Shannon Gan R.N.) 500 mL, intravenous, at 1,000 mL/hr, Adm inister over 30 Minutes, As needed, If Category II or III heart rate pattern, Starting on Sun01/01/18 at 2218, For 1 dose, L&D Pre-Delivery naloxone injection 0.2 mg (NARCAN) 0.2 mg, intravenous, As needed, respirat ory depression, Starting on Sun01/01/18 at 2037, For respiratory rate less than 8 breaths per minute or RASS score of - 3, -4, -5. Apply oxygen to keep oxygen saturations greater than 90% and notify service. naloxone injection 0.2 mg (NARCAN) 0.2 mg, intravenous, As needed, respirat ory depression, Starting on Sun01/02/18 at 0825, Post-, For respiratory rate less than 8 breaths per minute or RASS score of -3, -4, -5. Apply oxygen to harriet p oxygen saturations greater than 90% and notify service. ondansetron (PF) injection 4 mg (ZOFRAN) 4 mg, intravenous, Every 6 hours PRN, na usea, vomiting, Starting on Sun01/02/18 at 0825, Post-, If patient unable to take oral witch ashok pad 1 application (TUCKS) 1 application, topical, 3 times daily ID N, irritation, or pain., Starting on Sun01/02/18 at 0825, Post-, To perineum - If ordered may use in combination with benzocaine-menthol topical spray (DERMOPLAST) No Frequency Medication Order 01/02/2018 01/03/2018 01/04/2018 bupivacaine PF (MARCAINE) 0.25 % (2.5 mg /mL) injection - ADS Override Pull (COMPLETED) 0632 (Given - Provider: Shannon Gan R.N.) Starting on Sun01/01/18 at 2231, For 1 dose, Created by cabinet override bupivacaine PF (MARCAINE) 0.25 % (2.5 mg /mL) injection - ADS Override Pull (COMPLETED) 06 (Given - Provider: Shannon Gan R.N.) Starting on Sun01/02/18 at 0627, For 1 dose, Created by justin[employer]et override oxytocin (PITOCIN) 60 deedee-Units/mL in NaCl 500 mL infusion - ADS Override Pull (COMPLETED) 06 (New Bag - Provider: Shannon Gan R.N.) Starting on Sun01/01/18 at 2231, For 1 d ose, Created by flaco alvarezide Premix ba Units in 500 mL documented in this encounter Additional Health Concerns Assessment Noted Time PHQ-9 Depression Total Score: 12 05/10/2017 2:20 PM CD T documented as of this encounter
--- OUTSIDE RECORDS SUMMARY | 2022-05-11 14:18 | XMS_ITS | Encounter Summary ---
:1995 Author Organization [facility] Address [address] [place] [address] Care Team Providers Name Role Phone Herbert Mcguire M.D. Primary Care Provider Reason for Visit Reason Onset Date Comments Attending Physicians Statement 01/14/2018 Faxed to [employer] Encounter Details Date Type Department Care Team Description 01/14/2018 Clinical Communication Department of [facility] Obstetrics [facility] Physicians Gynecology in [address] Statement (Faxed to [address]) [place] [phone] Social History Tobacco Use Types Packs/Day Years [...] 12/31/2018 relatives? How often do you attend islam or jainism Never 12/31/2018 services? Do you belong to any clubs or organizations such as No 12/31/2018 islam groups, unions, fraternal or athletic groups, or [...] this encounter Miscellaneous Notes Telephone Encounter - Ciro Hobbs - 01/14/2018 12:[address] Gerard completed the Attending Physician Statement, faxed to [facility] andplaced a copy to be scanned. documented in this encounter Plan of Treatment Not on filedocumented as of this encounter Visit Diagnoses Not on filedocumented in this encounter Additional Health Concerns Assessment Noted Time PHQ-9 Depression Total Score: 19 01/07/2018 12:49 PM C DT documented as of this encounter Care Teams Trailer Mechanic Relationship Specialty Start Date End Date Herbert Mcguire M.D. PCP - General Family Medicine 01/07/[address] [place] [phone] documented as of this encounter
--- OUTSIDE RECORDS SUMMARY | 2022-05-11 14:18 | XMS_ITS | Encounter Summary ---
:1995 Author Organization [facility] Address [address] [place] [address] Care Team Providers Name Role Phone Herbert Mcguire M.D. Primary Care Provider Reason for Visit Reason Onset Date Comments Asthma 01/11/2018 ACT updated within ayanna rodriguez Encounter Details Date Type Department Care Team Description 01/11/2018 Clinical Department of [place], Asthma (ACT up dated Communication Family MedicineAde within guidelines) [place] [address] [place], [place] [phone] [place] [address] [facility] (Work) [place] [address] Social History Tobacco Use Types [...] 12/31/2018 relatives? How often do you attend mormon or episcopalian Never 12/31/2018 services? Do you belong to any clubs or organizations such as No 12/31/2018 mormon groups, unions, fraternal or athletic groups, or [...] this encounter Miscellaneous Notes Telephone Encounter - Ade Smith - 01/31/2018 1:32 PM CDT Updated 01-24 within guidelines Telephone Encounter - Ade Smith - 01/22/2018 2:00 PM CDT Update at appt on 01-24 Telephone Encounter - Ade Smith - 01/11/2018 11:42 AM CDT [facility] documented in this encounter Plan of Treatment Not on filedocumented as of this encounter Visit Diagnoses Not on filedocumented in this encounter Additional Health Concerns Assessment Noted Time PHQ-9 Depression Total Score: 19 01/07/2018 12:49 PM C DT documented as of this encounter Care Teams Attorney Recruiter Relationship Specialty Start Date End Date Herbert Mcguire M.D. PCP - General Family Medicine 01/07/[address] [place] [phone] documented as of this encounter
--- OUTSIDE RECORDS SUMMARY | 2022-05-11 14:18 | XMS_ITS | Encounter Summary ---
:1995 Author Organization [facility] Address [address] [place] [address] Care Team Providers Name Role Phone Herbert Mcguire M.D. Primary Care Provider Reason for Referral Outpatient (Routine) - Closed Specialty Diagnoses / Procedures Referred By Contact Refer red To Contact Family Medicine Diagnoses Exam (HCC) Moe Hoffman M.D. [facility] Region [address], [address] [address] Referral ID Status Reason Start Date Expiration Date Visits Requ ested Visits Authorized [id number] Closed 01/07/2018 01/07/2019 1 1 Reason for Visit Reason Comments Care Appointment Request (Routine) - Closed Specialty Diagnoses / Procedures Referred By Contact Refer red To Contact Obstetrics and Gynecology Referral ID Status Reason Start Date Expiration Date Visits Requ ested Visits Authorized [id number] Closed 01/07/2018 01/07/2019 1 1 Encounter Details Date Type Department Care Team Description 01/07/2018 Office Visit Department of Moe Hoffman M .D. Exam ([facility]) Obstetrics and [address], (Prima ry Dx) Gynecology in [address] [address] [facility] [place] [address] Social History Tobacco Use Types [...] How often do you attend zoroastrian or restorationism Never 12/31/2018 services? Do you belong to [...] Sign Reading Time Taken Comments Blood Pressure 106/60 01/07/2018 12:42 PM CDT Pulse - - Temperature 37 ??C (98.6 ??F) 01/07/2018 12:42 PM CDT Respiratory Rate - - Oxygen Saturation - - Inhaled Oxygen Concentration - - Weight 73.2 kg (161 lb 6 oz) 01/07/2018 12:42 PM CDT Height - - Body Mass Index 23.63 09/23/2017 10:06 AM CDT documented in this encounter Progress Notes Moe Hoffman M.D. - 01/07/2018 1:00 PM CDT Gynecology/ note: S: The patient is a 22-year-old female 1 para 1 status post vaginal delivery on January 02, 2018. She relates she had several tears at delivery that were repaired. Over the past a she has noted a long piece of thread that has been visible to her with increasing pain over the past day with a slight amount of bleeding. O: Abdomen flat soft nontender Pelvic: The external areas visualized with the healing/lacerations on the introitus as well as rightlower introital areas. There is an area on the left lower introitus with a piece of suture that was approximately 2 in in length this was trimmed with this scissors at the skin edge. There is a small amount of oozing from the laceration site Monsel's solution was placed on this area of oozing with excellent hemostatic effect been achieved. The patient also relates that she had depression prior to the and was followed with the [facility] and was on medication of Wellbutrin 300 mg orally per day. A PQ 9 questionnaire to be a reveals a value of 19. Impression and plan: An area of torn through suture of a laceration at delivery. The suture was trimmed and a small amount of Monsel's applied to the oozing site. The patient will continue with local care Sitz baths t.i.d./prn. She has a past history of depression. She is not suicidal with no harm to herself or her baby. She desires to restart Wellbutrin 150 mg orally b.i.d.. She requests to have a surveillance with a family physician in [facility] and will make anappointment in 1 week . A visit for 6 weeks has been made previously. documented in this encounter Plan of Treatment Scheduled Referrals Name Type Priority Associated Diagnoses Order S [facility] Primary Care - ALICE Outpatient Referral Routine Exam Expected: consult (clinic) ([facility]) 01/14/2018 (Approximate), Expires: 01/07/2021 documented as of this encounter Visit Diagnoses Diagnosis Exam ([facility]) - Primary documented in this encounter Additional Health Concerns Assessment Noted Time PHQ-9 Depression Total Score: 19 01/07/2018 12:49 PM C DT documented as of this encounter Care Teams Solar Sales Relationship Specialty Start Date End Date Herbert Mcguire M.D. PCP - General Family Medicine 01/07/[address] [place] [phone] documented as of this encounter
--- OUTSIDE RECORDS SUMMARY | 2022-05-11 14:18 | XMS_ITS | Encounter Summary ---
:1995 Author Organization [facility] Address [address] [place] [address] Care Team Providers Name Role Phone Herbert Mcguire M.D. Primary Care Provider Reason for Referral Outpatient (Routine) - Closed Specialty Diagnoses / Procedures Referred By Contact Refer red To Contact Family Medicine Herbert Mcguire M. D. [address] [address] Referral ID Status Reason Start Date Expiration Date Visits Requ ested Visits Authorized [id number] Closed 01/24/2018 01/24/2019 1 1 Reason for Visit Reason Comments Depression Discuss anti-depressants Contraception Outpatient (Routine) - Closed Specialty Diagnoses / Procedures Referred By Contact Refer red To Contact Family Medicine Diagnoses Exam (HCC) Moe Hoffman M.D. [place] [address] [address] [facility], [address] [address] Referral ID Status Reason Start Date Expiration Date Visits Requ ested Visits Authorized [id number] Closed 01/07/2018 01/07/2019 1 1 Encounter Details Date Type Department Care Team Description 01/24/2018 Office Visit Department of Herbert Montemayor Po stpartum Exam (HCC) (Primary Dx); MedicineKin M.D. Depression Major Recurrent Full Remissio n ([facility]) Clinic, in [address] [phone] Social History Tobacco Use Types Packs/Day Years [...] 12/31/2018 relatives? How often do you attend druze or yazidi Never 12/31/2018 services? Do you belong to any clubs or organizations such as No 12/31/2018 druze groups, unions, fraternal or athletic groups, or [...] Sign Reading Time Taken Comments Blood Pressure 113/70 01/24/2018 5:38 PM CDT Pulse 80 01/24/2018 5:38 PM CDT Temperature 36.8 ??C (98.2 ??F) 01/24/2018 5:38 PM CDT Respiratory Rate 16 01/24/2018 5:38 PM CDT Oxygen Saturation 98% 01/24/2018 5:38 PM CDT Inhaled Oxygen Concentration - - Weight 68.6 kg (151 lb 3.8 oz) 01/24/2018 5:38 PM CDT Height - - Body Mass Index 22.15 09/23/2017 10:06 AM CDT documented in this encounter Progress Notes Herbert Mcguire M.D. - 01/24/2018 5:45 PM CDT SUBJECTIVE CHIEF COMPLAINT / REASON FOR VISIT Chiqui Duke is a 22 y.o. female who presents for evaluation of Depression (Discuss anti-depressants) and Contraception. HISTORY OF PRESENT ILLNESS Patient is a pleasant 22-year-old who delivered via normal spontaneous vaginal delivery at termapproximately 3 weeks ago. She is followed closely by OBGYN. She presents to continue treatment for depression and to start control. She has had success with control pills in the past wouldlike to begin again. She does not recall the specific oral contraceptive she had taken prior. Patient also has a history of depression controlled well with Wellbutrin. She was restarted on Wellbutrin approximately 1 week ago and notes her symptoms improving significantly. She states she has a better outlook on life has happy to interact with her baby at this time. No feelings of guilt or tearfulness. Happy with the results. She would like to return to the 300 mg once daily dosing if possible. The following portions of the patient's history [...] 4 (four) times a day. ??? buPROPion (WELLBUTRIN SR) 150 mg 12 hr tablet Take 1 tablet (150 mg total) by mouth 2 (two) times a day for 60 doses. Take 1 tab daily for 3 days then take one tab 2x daily for 4 days. Quit smokingon day 7 and continue to take medication 2x daily. ??? docusate sodium (DOK) 100 mg capsule Take 1 capsule (100 mg total) by mouth 2 (two) times a day.TAKE WITH FULL GLASS OF WATER (Patient taking differently: Take 100 mg by mouth as needed. TAKE WITHFULL GLASS OF WATER ) ??? ibuprofen (ADVIL,MOTRIN) 600 mg tablet Take 1 tablet (600 mg total) by mouth every 6 (six) hoursas needed for mild pain or score 1-3 of 10 or moderate pain or score 4-6 of 10. ??? buPROPion XL (WELLBUTRIN XL) 300 mg 24 hr tablet Take 1 tablet (300 mg total) by mouth every morning. ??? norgestimate-ethinyl estradiol (ORTHO TRI-CYCLEN LO, 28,) 0.18/0.215/0.25 mg-25 mcg per tablet Take 1 tablet by mouth daily. No Known Allergies OBJECTIVE PHYSICAL EXAM BP 113/70 (BP Location: Left arm, Patient Position: Sitting, Cuff Size: Regular) Pulse 80 Temp 36.8 ??C (Temporal) Resp 16 Wt 68.6 kg SpO2 98% ? No BMI 22.15 kg/m?? Body massindex is 22.15 kg/m??. GENERAL: Patient is in no distress. Capable of full communication without difficulty. Patient is polite and cooperative. HEART: Regular rate and rhythm. No murmurs, gallops or rubs noted. LUNGS: Clear to auscultation bilaterally. No expiratory wheeze. No accessory muscles of respiration noted. EXTREMITIES: No neurovascular compromise. No cyanosis, clubbing or edema. NEURO: Alert and oriented x3, nonfocal, moving all 4 extremities. CN II-XII grossly intact. PSYCH: Affect is appropriate DIAGNOSTICS: Results for orders placed or performed during the hospital encounter of 01/16/18 CBC with Differential Result Value Ref Range Hemoglobin 12.5 11.6 - 15.0 g/dL Hematocrit 36.5 35.5 - 44.9 % Erythrocytes 3.81 (L) 3.92 - 5.13 x10(12)/L MCV 95.8 78.2 - 97.9 fL RBC Distrib Width 11.3 (L) 12.2 - 16.1 % Platelet Count 373 (H) 157 - 371 x10(9)/L Leukocytes 10.1 (H) 3.4 - 9.6 x10(9)/L Neutrophils 6.31 1.56 - 6.45 x10(9)/L Lymphocytes 2.53 0.95 - 3.07 x10(9)/L Monocytes 0.94 (H) 0.26 - 0.81 x10(9)/L Eosinophils 0.30 0.03 - 0.48 x10(9)/L Basophils 0.06 0.01 - 0.08 x10(9)/L BMP (Basic Metabolic Panel) Result Value Ref Range Potassium, P 3.8 3.6 - 5.2 mmol/L Sodium, P 139 135 - 145 mmol/L Chloride, P 100 98 - 107 mmol/L Bicarbonate, P 24 22 - 29 mmol/L Anion Gap, P 15 7 - 15 BUN, P 12 6 - 21 mg/dL Creatinine, P 0.70 0.59 - 1.04 mg/dL eGFR Black >90 >=60 mL/min/BSA eGFR Non-Black >90 >=60 mL/min/BSA Calcium, Total 9.2 8.6 - 10.0 mg/dL Glucose, P 111 70 - 140 mg/dL Morphology Evaluation Result Value Ref Range RBC Morphology Normal PLT Morphology Normal PLT Estimate Adequate Adequate Large PLT Present (A) Not Seen ASSESSMENT / PLAN ASSESSMENT/PLAN: #1 Exam (HCC) #2 Depression Major Recurrent Full Remission (HCC) Will continue patient on Wellbutrin and transition her to 300 mg XL once daily. Patient has been on Zoloft in the past with significant night sweats. Will prescribed oral contraceptives at this time. Follow-up in 3 months time for ongoing evaluation. Counseled patient on depression althoughshe is doing quite well at this time. Monitor. Patient was instructed to follow up in [...] understanding of the content. Bonifacio Mcguire M.D. documented in this encounter Plan of Treatment Scheduled Referrals Name Type Priority Associated Diagnoses [facility] Referral Routine Expec misael: office visit 04/26/2018 (clinic) - Self (Approximate ), Expires: 01/24/2021 documented as of this encounter Visit Diagnoses Diagnosis Exam (HCC) - Primary Depression Major Recurrent Full Remissio n (HCC) documented in this encounter Additional Health Concerns Assessment Noted Time PHQ-9 Depression Total Score: 12 01/24/2018 5:43 PM CD T documented as of this encounter Care Teams Machinery Engineer Relationship Specialty Start Date End Date Herbert Mcguire M.D. PCP - General Family Medicine 01/07/[address] [place] [phone] documented as of this encounter
--- OUTSIDE RECORDS SUMMARY | 2022-05-11 14:18 | XMS_ITS | Encounter Summary ---
:1995 Author Organization [facility] Address [address] [place] [address] Care Team Providers Name Role Phone Herbert Mcguire M.D. Primary Care Provider Encounter Details Date Type Department Care Team Description 01/07/2018 Orders Only Department of Obstetrics Alex Hoffman M.D. and Gynecology in [place] [address] [place], [place] [address] [place] [address] [place] [address] [phone] Social History Tobacco Use Types Packs/Day Years [...] 12/31/2018 relatives? How often do you attend adventism or sikh Never 12/31/2018 services? Do you belong to any clubs or organizations such as No 12/31/2018 adventism groups, unions, fraternal or athletic groups, or [...] documented as of this encounter Care Teams Graphite Disk Assembler Relationship Specialty Start Date End Date Herbert Mcguire M.D. PCP - General Family Medicine 01/07/[address] [place] [phone] documented as of this encounter
--- OUTSIDE RECORDS SUMMARY | 2022-05-11 14:18 | XMS_ITS | Encounter Summary ---
:1995 Author Organization [facility] Address [address] [place] [address] Care Team Providers Name Role Phone Unavailable Primary Care Provider Unavailable Encounter Details Date Type Department Care Team Description 01/04/2018 Encounter Social History Tobacco Use Types Packs/Day [...] How often do you attend baptism or jewish Never 12/31/2018 services? Do you [...] of this encounter Miscellaneous Notes Note - Stephanie Mcclain R.N., I.B.C.L.C. - 01/04/2018 9:30 AM CDT This note was copied from a baby's chart. SUBJECTIVE Boy Chiqui Duke, at 2 days old of age, was seen for a Consultation. Consultation Reason for Consult: Follow-up assessment, Patient request, discretion, Breast/nipple concerns, Breast pump (Discharge planning and follow up arrangements.) OBJECTIVE Delivery Details: Risk Factors: Asthma Other Obstetric Procedures-This : None Labor Complications: Delivery Type: Vaginal, Spontaneous Delivery [place] Weight: 3710 g 1 Minute 5 Minute 10 Minute Totals: 9 9 Maternal Breast Assessment Breast Surgery: None Breast Size: Small Breast Characteristics: Round, Symmetrical Nipple Type-Right: Elongated Nipple Assessment-Right: Tender, Intact Right Breast: Soft Nipple Type-Left: Everted Nipple Assessment-Left: Tender, Intact Left Breast: Soft Colostrum Expressed: Yes (Mom hand expressed 5 ml of colostrum into a cup to feed prior to offering latch in football hold due to cross cradle too painful. Has one syringe of colostrum left to take home for toinght.) Assessment class: No Has mother breastfed before?: No. . Tools: Comfort gels, Pump, Feeding cup (Has electric pump, hydrogels taking home and will start wearing betwen feedings. Med cups and #5 tube for syringe use sent with parents.) Exclusive Pump and Bottle Feed: No Significant other/father of baby: Significant other, living together Infant Assessment State: Active, alert Infant Suck: Rhythmic, Mature suck: 10-20 suckling bursts, Strong Oral Anatomy: Normal palate, tongue, jaw, chin, Appropriate frenulum Mucus Membranes: Moist Baby has elongated caput that today is soft, bruise noted at height of swelling, crosses suture lines and is on left side of center of back of head. Latch Score: Latch: Repeated attempts, hold nipple in mouth, stimulate to suck Audible Swallowing: Spontaneous and intermittent (24 hours old) Type of Nipple: Everted (After stimulation) Comfort (Breast/Nipple): Filling, red/small blisters/bruises, mild/moderate discomfort Hold (Positioning): No assist from staff, mother able to position/hold infant LATCH Score: 8 Input: 6 feedings/24 hours Output: 3 voids/24 hours, 3 stools/24 hours, Stool Amount: Medium Stool Appearance: Meconium weight: 3710 g Current weight: Weight: 3524 g Percent of weight change since : -5% Weight change since previous weight: Weight Change (gm) : -158 Pct Wt Change: -5.02 % ASSESSMENT/PLAN Parents are independent in use of thawed colostrum, freshly expressed colostrum and positioning and latch. Mom needs to be reminded to add support to baby and breast as needed. 27 size given for electric pump for right breast, left size is 24. Many questions about pumping, expressing by hand until tomorrow, storage and use of milk in future. Dad very helpful in all aspects of baby care. Follow Up: follow up plan: consult with phone call in 24 hours and visit for weight check and bilirubin follow up in 48 hours. Stephanie Mcclain R.N., I.B.C.L.C. documented in this encounter Plan of Treatment Not on filedocumented as of this encounter Visit Diagnoses Not on filedocumented in this encounter Additional Health Concerns Assessment Noted Time PHQ-9 Depression Total Score: 12 05/10/2017 2:20 PM CD T documented as of this encounter
--- OUTSIDE RECORDS SUMMARY | 2022-05-11 14:18 | XMS_ITS | Encounter Summary ---
:1995 Author Organization [facility] Address [address] [place] [address] Care Team Providers Name Role Phone Herbert Mcguire M.D. Primary Care Provider Reason for Visit Reason Comments Follow-up Stitches Appointment Request (Routine) - Closed Specialty Diagnoses / Procedures Referred By Contact Refer red To Contact Obstetrics and Gynecology Referral ID Status Reason Start Date Expiration Date Visits Requ ested Visits Authorized [id number] Closed 01/25/2018 01/25/2019 1 1 Encounter Details Date Type Department Care Team Description 01/30/2018 Office Visit Department of Dior Guerrero, E xam (HCC) Obstetrics and Addison VELÁSQUEZNGraeme (Primary Dx) Gynecology in [address] [address] [place], [place] [phone] (Work) [phone] Social History Tobacco Use Types Packs/Day Years [...] 12/31/2018 relatives? How often do you attend yazdanism or pentecostal Never 12/31/2018 services? Do you belong to any clubs or organizations such as No 12/31/2018 yazdanism groups, unions, fraternal or athletic groups, or [...] Sign Reading Time Taken Comments Blood Pressure 100/64 01/30/2018 3:54 PM CDT Pulse - - Temperature - - Respiratory Rate - - Oxygen Saturation - - Inhaled Oxygen Concentration - - Weight 68.7 kg (151 lb 7.3 oz) 01/30/2018 3:54 PM CDT Height - - Body Mass Index 22.18 09/23/2017 10:06 AM CDT documented in this encounter Progress Notes Dior Guerrero, DIDIER, C.N.P. - 01/30/2018 4:15 PM CDT Chief Complaint Patient presents with ??? Follow-up Stitches GABY Florian is a 22 y.o. female here approximately 4 weeks with complaint of stitches that arehanging out of her vagina and irritating her vagina. She also notes that she continues to have moderate bleeding and cramping, wonders if this is normal. She had a vaginal delivery with a second-degree laceration that was repaired. She returned about 1 week for evaluation of her stitches in bleeding. At that time stitches were trimmed, Monsel's was applied. She presented to the [place] ER followed by [place] [facility] (2 separate visits) approximately 1-2 weeks later with concern about bleeding and her stitches. Was given Cytotec and additional suturing was done at that time. She continued to use Cytotec for 5 days after her ER visit. Shestates that the bleeding initially became heavier then lightened up. It has since been somewhat moderate to heavy with small stringy clots in the toilet every time she uses the bathroom. She says she is no longer bleeding through pads. She saw her PCP about 1 week ago and was started on OCPs. She states that she is doing well mentally, did experience depression symptoms, but feels she is stable on her current dose of Wellbutrin. She denies fever chills, vaginal odor. She states she has not overdoing it with activity, is afraid to leave the house due to the bleeding. She is not . She has not been sexually active since the of her baby. Patient Active Problem List Diagnosis ??? Asthma NOS ??? Depression Major Recurrent Full Remission (HCC) Past Surgical History: Procedure Laterality Date ??? APPENDECTOMY N/A 06/22/2015 Appendectomy Current Outpatient Prescriptions on File Prior to Visit Medication Sig Dispense Refill ??? acetaminophen (TYLENOL) [...] and continue to take medication 2x daily. 60 tablet 2 ??? docusate sodium (DOK) 100 mg capsule Take 1 capsule (100 mg total) by mouth 2 (two) times a day.TAKE WITH FULL GLASS OF WATER (Patient taking differently: Take 100 mg by mouth as needed. TAKE WITHFULL GLASS OF WATER ) 100 capsule 1 ??? norgestimate-ethinyl estradiol (ORTHO TRI-CYCLEN LO, 28,) 0.18/0.215/0.25 mg-25 mcg per tablet Take 1 tablet by mouth daily. 84 tablet 3 ??? buPROPion XL (WELLBUTRIN XL) 300 mg 24 hr tablet Take 1 tablet (300 mg total) by mouth every morning. (Patient not taking: Reported on 01/30/2018 ) 90 tablet 3 ??? ibuprofen (ADVIL,MOTRIN) 600 mg tablet Take 1 tablet (600 mg total) by mouth every 6 (six) hoursas needed for mild pain or score 1-3 of 10 or moderate pain or score 4-6 of 10. (Patient not taking:Reported on 01/30/2018 ) 30 tablet 1 No current facility-administered medications on file prior to visit. No Known Allergies No family history on file. Social History Substance Use Topics ??? Smoking status: Former Smoker Quit date: 05/07/2017 ??? Smokeless tobacco: Never Used ??? Alcohol use No BP 100/64 (Cuff Size: Regular) Wt 68.7 kg ? No BMI 22.18 kg/m?? OBJECTIVE General - no apparent distress DISASTER RECOVERY ANALYST: External genitalia - repair is healing well, sutures are visible at the posterior fourchette. This is trimmed to flush with the skin. Stitches are visible on the posterior vaginal wall, are trimmed to flush with the vaginal os. BUS - no lesions Vagina - dark mucousy discharge Pelvic floor - non tender Bladder - not enlarged, non-tender Cervix - no lesions, no cervical motion tenderness Uterus - firm, not enlarged nor tender Adnexa - ovaries not enlarged nor tender Anus - no hemorrhoids, no lesions Rectovaginal exam - not indicated ASSESSMENT / PLAN #1 Exam (HCC) If sutures irritating her skin. These are trimmed to be flush with the skin. Continues to have moderate to heavy bleeding for weeks . Also experiencing cramping. She denies fever chills. I have ordered a pelvic ultrasound. She will schedule and she is able. Reassurance is provided that at this time the repair is healing well. I will call her with results of the ultrasound. documented in this encounter Plan of Treatment Not on filedocumented as of this encounter Results US Pelvis Transvaginal and [...] or a large endometrial polyp. Normal-appearing ovaries. Dior Guerrero APRN, C.N.P. IMG US PROCEDURES documented in this encounter Visit Diagnoses Diagnosis Exam (HCC) - Primary Exam (HCC) documented in this encounter Additional Health Concerns Assessment Noted Time PHQ-9 Depression Total Score: 12 01/24/2018 5:43 PM CD T documented as of this encounter Care Teams Supply Chain Consultant Relationship Specialty Start Date End Date Herbert Mcguire M.D. PCP - General Family Medicine 01/07/[address] [place] [phone] documented as of this encounter
--- OUTSIDE RECORDS SUMMARY | 2022-05-11 14:18 | XMS_ITS | Encounter Summary ---
:1995 Author Organization [facility] Address [address] [place] [address] Care Team Providers Name Role Phone Herbert Mcguire M.D. Primary Care Provider Reason for Visit Reason Comments Care Appointment Request (Routine) - Closed Specialty Diagnoses / Procedures Referred By Contact Refer red To Contact Obstetrics and Gynecology Referral ID Status Reason Start Date Expiration Date Visits Requ ested Visits Authorized [id number] Closed 01/17/2018 01/17/2019 1 1 Encounter Details Date Type Department Care Team Description 01/17/2018 Comprehensive Visit Department of Moe Hoffman, Postp artum Exam Obstetrics and M.D. (HCC) (Primary Dx) Gynecology in [facility] [address] [facility], [address] [place], [place] [id number] [place] [address] [phone] (Work) [phone] Social History Tobacco Use Types Packs/Day Years [...] 12/31/2018 relatives? How often do you attend lutheran or yazidi Never 12/31/2018 services? Do you belong to any clubs or organizations such as No 12/31/2018 lutheran groups, unions, fraternal or athletic groups, or [...] Sign Reading Time Taken Comments Blood Pressure 102/70 01/17/2018 12:58 PM CDT Pulse - - Temperature - - Respiratory Rate - - Oxygen Saturation - - Inhaled Oxygen Concentration - - Weight 69 kg (152 lb 1.9 oz) 01/17/2018 12:58 PM CDT Height - - Body Mass Index 22.28 09/23/2017 10:06 AM CDT documented in this encounter Progress Notes Moe Hoffman M.D. - 01/17/2018 1:15 PM CDT Post note The patient 22-year-old female status post vaginal delivery of January 02, 2018. The patient was seen approximately 8-1/2 weeks post delivery with a portion of suture that was dangling from the repair site and this was trimmed with suture with no bleeding or oozing noted at that time. The patient relates that several days ago she had increasing gush of blood and into the [facility] emergency room where they apparently area of the episiotomy/laceration was sutured. Though she relatesthe ER physician was unsure where that was indeed the cause of the bleeding. Patient then subsequently went to the [place] ER on the evening of January 16, 2018 with a gush of blood followed by clot approximately the size of a ping-pong ball. She was given Cytotec and has minimal lochia since then. She had a CBC performed that was normal She has no pain, no fevers, and has normal voiding and bowel movements. On exam her abdomen is soft nontender Pelvic exam includes visualization of the perineum and and second-degree perineal laceration site that the sutures are in place and appears well-healed and there is no bleeding or oozing noted from thesuture site. 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 In this regard she desires to proceed with Cytotec 200 mcg orally b.i.d. x5 days. If there is further heavy flow or clots the ensue would at that point recommend proceeding with a pelvic ultrasound. She return office in 3 weeks for her appointment otherwise call for any increasing bleeding, clots, pain, or other problems else franco. documented in this encounter Plan of Treatment Not on filedocumented as of this encounter Visit Diagnoses Diagnosis Exam (HCC) - Primary documented in this encounter Additional Health Concerns Assessment Noted Time PHQ-9 Depression Total Score: 19 01/07/2018 12:49 PM C DT documented as of this encounter Care Teams Panelboard Assembler Relationship Specialty Start Date End Date Herbert Mcguire M.D. PCP - General Family Medicine 01/07/[address] [place] [phone] documented as of this encounter
--- OUTSIDE RECORDS SUMMARY | 2022-05-11 14:18 | XMS_ITS | Encounter Summary ---
:1995 Author Organization [facility] Address [address] [place] [address] Care Team Providers Name Role Phone Unavailable Primary Care Provider Unavailable Reason for Visit Reason Comments Routine Visit Outpatient (Routine) - Canceled Specialty Diagnoses / Procedures Referred By Contact Refer red To Contact Obstetrics and Dior Guerrero APRN, [facility] Gynecology C.N.P. [address] [facility] [place] [address] Referral ID Status Reason Start Date Expiration Date Visits V isits Requested Authorized [id number] Canceled 12/06/2017 12/06/2018 1 1 Encounter Details Date Type Department Care Team Description 12/11/2017 Routine Department of Dior Guerrero Encounte r For Obstetrics and DIDIER, C.N.P. Supervision Of Normal Gynecology in [facility] [address] [facility] [address] [place], [place] Unspecified Trimester [address] [place] [phone] (Primary Dx) [place], [place] [phone] (Work) [phone] Social History Tobacco Use Types Packs/Day Years [...] 12/31/2018 relatives? How often do you attend presybeterian or anglican Never 12/31/2018 services? Do you belong to any clubs or organizations such as No 12/31/2018 presybeterian groups, unions, fraternal or athletic groups, or [...] Sign Reading Time Taken Comments Blood Pressure 110/84 12/11/2017 9:52 AM CDT Pulse - - Temperature - - Respiratory Rate - - Oxygen Saturation - - Inhaled Oxygen Concentration - - Weight 80.3 kg (177 lb 0.5 oz) 12/11/2017 9:52 AM CDT Height - - Body Mass Index 25.92 09/23/2017 10:06 AM CDT documented in this encounter Progress Notes Dior Guerrero APRN, C.N.P. - 12/11/2017 10:00 AM CDT No concerns today. GBS is negative. Good movement. documented in this encounter Plan of Treatment Not on filedocumented as of this encounter Visit Diagnoses Diagnosis Encounter For Supervision Of Normal Firs t Unspecified Trimester (HCC) - Primary documented in this encounter Additional Health Concerns Assessment Noted Time PHQ-9 Depression Total Score: 12 05/10/2017 2:20 PM CD T documented as of this encounter
--- OUTSIDE RECORDS SUMMARY | 2022-05-11 14:18 | XMS_ITS | Encounter Summary ---
:1995 Author Organization [facility] Address [address] [place] [address] Care Team Providers Name Role Phone Unavailable Primary Care Provider Unavailable Reason for Visit Reason Comments Routine Visit Appointment Request (Routine) - Closed Specialty Diagnoses / Procedures Referred By Contact Refer red To Contact Obstetrics and Gynecology Referral ID Status Reason Start Date Expiration Date Visits Requ ested Visits Authorized [id number] Closed 12/31/2017 12/31/2018 1 Encounter Details Date Type Department Care Team Description 12/31/2017 Routine Department of Narciso Jarrett Obstetrics and Barbara, SLEEVE SETTER LOCKSTITCH, Normal Pregn tiffanie Gynecology in [facility] JOSE DAVID M.S.N., [place], [place] B.S.N., R.N. (Primary Dx) [address] [place], [place] [address] [phone] Social History Tobacco Use Types Packs/Day Years [...] 12/31/2018 relatives? How often do you attend buddhism or worship Never 12/31/2018 services? Do you belong to any clubs or organizations such as No 12/31/2018 buddhism groups, unions, fraternal or athletic groups, or [...] Sign Reading Time Taken Comments Blood Pressure 108/70 12/31/2017 3:42 PM CDT Pulse - - Temperature - - Respiratory Rate - - Oxygen Saturation - - Inhaled Oxygen Concentration - - Weight 80.3 kg (177 lb 0.5 oz) 12/31/2017 3:42 PM CDT Height - - Body Mass Index 25.92 09/23/2017 10:06 AM CDT documented in this encounter Progress Notes Barbara Jarrett APRN, CNM - 12/31/2017 4:00 PM CDT Seen for complaints of pain and difficulty sleeping. Good movement. documented in this encounter Plan of Treatment Not on filedocumented as of this encounter Visit Diagnoses Diagnosis Examination Normal Th ird Trimester (HCC) - Primary documented in this encounter Additional Health Concerns Assessment Noted Time PHQ-9 Depression Total Score: 12 05/10/2017 2:20 PM CD T documented as of this encounter
--- OUTSIDE RECORDS SUMMARY | 2022-05-11 14:18 | XMS_ITS | Encounter Summary ---
:1995 Author Organization [facility] Address [address] [place] [address] Care Team Providers Name Role Phone Herbert Mcguire M.D. Primary Care Provider Encounter Details Date Type Department Care Team Description 02/06/2018 Clinical Communication Department of Dior Guerrero, Obstetrics and Guerda VELÁSQUEZ Gynecology in [address] [address] [place], [place] [phone] (Work) [phone] Social History Tobacco Use Types Packs/Day Years [...] 12/31/2018 relatives? How often do you attend mormonism or judaism Never 12/31/2018 services? Do you belong to any clubs or organizations such as No 12/31/2018 mormonism groups, unions, fraternal or athletic groups, or [...] documented as of this encounter Care Teams Tank Farm Gauger Relationship Specialty Start Date End Date Herbert Mcguire M.D. PCP - General Family Medicine 01/07/[address] [place] [phone] documented as of this encounter
--- OUTSIDE RECORDS SUMMARY | 2022-05-11 14:18 | XMS_ITS | Encounter Summary ---
:1995 Author Organization [facility] Address [address] [place] [address] Care Team Providers Name Role Phone Herbert Mcguire M.D. Primary Care Provider Encounter Details Date Type Department Care Team Description 02/06/2018 Hospital Encounter Department of Jona Clifford Mole Hyd [facility] Laboratory Medicine M.B.B.S. ([facility]) in [address] [address] Social History Tobacco Use Types Packs/Day [...] How often do you attend christian or uatsdin Never 12/31/2018 services? Do you belong to [...] Name Priority Date/Time Associated Diagnosis Comme nts HUMAN CHORIONIC Routine 02/06/2018 12:37 Mole Hydatidiform Res ults for this GONADOTROPIN (HCG), PM CDT ([facility]) procedur e are in SERGE, the results section. documented in this encounter Results hCG (Human Chorionic Gonadotropin), Quantitative, (02/06/2018 12:37 PM CDT) P athologist Signature HCG, 7.3 IU/L 02/06/2018 [facility] Quantitative, 1:50 PM CDT [facility] Comment: The test result is indetermina te, repeat the test in 72 hours. Biotin has been identified by the deondre mayorga as a potential interfering substance. ??Higher concentr ations of biotin may be found in multivitamins, hair/nail supple ments, and workout supplements. ??If the result does not 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 PCP - General Family Medicine 01/07/[address] [place] [phone] documented as of this encounter
--- OUTSIDE RECORDS SUMMARY | 2022-05-11 14:18 | XMS_ITS | Encounter Summary ---
:1995 Author Organization [facility] Address [address] [place] [address] Care Team Providers Name Role Phone Unavailable Primary Care Provider Unavailable Reason for Visit Reason Comments Contractions Auth/Cert Specialty Diagnoses / Procedures Referred By Contact Refer red To Contact Diagnoses na Procedures na Referral ID Status Reason Start Date Expiration Date Visits Requ ested Visits Authorized [id number] 1 1 Encounter Details Date Type Department Care Team Description 12/26/2017 Hospital Encounter [facility] Jona Clifford M.B.B.S. 39 Weeks Gestation [facility] Janak Aden M.D., Ph.D. [address] [place] [address] [facility], Third Floor [address] [place] [address] Social History Tobacco Use Types [...] How often do you attend taoism or yarsanism Never 12/31/2018 services? Do you belong to any clubs or organizations such as Lucina 12/31/2018 taoism groups, unions, fraternal or athletic [...] Sign Reading Time Taken Comments Blood Pressure 120/75 12/26/2017 5:44 AM CDT Pulse - - Temperature 37 ??C (98.6 ??F) 12/26/2017 5:44 AM CDT Respiratory Rate - - Oxygen Saturation - - Inhaled Oxygen Concentration - - Weight - - Height - - Body Mass Index - - documented in this encounter Discharge Instructions Discharge InstructionsPeral Okeefe R.N. - 12/26/2017 6:00 AM CDT PATIENT EDUCATION Ready, Set, Not [...] Hold hands with someone you love ??? [place] ??? Tell jokes; listen to jokes ??? Call your labor head athletic trainer/strength coach ??? Suck on a sour lollipop [...] Start Date End Date docusate sodium (DOK) 100 Take 1 capsule [...] a day. documented as of this encounter Progress Notes Jona Clifford M.D., M.B.B.S. - 12/26/2017 6:02 AM CDT Subjective: Patient is a 22 yo female at 39w0d by 6 week ultrasound who presented to us for rule out labor. She notes that she has been having contractions since yesterday morning. She had come inyesterday mgmt analyst for rule out labor and was noted to be 1 cm dilated and 40% effaced. She made minimal change and was sent home. She notes that yesterday around midnight her contractions startedto flower buncher or picker and were every 5 min as a result of which she called and came in for evaluation. She was checked around 1:28 a.m. today morning and she was noted to be 1 cm dilated and 60% effaced. She was reach checked 2 hr later and did not make any change. She was very uncomfortable and jose every 3-5 minutes moderate to strong in intensity as a result of which we decided to observe her for a longer period of time and check her cervix again. At around 5:00 a.m. she was noted to be 1-2 cm dilated 80% effaced and - 3. She denies any leaking of fluid. She denied any vaginal bleeding before coming.She did notice some light blood on wiping that started after coming to triage. This is likely from cervical examinations. Her cervix is posterior which limits the examination. Her current is complicated by rubella nonimmune status, and a history of vaginal bleeding at around 25 weeks gestation for which she was transferred from [place] to [facility] and she received betamethasone. At 32 weeks gestation or placenta was noted to be 3.5 cm from the internal os. Objective: Blood pressure 120/75, temperature 37 ??C, temperature source Temporal, last menstrual period 03/08/2017, not currently . General: Uncomfortable and breathing through contractions heart tones: 140s, moderate variability, accelerations present, rare intermittent small variables (3:32 am and 4:30 am) since 1:20 am Wishek: Initially every 3-5 minutes, then spaced out; irregular Bedside scan: saini, vertex, adequate fluid overall on inspection, placenta posterior left lateral no signs of abruption A positive blood type Cervix: 1-2 cm/80% effaced/-3 exam limited by posterior nature of cervix Assessment/Plan: 1. Early/Latent Labor - The patient has not made much cervical lead man over all dies in pattern shop the last 4-5 hours. I explained to her that sheis likely in latent phase of labor. I discussed with the patient the option of therapeutic rest which she is interested in. Patient given 10 mg of morphine IM. Subsequent to receiving IM morphine patient notes that her contractions are much more tolerable. Patient would like to go home. The light vaginal bleeding she had was probably likely due to the repeated cervical exams. She did have any bleeding prior to coming to triage. I reviewed with the patient labor signs including that of worsening contractions, decreased movement, leaking/gush of fluid, or increased vaginal bleeding for which she needs to come back to triage to be evaluated. She lives about 30 min away but her partner is available the whole day today to bring her back in case she needs a ride back. documented in this encounter Nursing Notes Perla Okeefe R.N. - 12/26/2017 6:10 AM CDT Patient left ambulatory at this time after receiving pain medication(see MAR). States that she feelstired and thinks she will be able to rest. Prefers to rest at home. DC instructions and AVS given. Will call with questions. documented in this encounter Plan of Treatment Not on filedocumented as of this encounter Visit Diagnoses Diagnosis 39 Weeks Gestation (HCC) documented in this encounter Administered Medications Inactive Administered Medications - up to 3 most recent administrations Medication Order MAR Action Action Date Dose Rate Site acetaminophen tablet 1,000 mg Given 12/26/2017 3:45 AM CDT 1,000 mg (TYLENOL) 1,000 mg, oral, Once, On Sun12/26/17 at 0345, For 1 dose morphine injection 10 mg Given 12/26/2017 5:30 AM CDT 10 mg Left Deltoid 10 mg, intramuscular, Once, On Sun12/26/17 at 0530, For 1 dose documented in this encounter Active and Recently Administered Medications Times are shown in CDT. Scheduled Medication Order 12/24/2017 12/25/2017 12/26/2017 acetaminophen tablet 1,000 mg (TYLENOL) (COMPLETED) 0345 (Given - Provider: Perla Okeefe R.N.) 1,000 mg, oral, Once, On Sun12/26/17 at 0345, For 1 dose morphine injection 10 mg (COMPLETED) 0530 (Given - Provider: Perla Okeefe R.N.) 10 mg, intramuscular, Once, On Sun12/26/17 at 0530, For 1 dose documented in this encounter Additional Health Concerns Assessment Noted Time PHQ-9 Depression Total Score: 12 05/10/2017 2:20 PM CD T documented as of this encounter
--- OUTSIDE RECORDS SUMMARY | 2022-05-11 14:19 | XMS_ITS | Encounter Summary ---
:1995 Author Organization [facility] Address [address] [place] [address] Care Team Providers Name Role Phone Unavailable Primary Care Provider Unavailable Encounter Details Date Type Department Care Team Description 05/22/2017 Documentation Department of Obstetrics Barbara Jarrett , and [facility] JOSE DAVID, M. S.N.[place], [place] B.S.N., R.N. [address] [facility] [address] [place] [address] [place] [address] [phone] Social History Tobacco Use Types Packs/Day Years Used Date Smoking Tobacco: Former Alcohol Habits Answer Date Recorded How often [...] 12/31/2018 relatives? How often do you attend caodaism or confucianist Never 12/31/2018 services? Do you belong to any clubs or organizations such as No 12/31/2018 caodaism groups, unions, fraternal or athletic groups, or [...] documented as of this encounter Progress Notes Barbara Jarrett APRN, R.N. - 05/22/2017 11:24 AM CST Note sent to patient INING ASSOCIATE documented in this encounter Plan of Treatment Not on filedocumented as of this encounter Visit Diagnoses Not on filedocumented in this encounter Additional Health Concerns Assessment Noted Time PHQ-9 Depression Total Score: 12 05/10/2017 2:20 PM CD T documented as of this encounter
--- OUTSIDE RECORDS SUMMARY | 2022-05-11 14:19 | XMS_ITS | Encounter Summary ---
:1995 Author Organization [facility] Address [address] [place] [address] Care Team Providers Name Role Phone Unavailable Primary Care Provider Unavailable Encounter Details Date Type Department Care Team Description 05/14/2017 Clinical Communication Department of Dior Guerrero Obstetrics and Guerda VELÁSQUEZ Gynecology in [address] [address] [place], [place] [phone] (Work) [phone] Social History Tobacco Use Types Packs/Day Years [...] 12/31/2018 relatives? How often do you attend oriental orthodox or episcopal Never 12/31/2018 services? Do you belong to any clubs or organizations such as No 12/31/2018 oriental orthodox groups, unions, fraternal or athletic groups, [...] this encounter Miscellaneous Notes Telephone Encounter - Raegan Murry R.N. - 05/15/2017 11:29 AM MEDIA/INSTRUCTIONAL DESIGNER Duplicate encounter. Please see note with Barbara Jarrett for date 05/15/17 for documentation A/INSTRUCTIONAL DESIGNER documented in this encounter Plan of Treatment Not on filedocumented as of this encounter Visit Diagnoses Not on filedocumented in this encounter Additional Health Concerns Assessment Noted Time PHQ-9 Depression Total Score: 12 05/10/2017 2:20 PM CD T documented as of this encounter
--- OUTSIDE RECORDS SUMMARY | 2022-05-11 14:19 | XMS_ITS | Encounter Summary ---
:1995 Author Organization [facility] Address [address] [place] [address] Care Team Providers Name Role Phone Unavailable Primary Care Provider Unavailable Encounter Details Date Type Department Care Team Description 10/16/2017 Hospital Encounter Department of Dior Guerrero [facility] Laboratory Medicine DIDIER, C.N.P. in [place], [address] [place], [place] [address] [facility] [address] [place], [place] [phone] (Work) [phone] Social History Tobacco Use Types Packs/Day Years [...] 12/31/2018 relatives? How often do you attend gnosticist or scientologist Never 12/31/2018 services? Do you belong to any clubs or organizations such as No 12/31/2018 gnosticist groups, unions, fraternal or athletic groups, or [...] Dispensed Refills Start Date End Date albuterol (VENTOLIN HFA) Inhale 2 puffs 4 0 11/2307/01/2019 90 mcg/actuation inhaler (four) times a day. docusate sodium Take 1 capsule (100 100 capsule 1 05/23/2017 10/20/2017 (for_COLACE) 100 mg mg total) by mouth capsuleIndications: 2 (two) times a Constipation day. Take with full glass of water. ferrous gluconate 324 mg Take 37.5 mg of 0 01/16/2018 (37.5 mg iron) tablet iron by mouth daily. vitamin-iron Take 1 tablet by 0 01/16/2018 fumarate-FA 28 mg iron- mouth daily. 800 mcg per tablet documented as of this encounter Plan of Treatment Not on filedocumented as of this encounter Procedures Procedure Name Priority Date/Time Associated Diagnosis Comme nts SYPHILIS TOTAL AB Routine 10/16/2017 11:19 AM Normal First Res ults for this W/ REFLEX S CDT procedure are i n the results section. GLUCOSE ISRAEL, 1HR, Routine 10/16/2017 11:19 AM Normal First Res ults for this S/P CDT procedure are i n the results section. CBC WITHOUT Routine 10/16/2017 11:19 AM Normal First Results for this DIFFERENTIAL, B CDT procedure ar e in the results section. documented in this encounter Results Syphilis IgG Antibody with Reflex (10/16/2017 11:19 AM CDT) P athologist Signature Syphilis IgG Negative Negative 10/17/2017 [facility] Ab, S 8:29 AM CDT [facility] [address] [facility] Comment: No serologic evidence of exposu re to syphilis. Specimen Anatomical Collection Method Collection Time Receive d Time (Source) Location / / Volume Laterality Blood (Blood, 10/16/2017 11:19 10/16/2017 3:41 Venous) AM CDT PM CDT Dior Guerrero APRN, C.N.P. LAB BLOOD ADD-ON Performing Organization Address City/State/ZIP Code Phon e Number [facility] [address] [facility] [place] [address] [facility] LAB (ABNORMAL) CBC without Differential (10/16/2017 11:19 AM CDT) Patholo gist Method Time Signature Hemoglobin 12.4 11.6 - 10/16/2017 [facility] 15.0 g/dL 11:26 AM [facility] [place] [facility] Hematocrit 37.1 35.5 - 10/16/2017 [facility] 44.9 % 11:26 AM T [facility] [place] [facility] Erythrocytes 3.79 (L) 3.92 - 10/16/2017 [facility] 5.13 11:26 AM [facility] x10(12)/L [facility] [place] [facility] MCV 97.9 78.2 - 10/16/2017 [facility] 97.9 fL 11:26 AM T [facility] [place] [facility] RBC Distrib Width 13.2 12.2 - 10/16/2017 [facility] 16.1 % 11:26 AM [facility] [place] [facility] Platelet Count 173 157 - 371 10/16/2017 [facility] x10(9)/L 11:26 AM [facility] Leukocytes 7.3 3.4 - 9.6 10/16/2017 [facility] x10(9)/L 11:26 AM [facility] [place] [facility] Specimen Anatomical Collection Method Collection Time Receive d Time (Source) Location / / Volume Laterality Blood (Blood, 10/16/2017 11:19 10/16/2017 Venous) AM CDT 11:20 AM CDT Dior Guerrero APRN, C.N.P. LAB BLOOD ADD-ON Performing Organization Address City/State/ZIP Code Phon e Number [address] [facility] [place] [address] [place] [facility] Glucose Tolerance Test, 1 hour (10/16/2017 11:19 AM CDT) P athologist Signature Glucose [place], 1 102 <130 mg/dL 10/16/2017 [facility] hr, S 12:05 PM T [facility] [place] [facility] Specimen Anatomical Collection Method Collection Time Receive d Time (Source) Location / / Volume Laterality Blood (Blood, 10/16/2017 11:19 10/16/2017 Venous) AM CDT 11:20 AM CDT Dior Guerrero APRN C.N.P. LAB BLOOD NON ADD-ON Performing Organization Address City/State/ZIP Code Phon e Number [facility] [address] [place] [address] [facility] [place] [address] [facility] documented in this encounter Visit Diagnoses Diagnosis Encounter For Supervision Of Normal Firs t Unspecified Trimester (HCC) documented in this encounter Additional Health Concerns Assessment Noted Time PHQ-9 Depression Total Score: 12 05/10/2017 2:20 PM CD T documented as of this encounter
--- OUTSIDE RECORDS SUMMARY | 2022-05-11 14:19 | XMS_ITS | Encounter Summary ---
:1995 Author Organization [facility] Address [address] [place] [address] Care Team Providers Name Role Phone Unavailable Primary Care Provider Unavailable Reason for Visit Reason Comments Med Refill Encounter Details Date Type Department Care Team Description 10/20/2017 Refill Department of Obstetrics and Luiza, Pepe monroe APRN, Med Refill Gynecology in [facility] JOSE DAVID, M.S .N., B.S.N., R.N. [address] [address] [place] [address] [phone] Social History Tobacco Use Types Packs/Day Years [...] 12/31/2018 relatives? How often do you attend adventist or mu-ism Never 12/31/2018 services? Do you belong to any clubs or organizations such as No 12/31/2018 adventist groups, unions, fraternal or athletic groups, or [...] as of this encounter Visit Diagnoses Diagnosis Constipation documented in this encounter Additional Health Concerns Assessment Noted Time PHQ-9 Depression Total Score: 12 05/10/2017 2:20 PM CD T documented as of this encounter
--- OUTSIDE RECORDS SUMMARY | 2022-05-11 14:19 | XMS_ITS | Encounter Summary ---
:1995 Author Organization [facility] Address [address] [place] [address] Care Team Providers Name Role Phone Unavailable Primary Care Provider Unavailable Encounter Details Date Type Department Care Team Description 09/26/2017 Hospital Encounter HX RST LABOR&DELIVERY Sanaz Donaldson, NURS R.N. [address] [place] [address] Social History Tobacco Use Types Packs/Day Years [...] 12/31/2018 relatives? How often do you attend jehovah's witness or yazidism Never 12/31/2018 services? Do you belong to any clubs or organizations such as No 12/31/2018 jehovah's witness groups, unions, fraternal or athletic groups, or [...] day. Take with full glass of water. vitamin-iron Take 1 tablet by 0 01/16/2018 [...]
--- OUTSIDE RECORDS SUMMARY | 2022-05-11 14:19 | XMS_ITS | Encounter Summary ---
:1995 Author Organization [facility] Address [address] [place] [address] Care Team Providers Name Role Phone Unavailable Primary Care Provider Unavailable Encounter Details Date Type Department Care Team Description 09/23/2017 - Hospital Encounter HX RST UNIT 3-2 09/24/2017 OBSTETRICS Social History Tobacco Use Types Packs/Day Years [...] How often do you attend jew or sabianism Never 12/31/2018 services? Do you belong to [...] Sign Reading Time Taken Comments Blood Pressure 113/67 09/24/2017 9:10 AM CDT Pulse 84 09/24/2017 9:10 AM CDT Temperature - - Respiratory Rate 18 09/24/2017 9:10 AM CDT Oxygen Saturation - - Inhaled Oxygen - - Concentration Weight 74.2 kg (163 lb 9.3 09/23/2017 10:06 Vital si gn result oz) AM CDT from CD. Height 176 cm (5' 9.29) 09/23/2017 10:06 Vital sign result AM CDT from [facility]. Body Mass Index 23.95 09/23/2017 10:06 AM CDT documented in this encounter Medications at Time [...] Procedure Name Priority Date/Time Associated Comments Diagnosis ABORH, RBC Routine 09/23/2017 10:59 Results for this AM CDT procedure are i n the results section. ABORH, RBC Routine 09/23/2017 10:41 Results for this AM CDT procedure are i n the results section. ANTIBODY SCREEN, B Routine 09/23/2017 10:41 Resul ts for this AM CDT procedure are i n the results section. CBC WITHOUT Routine 09/23/2017 10:31 Results for this DIFFERENTIAL, B AM CDT procedure ar e in the results section. HX MICROBIOLOGY Routine 09/23/2017 9:54 AM Result s for this REPORTS CDT procedure are i n the results section. CHLAMYDIA/GONORRHOEAE Routine 09/23/2017 9:53 AM Results for this AMPLIFIED RNA CDT procedure are in the results section. HX MICROBIOLOGY Routine 09/23/2017 8:58 AM Result s for this REPORTS CDT procedure are i n the results section. GRAM'S ST, U Routine 09/23/2017 8:58 AM Results f or this CDT procedure are i n the results section. CONFIRMED DRUG ABUSE Routine 09/23/2017 8:58 AM R esults for this PANEL 9, U CDT procedure are i n the results section. CONFIRMED DRUG ABUSE Routine 09/23/2017 8:35 AM R esults for this PANEL 9, U CDT procedure are i n the results section. documented in this encounter Results ABORh, RBC (09/23/2017 10:59 AM CDT) P athologist Signature HXABO/RH BLOOD A POS [facility] TYPE [facility] Specimen (Source) Anatomical Collection Method Collection Time Re ceived Time Location / / Volume Laterality 09/23/2017 10:59 AM CDT Historical Provider LAB BLOOD BANK TEST ORDERABL ES Performing Organization Address City/[facility] Phon e Number [facility] LABORATORIES - [address] [address] 05 [facility] ABORh, RBC (09/23/2017 10:41 AM CDT) P athologist Signature HXABO/RH A POS [facility] Specimen (Source) Anatomical Collection Method Collection Time Re ceived Time Location / / Volume Laterality 09/23/2017 10:41 AM CDT Historical Provider LAB BLOOD BANK TEST ORDERABL ES Performing Organization Address City/[facility] Phon e Number [facility] LABORATORIES - [address] [address] 05 [facility] Antibody Screen, RBC (09/23/2017 10:41 AM CDT) [facility] gist Method Time Signature Antibody Negative [facility] Screen [facility] Specimen (Source) Anatomical Collection Method Collection Time Re ceived Time Location / / Volume Laterality 09/23/2017 10:41 AM CDT Historical Provider LAB BLOOD BANK TEST ORDERABL ES Performing Organization Address [facility] Phon e Number [facility] LABORATORIES - [address] [address] 05 [facility] CBC without Differential (09/23/2017 10:31 AM CDT) [facility] gist Method Time Signature Hemoglobin 12.7 12.0 - [facility] 15.5 G/DL [facility] Hematocrit 37.4 34.9 - [facility] 44.5 % [facility] - [facility] Erythrocytes 3.94 3.90 - [facility] 5.03 LABORATORIES - X10(12)/L [facility] MCV 94.9 81.6 - [facility] 98.3 [place] [facility] RBC Distrib Width 13.2 11.9 - [facility] 15.5 % [facility] Platelet Count 195 150 - 450 [facility] X10(9)/L [facility] Leukocytes 9.6 3.5 - [facility] 10.5 LABORATORIES - X10(9)/L [facility] Specimen Anatomical Collection Method Collection Time Receive d Time (Source) Location / / Volume Laterality 09/23/2017 10:31 09/23/2017 AM CDT 10:31 AM CDT Yessica Dougherty M.D. LAB BLOOD ADD-ON Performing Organization Address City/State/ZIP Code Phon e Number [facility] - [address] [place], [place] [address] [facility] Microbiology Reports (09/23/2017 9:54 AM CDT) Specimen Anatomical Collection Method Collection Time Receive d Time (Source) Location / / Volume Laterality 09/23/2017 9:54 AM 8 CDT 10:07 AM CDT Narrative [facility] - 09/26/2017 1:35 PM CDT 23-SEP-2017 VAGINA-RECTUM, SWAB ?SoftOrd# [id number] ?(Ordered 23-SEP-2017; Collec misael 23-SEP-2017 09:54; Received 23-SEP-2017 10:07) ?[facility] ?GRP B STREP (S. AGALACTIAE) CUL TURE ? (Reported 26-SEP-2017 13:35) FINAL ?No growth of Streptococcus a galactiae Procedure Note 11/06/2017 23-SEP-2017 VAGINA-RECTUM, SWAB SoftOrd # [id number] (Ordered 23-SEP-2017; Collected 2017 09:54; Received 23-SEP-2017 10:07) [facility] GRP B STREP (S. AGALACTIAE) CULTURE (Mc jonased 26-SEP-2017 13:35) FINAL No growth of Streptococcus agalactiae Yessica Dougherty M.D. LAB MICROBIOLOGY - GENERAL ORDERABLES Performing Organization Address City/State/ZIP Code Phon e Number [facility] LABORATORIES - [address] [place], [place] [address] [facility] Chlamydia / gonorrhoeae Amplified RNA (09/23/2017 9:53 AM CDT) athologist Signature Source (w/N. . [facility] gonorr RNA) LABORATORIES - [facility] Comment: CERVIX/ENDOCERVIX Neisseria gonorrhoeae Negative Negative [facility] LABORATORIES - amplified RNA [facility] Comment: ? ADDITIONAL INFORMATIO N ? This report is intended for use in clini leroy monitoring ? and management of patients. It is not in tended for use ? in medical-legal applications. ? Source (w/C. trach RNA) . [facility] LIN[facility] LABORATORIES [facility] Comment: CERVIX/ENDOCERVIX Chlamydia trachomatis Negative Negative [facility] - amplified RNA [facility] Comment: ? ADDITIONAL INFORMATIO N ? This report is intended for use in clini leroy monitoring ? and management of patients. It is not in tended for use ? in medical-legal applications. ? Specimen Anatomical Collection Method Collection Time Receive d Time (Source) Location / / Volume Laterality 09/23/2017 9:53 AM 8 9:53 CDT AM CDT Historical Provider LAB MICROBIOLOGY - GENERAL O RDERABLES Performing Organization Address City/State/ZIP Code Phon e Number [facility] - [address] [place], [place] [address] [facility] Microbiology Reports (09/23/2017 8:58 AM CDT) Specimen Anatomical Collection Method Collection Time Receive d Time (Source) Location / / Volume Laterality 09/23/2017 8:58 AM 8 8:59 CDT AM CDT Narrative [facility] - [facility] - 09/24/2017 8:10 AM CDT 23-SEP-2017 URINE, CATHETERIZED, ? SoftOrd# [id number] ?(Ordered 23-SEP-2017; Collec misael 23-SEP-2017 08:58; Received 23-SEP-2017 10:24) ?[facility] ?BACTERIAL CULTURE, AEROBIC + AVILEZ SC ? (Reported 24-SEP-2017 08:10) FINAL ?No growth after 1 day of inc ubation. Procedure Note 11/06/2017 23-SEP-2017 URINE, CATHETERIZED, SoftOr d# [id number] (Ordered 23-SEP-2017; Collected 2017 08:58; Received 23-SEP-2017 10:24) [facility] BACTERIAL CULTURE, AEROBIC + SUSC (Rep orted 24-SEP-2017 08:10) FINAL No growth after 1 day of incubation. Bridgette Longo M.D., M.P.H. LAB MICROBIOLOGY - GENE RAL ORDERABLES Performing Organization Address City/State/ZIP Code Phon e Number [facility] LABORATORIES - [address] [place], [place] [address] [facility] Drug Abuse Survey with Confirmation, Panel 9, Urine (09/23/2017 8:58 AM CDT) Component Value Ref Test Analysis Performed At [facility] gist Range Method Time Signature Alcohol Negative Cutoff: [facility] 10 MG/DL LABORATORIES - [facility] Amphetamines, U Negative Cutoff: [facility] 500 LABORATORIES - NG/ML [facility] Cocaine, Quant Negative Cutoff: [facility] 150 LABORATORIES - NG/ML [facility] Methadone Metabolite Negative Cutoff: [facility] 300 LABORATORIES - NG/ML [facility] Opiates Negative Cutoff: [facility] 300 LABORATORIES - NG/ML [facility] Phencyclidine Negative Cutoff: [facility] 25 NG/ML LABORATORIES [facility] Tetrahydrocannabinol Negative Cutoff: [facility] 50 NG/ML [facility] Comment: ? ADDITIONAL INFORMATIO N ? This report is intended for use in clini leroy monitoring or management of ? patients. ??It is not intended for use i n employment-related testing. ? Barbiturates Screen Negative Cutoff: 200 NG/ML [facility] S Benzodiazepines Negative Cutoff: 100 NG/ML [facility] Specimen Anatomical Collection Method Collection Time Receive d Time (Source) Location / / Volume Laterality 09/23/2017 8:58 AM 8 8:58 CDT AM CDT Bridgette Longo M.D., M.P.H. LAB URINE ORDERABLES Performing Organization Address City/State/ZIP Code Phon e Number [facility] - [address] [place], [place] [address] [facility] Gram Stain, Urine (09/23/2017 8:58 AM CDT) [facility] gist Method Time Signature Source Catheter [facility] Gram's Stain, Negative [facility] Screen, U LABORATORIES [facility] Comment: ? ADDITIONAL INFORMATIO N ? This test has been modified from the man alfreodr's ? instructions. Its performance characteri stics were ? determined by [facility] in a manner co nsistent with ? CLIA requirements. This test has not bee n cleared or ? approved by the U.S. Food and Drug Admin istration. ? Specimen Anatomical Collection Method Collection Time Receive d Time (Source) Location / / Volume Laterality 09/23/2017 8:58 AM 8 8:58 CDT AM CDT Bridgette Longo M.D., M.P.H. LAB URINE ORDERABLES Performing Organization Address City/State/ZIP Code Phon e Number [facility] LABORATORIES - [address] [place], [place] [address] [facility] Drug Abuse Survey with Confirmation, Panel 9, Urine (09/23/2017 8:35 AM CDT) Component Value Ref Test Analysis Performed At [facility] gist Range Method Time Signature Barbiturates Screen Negative Cutoff: [facility] 200 LABORATORIES - NG/ML [facility] Benzodiazepines Negative Cutoff: [facility] 100 LABORATORIES - NG/ML [facility] Tetrahydrocannabinol Negative Cutoff: [facility] 50 NG/ML LABORATORIES - [facility] Comment: ? ADDITIONAL INFORMATIO N ? This report is intended for use in clini leroy monitoring or management of ? patients. ??It is not intended for use i n employment-related testing. ? Alcohol Negative Cutoff: 10 MG/DL [facility] L ABORATORIES [facility] Amphetamines, U Negative Cutoff: 500 NG/ML [facility] Cocaine, Quant Negative Cutoff: 150 NG/ML [facility] Methadone Metabolite Negative Cutoff: 300 NG/ML [facility] Opiates Negative Cutoff: 300 NG/ML [facility] Phencyclidine Negative Cutoff: 25 NG/ML [facility] Specimen Anatomical Collection Method Collection Time Receive d Time (Source) Location / / Volume Laterality 09/23/2017 8:35 AM 8 8:35 CDT AM CDT Yessica Dougherty M.D. LAB URINE ORDERABLES Performing Organization Address City/State/ZIP Code Phon e Number [facility] LABORATORIES - [address] [place], [place] [address] [facility] documented in this encounter Visit Diagnoses Not on filedocumented in this encounter Additional Health Concerns Assessment Noted Time PHQ-9 Depression Total Score: 12 05/10/2017 2:20 PM CD T documented as of this encounter
--- OUTSIDE RECORDS SUMMARY | 2022-05-11 14:19 | XMS_ITS | Encounter Summary ---
:1995 Author Organization [facility] Address [address] [place] [address] Care Team Providers Name Role Phone Unavailable Primary Care Provider Unavailable Reason for Visit Reason Comments Routine Visit OB Check Follow-up Outpatient (Routine) - Closed Specialty Diagnoses / Procedures Referred By Contact Refer red To Contact Emergency Medicine Diagnoses Bleeding Vaginal Trimester First (HCC) Sarah Chan APRN, [facility] C.N.P., M.S. [address] [place] [phone] Referral ID Status Reason Start Date Expiration Date Visits Requ ested Visits Authorized [id number] Closed 06/09/2017 12/06/2017 1 1 Encounter Details Date Type Department Care Team Description 06/11/2017 Routine Department of Sarah Chan APRN, C.N.P., M.S. Bleeding Vaginal Obstetrics and Barbara Jarrett APRN, CNNickolas, M.S.N., B.S.N., R.N. [address] [place] [address] Trimester Gynecology in [address] [address] Social History Tobacco Use Types [...] 12/31/2018 relatives? How often do you attend restorationist or adventist Never 12/31/2018 services? Do you belong to any clubs or organizations such as No 12/31/2018 restorationist groups, unions, fraternal or athletic groups, or [...] Reading Time Taken Comments Blood Pressure 100/64 06/11/2017 9:43 AM PERSONAL INJURY PARALEGAL Pulse 76 06/11/2017 9:43 AM PERSONAL INJURY PARALEGAL Temperature 37.3 ??C (99.1 ??F) 06/11/2017 9:43 AM PERSONAL INJURY PARALEGAL Respiratory Rate 18 06/11/2017 9:43 AM PERSONAL INJURY PARALEGAL Oxygen Saturation - - Inhaled Oxygen Concentration - - Weight 66.4 kg (146 lb 6.2 oz) 06/11/2017 9:43 AM PERSONAL INJURY PARALEGAL Height 174 cm (5' 8.5) 06/11/2017 9:43 AM PERSONAL INJURY PARALEGAL Body Mass Index 21.93 06/11/2017 9:43 AM PERSONAL INJURY PARALEGAL documented in this encounter Progress Notes Barbara Jarrett APRN, R.N. - 06/11/2017 9:45 AM CST Seen for spotting over the weekend following intercourse. Reassured with bedside us today of a very active baby. ONAL INJURY PARALEGAL documented in this encounter Plan of Treatment Not on filedocumented as of this encounter Visit Diagnoses Diagnosis Bleeding Vaginal Trimester Fir st (HCC) documented in this encounter Additional Health Concerns Assessment Noted Time PHQ-9 Depression Total Score: 12 05/10/2017 2:20 PM CD T documented as of this encounter
--- OUTSIDE RECORDS SUMMARY | 2022-05-11 14:19 | XMS_ITS | Encounter Summary ---
:1995 Author Organization [facility] Address [address] [place] [address] Care Team Providers Name Role Phone Unavailable Primary Care Provider Unavailable Reason for Referral Outpatient (Routine) - Closed Specialty Diagnoses / Procedures Referred By Contact Refer red To Contact Obstetrics and Diagnoses Encounter For Supervision Of Normal First Unspecified Trimester (HCC) Barbara Jarrett MCHS [facility] Gynecology JOSE DAVID VELÁSQUEZ, M.S.N., B.S.N., R.N. [address] [place] [address] Referral ID Status Reason Start Date Expiration Date Visits Requ ested Visits Authorized [id number] Closed 06/22/2017 12/19/2017 1 1 ER HOUSE MECHANIC Outpatient (Routine) - Closed Specialty Diagnoses / Procedures Referred By Contact Refer red To Contact Obstetrics and Diagnoses Encounter For Supervision Of Normal First Unspecified Trimester (HCC) Barbara Jarrett MCHS [facility] Gynecology JOSE DAVID VELÁSQUEZ, M.S.N., B.S.N., R.N. [address] [place] [address] Referral ID Status Reason Start Date Expiration Date Visits Requ ested Visits Authorized [id number] Closed 06/22/2017 12/19/2017 1 1 ER HOUSE MECHANIC Reason for Visit Reason Comments Routine Visit Appointment Request (Routine) - Closed Specialty Diagnoses / Procedures Referred By Contact Refer red To Contact Obstetrics and Gynecology Referral ID Status Reason Start Date Expiration Date Visits Requ ested Visits Authorized [id number] Closed 05/14/2017 11/10/2017 1 1 Encounter Details Date Type Department Care Team Description 06/22/2017 Routine Department of [facility] Obstetrics and Barbara, PEDIATRIC REGISTERED NURSE, (P rimary Gynecology in Red JOSE DAVID M.S.N., Dx) [place], [place] B.S.N., R.N. [address] [facility] [address] [place], [place] [address] [phone] Social History Tobacco Use Types Packs/Day Years [...] How often do you attend episcopalian or hindu Never 12/31/2018 services? Do you belong to [...] Sign Reading Time Taken Comments Blood Pressure 112/64 06/22/2017 8:15 AM BOILER HOUSE MECHANIC Pulse - - Temperature - - Respiratory Rate - - Oxygen Saturation - - Inhaled Oxygen Concentration - - Weight 68.6 kg (151 lb 3.8 oz) 06/22/2017 8:15 AM BOILER HOUSE MECHANIC Height - - Body Mass Index 22.66 06/11/2017 9:43 AM BOILER HOUSE MECHANIC documented in this encounter Progress Notes Barbara Jarrett APRN, R.N. - 06/22/2017 8:30 AM CST Doing well, FOB with her(Ramon) No spotting They have been together for 2 years. ER HOUSE MECHANIC documented in this encounter Plan of Treatment Scheduled Referrals Name Type Priority Associated Order Schedule Diagnoses Obstetrics and Outpatient Referral Routine Normal First Expect ed: Gynecology office 07/23/2017 visit (clinic) (Approximate) , Expires: 06/22/2020 Obstetrics and Outpatient Referral Routine Normal First Expect ed: Gynecology office 08/17/2017 visit (clinic) (Approximate) , Expires: 06/22/2020 documented as of this encounter Results US OB Anatomy Rivera (08/17/2017 8:33 AM BOILER HOUSE MECHANIC) Anatomical Region Laterality Modality Body N/A Ultrasound Specimen (Source) Anatomical Collection Method Collection Time Re ceived Time Location / / Volume Laterality 08/17/2017 8:36 AM BOILER HOUSE MECHANIC Impressions 08/17/2017 8:40 AM BOILER HOUSE MECHANIC IMPRESSION: Routine anatomy survey completed and no anomalies identified. Narrative 08/17/2017 8:40 AM BOILER HOUSE MECHANIC EXAM: US OB ANATOMY RIVERA COMPARISON: None FINDINGS: Number of Gestations: Single Established Gestational age: ??20 weeks 2 days. MARIAMA 01/02/2018. Presentation: Cephalic Placental Location: Posterior Amniotic Fluid: Subjectively normal in v olume. Age by current ultrasound measurements: ??20 weeks 6 days. Estimated weight: 357 grams. EFW is at the 58 percentile for gestatio nal age. BPD 81 %ile, HC 65 %ile, AC 49 %ile, FL 48 %ile heart rate: 144 bpm. anatomic survey: ??Routine a natomic survey completed and no anomalies identified. Maternal ovaries/adnexae: Unremarkable Cervix: No abnormality identified trans- abdominally. Unless otherwise indicated, the garzon rvey includes: Four-chamber heart, RVOT and LVOT, diaphragm, stomach (presence a nd situs), kidneys, bladder, spine (cervical, thoracic, lumbar, and sacral spine), cerebral ventricles and choroid plexus, cavum septum pellucidum, cistern a magna, cerebellum, three vessel umbilical cord, umbilical cord insertion , four extremities, upper lip, facial profile. Procedure Note Fernie Doyle M.D. - 08/17/2017Formatt ing of this note might be different from the original. EXAM: US OB ANATOMY RIVERA COMPARISON: None FINDINGS: Number of Gestations: Single Established Gestational age: 20 weeks 2 days. MARIAMA 01/02/2018. Presentation: Cephalic Placental Location: Posterior Amniotic Fluid: Subjectively normal in charisse joseph. Age by current ultrasound measurements: 20 weeks 6 days. Estimated weight: 357 grams. EFW is at the 58 percentile for gestatio nal age. BPD 81 %ile, HC 65 %ile, AC 49 %ile, FL 48 %ile heart rate: 144 bpm. anatomic survey: Routine patricia tomic survey completed and no anomalies identified. Maternal ovaries/adnexae: Unremarkable Cervix: No abnormality identified trans- abdominally. Unless otherwise indicated, the garzon rvey includes: Four-chamber heart, RVOT and LVOT, diaphragm, stomach (presence a nd situs), kidneys, bladder, spine (cervical, thoracic, lumbar, and sacral spine), cerebral ventricles and choroid plexus, cavum septum pellucidum, cistern a magna, cerebellum, three vessel umbilical cord, umbilical cord insertion , four extremities, upper lip, facial profile. IMPRESSION: Routine anatomy survey completed and no anomalies identified. Barbara Jarrett APRN, CNM, M.S.N., B.S.N., R.N. IMG OB US PROCEDURES documented in this encounter Visit Diagnoses Diagnosis Encounter For Supervision Of Normal Firs t Unspecified Trimester (HCC) - Primary Encounter For Supervision Of Normal Firs t Unspecified Trimester (HCC) documented in this encounter Additional Health Concerns Assessment Noted Time PHQ-9 Depression Total Score: 12 05/10/2017 2:20 PM CD T documented as of this encounter
--- OUTSIDE RECORDS SUMMARY | 2022-05-11 14:19 | XMS_ITS | Encounter Summary ---
:1995 Author Organization [facility] Address [address] [place] [address] Care Team Providers Name Role Phone Unavailable Primary Care Provider Unavailable Encounter Details Date Type Department Care Team Description 05/25/2017 Orders Only Department of Obstetrics and [facility], Pepe monroe, HEALTH SERVICES DIRECTOR, Gynecology in [place], JOSE DAVID, M.S.N., B.S. N.[place], [place] R.N. [address] [facility] [address] [place] [address] [address] [place] [address] [phone] Social History Tobacco Use Types Packs/Day Years [...] 12/31/2018 relatives? How often do you attend orthodoxy or taoist Never 12/31/2018 services? Do you belong to any clubs or organizations such as No 12/31/2018 orthodoxy groups, unions, fraternal or athletic groups, or [...]
--- OUTSIDE RECORDS SUMMARY | 2022-05-11 14:19 | XMS_ITS | Encounter Summary ---
:1995 Author Organization [facility] Address [address] [place] [address] Care Team Providers Name Role Phone Unavailable Primary Care Provider Unavailable Reason for Visit Reason Onset Date Comments Vaginal Bleeding 06/09/2017 Patient was seen in the ED today with vaginal bleeding and cramping 7 wks p brandy Encounter Details Date Type Department Care Team Description 06/09/2017 Clinical Communication Department of LuizaPiyushi nal Bleeding Obstetrics and DIDIER Jimenez, (Patient was seen Gynecology in Jose MAIN M.S.N., in the ED today [place], [place] B.S.N., R.N. with vaginal [address] bleeding and [place], [place], [place] cramping 7 wks [phone] ) [phone] Social History Tobacco Use Types Packs/Day Years [...] How often do you attend yazidi or episcopal Never 12/31/2018 services? Do you [...] this encounter Miscellaneous Notes Telephone Encounter - Candelario Mcguire L.P.NGermaine - 06/11/2017 9:51 AM CNC OPERATOR MACHINIST Pt here to be seen now OPERATOR MACHINIST Telephone Encounter - Barbara Jarrett APRN, R.N. - 06/11/2017 7:56 AM CNC OPERATOR MACHINIST Patient is called, no further bleeding. Would like to be seen today. Appointment will be made at 0930 today OPERATOR MACHINIST Telephone Encounter - Rocio Lala - 06/09/2017 5:23 PM CST Chiqui Ruelas was seen in the ED this afternoon with vaginal bleeding and cramping. Sraah Chan would like Krys to be seen in OB on Sunday. Please call patient to schedule a.s.a.p. Sunday. Thanks, Rocio Lala 06/09/17 1728 OPERATOR MACHINIST documented in this encounter Plan of Treatment Not on filedocumented as of this encounter Visit Diagnoses Not on filedocumented in this encounter Additional Health Concerns Assessment Noted Time PHQ-9 Depression Total Score: 12 05/10/2017 2:20 PM CD T documented as of this encounter
--- OUTSIDE RECORDS SUMMARY | 2022-05-11 14:19 | XMS_ITS | Encounter Summary ---
:1995 Author Organization [facility] Address [address] [place] [address] Care Team Providers Name Role Phone Unavailable Primary Care Provider Unavailable Encounter Details Date Type Department Care Team Description 09/24/2017 Telemedicine Department of Obstetrics and Gynecology Social History Tobacco Use Types Packs/Day Years [...] 12/31/2018 relatives? How often do you attend protestant or latter-day Never 12/31/2018 services? Do you belong to any clubs or organizations such as No 12/31/2018 protestant groups, unions, fraternal or athletic groups, or [...] Procedure Name Priority Date/Time Associated Comments Diagnosis OBSTETRICS AND Routine 09/24/2017 9:45 AM Results for this GYNECOLOGY IMAGE CDT procedure a re in EXAM the results section. documented in this encounter Results OBSTETRICS AND GYNECOLOGY IMAGE EXAM (09/24/2017 9:45 AM CDT) Specimen (Source) Anatomical Collection Method Collection Time Re ceived Time Location / / Volume Laterality 09/24/2017 9:42 AM CDT Narrative [facility] - 09/24/2017 10:52 AM CDT This order has been created and auto-finalized to support the import of images acquired without order. The clini leroy documentation to support these images can be found on the encounter jeremy t produced images. Provider Not In System IMG NON RAD IMAGING PROCEDUR ES Performing Organization Address City/State/ZIP Code Phon e Number IIMS [facility] NA documented in this encounter Visit Diagnoses Not on filedocumented in this encounter Additional Health Concerns Assessment Noted Time PHQ-9 Depression Total Score: 12 05/10/2017 2:20 PM CD T documented as of this encounter
--- OUTSIDE RECORDS SUMMARY | 2022-05-11 14:19 | XMS_ITS | Encounter Summary ---
:1995 Author Organization [facility] Address [address] [place] [address] Care Team Providers Name Role Phone Unavailable Primary Care Provider Unavailable Encounter Details Date Type Department Care Team Description 09/26/2017 Hospital Encounter HX RST LABOR&DELIVERY OP Josefa Cruz OB M.D. [address] [place] [address] (Wo rk) Social History Tobacco Use Types [...] 12/31/2018 relatives? How often do you attend zoroastrianism or spiritism Never 12/31/2018 services? Do you belong to any clubs or organizations such as No 12/31/2018 zoroastrianism groups, unions, fraternal or athletic groups, or [...]
--- OUTSIDE RECORDS SUMMARY | 2022-05-11 14:19 | XMS_ITS | Encounter Summary ---
:1995 Author Organization [facility] Address [address] [place] [address] Care Team Providers Name Role Phone Unavailable Primary Care Provider Unavailable Reason for Referral Outpatient (Routine) - Closed Specialty Diagnoses / Procedures Referred By Contact Refer red To Contact Obstetrics and Diagnoses Low Lying Placenta With Hemorrhage Second Trimester (HCC) Lexii Mcintosh APRN, [facility] Gynecology C.N.P. [address] [place] [address] Referral ID Status Reason Start Date Expiration Date Visits Requ ested Visits Authorized [id number] Closed 10/16/2017 04/14/2018 1 1 Reason for Visit Outpatient (Routine) - Closed Specialty Diagnoses / Procedures Referred By Contact Refer red To Contact Obstetrics and Diagnoses Low Lying Placenta With Hemorrhage Second Trimester (HCC) Lexii Mcintosh APRN, M[facility] Gynecology C.N.P. [address] [place] [address] Referral ID Status Reason Start Date Expiration Date Visits Requ ested Visits Authorized [id number] Closed 10/16/2017 04/14/2018 1 1 Encounter Details Date Type Department Care Team Description 11/08/2017 Hospital Encounter Department of Labor Lexii Mcintosh Lo w Lying Placenta and Delivery in [facility] DIDIER, C.N.P. With Hemorrhage [place], [place] [address] [place] [address] Second Trimester [phone] [place] [address] Social History Tobacco Use Types [...] How often do you attend episcopalian or presybeterian Never 12/31/2018 services? Do you [...] for the very basics like Not charisse banuelosy hard 12/31/2018 food, housing, medical care, and [...] (four) times a day. docusate sodium (DOK) Take 1 capsule (100 [...] Schedule Diagnoses Obstetrics and Outpatient Referral Routine Low Lying Placenta Once for 1 Gynecology - With Hemorrhage Occurrences consult Second Trimester starti ng 11/08/2017 (clinic) until 8 documented as of this encounter Visit Diagnoses Diagnosis Low Lying Placenta With Hemorrhage Secon d Trimester (HCC) documented in this encounter Additional Health Concerns Assessment Noted Time PHQ-9 Depression Total Score: 12 05/10/2017 2:20 PM CD T documented as of this encounter
--- OUTSIDE RECORDS SUMMARY | 2022-05-11 14:19 | XMS_ITS | Encounter Summary ---
:1995 Author Organization [facility] Address [address] [place] [address] Care Team Providers Name Role Phone Unavailable Primary Care Provider Unavailable Reason for Visit Reason Comments Routine Visit Outpatient (Routine) - Closed Specialty Diagnoses / Procedures Referred By Contact Refer red To Contact Obstetrics and Dior Guerrero APRN, MCHS [facility] Gynecology C.N.P. [address] [place] [address] Referral ID Status Reason Start Date Expiration Date Visits Requ ested Visits Authorized [id number] Closed 08/17/2017 02/13/2018 1 1 Encounter Details Date Type Department Care Team Description 09/18/2017 Routine Department of Dior Guerrero Normal F irst Obstetrics and DIDIER, C.N.P. (Primary Gynecology in Red [address] [facility] d Dx) [place], [place] [address] [facility] [address] [place], [place] [phone] [address] (Work) [phone] Social History Tobacco Use Types Packs/Day Years [...] 12/31/2018 relatives? How often do you attend tenriism or confucianism Never 12/31/2018 services? Do you belong to any clubs or organizations such as No 12/31/2018 tenriism groups, unions, fraternal or athletic groups, or [...] Sign Reading Time Taken Comments Blood Pressure 110/62 09/18/2017 8:19 AM CDT Pulse - - Temperature - - Respiratory Rate - - Oxygen Saturation - - Inhaled Oxygen Concentration - - Weight 74.1 kg (163 lb 5.8 oz) 09/18/2017 8:19 AM CDT Height - - Body Mass Index 24.47 06/11/2017 9:43 AM CORN PICKER documented in this encounter Progress Notes Dior Guerrero APRN, C.N.P. - 09/18/2017 8:30 AM CDT Feeling well. Few questions. No concerns. Good movement. Question about possible umbilical hernia. Umbilicus if flattened and soft, not bulging, not painful. documented in this encounter Plan of Treatment Not on filedocumented as of this encounter Visit Diagnoses Diagnosis Encounter For Supervision Of Normal Firs t Unspecified Trimester (HCC) - Primary documented in this encounter Additional Health Concerns Assessment Noted Time PHQ-9 Depression Total Score: 12 05/10/2017 2:20 PM CD T documented as of this encounter
--- OUTSIDE RECORDS SUMMARY | 2022-05-11 14:19 | XMS_ITS | Encounter Summary ---
:1995 Author Organization [facility] Address [address] [place] [address] Care Team Providers Name Role Phone Unavailable Primary Care Provider Unavailable Encounter Details Date Type Department Care Team Description 08/17/2017 Hospital Encounter Department of [facility]ong [facility] in [place], [place] JOSE DAVID, M.S.N., [address] [place] [address] CLAU B.S.N., R.N. [place], [place] [address] [facility] [address] [place], [place] [phone] Social History Tobacco Use Types Packs/Day Years [...] 12/31/2018 relatives? How often do you attend shinto or anabaptism Never 12/31/2018 services? Do you belong to any clubs or organizations such as No 12/31/2018 shinto groups, unions, fraternal or athletic groups, or [...] day. Take with full glass of water. polyethylene glycol Dissolve 1 heaping 510 g 11 05/23/20 17 09/18/2017 (for_GLYCOLAX) 17 tsp (17g) in 4-8oz gram/dose oral of water or other powderIndications: beverage Constipation vitamin-iron Take 1 tablet by 0 01/16/2018 fumarate-FA 28 mg iron- mouth daily. 800 mcg per tablet documented as of this encounter Plan of Treatment Not on filedocumented as of this encounter Procedures Procedure Name Priority Date/Time Associated Comments Diagnosis US OB ANATOMY RAD - Routine 08/17/2017 8:33 Normal First Results fo r this RIVERA (most inpatients AM LINER INSERTER procedure a re in and all the results outpatients) section. documented in this encounter Results US OB Anatomy Rivera (08/17/2017 8:33 AM LINER INSERTER) Anatomical Region Laterality Modality Body N/A Ultrasound Specimen (Source) Anatomical Collection Method Collection Time Re ceived Time Location / / Volume Laterality 08/17/2017 8:36 AM LINER INSERTER Impressions 08/17/2017 8:40 AM LINER INSERTER IMPRESSION: Routine anatomy survey completed and no anomalies identified. Narrative 08/17/2017 8:40 AM LINER INSERTER EXAM: US OB ANATOMY RIVERA COMPARISON: None [...] v olume. Age by current ultrasound measurements: 20 weeks [...]
--- OUTSIDE RECORDS SUMMARY | 2022-05-11 14:19 | XMS_ITS | Encounter Summary ---
:1995 Author Organization [facility] Address [address] [place] [address] Care Team Providers Name Role Phone Unavailable Primary Care Provider Unavailable Reason for Referral Outpatient (Routine) - Closed Specialty Diagnoses / Procedures Referred By Contact Delaney lopez To Contact Obstetrics and Diagnoses Low Lying Placenta With Hemorrhage Second Trimester (HCC) Lexii Mcintosh APRN, [facility] Gynecology C.N.P. [address] [place] [address] Referral ID Status Reason Start Date Expiration Date Visits Requ ested Visits Authorized [id number] Closed 10/16/2017 04/14/2018 1 1 Outpatient (Routine) - Closed Specialty Diagnoses / Procedures Referred By Contact Delaney lopez To Contact Obstetrics and Lexii Mcintosh APRN, [facility] Gynecology C.N.P. [address] [place] [address] Referral ID Status Reason Start Date Expiration Date Visits Requ ested Visits Authorized [id number] Closed 10/16/2017 04/14/2018 1 1 Reason for Visit Reason Comments Routine Visit Outpatient (Routine) - Closed Specialty Diagnoses / Procedures Referred By Contact Delaney lopez To Contact Obstetrics and Dior Guerrero APRN, [facility] Gynecology C.N.P. [address] [place] [address] Referral ID Status Reason Start Date Expiration Date Visits Requ ested Visits Authorized [id number] Closed 08/17/2017 02/13/2018 1 1 Encounter Details Date Type Department Care Team Description 10/16/2017 Routine Department of Dior Guerrero APRN, C.N.P. [address] [place] [address] Low Lying Placenta Obstetrics and Arnaldo, DIDIER Shultz, C.N.P. [address] [place] [address] With Hemorrhage Gynecology in [place], [place] (Primary Dx) [address] [place] [address] Social History Tobacco Use Types [...] How often do you attend sabianism or catholic Never 12/31/2018 services? Do you belong to [...] Sign Reading Time Taken Comments Blood Pressure 116/62 10/16/2017 9:53 AM CDT Pulse - - Temperature - - Respiratory Rate - - Oxygen Saturation - - Inhaled Oxygen Concentration - - Weight 76.6 kg (168 lb 14 oz) 10/16/2017 9:53 AM CDT Height - - Body Mass Index 24.73 09/23/2017 10:06 AM CDT documented in this encounter Progress Notes Lexii Mcintosh APRN, C.N.P. - 10/16/2017 10:00 AM CDT Labs today. Good movement. Was evaluated at [facility] for bleeding at 25 weeks, low lying placenta verses previa. Needs follow up ultrasound: ordered for 32 weeks. Education complete. Attending CBE classes. Plans . Tdap today. documented in this encounter Plan of Treatment Scheduled Referrals Name Type Priority Associated Order Schedule Diagnoses Obstetrics and Outpatient Referral Routine Expect ed: Gynecology office 11/06/2017 visit (clinic) (Approximate) , Expires: 10/16/2020 Obstetrics and Outpatient Referral Routine Low Lying Placenta Expected: Gynecology - With Hemorrhage 11/06/2017 consult Second Trimester (Appro ximate), (clinic) Expires: 10/16/2020 documented as of this encounter Visit Diagnoses Diagnosis Low Lying Placenta With Hemorrhage Secon d Trimester (HCC) - Primary documented in this encounter Additional Health Concerns Assessment Noted Time PHQ-9 Depression Total Score: 12 05/10/2017 2:20 PM CD T documented as of this encounter
--- OUTSIDE RECORDS SUMMARY | 2022-05-11 14:19 | XMS_ITS | Encounter Summary ---
:1995 Author Organization [facility] Address [address] [place] [address] Care Team Providers Name Role Phone Unavailable Primary Care Provider Unavailable Reason for Visit Reason Comments Routine Visit 36 weeks Outpatient (Routine) - Closed Specialty Diagnoses / Procedures Referred By Contact Refer red To Contact Obstetrics and Dior Guerrero APRN, [facility] Gynecology C.N.P. [address] [place] [address] Referral ID Status Reason Start Date Expiration Date Visits Requ ested Visits Authorized [id number] Closed 11/20/2017 05/19/2018 1 1 Encounter Details Date Type Department Care Team Description 12/06/2017 Routine Department of Dior Guerrero Encounte r For Obstetrics and DIDIER, C.N.P. Supervision Of Normal Gynecology in [facility] [address] [facility] d First [place], [place] Unspecified Trimester [address] [place] [address] (Primary Dx) [place], [place] [phone] [address] (Work) [phone] Social History Tobacco Use Types Packs/Day Years [...] 12/31/2018 relatives? How often do you attend denominational or roman catholic Never 12/31/2018 services? Do you belong to any clubs or organizations such as No 12/31/2018 denominational groups, unions, fraternal or athletic groups, or [...] Sign Reading Time Taken Comments Blood Pressure 118/60 12/06/2017 8:16 AM CDT Pulse - - Temperature - - Respiratory Rate - - Oxygen Saturation - - Inhaled Oxygen Concentration - - Weight 79.9 kg (176 lb 2.4 oz) 12/06/2017 8:16 AM CDT Height - - Body Mass Index 25.79 09/23/2017 10:06 AM CDT documented in this encounter Progress Notes Dior Guerrero APRN, C.N.P. - 12/06/2017 8:30 AM CDT Feeling well. No signs of labor. Good movement. GBS today. Vertex by bedside ultrasound. Reviewed where to go and numbers to call when in labor. Reviewed plan. Questions are answered. documented in this encounter Plan of Treatment Not on filedocumented as of this encounter Procedures Procedure Name Priority Date/Time Associated Diagnosis Comme nts GROUP B STREP (S. Routine 12/06/2017 3:42 PM Encounter For Res ults for this AGALACTIAE), PCR CDT Supervision Of procedure are in Normal First the results section. Unspecified Trimester documented in this encounter Results Group B Strep (S. agalactiae), PCR (12/06/2017 3:42 PM CDT) P athologist Signature Grp B Strep Negative Negative 12/07/2017 [facility] (S. 2:20 PM CDT HEALTH agalactiae), SYSTEM- [facility] PCR [facility] Specimen Anatomical Collection Method Collection Time Receive d Time (Source) Location / / Volume Laterality Varies 12/06/2017 3:42 PM 8 3:42 (Vagina-Rectum) CDT PM CDT Addison Archuleta APRNNGermainePGermaine LAB MICROBIOLOGY - GENERAL O RDERABLES Performing Organization Address City/State/ZIP Code Phon e Number [facility] [address] [place] [address] [place] [address] [facility] documented in this encounter Visit Diagnoses Diagnosis Encounter For Supervision Of Normal Firs t Unspecified Trimester (HCC) - Primary documented in this encounter Additional Health Concerns Assessment Noted Time PHQ-9 Depression Total Score: 12 05/10/2017 2:20 PM CD T documented as of this encounter
--- OUTSIDE RECORDS SUMMARY | 2022-05-11 14:19 | XMS_ITS | Encounter Summary ---
:1995 Author Organization [facility] Address [address] [place] [address] Care Team Providers Name Role Phone Unavailable Primary Care Provider Unavailable Reason for Visit Reason Onset Date Comments Triage 09/26/2017 26 weeks gestation - Lower abdominal/pelvic pain, 12/16 Encounter Details Date Type Department Care Team Description 09/26/2017 Clinical Communication Department of Lore Nguyen (26 weeks Family Medicine, Wiley R.NGermaine gestation - [facility], in abdomina l/pelvic [place], [place] pain, 12/16) [address] [place] [phone] Social History Tobacco Use Types Packs/Day [...] How often do you attend zoroastrianism or pentecostalism Never 12/31/2018 services? Do you belong to [...] this encounter Miscellaneous Notes Telephone Encounter - Wiley Nguyen R.N. - 09/26/2017 1:14 PM CDT HISTORY OF PRESENT ILLNESS -Triage Call 26 weeks gestation - Lower abdominal/pelvic pain, 12/16 Assessment Patient call is received on the OB Emergency phone and she reports she is 26 weeks gestation and having lower abdominal/pelvic pain, 12/16. She also explains she had vaginal bleeding on 09/22/17 and was seen in the [place] ED and transferred to [place] by ambulance and kept overnight for observation. Patient endorses movement. 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 Patient denies any vaginal bleeding since hospital discharge on 09/24/17. Intervention Advised patient she should be seen now. Discussed options of going to [facility], [place] or [place]. Patient's preference is to come to [place]. Advised patient to make arrangements to leave work and find a vibratory pile driver. Encouraged her to call back orcall 911 for worsening symptoms. Discussed with Dior Guerrero APRN, POLISHER DIAL in HARDWARE TECHNICIAN and Dorcas Murry RN in HARDWARE TECHNICIAN. They both advise to have patient arrive through the ED and then she will go straight to the OB Floor for monitoring. Dorcas contacted the Floor with patient information. Called patient with plan and she voiced understanding. Sheis leaving work but does not have a vibratory pile driver at this time. Encouraged her to find a vibratory pile driver if possible. If she drives herself advised her to have a cell phone with her and call 911 if symptoms worsen in anyway. Also ok to go to nearest ED if needed. She voiced understanding. The following references were used: nursing clinical judgement and provider See note above Disposition/Recommendation: see above plan Caller agreeable to plan of care: yes The following individuals participated in today???s interaction: patient Estimator Printing Plate Making used: no Additional concerns addressed: none documented in this encounter Plan of Treatment Not on filedocumented as of this encounter Visit Diagnoses Not on filedocumented in this encounter Additional Health Concerns Assessment Noted Time PHQ-9 Depression Total Score: 12 05/10/2017 2:20 PM CD T documented as of this encounter
--- OUTSIDE RECORDS SUMMARY | 2022-05-11 14:19 | XMS_ITS | Encounter Summary ---
:1995 Author Organization [facility] Address [address] [place] [address] Care Team Providers Name Role Phone Unavailable Primary Care Provider Unavailable Encounter Details Date Type Department Care Team Description 05/22/2017 Abstract Department of Obstetrics and Luiza, Pepe monroe APRN, Gynecology in [place], JOSE DAVID, M.S.N., B.S. N.[place], [place] R.N. [address] [facility] [address] [place] [address] [address] [place] [address] [phone] Social History Tobacco Use Types Packs/Day Years [...] How often do you attend episcopalian or rastafarian Never 12/31/2018 services? Do you belong to [...]
--- OUTSIDE RECORDS SUMMARY | 2022-05-11 14:19 | XMS_ITS | Encounter Summary ---
:1995 Author Organization [facility] Address [address] [place] [address] Care Team Providers Name Role Phone Unavailable Primary Care Provider Unavailable Encounter Details Date Type Department Care Team Description 05/14/2017 Clinical Communication Department of Barbara Jarrett, Obstetrics and JOSE DAVID VELÁSQUEZ, Gynecology in [facility] M.S.N., B.S.N.[place], [place] RN. [address] [place] [address] [place], [place] [address] [address] [id number] Social History Tobacco Use Types Packs/Day Years [...] 12/31/2018 relatives? How often do you attend jewish or denominational Never 12/31/2018 services? Do you belong to any clubs or organizations such as No 12/31/2018 jewish groups, unions, fraternal or athletic groups, or [...] Telephone Encounter - Raegan Murry R.N. - 05/14/2017 2:30 PM CREDIT RELATIONSHIP MANAGER Patient informed of RX to pharmacy. Patient is inquiring of her lab results. Please advise. IT RELATIONSHIP MANAGER Telephone Encounter - Raegan Murry R.N. - 05/14/2017 2:17 PM CREDIT RELATIONSHIP MANAGER Pharmacy faxing stating quantity is 10 tablets but sig says twice daily for 7 days so 14 tablets needed. Please clarify. thanks IT RELATIONSHIP MANAGER Telephone Encounter - Raegan Murry R.N. - 05/14/2017 1:57 PM CREDIT RELATIONSHIP MANAGER Attempted to call, no answer. Left message to return call. IT RELATIONSHIP MANAGER Telephone Encounter - Barbara Jarrett APRN, R.N. - 05/14/2017 1:21 PM CREDIT RELATIONSHIP MANAGER Please call patient and clarify pharmacy IT RELATIONSHIP MANAGER documented in this encounter Plan of Treatment Not on filedocumented as of this encounter Visit Diagnoses Diagnosis Vaginosis Bacterial - Primary Encounter For Supervision Of Normal Firs t Unspecified Trimester (HCC) documented in this encounter Additional Health Concerns Assessment Noted Time PHQ-9 Depression Total Score: 12 05/10/2017 2:20 PM CD T documented as of this encounter
--- OUTSIDE RECORDS SUMMARY | 2022-05-11 14:19 | XMS_ITS | Encounter Summary ---
:1995 Author Organization [facility] Address [address] [place] [address] Care Team Providers Name Role Phone Unavailable Primary Care Provider Unavailable Reason for Referral Outpatient (Routine) - Closed Specialty Diagnoses / Procedures Referred By Contact Refer red To Contact Obstetrics Dior Fontana APRN, [facility] Gynecology C.N.P. [address] [place] [address] Referral ID Status Reason Start Date Expiration Date Visits Requ ested Visits Authorized [id number] Closed 11/08/2017 05/07/2018 1 1 Reason for Visit Reason Comments Routine Visit Outpatient (Routine) - Closed Specialty Diagnoses / Procedures Referred By Contact Delaney lopez To Contact Obstetrics and Lexii Mcintosh APRN, [facility] Gynecology C.N.P. [address] [place] [address] Referral ID Status Reason Start Date Expiration Date Visits Requ ested Visits Authorized [id number] Closed 10/16/2017 04/14/2018 1 1 Encounter Details Date Type Department Care Team Description 11/08/2017 Routine Department of Lexii Mcintosh AP RN, C.N.P. [address] [place] [address] Normal First Obstetrics and Dior Guerrero APRN, C.N.P. [facility] [phone] (Primary Gynecology in [place]) Sis [address]ang [address] [place] [address] Social History Tobacco Use Types Packs/Day [...] How often do you attend restorationist or yazidi Never 12/31/2018 services? Do you [...] Sign Reading Time Taken Comments Blood Pressure 100/58 11/08/2017 11:45 AM CDT Pulse - - Temperature - - Respiratory Rate - - Oxygen Saturation - - Inhaled Oxygen Concentration - - Weight 77.9 kg (171 lb 11.8 oz) 11/08/2017 11:45 AM CDT Height - - Body Mass Index 25.15 09/23/2017 10:06 AM CDT documented in this encounter Progress Notes Dior Guerrero APRN, C.N.P. - 11/08/2017 11:45 AM CDT Discussed placenta is no longer low lying. Patient is relieved. Good movement. Discussed number to call and where to go when in labor. No bleeding. No contractions. Colostrum collection class today. documented in this encounter Plan of Treatment Scheduled Referrals Name Type Priority Associated Order Schedule Diagnoses Obstetrics and Outpatient Referral Routine Expect ed: Gynecology office 12/09/2017 visit (clinic) (Approximate) , Expires: 11/08/2020 documented as of this encounter Visit Diagnoses Diagnosis Encounter For Supervision Of Normal Firs t Unspecified Trimester (HCC) - Primary documented in this encounter Additional Health Concerns Assessment Noted Time PHQ-9 Depression Total Score: 12 05/10/2017 2:20 PM CD T documented as of this encounter
--- OUTSIDE RECORDS SUMMARY | 2022-05-11 14:19 | XMS_ITS | Encounter Summary ---
:1995 Author Organization [facility] Address [address] [place] [address] Care Team Providers Name Role Phone Unavailable Primary Care Provider Unavailable Encounter Details Date Type Department Care Team Description 06/12/2017 Abstract Department of Family Medicine, Provider, Historical [facility], in [place], [place] [address] [place] [address] [facility] [phone] Social History Tobacco Use Types Packs/Day Years [...] How often do you attend druze or religion Never 12/31/2018 services? Do you belong to [...]
--- OUTSIDE RECORDS SUMMARY | 2022-05-11 14:19 | XMS_ITS | Encounter Summary ---
:1995 Author Organization [facility] Address [address] [place] [address] Care Team Providers Name Role Phone Unavailable Primary Care Provider Unavailable Reason for Referral Outpatient (Routine) - Closed Specialty Diagnoses / Procedures Referred By Contact Refer red To Contact Obstetrics and Dior Guerrero APRN, [facility] C.N.P. [address] [place] [address] Referral ID Status Reason Start Date Expiration Date Visits Requ ested Visits Authorized [id number] Closed 08/17/2017 02/13/2018 1 1 Scheduling Instructions 28 weeks and labs ER FIXER Outpatient (Routine) - Closed Specialty Diagnoses / Procedures Referred By Contact Refer red To Contact Obstetrics and Dior Guerrero APRN, [facility] C.N.P. [address] [place] [address] Referral ID Status Reason Start Date Expiration Date Visits Requ ested Visits Authorized [id number] Closed 08/17/2017 02/13/2018 1 1 Scheduling Instructions 24 wks ER FIXER Reason for Visit Reason Comments Routine Visit Outpatient (Routine) - Closed Specialty Diagnoses / Procedures Referred By Contact Refer red To Contact Obstetrics and Diagnoses Encounter For Supervision Of Normal First Unspecified Trimester (HCC) Barbara Jarrett M[facility] Gynecology DIDIER, JOSE DAVID, M.S.N., B.S.N., R.N. [address] [facility] [place] [address] Referral ID Status Reason Start Date Expiration Date Visits Requ ested Visits Authorized [id number] Closed 06/22/2017 12/19/2017 1 1 Encounter Details Date Type Department Care Team Description 08/17/2017 Routine Department of Barbara Jarrett APRN, CNM, M.S.N., B.S.Pelon., R.N. [address] [facility] [place] [address] Normal First Obstetrics and Dior Guerrero APRN, C.N.PGermaine [address] [place] [address] Gynecology in [place], [place] [address] [place] [address] Social History Tobacco Use Types [...] How often do you attend mormon or nondenominational Never 12/31/2018 services? Do you belong to [...] Sign Reading Time Taken Comments Blood Pressure 110/60 08/17/2017 8:46 AM BINDER FIXER Pulse - - Temperature - - Respiratory Rate - - Oxygen Saturation - - Inhaled Oxygen Concentration - - Weight 71.7 kg (158 lb 1.1 oz) 08/17/2017 8:46 AM BINDER FIXER Height - - Body Mass Index 23.68 06/11/2017 9:43 AM BINDER FIXER documented in this encounter Progress Notes Dior Guerrero APRN, C.N.P. - 08/17/2017 9:15 AM CST Feeling well. No movement yet. Reviewed ultrasound report. Signing for classes. ER FIXER documented in this encounter Plan of Treatment Scheduled Referrals Name Type Priority Associated Order Schedule Diagnoses Obstetrics and Outpatient Referral Routine Expect ed: Gynecology office 09/14/2017 visit (clinic) (Approximate) , Expires: 08/17/2020 Obstetrics and Outpatient Referral Routine Expect ed: Gynecology office 10/15/2017 visit (clinic) (Approximate) , Expires: 08/17/2020 documented as of this encounter Results Syphilis IgG Antibody with Reflex (10/16/2017 11:19 AM CDT) P athologist Signature Syphilis IgG Negative Negative 10/17/2017 [facility] Ab, S 8:29 AM CDT [facility] Comment: No serologic evidence of exposu re to syphilis. Specimen Anatomical Collection Method Collection Time Receive d Time (Source) Location / / Volume Laterality Blood (Blood, 10/16/2017 11:19 10/16/2017 3:41 Venous) AM CDT PM CDT Dior Guerrero APRN, C.N.P. LAB BLOOD ADD-ON Performing Organization Address City/State/ZIP Code Phon e Number [facility] [address] [facility] [place] [address] [facility] (ABNORMAL) CBC without Differential (10/16/2017 11:19 AM CDT) Patholo gist Method Time Signature Hemoglobin 12.4 11.6 - 10/16/2017 [facility] 15.0 g/dL 11:26 AM T [facility] [place] [facility] Hematocrit 37.1 35.5 - 10/16/2017 [facility] 44.9 % 11:26 AM [facility] [place] [facility] Erythrocytes 3.79 (L) 3.92 - 10/16/2017 [facility] 5.13 11:26 AM CDT HE[facility] x10(12)/L SYSTEM- [facility] MCV 97.9 78.2 - 10/16/2017 [facility] 97.9 fL 11:26 AM CDT [facility] [place] [facility] RBC Distrib Width 13.2 12.2 - 10/16/2017 [facility] 16.1 % 11:26 AM T [facility] Platelet Count 173 157 - 371 10/16/2017 [facility] x10(9)/L 11:26 AM CDT [facility] [place] [facility] Leukocytes 7.3 3.4 - 9.6 10/16/2017 [facility] x10(9)/L 11:26 AM CDT [facility] [place] [facility] Specimen Anatomical Collection Method Collection Time Receive d Time (Source) Location / / Volume Laterality Blood (Blood, 10/16/2017 11:19 10/16/2017 Venous) AM CDT 11:20 AM CDT Dior Guerrero APRN, C.N.P. LAB BLOOD ADD-ON Performing Organization Address City/State/ZIP Code Phon e Number [facility] [address] [facility] [place] [address] [facility] Glucose Tolerance Test, 1 hour (10/16/2017 11:19 AM CDT) P athologist Signature Glucose [place], 1 102 <130 mg/dL 10/16/2017 [facility] hr, S 12:05 PM CDT [facility] [place] [facility] Specimen Anatomical Collection Method Collection Time Receive d Time (Source) Location / / Volume Laterality Blood (Blood, 10/16/2017 11:19 10/16/2017 Venous) AM CDT 11:20 AM CDT Dior Guerrero APRN, C.N.P. LAB BLOOD NON ADD-ON Performing Organization Address City/State/ZIP Code Phon e Number [facility] [address] [facility] [place] [address] [facility] documented in this encounter Visit Diagnoses Diagnosis Encounter For Supervision Of Normal Firs t Unspecified Trimester (HCC) documented in this encounter Additional Health Concerns Assessment Noted Time PHQ-9 Depression Total Score: 12 05/10/2017 2:20 PM CD T documented as of this encounter
--- OUTSIDE RECORDS SUMMARY | 2022-05-11 14:19 | XMS_ITS | Encounter Summary ---
:1995 Author Organization [facility] Address [address] [place] [address] Care Team Providers Name Role Phone Unavailable Primary Care Provider Unavailable Encounter Details Date Type Department Care Team Description 11/08/2017 Hospital Encounter Department of Lexii Mcintosh Low Lyin g Placenta Radiology in [facility], C.N.P. With Hemorrhage [place], [place] [address] Second Trimester [address] [place] [address] Social History Tobacco Use Types Packs/Day [...] How often do you attend orthodox or restorationism Never 12/31/2018 services? Do you [...] Priority Date/Time Associated Comments Diagnosis US OB FOLLOW UP RAD - Routine 11/08/2017 10:31 Low Lying Results for this GROWTH AND (most inpatients AM CDT Placenta With procedure are in TRANSVAGINAL and all Hemorrhage Second the result s outpatients) Trimester section. documented in this encounter Results US OB Follow Up and or Growth and Transvaginal (11/08/2017 10:31 AM CDT) Anatomical Region Laterality Modality Body, Ultrasound OB RST LOS N/A Ultrasound Specimen (Source) Anatomical Collection Method Collection Time Re ceived Time Location / / Volume Laterality 11/08/2017 12:00 PM CDT Impressions 11/08/2017 12:05 PM CDT IMPRESSION: Single living fetus. No low lying placenta. Narrative 11/08/2017 12:05 PM CDT EXAM: US OB FOLLOW UP GROWTH AND TRANSVAGINAL COMPARISON: 08/17/2017 FINDINGS: Number of Gestations: Single Established Gestational age: ??32 weeks 1 day, MARIAMA 01/02/2018. Presentation: Cephalic Placental Location: Posterior. Placental edge 3.5 cm from the os. Amniotic Fluid Maximum Vertical Pocket: 5.3 cm Age by current ultrasound measurements: ??31 weeks 6 days. Estimated weight: 1941 grams. EFW is at the 44 percentile for gestatio nal age. BPD 54 %ile, HC 26 %ile, AC 57 %ile, FL 29 %ile. heart rate: 145 bpm. Maternal ovaries/adnexae: Left maternal ovary not visualized. Cervix: No abnormality identified trans- abdominally. Procedure Note Fernie Doyle M.D. - 11/08/2017Formatt ing of this note might be different from the original. EXAM: US OB FOLLOW UP GROWTH AND TRANSVA GINAL COMPARISON: 08/17/2017 FINDINGS: Number of Gestations: Single Established Gestational age: 32 weeks 1 day, MARIAMA 01/02/2018. Presentation: Cephalic Placental Location: Posterior. Placental edge 3.5 cm from the os. Amniotic Fluid Maximum Vertical Pocket: 5.3 cm Age by current ultrasound measurements: 31 weeks 6 days. Estimated weight: 1941 grams. EFW is at the 44 percentile for gestatio nal age. BPD 54 %ile, HC 26 %ile, AC 57 %ile, FL 29 %ile. heart rate: 145 bpm. Maternal ovaries/adnexae: Left maternal ovary not visualized. Cervix: No abnormality identified trans- abdominally. IMPRESSION: Single living fetus. No low lying placenta. Lexii Mcintosh APRN C.N.PGermaine IMG OB US PROCEDURES documented in this encounter Visit Diagnoses Diagnosis Low Lying Placenta With Hemorrhage Secon d Trimester (HCC) documented in this encounter Additional Health Concerns Assessment Noted Time PHQ-9 Depression Total Score: 12 05/10/2017 2:20 PM CD T documented as of this encounter
--- OUTSIDE RECORDS SUMMARY | 2022-05-11 14:19 | XMS_ITS | Encounter Summary ---
:1995 Author Organization [facility] Address [address] [place] [address] Care Team Providers Name Role Phone Unavailable Primary Care Provider Unavailable Reason for Visit Reason Comments Routine Visit Outpatient (Routine) - Closed Specialty Diagnoses / Procedures Referred By Contact Refer red To Contact Obstetrics and Diagnoses Encounter For Supervision Of Normal First Unspecified Trimester (HCC) Barbara Jarrett [facility] Gynecology JOSE DAVID VELÁSQUEZ, M.S.N., B.S.N., R.N. [address] [place] [address] Referral ID Status Reason Start Date Expiration Date Visits Requ ested Visits Authorized [id number] Closed 06/22/2017 12/19/2017 1 1 Encounter Details Date Type Department Care Team Description 07/26/2017 Routine Department of Barbara Jarrett APRN, CNM, M.S.N., B.S.N., R.N. [address] [place], [place] [id number] Normal First Obstetrics and Dior Guerrero APRN, C.N.P. [address] [place] [address] Gynecology in [place], [place] [address] [place] [address] Social History Tobacco Use Types [...] 12/31/2018 relatives? How often do you attend cheondoism or spiritism Never 12/31/2018 services? Do you belong to any clubs or organizations such as No 12/31/2018 cheondoism groups, unions, fraternal or athletic groups, or [...] Sign Reading Time Taken Comments Blood Pressure 112/74 07/26/2017 8:30 AM BANQUET KITCHEN SUPERVISOR Pulse - - Temperature - - Respiratory Rate - - Oxygen Saturation - - Inhaled Oxygen Concentration - - Weight 69.5 kg (153 lb 3.5 oz) 07/26/2017 8:30 AM BANQUET KITCHEN SUPERVISOR Height - - Body Mass Index 22.96 06/11/2017 9:43 AM BANQUET KITCHEN SUPERVISOR documented in this encounter Progress Notes Lizzette Plascencia L.P.N. - 07/26/2017 8:45 AM CST Vomiting this am. TLA UET KITCHEN SUPERVISOR Dior Guerrero APRN, C.N.P. - 07/26/2017 8:45 AM CST Feeling well. Nausea this morning, states that it gets better when she eats she has not yet today. Constipation is better with Colace twice a day. Ultrasound next visit. No movement yet. UET KITCHEN SUPERVISOR documented in this encounter Plan of Treatment Not on filedocumented as of this encounter Visit Diagnoses Diagnosis Encounter For Supervision Of Normal Firs t Unspecified Trimester (HCC) documented in this encounter Additional Health Concerns Assessment Noted Time PHQ-9 Depression Total Score: 12 05/10/2017 2:20 PM CD T documented as of this encounter
--- OUTSIDE RECORDS SUMMARY | 2022-05-11 14:19 | XMS_ITS | Encounter Summary ---
:1995 Author Organization [facility] Address [address] [place] [address] Care Team Providers Name Role Phone Unavailable Primary Care Provider Unavailable Reason for Referral Outpatient (Routine) - Closed Specialty Diagnoses / Procedures Referred By Contact Refer red To Contact Emergency Medicine Diagnoses Bleeding Vaginal Trimester First (HCC) Sarah Chan APRN, [facility] C.N.P., M.S. [address] [place] [address] Referral ID Status Reason Start Date Expiration Date Visits Requ ested Visits Authorized [id number] Closed 06/09/2017 12/06/2017 1 1 IT AGENT Reason for Visit Reason Comments Problem after intercourse went to e bathroom and clot in toilet and blood when I wiped. low abd crampi ng 10 weeks preg. Encounter Details Date Type Department Care Team Description 06/09/2017 Emergency [place] [facility] Emeterio Blackwood Ble eding Vaginal Department M.DGermaine Trimester [address] [facility] [address] [facility] (Primary Dx) [place] [phone] (Wo rk) Social History Tobacco Use Types [...] How often do you attend islam or caodaism Never 12/31/2018 services? Do you belong to [...] Sign Reading Time Taken Comments Blood Pressure 131/67 06/09/2017 5:03 PM PERMIT AGENT Pulse 77 06/09/2017 5:03 PM PERMIT AGENT Temperature 37.1 ??C (98.8 ??F) 06/09/2017 5:03 PM PERMIT AGENT Respiratory Rate 20 06/09/2017 5:03 PM PERMIT AGENT Oxygen Saturation 100% 06/09/2017 5:03 PM PERMIT AGENT Inhaled Oxygen Concentration - - Weight 63.5 kg (140 lb) 06/09/2017 4:13 PM PERMIT AGENT Height 175.3 cm (5' 9) 06/09/2017 4:13 PM PERMIT AGENT Body Mass Index 20.67 06/09/2017 4:13 PM PERMIT AGENT documented in this encounter Discharge Instructions AttachmentsThe following attachments cannot be sent through Care Everywhere. Vaginal Bleeding During , First Trimester (Austrian)documented in this encounter Medications at Time of Discharge Medication Sig Dispensed Refills Start Date End Date ondansetron ODT (ZOFRAN Take 1 tablet (4 90 tablet 1 201607/24/2017 ODT) 4 mg disintegrating mg total) by mouth tablet every 6 (six) hours as needed for nausea or vomiting. docusate sodium Take 1 capsule 100 capsule 1 05/23/201710/07 (for_COLACE) 100 mg (100 mg total) by capsuleIndications: mouth 2 (two) Constipation times a day. Take with full glass of water. polyethylene glycol Dissolve 1 heaping 510 g 11 05/23/20 17 09/18/2017 (for_GLYCOLAX) 17 tsp (17g) in 4-8oz gram/dose oral of water or other powderIndications: beverage Constipation albuterol (for_PROVENTIL Inhale 1-2 puffs. 0 02/0606/22/2017 HFA,VENTOLIN HFA) 90 mcg/actuation inhaler albuterol (VENTOLIN HFA) Inhale 2 puffs 4 0 11/2307/01/2019 90 mcg/actuation inhaler (four) times a day. documented as of this encounter ED Notes Emeterio Blackwood M.D. - 06/09/2017 4:51 PM CST SUBJECTIVE CHIEF COMPLAINT/REASON FOR VISIT Problem (after intercourse went to the bathroom and clot in toilet and blood when I wiped.low abd cramping 10 weeks preg. ) HISTORY OF PRESENT ILLNESS I have personally performed a awwo-vu-shos diagnostic evaluation on this patient. My findings are as follows: 21-year-old who is about 10 weeks with her 1st presents to the emergency department for evaluation of some increased abdominal cramping and some blood on the toilet paper after wiping as well as some blood clot in the toilet after she had intercourse about a hour before. She has had some minor bleeding at 5 weeks and 7 weeks that was not related to intercourse.. Exam shows: see physical exam below. See the nurse practitioner's note for additional details. We did discuss the medical decision-making, results of the testing done, medication management, and follow-up and disposition planning. REVIEW OF SYSTEMS Constitutional: Negative for fever. OBJECTIVE Initial Vitals [06/09/17 1610] Temperature Pulse Rate Heart Rate Resp Rate Blood Pressure SpO2 37.2 ??C 79 -- 16 123/72 100 % Pain Score 2 PHYSICAL EXAMINATION Constitutional: She appears distressed (she is tearful worried about the bleeding). Pulmonary/Chest: Effort normal. Abdominal: Soft. Nursing note and vitals reviewed. ASSESSMENT/PLAN Impression and Plan She is not having any significant abdominal cramping. I suspect the bleeding is related to the intercourse. She did not have any significant bleeding on the pelvic exam. She was reassured that this does look like it was from the intercourse. She should follow up with the OB clinic early this week. Return if she has significant worsening of the bleeding. . ED Course Final Diagnoses: as of Jun 09 1732 Bleeding Vaginal Trimester First I have personally seen and examined this patient. I have fully participated in the care of this patient. I have reviewed all clinical information including history, physical exam, orders, and plan. I agree with the note of the CERTIFICATION AND SELECTION SPECIALIST/PA. Emeterio Blackwood M.D. 06/09/17 1733 IT AGENT Rocio Sarah Nickolas, CONCRETE STONE FABRICATOR - 06/09/2017 4:34 PM CST SUBJECTIVE CHIEF COMPLAINT/REASON FOR VISIT Problem (after intercourse went to the bathroom and clot in toilet and blood when I wiped.low abd cramping 10 weeks preg. ) HISTORY OF PRESENT ILLNESS 21 year old female with a history of depression, generalized anxiety, and asthma presents to the Emergency Department for evaluation of vaginal bleeding during . The patient states that after intercourse one hour ago with her male partner, she went to the bathroom and noticed blood on the toilet paper after wiping, as well as a blood clot in the toilet. In addition, the patient states she always has experienced constant lower abdominal cramping rated as a 2/10 throughout the . She is not currently having any cramping different from what she has been experiencing. Denies trouble eating and drinking, dysuria, and abnormal vaginal discharge or frequency urinating. Of note, the patient is 10 weeks . This is her first . She saw her OB at 6 weeks where she was confirmed and had an ultrasound done that showed IUP. Her next OB appointment is in 2 weeks. She did experience minor bleeding at 5 weeks and 7 weeks, though it was not related to intercourse. The patient was previously on Wellbutrin but is no longer taking it. She has had an appendectomy. REVIEW OF SYSTEMS Constitutional: Negative. Negative for appetite change. HENT: Negative. Eyes: Negative. Respiratory: Negative. Cardiovascular: Negative. Gastrointestinal: Positive for abdominal pain (lower abdominal cramping). Endocrine: Negative. Genitourinary: Positive for vaginal bleeding. Negative for dysuria, frequency and vaginal discharge. Skin: Negative. Allergic/Immunologic: Negative. Neurological: Negative. Negative for dizziness, syncope, light-headedness and headaches. Hematological: Negative. Psychiatric/Behavioral: Negative. OBJECTIVE Initial Vitals [06/09/17 1610] Temperature Pulse Rate Heart Rate Resp Rate Blood Pressure SpO2 37.2 ??C 79 -- 16 123/72 100 % Pain Score 2 PHYSICAL EXAMINATION Constitutional: She appears well-developed and well-nourished. HENT: Head: Normocephalic. Nose: Nose normal. Mouth/Throat: Oropharynx is clear and moist. Mucous membranes are moist. No tonsillar exudate. Eyes: Conjunctivae and EOM are normal. Pupils are equal, round, and reactive to light. Neck: Normal range of motion. Neck supple. Cardiovascular: Normal rate and regular rhythm. Exam reveals no gallop. Pulses are palpable. No murmur heard.Edema: no edema noted Pulmonary/Chest: Effort normal and breath sounds normal. She has no wheezes. She has no rhonchi. Shehas no rales. Abdominal: Soft. Bowel sounds are normal. There is no tenderness. There is no rebound and no guarding. Genitourinary: Vagina normal and external genitalia appear normal. No vaginal discharge found. Genitourinary Comments: Cervix appears closed, miniscule amount of dark blood in posterior fornix, no trauma noted, no lesions, Musculoskeletal: Normal range of motion. Lymphadenopathy: She has no cervical adenopathy. Neurological: She is alert and oriented to person, place, and time. Skin: Skin is dry and intact. No rash noted. Psychiatric: She has a normal mood and affect. Nursing note and vitals reviewed. ASSESSMENT/PLAN Impression and Plan 21 year old female 10 weeks , () presents to ER with concerns of vaginal bleeding directly after having intercourse. Pt reports no continued bleeding and no cramping different from her usual minor cramping sensations. She did have an US at 6 weeks confirming IUP and labs at that time. Pt Apositive. She reports she had some minor bleeding at 5 and 7 weeks as well. Vaginal exam shows no obvious source of bleeding, cervix appears closed, no continued bleeding noted and only a miniscule amount of old dark blood noted in posterior fornix. Discussed with pt common reasons for bleeding in first trimester. Cannot completely rule out threatened at this time. Pt will need OB follow up for recheck Sunday. Recommended vaginal rest until then. Discussed reasons to return to ER. Pt statesunderstanding and her questions were answered. . Reviewed and summarized previous medical records including: Documentation from previous visits. ED Course Final Diagnoses: as of Jun 09 1701 Bleeding Vaginal Trimester First I personally performed the services described in this documentation, as scribed in my presence, and it is both accurate and complete. Sarah Chan APRN 06/09/171801 IT AGENT documented in this encounter Plan of Treatment Scheduled Referrals Name Type Priority Associated Diagnoses Order S chedule Post ED visit Outpatient Referral Routine Bleeding Vaginal Exp ected: 06/09/2017 Trimester (Approxi mate), First Expires: 2019 documented as of this encounter Visit Diagnoses Diagnosis Bleeding Vaginal Trimester Fir st (HCC) - Primary documented in this encounter Additional Health Concerns Assessment Noted Time PHQ-9 Depression Total Score: 12 05/10/2017 2:20 PM CD T documented as of this encounter
--- OUTSIDE RECORDS SUMMARY | 2022-05-11 14:19 | XMS_ITS | Encounter Summary ---
:1995 Author Organization [facility] Address [address] [place] [address] Care Team Providers Name Role Phone Unavailable Primary Care Provider Unavailable Reason for Referral Outpatient (Routine) - Closed Specialty Diagnoses / Procedures Referred By Contact Refer jessica To Contact Obstetrics and Dior Guerrero APRN, [facility] Gynecology C.N.P. [address] [place] [address] Referral ID Status Reason Start Date Expiration Date Visits Requ ested Visits Authorized [id number] Closed 11/20/2017 05/19/2018 1 1 Reason for Visit Reason Comments Routine Visit Outpatient (Routine) - Closed Specialty Diagnoses / Procedures Referred By Contact Refer jessica To Contact Obstetrics Dior Fontana APRN, [facility] Gynecology C.N.P. [address] [place] [address] Referral ID Status Reason Start Date Expiration Date Visits Requ ested Visits Authorized [id number] Closed 11/08/2017 05/07/2018 1 1 Encounter Details Date Type Department Care Team Description 11/20/2017 Routine Department of Dior Guerrero Normal F irst Obstetrics and DIDIER, C.N.P. (Primary Gynecology in [place] [address] [place], [place] [address] [place] [address] [place], [place] [phone] [address] (Work) [phone] Social History Tobacco Use Types Packs/Day Years [...] How often do you attend orthodox or muslim Never 12/31/2018 services? Do you belong to [...] Sign Reading Time Taken Comments Blood Pressure 110/58 11/20/2017 8:48 AM CDT Pulse - - Temperature - - Respiratory Rate - - Oxygen Saturation - - Inhaled Oxygen Concentration - - Weight 79.5 kg (175 lb 4.3 oz) 11/20/2017 8:48 AM CDT Height - - Body Mass Index 25.67 09/23/2017 10:06 AM CDT documented in this encounter Progress Notes Dior Guerrero APRN, C.N.P. - 11/20/2017 9:15 AM CDT Patient is feeling well. Good movement, she feels the baby is transverse right now stretching out ???on the sides?? . No contractions or cramping. GBS and bedside ultrasound next visit. documented in this encounter Plan of Treatment Scheduled Referrals Name Type Priority Associated Order Schedule Diagnoses Obstetrics and Outpatient Referral Routine Expect ed: Gynecology office 12/04/2017 visit (clinic) (Approximate) , Expires: 11/20/2020 documented as of this encounter Visit Diagnoses Diagnosis Encounter For Supervision Of Normal Firs t Unspecified Trimester (HCC) - Primary documented in this encounter Additional Health Concerns Assessment Noted Time PHQ-9 Depression Total Score: 12 05/10/2017 2:20 PM CD T documented as of this encounter
--- OUTSIDE RECORDS SUMMARY | 2022-05-11 14:20 | XMS_ITS | Encounter Summary ---
:1995 Author Organization [facility] Address [address] [place] [address] Care Team Providers Name Role Phone Unavailable Primary Care Provider Unavailable Encounter Details Date Type Department Care Team Description 11/24/2015 Hospital Encounter [facility]X [facility] Bonifacio Pitts M.D. [address] [place] [address], [address] [place] [address] (Wo rk) Social History Tobacco Use Types Packs/Day Years Used Date Smoking Tobacco: Never Assessed Alcohol Habits Answer Date Recorded How often [...] 12/31/2018 relatives? How often do you attend alevism or anabaptism Never 12/31/2018 services? Do you belong to any clubs or organizations such as No 12/31/2018 alevism groups, unions, fraternal or athletic groups, or [...] Sign Reading Time Taken Comments Blood Pressure 108/64 11/24/2015 11:14 AM CDT Pulse - - Temperature - - Respiratory Rate - - Oxygen Saturation - - Inhaled Oxygen Concentration - - Weight 59 kg (130 lb 1.1 oz) 11/24/2015 11:14 AM CDT Height - - Body Mass Index - - documented in this encounter Medications at Time of Discharge Medication Sig Dispensed Refills Start Date End Date albuterol (VENTOLIN HFA) Inhale 2 puffs 4 0 11/2307/01/2019 90 mcg/actuation inhaler (four) times a day. documented as of this encounter Consult Notes Johana Pitts M.D. - 11/24/2015 11:05 AM CDT [id number] CHIEF COMPLAINT/REASON FOR VISIT Low back pain. Worker's Compensation Visit REFERRAL SOURCE Maxime Thibodeaux MD, [facility] [place] [facility]. HISTORY OF PRESENT ILLNESS Ms. 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 She reports, in June 2015, she was at work when one of the clients fell and so she bent forwardand caught the client so the client did not fall to the ground. She had immediate pain in her low back. She presented to the urgent care in [place] and has been following with Dr. Thibodeaux since that time and has undergone a variety of very appropriate interventions. She was involved in physical therapy working at [facility] in June and then again for the past 3 months working with Andreas Nur, Physical Therapist at [facility]. Unfortunately, she has not found that to be overly helpful. She has also useda variety of her medications including tramadol, Percocet, and Flexeril. She is currently not using any of those medications. She uses Aleve or ibuprofen as needed and she has a flare of her symptoms at this time. She did have x-rays performed in [place]. I do not have those actual images to review today. Currently, Ms. Duke describes pain that is located in the midline to just to the right of midlinein her low back. She describes this as an achy, alternating with stabbing, discomfort. She rates thepain at its worst as a 9 or 10 out of 10 and, at its best, a 3 out of 10. Things that tend to exacerbate the pain include walking, bending forward, bending backward and lifting. She can have pain at nig ht that will wake her from sleep. She denies any pain radiating to her lower extremities, paresthesias, or focal weakness in her lower extremities. She denies any change in her bowel or bladder habits,fevers or chills, or recent unintentional weight loss. While she denies pain radiating to her lower e xtremities she can experience pain that will radiate into the right mid gluteal region. She has never had pain in her low back previous to this injury occurring in June 2015. In addition to the medications described above, she did have an injection of Toradol but unfortunately did notfind that to be overly helpful. MEDICATIONS Zoloft 100 mg daily which was started approximately month and a half ago. Albuterol inhaler. ALLERGIES No known medication allergies. PAST MEDICAL SURGICAL HISTORY Appendectomy. SOCIAL HISTORY Ms. Duke lives in [place]. 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 She denies any tobacco products. FAMILY HISTORY Ms. Duke's mother has a history of a brain tumor. She is alive. Otherwise there is no history of any neurologic or rheumatologic disorders in her family as well as no issues with spine disorders that she is aware of. PHYSICAL EXAMINATION GENERAL: Pleasant 20-year-old female in no acute distress. NEUROLOGICAL: Mental status: Oriented to person, place and time. Appropriate mood and affect. Gait: Normal hipolito and stride. Toe and heel walking are normal. Strength: All major muscle groups of the bilateral upper and lower extremities have normal and symmetric muscle strength, bulk and tone. Reflexes: Bilateral upper and lower extremity muscle stretch reflexes are physiologic and symmetric. Plantar responses downgoing bilaterally. Sensation: Normal light touch sensation through upper and lower extremities. Straight leg raise is negative for radicular pain or paresthesias bilaterally. Straight leg raise causes pain in her low back on the right. MUSCULOSKELETAL: Spine: -2 lumbar flexion, -1 lumbar extension secondary to pain this causes in her mid and right side of her low back. Palpation: There is tenderness to palpation over the right lower lumbar paraspinals from approximately L4 through S1. Joint range of motion: Preserved hip range of mot ion bilaterally. IMPRESSION/REPORT/PLAN 1. Low back pain following an injury at work in June 2015. Ms. Duke has a normal neurologic examination today. She has had very appropriate care to this point but has continued to be bothered by persistent pain that is quite limiting for her. I am suspicious that she may have a discogenic etiology for her pain with the location of her discomfort as well as her mechanism of injury. I also feel she has a component of myofascial pain as well. PLAN: 1. With the length of time this pain has persisted for Ms. Duke, as well as her lack of response to very appropriate intervention and her mechanism of injury, we are going to proceed with a lumbar spine MRI. We will attempt to seek approval for this through her Worker's Compensation insurance. 2. I am going have Ms. Duke continue the exercises she was shown independently in physical therapy at the current time. 3. I am going to keep her on her current work restrictions of no lifting or carrying greater than 10pounds and will limit her bending and twisting. 4. I will plan on seeing Ms. Duke following the MRI to discuss the results and the next step in her management. She knows to be in contact with me prior to that time if she notes any worsening or worrisome symptoms which we went over in detail today. Ms. Duke voiced agreement and understanding of this plan. Johana Pitts M.D./merrill cc: [facility] Maxime Thibodeaux M.D. [address] [place] [address] [address] [place] [address] Electronically Signed By: JOHANA PITTS MD On: 11/29/2015 09:54 AM Modified by and Electronically Signed by: JOHANA PITTS MD On: 11/29/2015 09:54 AM Source: [facility] MHSDOLBEYNONRADSYS Document Id: [id number] documented in this encounter Nursing Notes Mayra Amaya LGermaineP.N. - 12/01/2015 11:41 AM CDT Work Comp Approval Approval received for MRI at [facility]. L spine Electronically Signed By: MAYRA AMAYA LPN On: 12/01/2015 11:42 AM Source: [facility] POWERCHART Document Id: [id number] documented in this encounter Miscellaneous Notes Miscellaneous - Mayra Amaya L.P.N. - 12/01/2015 11:37 AM CDT *General Message Document Contains Addenda Addendum by EHSAN BAIRES on December 01, 2015 12:59:36 CDT From: EHSAN BAIRES ( [place] Tap Out Operator) To: Physical Medicine and Rehabilitation Staff; Sent: 12/01/2015 12:59:36 CDT Subject: RE: *General Message appt made From: MAYRA AMAYA LPN ( Physical Medicine and Rehabilitation Staff) To: [place] Tap Out Operator; Sent: 12/01/2015 11:37:06 CDT Subject: *General Message 12/08/15 11 am MRI results 15 min appt appt. Please call her. Source: [email or web address] Document Id: [id number] Miscellaneous - Johana Pitts M.D. - 11/24/2015 12:01 PM CDT Return to Work Status Return to Work Status Entered On: 11/24/2015 12:01 CDT Performed On: 11/24/2015 12:01 CDT by JOHANA PITTS MD Return to Work Status Employer : [employer] Work Injury : Yes Work Status : Other: No lifting or carrying greater than 10 pounds. No repetitive bending or twisting. JOHANA PITTS MD - 11/24/2015 12:01 CDT Work Restrictions Grid Reaching Below Knees : Rarely Twisting/Turning : Rarely JOHANA PITTS MD - 11/24/2015 12:01 CDT Follow Up Appointment Needed : Yes Follow Up Physician Name : JOHANA Syed MD - 11/24/2015 12:01 CDT [facility] [employer] Document Id: [id number] CDT!10 Miscellaneous - Johana Pitts M.D. - 11/24/2015 12:00 PM CDT Ambulatory Patient Summary [address] [id number] Visit Information Name: CHIQUI DUKE [facility] Number: [id number] Current Date: 11/24/2015 12:00:04 Physicians Attending Provider: JOHANA PITTS MD Primary Care Provider: PCP, MARGA CHIQUI DUKE has been given the following list of follow-up instructions, medication list, and patient education materials: Follow-up Instructions Your Medications Here is a list of your medications. It is important to take your medications as directed. Use a pillbox or chart to help remind you to take your medications. Please let your doctor or nurse know if you have problems taking your medications. Medication/Strength How to Take Indications/Special Instructions/Comments/Notes for Patient Medication Changes/Routing albuterol (Ventolin HFA 90 mcg/inh inhalation aerosol) 2 puff(s), Inhalation, four times a day metoprolol (metoprolol tartrate 25 mg oral tablet) 1 Tablet(s), Oral, two times a day sertraline (Zoloft 100 mg oral tablet) 1 Tablet(s), Oral, once a day Stop Taking the Following Medications: Medication list as of 11-24-15 12:00 Attention: If you have any medications at home that are not on this list, DO NOT take them until youcontact your provider for clarification. Give a copy of your medication list to your primary care provider. Update your medication list any time medications or doses are changed and carry your medication list at all times in case of emergency. Electronically Signed By: JOHANA PITTS MD Signed On:24-NOV-2015 11:59:50 Your Allergies & Intolerances Substance Reaction Symptoms Category Comments No Known Allergies Drug Your Problem List Problem Status Onset Comments No Problems found Your Upcoming Appointments Date Time Location Provider No Appointments found Attention: Contact your local Clinic if further appointment detail needed. Consider Using Patient Online Services Patient Online Services is a secure online and Mobile application that lets you: ?? View lab and test results ?? View portions of your medical record including clinical notes, immunizations and discharge summaries ?? Request an appointment or medication refill ?? Review your appointment schedule ?? Send secure messages to your care team Its easy to create an account if you dont have one. Go to [email or web address] and click on Create Your Account. Then, follow the directions to complete the online form. Youll be asked for your [facility] number which you can find at the top of this document. Your Goals/Additional instructions: Source: [facility] POWERCHART Document Id: [id number] Miscellaneous - Johana Pitts M.D. - 11/24/2015 12:00 PM CDT Ambulatory Discharge Medication List [address] [id number] Visit Information Name: CHIQUI DUKE [facility] Number: [id number] Visit Date: 11/24/2015 12:00:03 Attending Provider: JOHANA PITTS MD Primary Care Provider: PCP, CHIQUI STILL has been given the following list of medications: Your Medications It is important to take your medications as directed. Use a pill box or chart to help remind you to take your medications. Please let your doctor or nurse know if you have problems taking your medications. Medication/Strength How to Take Indications/Special Instructions/Comments/Notes for Patient Medication Changes/Routing albuterol (Ventolin HFA 90 mcg/inh inhalation aerosol) 2 puff(s), Inhalation, four times a day metoprolol (metoprolol tartrate 25 mg oral tablet) 1 Tablet(s), Oral, two times a day sertraline (Zoloft 100 mg oral tablet) 1 Tablet(s), Oral, once a day Stop Taking the Following Medications: Medication list as of 11-24-15 12:00 Attention: If you have any medications at home that are not on this list, DO NOT take them until youcontact your provider for clarification. Give a copy of your medication list to your primary care provider. Update your medication list any time medications or doses are changed and carry your medication list at all times in case of emergency. Electronically Signed By: JOHANA PITTS MD Signed On:24-NOV-2015 11:59:50 Additional Information: Source: [facility] POWERCHART Document Id: [id number] Miscellaneous - Diane Logan L.P.N. - 11/24/2015 11:14 AM CDT Adult Film Numberer Intake/History Adult Film Numberer Intake/History Entered On: 11/24/2015 11:16 CDT Performed On: 11/24/2015 11:14 CDT by DIANE LOGAN REFERENCE LIBRARIAN Intake Systolic Blood Pressure : 108 mmHg Diastolic Blood Pressure : 64 mmHg NIBP Mean : 79 mmHg BP Location : Right upper extremity Blood Pressure Cuff Size : Regular Actual Weight : 59.0 kg(Converted to: 130 lb 1 oz) Weight Source : Standing scale Dosing Weight Clinic : 59 kg DIANE LOGAN LPN - 11/24/2015 11:14 CDT General Info Information Given By : Patient Languages : Vietnamese Is Patient Female and 13-50 no hysterectomy : Yes Status : Patient denies Are you ? : No DIANE LOGAN LPN - 11/24/2015 11:14 CDT Subjective Pain Symptoms : No DIANE LOGAN LPN - 11/24/2015 11:14 CDT Dependent Habits Smoking Status : Never smoker Tobacco 2A : No Tobacco Use/Currently Using : No Tobacco Use/Last 30 Days : No Tobacco Use/Last 12 months : No DIANE LOAGN LPN - 11/24/2015 11:14 CDT Source: [facility] V-me MediaCHART Document Id: [id number] CDT!24 documented in this encounter Plan of Treatment Not on filedocumented as of this encounter Visit Diagnoses Not on filedocumented in this encounter
--- OUTSIDE RECORDS SUMMARY | 2022-05-11 14:20 | XMS_ITS | Encounter Summary ---
:1995 Author Organization [facility] Address [address] [place] [address] Care Team Providers Name Role Phone Unavailable Primary Care Provider Unavailable Encounter Details Date Type Department Care Team Description 01/12/2016 Hospital Encounter HX [facility] Bonifacio Pitts M.D. [address] [place] [address], [address] [place] [address] (Wo rk) Social History Tobacco [...] 12/31/2018 relatives? How often do you attend congregation or mormon Never 12/31/2018 services? Do you belong to any clubs or organizations such as No 12/31/2018 congregation groups, unions, fraternal or athletic groups, or [...] documented as of this encounter Progress Notes Johana Pitts M.D. - 01/12/2016 12:00 AM CDT [id number] CHIEF COMPLAINT/REASON FOR VISIT Follow up low back pain. Worker's compensation visit HISTORY OF PRESENT ILLNESS Ms. Ram returns today in followup. She reports her symptoms are basically unchanged since I saw her on December 07. She has had 5 visits so far to the [facility] program. She reports that she does feel her strength is improving. But it is sore for her when she does the exercises as well as she can be sore for the rest of that evening. She continues to have pain bending forward as well as when she moves into extension and straightens her spine. This pain is again primarily located in the right side of herlow back. She denies any pain radiating into her lower extremities, paresthesias, or focal weakness in her lower extremities. She denies any change in her bowel or bladder habits or fevers or chills. PHYSICAL EXAMINATION GENERAL: Pleasant 20-year-old female, in no acute distress. GAIT: Nonantalgic MUSCULOSKELETAL: Spine: -1 lumbar flexion and -2 lumbar extension secondary to pain this causes in the right side of her low back. There is tenderness to palpation over the right lower lumbar paraspinals. IMPRESSION/REPORT/PLAN 1. Low back pain following an injury at work in June 2015. Ms. Ram is bothered by pain in her low back, primarily on the right side of her low back. As mentioned in my note previously, I do feel that her pain is multifactorial including a potential discogenic etiology of her pain with her imaging findings and physical examination findings, as well as a significant component of myofascial pain. I am going have Ms. Ram continue to advance her current program working at the [facility] with the [facility] program. PLAN: 1. We are going to proceed with a L5-S1 interlaminar epidural corticosteroid injection for Ms. Ram's continued discomfort that is limiting her participation in physical therapy. 3. 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 I will also continue to limit her bending and twisting. 4. I will plan on seeing Ms. Ram in 1 month to assess her progress or sooner if she notes any worsening or worrisome symptoms which we went over in detail today. She voiced agreement and understanding of this plan. Keren Gutierrez MA, CDMS, was present for our entire interaction today. Total time 25 minutes, counseling greater than 15 minutes. Johana Pitts M.D./merrill cc: Keren Gutierrez MA, CDMS [address] [place] [address] [place], [place] [address] Electronically Signed By: JOHANA PITTS MD On: 01/13/2016 04:55 PM Modified by and Electronically Signed by: JOHANA PITTS MD On: 01/13/2016 04:55 PM Source: [facility] MHSDOLBEYNONRADSYS Document Id: [id number] documented in this encounter Miscellaneous Notes Telephone Encounter - Conversion, Historical Provider Ser - 01/19/2016 10:22 AM CDT *Phone Message Document Contains Addenda Addendum by MAYRA AMAYA LPN on January 19, 2016 10:37:03 CDT Spoke with [facility], they have left her a message to schedule. Notified patient and gave her [facility]'s number to call and schedule. From: LEE MEIER ([facility] Casserole Preparer) To: Physical Medicine and Rehabilitation Staff; Sent: 01/19/2016 10:22:15 CDT Subject: *Phone Message Caller is: ( x) Patient ( ) Mother ( ) Father ( ) Spouse ( ) Daughter ( ) Son ( ) Pharmacy ( ) Other: Physician: Patient MRN #: Reason for Call: Patient is wondering if you have heard anything on an injection. Please call her at [phone] Message: Advice/Action: Source used: ( ) Verbalizes understanding of instructions ( ) Instructed to call back if symptoms worsen or do not resolve ( ) Refused to see provider ( ) Appointment Scheduled ( ) OK to leave message on voice mail ( ) Patient told to expect return call: ( ) today ( ) tomorrow ( ) next work day ( ) Patient's email ( ) Patient told physician out of office, will call upon return call on ( ) ( ) Patient told physician out of office, routed to other physician ( ) Other ( ) Call back telephone number ( ) Call back cell phone number ( ) Source: [employer] Document Id: [id number] Telephone Encounter - Conversion, Historical Provider Ser - 01/14/2016 1:32 PM CDT *Phone Message/Dr. Pitts Document Contains Addenda Addendum by MAYRA AMAYA LPN on January 17, 2016 09:22:40 CDT Order faxed to [facility] From: ROLAND MARTINEZ ( [place] Casserole Preparer) To: Physical Medicine and Rehabilitation Staff; Sent: 01/14/2016 13:32:27 CDT Subject: *Phone Message/Dr. Pitts Caller is: ( ) Patient ( ) Mother ( ) Father ( ) Spouse ( ) Daughter ( ) Son ( ) Pharmacy ( x ) Other: ANALILIA Veliz for the patient Physician: Dr. Pitts Patient MRN #: Reason for Call: Message: Keren states that the injection has been approved by the insurer. She will also fax thisinformation to you. If you have any questions, you can call Keren at [phone]. Advice/Action: Source used: ( ) Verbalizes understanding of instructions ( ) Instructed to call back if symptoms worsen or do not resolve ( ) Refused to see provider ( ) Appointment Scheduled ( ) OK to leave message on voice mail ( ) Patient told to expect return call: ( ) today ( ) tomorrow ( ) next work day ( ) Patient's email ( ) Patient told physician out of office, will call upon return call on ( ) ( ) Patient told physician out of office, routed to other physician ( ) Other ( ) Call back telephone number ( ) Call back cell phone number ( ) Source: [facility] Document Id: [id number] Miscellaneous - Johana Pitts M.D. - 01/12/2016 4:33 PM CDT Ambulatory Patient Summary [address] [id number] Visit Information Name: CHIQUI RAM [facility] Number: [id number] Current Date: 01/12/2016 16:33:49 Physicians Attending Provider: JOHANA PITTS MD Primary Care Provider: PCP, ELSEWHERE CHIQUI RAM has been given the following list of [...] the Following Medications: Medication list as of 01-12-16 16:33 Attention: If you have any medications at [...] Electronically Signed By: JOHANA PITTS MD Signed On:12-JAN-2016 16:33:33 Your Allergies & Intolerances Substance Reaction Symptoms [...] if you dont have one. Go to [email or web address] and click on Create Your Account. Then, follow the directions to complete the online form. Youll be asked for your [facility] number which you can find at the top of this document. Your Goals/Additional instructions: Source: [facility] POWERCHART Document Id: [id number] Miscellaneous - Johana Pitts M.D. - 01/12/2016 4:33 PM CDT Ambulatory Discharge Medication List [address] [id number] Visit Information Name: CHIQUI RAM [facility] Number: [id number] Visit Date: 01/12/2016 16:33:48 Attending Provider: JOHANA PITTS MD Primary Care [...] the Following Medications: Medication list as of 01-12-16 16:33 Attention: If you have any medications at [...] Electronically Signed By: JOHANA PITTS MD Signed On:12-JAN-2016 16:33:33 Additional Information: Source: [facility] [employer] Document Id: [id number] Miscellaneous - Johana Pitts M.D. - 01/12/2016 4:30 PM CDT Return to Work Status Return to Work Status Entered On: 01/12/2016 16:31 CDT Performed On: 01/12/2016 16:30 CDT by JOHANA PITTS MD Return to Work Status Employer : [employer] Work Injury : Yes Work Status : Other: No lifting or carrying greater than 20 pounds. No repetitive bending or twisting. Restricted Work Start Date : 01/12/2016 CDT Restricted Work Stop Date : 03/08/2016 CDT JOHANA PITTS MD - 01/12/2016 16:30 CDT Work Restrictions Grid Reaching Below Knees : Rarely Squatting : Rarely Twisting/Turning : Rarely JOHANA PITTS MD - 01/12/2016 16:30 CDT Follow Up Appointment Needed : Yes Follow Up Physician Name : JOHANA Syed MD - 01/12/2016 16:30 CDT Source: [facility] Document Id: [id number] CDT!13 documented in this encounter Plan of Treatment Not on filedocumented as of this encounter Visit Diagnoses Not on filedocumented in this encounter
--- OUTSIDE RECORDS SUMMARY | 2022-05-11 14:20 | XMS_ITS | Encounter Summary ---
:1995 Author Organization [facility] Address [address] [place] [address] Care Team Providers Name Role Phone Unavailable Primary Care Provider Unavailable Encounter Details Date Type Department Care Team Description 05/10/2017 Hospital Encounter HX [facility] Dior Yancey, SHEET METAL SUPERINTENDENT, C.N.P. [address] [place] [address] (Wo rk) Social History Tobacco Use Types Packs/Day Years Used Date Smoking Tobacco: Light Smoker Alcohol Habits Answer Date Recorded How often [...] 12/31/2018 relatives? How often do you attend methodist or sikhism Never 12/31/2018 services? Do you belong to any clubs or organizations such as No 12/31/2018 methodist groups, unions, fraternal or athletic groups, or [...] Sign Reading Time Taken Comments Blood Pressure - - Pulse - - Temperature - - Respiratory Rate - - Oxygen Saturation - - Inhaled Oxygen Concentration - - Weight - - Height 176 cm (5' 9.29) 05/10/2017 1:31 PM CDT Body Mass Index - - documented in this encounter Medications at Time of Discharge Medication Sig Dispensed Refills Start Date End Date albuterol (for_PROVENTIL Inhale 1-2 puffs. 0 02/0606/22/2017 HFA,VENTOLIN HFA) 90 mcg/actuation inhaler albuterol (VENTOLIN HFA) Inhale 2 puffs 4 0 11/2307/01/2019 90 mcg/actuation inhaler (four) times a day. documented as of this encounter Miscellaneous Notes Miscellaneous - Conversion, Historical Provider Ser - 05/10/2017 11:59 PM CDT Coding Summary-Paper Based CODING DATE: 05/14/[address] [facility] STATUS: * Discharged to Home or Self Care PAYOR: Commercial Insurance ADMIT DX: REASON FOR VISIT DX: FINAL DX: PRINCIPAL: Z36.89 Encounter for other specified screening SECONDARY: Z3A.01 Less than 8 weeks gestation of PROCEDURES DOCTOR NAME DATE NOTE: The code number assigned matches the documented diagnosis and / or procedure in the patient's chart. However, the narrative phrase printed from the coding software may appear abbreviated, or result in slightly different terminology. Coded By: NIRANJAN BARAJAS Date Saved: 05/14/2017 02:55 pm Source: [facility] POWERCHART Document Id: [id number] TAL REPORT DEVELOPER documented in this encounter Plan of Treatment Not on filedocumented as of this encounter Visit Diagnoses Not on filedocumented in this encounter Additional Health Concerns Assessment Noted Time PHQ-9 Depression Total Score: 12 05/10/2017 2:20 PM CD T documented as of this encounter
--- OUTSIDE RECORDS SUMMARY | 2022-05-11 14:20 | XMS_ITS | Encounter Summary ---
:1995 Author Organization [facility] Address [address] [place] [address] Care Team Providers Name Role Phone Unavailable Primary Care Provider Unavailable Encounter Details Date Type Department Care Team Description 05/01/2017 Hospital Encounter HX [facility] Alberto Gifford APRN, JOSE DAVID, M.S.N., B.S.N., R.N. [address] [id number] Social History Tobacco Use Types Packs/Day Years [...] 12/31/2018 relatives? How often do you attend pentecostal or baptism Never 12/31/2018 services? Do you belong to any clubs or organizations such as No 12/31/2018 pentecostal groups, unions, fraternal or athletic groups, or [...] Reading Time Taken Comments Blood Pressure 110/62 05/01/2017 11:40 AM CDT Pulse - - Temperature - - Respiratory Rate - - Oxygen Saturation - - Inhaled Oxygen Concentration - - Weight 66 kg (145 lb 8.1 oz) 05/01/2017 11:40 AM CDT Height 176 cm (5' 9.29) 05/01/2017 11:40 AM CDT Body Mass Index 21.31 05/01/2017 11:40 AM CDT documented in this encounter Medications at Time of Discharge Medication Sig Dispensed Refills Start Date End Date albuterol (for_PROVENTIL Inhale 1-2 puffs. 0 02/0606/22/2017 HFA,VENTOLIN HFA) 90 mcg/actuation inhaler albuterol (VENTOLIN HFA) Inhale 2 puffs 4 0 11/2307/01/2019 90 mcg/actuation inhaler (four) times a day. documented as of this encounter Progress Notes Alberto Jarrett, DIDIER, RGermaineN. - 05/01/2017 11:18 AM CDT Progress Note, Obstetrics_Gynecology CHIEF COMPLAINT/REASON FOR VISIT Confirmation of HISTORY OF PRESENT ILLNESS: _Chiqui is a 21 y/o with an LMP 5 weeks ago who presentsfor a confirmation of due to very slight pink spotting and some intermittent cramping. The is un planned She is notmarried to FOB. _+nausea - vomiting scant vaginal bleeding slight intermittent cramping ALLERGIES NKA MEDICATIONS albuterol: 2 puff(s),Inhalation,4xDay buPROPion: 300 mg,PO,q24hr metoprolol: 25 mg,1 tab(s),PO,2xDay multivitamin, PAST MEDICAL HISTORY listSURGICAL No qualifying data available. OBGYN HISTORY Complications with Previous Pregnancies 1. _ history of STDs-treated _Denies history of abnormal paps. Last pap smear was ? probably needed Denies history of gynecological surgeries. _ No history of DVT/PE _ _ No his hypertension _ No history Type II DM _ No history of anxiety SOCIAL HISTORY Date Time: 05/01/2017 11:40 Tobacco: Smoking Status: Light tobacco smoker Exposure: Other: former Alcohol: Use: No Recreational Drugs: Use: No Results Found Type: No Results Found SYSTEMS REVIEW GENERAL: no fevers, sweats EENT: no blurred vision, double vision, sinus problems, difficulty swallowing, diminished hearing, ringing in ears, enlarged glands PULMONARY: no short of breath, cough, wheezing CARDIAC: no chest pain, rapid beating, irregular beating, dependent edema, pain in calves, shortnessof breath with exertion BREASTS: no nipple discharge,, breast tenderness, GI: _heartburn, no constipation, no diarrhea, and no change in BMs REPRODUCTIVE:, no vaginal discharge or pelvic pain : no burning/pain with urination, no urinary incontinence MUSCULOSKELETAL: no joint or muscle problems SKIN: no skin rashes, skin sores, change in moles NEURO: no significant headaches, numbness or weakness ENDOCRINE: no excessive thirst, no excessive bruising. PHYSICAL EXAMINATION Vitals VITAL SIGNS No qualifying data available. BLOOD PRESSURE Systolic Blood Pressure: 110 mmHg Diastolic Blood Pressure: 62 mmHg MEASUREMENTS Height: 176 cm Actual Weight: 66 kg Body Mass Index: 21.31 kg/m2 LABS and Radiology TVUS + yolk sac no pole no heart tones. No evidence of ectopic . IMPRESSION- probable iup at 5 weeks PLAN - continue PNV with .4 mg of folic acid -Abstain from tobacco, alcohol, and drug use Risks of smoking _ -Continue exercise Nutrition reviewed OTC remedies for nausea and vomiting _ -Bleeding precaution given -RTC after may 09 for formal ultrasound and NOB visit Electronically Signed By: ALBERTO JARRETT APRN, CNM On: 05/10/2017 04:04 PM Source: [facility] POWERCHART Document Id: [id number] documented in this encounter Miscellaneous Notes Miscellaneous - Basia Lim, L.P.N. 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 LMP Date : 03/08/2017 Heart Rhythm : Regular Systolic Blood Pressure : 110 mmHg Diastolic Blood Pressure : 62 mmHg NIBP Mean : 78 mmHg BP Location : Right upper extremity Blood Pressure Cuff Size : Regular Height : 176 cm(Converted to: 5 ft 9 inch(es), 69 inch(es)) Actual Weight : 66.0 kg(Converted to: 145 lb 8 oz) Weight Source : Standing scale Dosing Weight Clinic : 66 kg Clinic BSA : 1.8 Body Mass Index : 21.31 kg/m2 BASIA LIM LPN - 05/01/2017 11:40 CDT General Info Information Given By : Patient Languages : Sami Is Patient Female and 13-50 no hysterectomy : Yes Status : Possible unconfirmed Are you ? : No BASIA LIM LPN - 05/01/2017 11:40 CDT Subjective Pain Symptoms : Yes BASIA LIM LPN - 05/01/2017 11:40 CDT Pain Scale Pain Scale Verbal 0-10 : Open BASIA LIM LPN - 05/01/2017 11:40 CDT Pain Pain Assessment Grid Pain 1 Location : Abdomen Intensity : 2 Quality : Cramping BASIA LIM LPN - 05/01/2017 11:40 CDT Dependent Habits Exposure to Tobacco Smoke : Other: former Smoking Status : Light tobacco smoker Tobacco 2A : Yes Tobacco Use/Currently Using : No Tobacco Use/Last 30 Days : Yes Tobacco Use/Last 12 months : Yes Type : Other: Light smoker. Attempting to quit Alcohol Use : No BASIA LIM LPN - 05/01/2017 11:40 CDT Source: [facility] Document Id: [id number] CDT!41 Miscellaneous - Basia Lim L.P.NGermaine - 05/01/2017 11:37 AM CDT Health Assessment Health Assessment Entered On: 05/01/2017 11:39 CDT Performed On: 05/01/2017 11:37 CDT by BASIA LIM LPN Health Assessment Complete Health Assessment Complete or Modified : Annual Health Assessment Annual Health Assessment Completed : Yes BASIA LIM LPN - 05/01/2017 11:37 CDT Nutrition Nutrition Risk Factors by History Adult : None BASIA LIM LPN - 05/01/2017 11:37 CDT Functional Current Daily Living Assistance : None BASIA LIM LPN - 05/01/2017 11:37 CDT Dependent Habits Exposure to Tobacco Smoke : Other: former Smoking Status : Light tobacco smoker Tobacco 2A : Yes Tobacco Use/Currently Using : No Tobacco Use/Last 30 Days : Yes Tobacco Use/Last 12 months : Yes Type : Other: Attempting to quit: smokes 2 cigarettes per day Alcohol Use : No BASIA LIM [facility] - 05/01/2017 11:37 CDT Psychosocial Domestic Abuse Concerns : None Behavioral Health Screen/Safety Assmt : Unable to obtain Alevism Preference : No qualifying data available. BASIA LIM [facility] - 05/01/2017 11:37 CDT Advance Directive Advanced Directives : No Advance Directive Additional Information : No BASIA LIM [facility] - 05/01/2017 11:37 CDT Educ Needs Learning Style Preference Adult Grid Patient : None Family : None BASIA LIM [facility] - 05/01/2017 11:37 CDT Source: [facility] GnodalCHART Document Id: [id number] CDT!28 documented in this encounter Plan of Treatment Not on filedocumented as of this encounter Procedures Procedure Name Priority Date/Time Associated Diagnosis Comme nts VAGINITIS PANEL Routine 05/01/2017 12:10 PM Resul ts for this CDT procedure are i n the results section. documented in this encounter Results (ABNORMAL) Vaginitis Panel (05/01/2017 12:10 PM CDT) Component Value Ref Test Analysis Performed At [facility] Range Method Time Signature HXVaginitis (POSITIVE) POWERCHART Battery, DNA (Genital) HXFinal Trichomonas POWERCHART vaginalis DNA negative HXFinal Gardnerella POWERCHART vaginalis DNA positive HXFinal Chikis species POWERCHART DNA negative HXFinal Reference: POWERCHART Negative Specimen (Source) Anatomical Collection Method Collection Time Re ceived Time Location / / Volume Laterality Vagina 05/01/2017 12:10 PM CDT Alberto Jarrett APRN, CNM, M.S.N., B.S.N., R.N. LAB [facility] - GENERAL ORDERABLES Performing Organization Address City/State/ZIP Code Phon e Number POWERCHART POWERCHART NA documented in this encounter Visit Diagnoses Not on filedocumented in this encounter
--- OUTSIDE RECORDS SUMMARY | 2022-05-11 14:20 | XMS_ITS | Encounter Summary ---
:1995 Author Organization [facility] Address [address] [place] [address] Care Team Providers Name Role Phone Unavailable Primary Care Provider Unavailable Encounter Details Date Type Department Care Team Description 05/03/2016 Hospital Encounter HX [facility] Bonifacio Pitts M.D. [address] [place] [address], [address] [place] [address] (Wo rk) Social History Tobacco [...] How often do you attend quaker or oriental orthodox Never 12/31/2018 services? Do you belong to [...] Sign Reading Time Taken Comments Blood Pressure 94/56 05/03/2016 3:30 PM CDT Pulse - - Temperature - - Respiratory Rate - - Oxygen Saturation - - Inhaled Oxygen Concentration - - Weight 61.4 kg (135 lb 4 oz) 05/03/2016 3:30 PM CDT Height - - Body Mass [...] encounter Progress Notes Johana Pitts M.D. - 05/03/2016 3:06 PM CDT [id number] CHIEF COMPLAINT/REASON FOR VISIT Follow up low back pain. Worker's Compensation visit. HISTORY OF PRESENT ILLNESS Ms. Ram returns today in followup. Since I saw her she has been involved in physical therapy working the [employer] program as well as had an L5-S1 intralaminar epidural corticosteroid injection performed on January 21, 2016. She reports she has made excellent improvement. She estimates that she is 80% improved compared to where she was when I last saw her. She does not pain with extension but otherwise is not having much discomfort. This pain is located in the right side of her low back when she moves into extension. She denies any pain radiating into her lower extremities, paresthesias, or focal weakness in her lower extremities. She denies any change in her bowel or bladder habits, fevers or chills,or recent unintentional weight loss. She has completed her formal MedX program. She does have a gym membership but it has been difficult for to get their as of late because she is working 60 to 70 hours per week. She was released to full duty 6 weeks ago as a trial she has been tolerating that well other than what is described above. PHYSICAL EXAMINATION GENERAL: Pleasant 20-year-old female, in no acute distress. GAIT: Nonantalgic. MUSCULOSKELETAL: Spine: Preserved lumbar flexion today, -1 lumbar extension. Palpation: There is tenderness to palpation over the right lower lumbar paraspinals. NEUROLOGIC: Strength: All major muscle groups of the bilateral lower extremities have normal and symmetric muscle strength, bulk and tone. Reflexes: Bilateral lower extremity muscle stretch reflexes are physiologic and symmetric. Plantar responses downgoing bilaterally. IMPRESSION/REPORT/PLAN 1. Low back pain following an injury at work in June 2015. Ms. Ram has made excellent progress over the past few months working on the [employer] program and following the L5-S1 interlaminar epidural corticosteroid injection. She continues to have a normal neurologic examination. PLAN: 1. I did encourage Ms. Ram to continue the exercises she was shown in physical therapy on her own and discussed the importance of going to the gym on a regular basis and she did voice agreement with this. 2. I am going to release Ms. Ram to full duty at work without restrictions at the current time. 3. I will plan no formal followup with Ms. Ram at this time but if she were to have any worsening symptoms or change in her symptoms I would be happy to see her back anytime in the future. Ms. Ram voiced agreement and understanding with this plan. ' Total time 25 minutes, counseling time greater than 20 minutes. Keren Gutierrez MA, CDMS, was present for our entire interaction today Johana Pitts M.D./merrill cc: [employer], Keren Gutierrez MA, CDMS [address] [place], [place], [address] FAX: Electronically Signed By: JOHANA PITTS MD On: 05/09/2016 05:24 PM Modified by and Electronically Signed by: JOHANA PITTS MD On: 05/09/2016 05:24 PM Source: [facility] MHSDOLBEYNONRADSYS Document Id: [id number] documented in this encounter Miscellaneous Notes Telephone Encounter - Osman Bowman C.S.T. - 05/01/2017 7:58 AM CDT *Phone Message Document Contains Addenda Addendum by DANNA DEWEY RN on May 01, 2017 08:21:54 CDT Called patient. She is 7 weeks 3 days going by her LMP. She has not been seen yet for this . She states having some mild cramping yesterday and still having mild cramping today. She states she went to the bathroom this morning and had to bear down for a BM and passed a small clot from her vagina. She states when she wiped it was light pink. She states she has not had to wear a pad yet. Huddled with Barbara Jarrett and patient to have GLASS BLOWING INSTRUCTOR today. patient states she is an hour away from [place]. Patient transferred to veterinary receptionist to schedule, patient instructed if can't be seen here due to her schedule to present to local facility. From: OSMAN BOWMAN REAL ESTATE MARKETING COORDINATOR ( Internal Medicine Baffle Installer) To: Obstetrics/Gynecology Nurse (RN); Sent: 05/01/2017 07:58:35 CDT Subject: *Phone Message Caller is: ( x) Patient ( ) Mother ( ) Father ( ) Spouse ( ) Daughter ( ) Son ( ) Pharmacy ( ) Other: Physician: Patient Reason for Call: Spotting during Message: Patient called and stated that she just found out that she is and has some spotting this morning. Wondering if that is normal or if she needs to be seen. Please advise. Advice/Action: [phone] Source used: ( ) Verbalizes understanding of [...] back cell phone number ( ) Source: [facility] POWERCHART Document Id: [id number] Miscellaneous - Johana Pitts M.D. - 05/03/2016 4:15 PM CDT Ambulatory Patient Summary [address] [id number] Visit Information Name: CHIQUI RAM [facility] Number: [id number] Current Date: 05/03/2016 16:15:44 Physicians Attending Provider: JOHANA PITTS MD Primary Care Provider: PCP, MARGA CHIQUI RAM has been given the following [...] 2 puff(s), Inhalation, four times a day buPROPion (Wellbutrin XL) 150 mg, Oral, every 24 hours metoprolol (metoprolol tartrate 25 mg oral tablet) 1 Tablet(s), Oral, two times a day sertraline (Zoloft 100 mg oral tablet) 1 Tablet(s), Oral, once a day Stop Taking the Following Medications: Medication list as of 05-03-16 16:15 Attention: If you have any medications at [...] Electronically Signed By: JOHANA PITTS MD Signed On:03-MAY-2016 16:15:33 Your Allergies & Intolerances Substance Reaction Symptoms [...] you dont have one. Go to [email or web address] and click on Create Your Account. Then, follow the directions to complete the online form. Youll be asked for your [facility] number which you can find at the top of this document. Your Goals/Additional instructions: Source: [facility] Document Id: [id number] Miscellaneous - Johana Pitts M.D. - 05/03/2016 4:15 PM CDT Ambulatory Discharge Medication List [address] [id number] Visit Information Name: CHIQUI RAM [facility] Number: [id number] Current Date: 05/03/2016 16:15:43 Attending Provider: JOHANA PITTS MD Primary Care Provider: PCP, ELSEWHERE DINORAH RAMYLEA has been given the following list of [...] 2 puff(s), Inhalation, four times a day buPROPion (Wellbutrin XL) 150 mg, Oral, every 24 hours metoprolol (metoprolol tartrate 25 mg oral tablet) 1 Tablet(s), Oral, two times a day sertraline (Zoloft 100 mg oral tablet) 1 Tablet(s), Oral, once a day Stop Taking the Following Medications: Medication list as of 05-03-16 16:15 Attention: If you have any medications at [...] Electronically Signed By: JOHANA PITTS MD Signed On:03-MAY-2016 16:15:33 Additional Information: Source: [facility] POWERCHART Document Id: [id number] Kathryncellaneous - Johana Pitts M.D. 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 : No MAYRA AMAYA LPN - 05/03/2016 15:30 CDT Subjective Pain Symptoms : No MAYRA AMAYA LPN - 05/03/2016 15:30 CDT Dependent Habits Exposure to Tobacco Smoke : Other: former Smoking Status : Former smoker Tobacco 2A : Yes Tobacco Use/Currently Using : No Tobacco Use/Last 30 Days : No Tobacco Use/Last 12 months : No MAYRA AMAYA LPN - 05/03/2016 15:30 CDT Source: [facility] [employer] Document Id: [id number] CDT!24 documented in this encounter Plan of Treatment Not on filedocumented as of this encounter Visit Diagnoses Not on filedocumented in this encounter
--- OUTSIDE RECORDS SUMMARY | 2022-05-11 14:20 | XMS_ITS | Encounter Summary ---
:1995 Author Organization [facility] Address [address] [place] [address] Care Team Providers Name Role Phone Unavailable Primary Care Provider Unavailable Encounter Details Date Type Department Care Team Description 05/10/2017 Hospital Encounter HX [facility] Afsaneh Vazquez A PRN, C.N.P. [address] [place], [place] [phone] (Wo rk) Social History Tobacco Use Types [...] How often do you attend yarsanism or episcopalian Never 12/31/2018 services? Do you [...] Sign Reading Time Taken Comments Blood Pressure 118/64 05/10/2017 2:18 PM CDT Pulse - - Temperature - - Respiratory Rate - - Oxygen Saturation - - Inhaled Oxygen Concentration - - Weight 65.3 kg (143 lb 15.4 oz) 05/10/2017 2:18 PM CDT Height 176 cm (5' 9.29) 05/10/2017 2:18 PM CDT Body Mass Index 21.08 05/10/2017 2:18 PM CDT documented in this encounter Medications at Time of Discharge Medication Sig Dispensed Refills Start Date End Date albuterol (for_PROVENTIL Inhale 1-2 puffs. 0 02/0606/22/2017 HFA,VENTOLIN HFA) 90 mcg/actuation inhaler albuterol (VENTOLIN HFA) Inhale 2 puffs 4 0 11/2307/01/2019 90 mcg/actuation inhaler (four) times a day. documented as of this encounter Progress Notes Afsaneh Machado R.N., NP-BC - 05/10/2017 3:02 PM CDT CHIEF COMPLAINT/REASON FOR VISIT New ob HISTORY OF PRESENT ILLNESS: This patient is a 21 y/o that presents for a new ob visit. mild nausea, no vomiting, no vaginal bleeding, no cramping LMP- 03/08/2017, occur every 6-8 weeks MARIAMA 01/02/18 based on 6 week sono history of STDs, chlamydia and was treated no history of abnormal pap smears. Last pap unsure MEDICATIONS albuterol: 2 puff(s),Inhalation,4xDay buPROPion: 300 mg,PO,q24hr metoprolol: 25 mg,1 tab(s),PO,2xDay. as needed. not using with multivitamin, ALLERGIES NKA PAST MEDICAL/SURGICAL HISTORY PAST MEDICAL HISTORY asthma depression/anxiety SURGICAL appendectomy, 2014 OBGYN HISTORY SOCIAL HISTORY Date Time: 05/10/2017 14:18 Tobacco: Smoking Status: Former smoker Exposure: Other: former Alcohol: Use: No Results Found Recreational Drugs: Use: No Results Found Type: No Results Found Sexual history dating Ramon Lives in [place], with Ramon Works at [employer] in [place] Family is supportive she feels safe in current relationship. She has no history of abusive relationships. Transportation: no issues Social Service/Public Health none former Smoker is undecided on how she is planning to feed the baby no history of eating disorder FAMILY HISTORY Mom: brain tumor Grandparents: cancer SYSTEMS REVIEW GENERAL: no fevers, sweats EENT: no blurred vision, double vision, sinus problems, difficulty swallowing, mouth sores, diminished hearing, ringing in ears, enlarged glands PULMONARY: no short of breath, cough, wheezing CARDIAC: no chest pain, chest pressure, rapid beating, irregular beating, dependent edema, pain in calves, shortness of breath with exertion BREASTS: no nipple discharge, breast lumps, breast tenderness, no other changes GI: negative REPRODUCTIVE: see above, no vaginal discharge or pelvic pain : no burning/pain with urination, no urinary incontinence MUSCULOSKELETAL: no joint or muscle problems SKIN: no skin rashes, skin sores, change in moles NEURO: no significant headaches, numbness or weakness ENDOCRINE: no excessive thirst, no excessive bruising. PSYCH: no depression or anxiety Vitals VITAL SIGNS BLOOD PRESSURE Systolic Blood Pressure: 118 mmHg Diastolic Blood Pressure: 64 mmHg MEASUREMENTS Height: 176 cm Actual Weight: 65.3 kg Body Mass Index: 21.08 kg/m2 PHYSICAL EXAMINATION Well nourished, well developed female in NAD. Neuro: Intact Eyes: LIBERTAD ENT: Intact Neck: no thyromegaly, no lymph adenopathy Lungs: clear, equal to auscultation bilaterally, no wheezes, rales, rhonchi. No accessary muscles ofrespiration noted. Heart: Regular rate and rhythm. No murmurs, gallops or rubs noted Breast: Soft breast tissue without predominant mass or nodularity. No nipple discharge. No axillary or supraclavicular adenopathy. Abdomen: Non-tender to palpation. No hepato-splenomegaly. No mass. Normal bowel sounds in all 4 quadrants. Casting Sorter: Normal external genitalia. BUS normal Urethra normal Bladder non tender, not enlarged Vagina no abnormal discharge. Mucosa moist and well rugated. Cervix appears normal Pap smear is taken. No cervical motion tenderness Bimanual exam uterus 6 week size Adnexa no masses, ovaries non palpable Anus appears normal. Extremities: No neurovascular compromise. No cyanosis, clubbing or edema. No edema, non-tender IMPRESSION/REPORT/PLAN 1) New ob visit, Discussed materials in the new OB folder 2) new ob labs, UA/UC, G/C 3) Discussed wt. gain and exercise, caffeine, cat litter, choosing a baby doctor, toxic substances. 4) Genetic testing options and screeening testing options discussed, pamphlet given. Electronically Signed By: AFSANEH MACHADO R.N., WHNP-BC On: 05/10/2017 04:55 PM Modified by and Electronically Signed by: AFSANEH MACHADO R.N., WHNP-BC On: 05/10/2017 03:13 PM Source: [facility] POWERCHART Document Id: [id number] documented in this encounter Nursing Notes Kayla Carpenter L.P.N. - 05/10/2017 2:18 PM CDT Antepartum Exam, Initial Document Has Been Updated Antepartum Exam, Initial Entered On: 05/10/2017 14:20 CDT Performed On: 05/10/2017 14:18 CDT by KAYLA CARPENTER LPN Vitals/Ht/Wt Systolic Blood Pressure : 118 mmHg Diastolic Blood Pressure : 64 mmHg LMP Date : 03/08/2017 Pain Symptoms : No Actual Weight : 65.3 kg(Converted to: 143 lb 15 oz, 143.962 lb) Dosing Weight Clinic : 65.3 kg Prosthetic device on during patient weight : No Height : 176 cm(Converted to: 5 ft 9 inch(es), 69 inch(es)) Body Mass Index : 21.08 kg/m2 KAYLA CARPENTER LPN - 05/10/2017 14:18 CDT Obstetrical History History (As Of: 05/10/2017 15:15:24 CDT) - 1, Para Fullterm - , Para - , Abortions - , Para Living - Add'l Information Planned/Unplanned : Unplanned Wanted : Yes Desires to Continue : Yes On Hormonal Contraception Within 2 Months of LMP : No at Conception : No AFSANEH MACHADO R.N., WHNP-BC - 05/10/2017 15:13 CDT Problems & Procedures (As Of: 05/10/2017 15:15:24 CDT) Problems(Active) (SNOMED CT :274046896 ) Name of Problem: ; Onset Date: 03/08/2017 ; Recorder: KAYLA CARPENTER LPN; Confirmation: Confirmed ; Classification: Medical ; Code: 686403916 ; Last Updated: 05/10/2017 14:10 CDT ; Life Cycle Status: Active ; Responsible Provider: KAYLA CARPENTER LPN; Vocabula ry: SNOMED CT Diagnoses(Active) Date: 05/10/2017 ; Confirmation: Confirmed ; Clinical Dx: ; Classification: Medical ; Code: SNOMED CT ; Probability: 0 ; Diagnosis Code: [id number] - Procedure History (As Of: 05/10/2017 15:15:24 CDT) Histories (As Of : 05/10/2017 15:15:24 CDT) - Past Medical History Family History (As Of: 05/10/2017 15:15:24 CDT) Anesth/Transfusion Anesthesia/Transfusions : Prior anesthesia Transfusion Acceptable in Emergency : Yes AFSANEH MACHADO R.N., [facility] - 05/10/2017 15:13 CDT Medication History Medication List (As Of: 05/10/2017 15:15:24 CDT) Home Meds multivitamin, : multivitamin, ; Status: Documented ; Ordered As Mnemonic: [id number] ; Catalog Code: multivitamin, ; Order Dt/Tm: 05/10/2017 14:18:03 buPROPion : buPROPion ; Status: Documented ; Ordered As Mnemonic: Wellbutrin XL ; Simple Display Line: 300 mg, PO, q24hr ; Catalog Code: buPROPion ; Order Dt/Tm: 05/03/2016 15:30:09 metoprolol : metoprolol ; Status: Documented ; Ordered As Mnemonic: metoprolol tartrate 25 mg oral tablet ; Simple Display Line: 25 mg, 1 tab(s), PO, 2xDay ; Catalog Code: metoprolol ; Order Dt/Tm: 11/24/2015 11:18:20 albuterol : albuterol ; Status: Documented ; Ordered As Mnemonic: Ventolin HFA 90 mcg/inh inhalationaerosol ; Simple Display Line: 2 puff(s), Inhalation, 4xDay ; Catalog Code: albuterol ; Order Dt/Tm:11/24/2015 11:17:58 Allergy (As Of: 05/10/2017 15:15:24 CDT) Allergies (Active) NKA Estimated Onset Date: Unspecified ; Created By: PARAM LOGAN LPN; Reaction Status: Active ; Category: Drug ; Substance: NKA ; Type: Allergy ; Updated By: PARAM LOGAN LPN; Reviewed Date: 05/10/2017 14:15 CDT ID Screen Drug Resistant Organism : No AFSANEH MACHADO R.N., [facility] - 05/10/2017 15:13 CDT TB Symptoms Grid Bloody Sputum : No Fatigue : No Fever : No Loss of Appetite : No Night Sweats : No Persistent Cough Greater Than 3 Weeks : No Weight Loss : No AFSANEH MACHADO R.N., [facility] 05/10/2017 15:13 CDT Alcohol and Drug Use : No Employee of Institutional Living Environment : No Health Care Employee : Yes History of Exposure to TB : No History of Positive Chest X-Ray for TB : No History of Positive TB Skin Test : No Homeless : No Known Immunosuppression : No Recent Immigrant : No Resident of Institutional Living Environment : No AFSANEH MACHADO R.N., [facility] 05/10/2017 15:13 CDT Dependent Habits Exposure to Tobacco Smoke : Other: former Smoking Status : Former smoker Tobacco 2A : Yes Tobacco Use/Currently Using : No Tobacco Use/Last 30 Days : Yes Tobacco Use/Last 12 months : Yes Type : Cigarettes: Less than 20 per day Tobacco Use/Advised to Quit : Yes KAYLA CARPENTER [employer] - 05/10/2017 14:18 CDT Psychosocial Domestic Abuse Concerns : None Behavioral Health Screen/Safety Assmt : No Episcopalian Preference : No qualifying data available. JAYDENKAYLA Montiel [employer] - 05/10/2017 14:18 CDT Genetic/Infection Screen Infection History : History of Varicella or Immunized for Varicella AFSANEH MACHADO R.N., [facility] 05/10/2017 15:13 CDT Ethnic Background Grid : Self, Baby's father AFSANEH MACHADO R.N., [facility] 05/10/2017 15:13 CDT Antepartum Note Antepartum Note : discussed sono. MARIAMA. feeling well. AFSANEH DOMÍNGUEZ R.N., [facility] 05/10/2017 16:52 CDT Education Individuals Taught : Patient Barriers to Learning : None evident Teaching Method : Explanation, Printed materials AFSANEH MACHADO R.N., [facility] 05/10/2017 16:52 CDT Alcohol : Verbalizes understanding Anxiety/Depression Symptoms : Verbalizes understanding Childbirth Classes : Verbalizes understanding Domestic Violence : Verbalizes understanding Environmental/Work Hazards : Verbalizes understanding Exercise : Verbalizes understanding Expected Course of Care : Verbalizes understanding HIV Testing : Verbalizes understanding Influenza Vaccine : Verbalizes understanding Medication Use : Verbalizes understanding Nutrition Counseling : Verbalizes understanding Recreational Drugs : Verbalizes understanding Risk Factors Identified : Verbalizes understanding Routine Tests : Verbalizes understanding Seat Belt Use : Verbalizes understanding Sexual Activity : Verbalizes understanding Smoking Counseling : Verbalizes understanding Tobacco Assessment : Verbalizes understanding Toxoplasmosis Precautions : Verbalizes understanding Travel : Verbalizes understanding Ultrasound : Verbalizes understanding AFSANEH MACHADO R.N., ONOFRE-BC - 05/10/2017 16:52 CDT Source: [facility] [employer] Document Id: [id number] CDT!29 documented in this encounter Miscellaneous Notes Miscellaneous - Afsaneh Machado R.N., [facility]- - 05/14/2017 8:46 AM CST Normal Results Letter May 14, 2017 CHIQUI RAM [address] [id number] Dear CHIQUI RAM, I am pleased to report that your results from the following diagnostic test(s) are normal. Please follow up with us as we discussed during your visit or sooner if you have any concerns. If you have questions or concerns, please do not hesitate to call our office. These are all normal or negative except you are not immune to Rubella. We will offer a vaccination for this after you have your baby. Would you like to see your lab results quickly? If you have an e-mail account, join the other [phone],000 [facility] patients who use the Patient Online Services to conveniently access their lab results by calling [phone] to sign up for an account. It just takes a few minutes! Result Name Current Result Normal Range C trach Amp Src-Weems vagina 05/11/2017 C trach Amp RNA-Weems Negative 05/11/2017 Negative - N gonor Amp DNA-Weems Negative 05/11/2017 Negative - N gonor Amp Src-Weems vagina 05/11/2017 ABO/Rh Retype A POS 05/10/2017 Syphilis IgG-Weems Negative 05/10/2017 Negative - HIV 1/2 Ab and Ag Scrn-Weems Negative 05/10/2017 Negative - Rubella IgG-Weems Negative 05/10/2017 Rubella IgG Ab Index-Weems 0.3 05/10/2017 Hep Bs Ag-Weems Negative 05/10/2017 Negative - Culture Urine 05/10/2017 Sincerely, JOSE LUIS SHIN [address] [place] [address], [place] [phone] Electronic Signature Electronically Signed By: JOSE LUIS SHIN CNP, RN On: May 14, 2017 This document has images extracted. Source: [facility] POWERCHART Document Id: [id number] [employer] Miscellaneous - Afsaneh Machado R.N., WHNP-BC - 05/11/2017 5:03 PM CDT Normal Results Letter May 11, 2017 CHIQUI RAM [address] [id number] Dear CHIQUI RAM, I am pleased to report that the following results are normal in . If you have questions or concerns, please do not hesitate to call our office. Result Name Current Result Normal Range ABO/Rh A POS 05/10/2017 ABSC Gel Negative ABSC 05/10/2017 Hgb (g/dL) 12.5 05/10/2017 11.6 - 15.0 Hct (%) 36.8 05/10/2017 35.5 - 44.9 WBC (x10(9)/L) (H) 10.30 05/10/2017 3.44 - 9.56 RBC (x10(12)/L) 4.24 05/10/2017 3.92 - 5.13 MCV (fL) 86.8 05/10/2017 78.2 - 97.9 RDW (%) 14.6 05/10/2017 12.2 - 16.1 Platelet (x10(9)/L) 235 05/10/2017 157 - 371 UA Color Yellow 05/10/2017 Colorless - UA Clarity Clear 05/10/2017 Clear - UA Spec Grav 1.007 05/10/2017 200UA pH 5.0 05/10/2017 <5.0 - UA Protein (mg/dL) Negative 05/10/2017 Negative - UA Glucose (mg/dL) Negative 05/10/2017 Negative - UA Ketones (mg/dL) (*) Trace 05/10/2017 Negative - UA Bili Negative 05/10/2017 Negative - UA Urobilinogen (mg/dL) 0.2 05/10/2017 0.2 - UA Blood Negative 05/10/2017 Negative - UA Nitrite Negative 05/10/2017 Negative - UA Leuk Est Negative 05/10/2017 Negative - UR WBC (/HPF) Occ-3 05/10/2017 None Seen - UR RBC (/HPF) Occ-2 05/10/2017 None Seen - UR Squamous Epi Cells (/HPF) (*) Occ-3 05/10/2017 None Seen - UR Mucous (*) Present 05/10/2017 None Seen - Sincerely, AFSANEH MACHADO [address] [place] [address] [place] [address] Electronic Signature Electronically Signed By: AFSANEH MACHADO R.N., WHNP-BC On: May 11, 2017 This document has images extracted. Source: [facility] POWERCHART Document Id: [id number] [employer] Miscellaneous - Afsaneh Machado R.N., WHNP-BC - 05/10/2017 4:50 PM CDT Ambulatory Discharge Medication List [place] [facility] [address] [facility], [address] [place], [place] [id number] Visit Information Name: CHIQUI RAM [facility] Number: [id number] Current Date: 05/10/2017 16:50:35 Attending Provider: AFASNEH MACHADO R.N. DAVE Primary Care Provider: PCP, ELSEWHERE CHIQUI RAM [...] four times a day buPROPion (Wellbutrin XL) 300 mg, Oral, every 24 hours metoprolol (metoprolol tartrate 25 mg oral tablet) 1 Tablet(s), Oral, two times a day multivitamin, ( 19) Stop Taking the Following Medications: Medication list as of 05-10-17 16:50 Attention: If you have any medications at home that are not on this list, DO NOT take them until youcontact your provider for clarification. Give a copy of your medication list to your primary care provider. Update your medication list any time medications or doses are changed and carry your medication list at all times in case of emergency. Electronically Signed By: AFSANEH MACHADO R.N., WHNP-BC Signed On:10-MAY-2017 16:50:30 Additional Information: Source: [facility] POWERCHART Document Id: [id number] Miscellaneous - Afsaneh Machado R.N., WHNP-BC - 05/10/2017 4:50 PM CDT Ambulatory Patient Summary [address], [address] [place], [place] [id number] Visit Information Name: CHIQUI RAM [facility] Number: [id number] Current Date: 05/10/2017 16:50:35 Physicians Attending Provider: AFSANEH MACHADO R.N. DAVE Primary Care Provider: PCP, ELSEWHERE CHIQUI RAM [...] four times a day buPROPion (Wellbutrin XL) 300 mg, Oral, every 24 hours metoprolol (metoprolol tartrate 25 mg oral tablet) 1 Tablet(s), Oral, two times a day multivitamin, ( 19) Stop Taking the Following Medications: Medication list as of 05-10-17 16:50 Attention: If you have any medications at home that are not on this list, DO NOT take them until youcontact your provider for clarification. Give a copy of your medication list to your primary care provider. Update your medication list any time medications or doses are changed and carry your medication list at all times in case of emergency. Electronically Signed By: AFSANEH MACHADO R.N., WHNP-BC Signed On:10-MAY-2017 16:50:30 Your Allergies & Intolerances Substance Reaction Symptoms Category Comments No Known Allergies Drug Your Problem List Problem Status Onset Comments Active 03/08/2017 Your Upcoming Appointments Date Time Location Provider [...] if you dont have one. Go to [email or web address] and click on Create Your Account. Then, follow the directions to complete the online form. Youll be asked for your [facility] number which you can find at the top of this document. Your Goals/Additional instructions: Source: [facility] POWERCHART Document Id: [id number] Miscellaneous - Kayla Carpenter L.P.N. - 05/10/2017 2:20 PM CDT Obstructive Sleep Apnea Obstructive Sleep Apnea Entered On: 05/10/2017 14:22 CDT Performed On: 05/10/2017 14:20 CDT by KAYLA CARPENTER LPN LAVERNE Screening Known Obstructive Sleep Apnea : No - NOT diagnosed with LAVERNE LAVERNE Score : No qualifying data available. LAVERNE Results : No qualifying data available. KAYLA CARPENTER LPN - 05/10/2017 14:20 CDT LAVERNE Assessment Do you have high blood pressure or have you been told to take medication for high blood pressure? : No Frequency of Snoring : Always (every night) Frequency of Gasping, Choking, Snorting : Never Total Number of Historical Features : 1 Neck Circumference - LAVERNE 1 : 32/33 Total Sleep Apnea Clinical Score 1 Calc : 1 KAYLA CARPENTER LPN - 05/10/2017 14:20 CDT Source: [employer] Document Id: [id number] CDT!12 Miscellaneous - Kayla Carpenter L.PGermaineNGermaine - 05/10/2017 2:20 PM CDT PHQ-9 PHQ-9 Entered On: 05/10/2017 14:24 CDT Performed On: 05/10/2017 14:20 CDT by KAYLA CARPENTER LPN PHQ-9 Little interest or pleasure in doing things : Nearly every day Feeling down, depressed, or hopeless : More than half the days Trouble falling or staying asleep, or sleeping too much : Several days Feeling tired or having little energy : Nearly every day Poor appetite or overeating : Nearly every day Feeling bad about yourself or that you are a failure : Not at all Trouble concentrating on things : Not at all Moving or speaking slowly; restless or fidgety : Not at all Thoughts that you would be better off /hurting self : Not at all PHQ-9 Calculated Score : 12 Problems make work, home, or dealing with others : Somewhat difficult KAYLA CARPENTER LPN - 05/10/2017 14:20 CDT Source: [employer] Document Id: [id number] CDT!13 documented in this encounter Plan of Treatment Not on filedocumented as of this encounter Procedures Procedure Name Priority Date/Time Associated Comments Diagnosis N GONOR AMP SRC Routine 05/11/2017 8:40 AM Result s for this CDT procedure are i n the results section. N GONOR AMP DNA Routine 05/11/2017 8:40 AM Result s for this CDT procedure are i n the results section. C TRACH AMP SRC Routine 05/11/2017 8:40 AM Result s for this CDT procedure are i n the results section. C TRACH AMP RNA Routine 05/11/2017 8:40 AM Result s for this CDT procedure are i n the results section. ABSC GEL Routine 05/10/2017 4:15 PM Results f or this CDT procedure are i n the results section. ABO/RH RETYPE Routine 05/10/2017 4:15 PM Results for this CDT procedure are i n the results section. SYPHILIS TOTAL AB W/ Routine 05/10/2017 4:15 PM R esults for this REFLEX S CDT procedure are i n the results section. HIV-1/-2 AG AND AB Routine 05/10/2017 4:15 PM Res ults for this SCREEN CDT procedure are i n the results section. ABORH, RBC Routine 05/10/2017 4:15 PM Results f or this CDT procedure are i n the results section. RUBELLA ANTIBODIES, Routine 05/10/2017 4:15 PM Re sults for this IGG CDT procedure are i n the results section. HEPATITIS B SURFACE Routine 05/10/2017 4:15 PM Re sults for this ANTIGEN CDT procedure are i n the results section. URINALYSIS WITH Routine 05/10/2017 4:15 PM Result s for this MICROSCOPIC CDT procedure are i n the results section. CBC WITHOUT Routine 05/10/2017 4:15 PM Results f or this DIFFERENTIAL, B CDT procedure ar e in the results section. BACTERIAL CULTURE, Routine 05/10/2017 4:15 PM Res ults for this AEROBIC, URINE CDT procedure are in the results section. HX LABORATORY - Routine 05/10/2017 12:00 Results for this SCANNED AM CDT procedure are i n the results section. SURGICAL PATHOLOGY Routine 05/10/2017 12:00 Resul ts for this AM CDT procedure are i n the results section. SURGICAL PATHOLOGY Routine 05/10/2017 12:00 Resul ts for this AM CDT procedure are i n the results section. documented in this encounter Results HX-N gonor Amp DNA (05/11/2017 8:40 AM CDT) P athologist Signature HXN gonor Amp Negative POWERCHART DNA-Weems Specimen (Source) Anatomical Collection Method Collection Time Re ceived Time Location / / Volume Laterality 05/11/2017 8:40 AM CDT Narrative POWERCHART - 05/12/2017 9:55 PM CDT ADDITIONAL INFORMATION This report is intended for use in clini leroy monitoring and management of patients. It is not in tended for use in medical-legal applications. Test Performed by: [address] [address] Afsaneh Machado APRN, C.N.P. LAB HISTORICAL ORDERS Performing Organization Address City/[facility] Code Phon e Number POWERCHART POWERCHART NA HX-N gonor Amp Src (05/11/2017 8:40 AM CDT) athologist Signature HXN gonor Amp vagina POWERCHART Src-Weems Specimen (Source) Anatomical Collection Method Collection Time Re ceived Time Location / / Volume Laterality 05/11/2017 8:40 AM CDT Afsaneh Machado APRN, C.N.P. LAB HISTORICAL ORDERS Performing Organization Address City/[facility] Code Phon e Number POWERCHART POWERCHART NA HX-C trach Amp RNA (05/11/2017 8:40 AM CDT) [facility] gist Method Time Signature Chlamydia Negative POWERCHART trachomatis amplified RNA Specimen (Source) Anatomical Collection Method Collection Time Re ceived Time Location / / Volume Laterality 05/11/2017 8:40 AM CDT Narrative POWERCHART - 05/12/2017 9:55 PM CDT ADDITIONAL INFORMATION This report is intended for use in clini leroy monitoring and management of patients. It is not in tended for use in medical-legal applications. Afsaneh Machado APRN, C.N.P. LAB HISTORICAL ORDERS Performing Organization Address City/State/ZIP Code Phon e Number POWERCHART POWERCHART NA HX-C trach Amp Src (05/11/2017 8:40 AM CDT) athologist Signature HXC trach Amp vagina POWERCHART Src-Weems Specimen (Source) Anatomical Collection Method Collection Time Re ceived Time Location / / Volume Laterality 05/11/2017 8:40 AM CDT Afsaneh Machado APRN, C.N.P. LAB HISTORICAL ORDERS Performing Organization Address City/State/ZIP Code Phon e Number POWERCHART POWERCHART NA Syphilis IgG Antibody with Reflex (05/10/2017 4:15 PM CDT) athologist Signature Syphilis IgG Negative Negative POWERCHART Ab, S Comment: No serologic evidence of exposure to syp hilis. Test Performed by: [facility] [employer] [facility] [place] [address] Specimen (Source) Anatomical Collection Method Collection Time Re ceived Time Location / / Volume Laterality Blood 05/10/2017 4:15 PM CDT Afsaneh Machado APRN, C.N.P. LAB BLOOD ADD-ON Performing Organization Address City/[facility]/ZIP Code Phon e Number POWERCHART POWERCHART NA Rubella Antibodies, IgG (05/10/2017 4:15 PM CDT) athologist Signature HX Rubella Negative POWERCHART IgG-[place] Comment: REFERENCE VALUE------ Vaccinated: Positive (>=1.0 AI) Unvaccinated: Negative (<=0.7 AI) Rubella IgG Antibody Index 0.3 POW ERCHART Comment: Test Performed by: [facility] [address] [address] Specimen (Source) Anatomical Collection Method Collection Time Re ceived Time Location / / Volume Laterality Blood 05/10/2017 4:15 PM CDT Afsaneh L Machado ARMATURE AND ROTOR WINDER, C.N.P. LAB MICROBIOLOGY - BLOOD ORD ERABLES Performing Organization Address [facility] Phon e Number POWERCHART POWERCHART NA HIV-1/-2 Ag and Ab Screen (05/10/2017 4:15 PM CDT) P athologist Signature HIV-1/-2 Negative Negative POWERCHART Antibody Comment: Negative result does not rule out HIV in fection. If acute HIV infection is suspected in a hi gh-risk individual, submit plasma specimen for H IV-1 RNA quantification test (HIVDQ) and/or HIV-2 DNA/RNA test (FHV2Q). Test Performed by: [facility] [address] [address] Specimen (Source) Anatomical Collection Method Collection Time Re ceived Time Location / / Volume Laterality Blood 05/10/2017 4:15 PM CDT Afsaneh Machado APRN, C.N.P. LAB MICROBIOLOGY - BLOOD ORD ERABLES Performing Organization Address [facility] Phon e Number POWERCHART POWERCHART NA Hepatitis B Surface Antigen (05/10/2017 4:15 PM CDT) athologist Signature HBs Antigen, S Negative Negative POWERCHART Comment: Test Performed by: [facility] [address] [address] Specimen (Source) Anatomical Collection Method Collection Time Re ceived Time Location / / Volume Laterality Blood 05/10/2017 4:15 PM CDT Afsaneh Machado APRN, C.N.P. LAB MICROBIOLOGY - BLOOD ORD ERABLES Performing Organization Address [facility] Phon e Number POWERCHART POWERCHART NA Bacterial Culture, Aerobic, Urine (05/10/2017 4:15 PM CDT) Patholo gist Method Time Signature Bacterial POWERCHART Culture, Aerobic, Urine HXFinal See Scanned POWERCHART Report Specimen (Source) Anatomical Collection Method Collection Time Re ceived Time Location / / Volume Laterality Urine, First 05/10/2017 4:15 PM Voided CDT Afsaneh Machado APRN, C.N.P. LAB MICROBIOLOGY - GENERAL O RDERABLES Performing Organization Address [facility] Phon e Number POWERCHART POWERCHART NA ABO/RH RETYPE (05/10/2017 4:15 PM CDT) P athologist Signature HX ABO/Rh A POS [facility] Retype [facility] Comment: 05/11/2017 17:43 [id number] A [place] draw for an ABO/Rh retype is not required for this patient's clinical situation/co ndition. ABO/Rh retype was performed by retesting the same sample or by testing a second current sample. Specimen (Source) Anatomical Collection Method Collection Time Re ceived Time Location / / Volume Laterality 05/10/2017 4:15 PM CDT Afsaneh Machado APRN, C.N.P. LAB BLOOD BANK TEST ORDERABL ES Performing Organization Address City/[facility]/ZIP Code Phon e Number [facility] NA ABSC GEL (05/10/2017 4:15 PM CDT) [facility] gist Method Time Signature HX ABSC Gel Negative ABSC [facility] Specimen (Source) Anatomical Collection Method Collection Time Re ceived Time Location / / Volume Laterality 05/10/2017 4:15 PM CDT Afsaneh Machado APRN, C.N.P. LAB HISTORICAL ORDERS Performing Organization Address City/[facility]/ZIP Code Phon e Number [facility] NA ABO/Rh Confirmation (05/10/2017 4:15 PM CDT) P athologist Signature ABORh Interp A POS [facility] Specimen (Source) Anatomical Collection Method Collection Time Re ceived Time Location / / Volume Laterality 05/10/2017 4:15 PM CDT Afsaneh Machado APRN, C.N.P. LAB BLOOD BANK TEST ORDERABL ES Performing Organization Address City/[facility]/ZIP Code Phon e Number [facility] NA (ABNORMAL) CBC without Differential (05/10/2017 4:15 PM CDT) [facility] gist Method Time Signature Leukocytes 10.30 (H) 3.44 - POWERCHART 9.56 X109L Erythrocytes 4.24 3.92 - POWERCHART 5.13 [id number] Hemoglobin 12.5 11.6 - POWERCHART 15.0 GDL Hematocrit 36.8 35.5 - POWERCHART 44.9 MCV 86.8 78.2 - POWERCHART 97.9 FL HX RDW 14.6 12.2 - POWERCHART 16.1 Platelet Count 235 157 - 371 POWERCHART X109L Specimen (Source) Anatomical Collection Method Collection Time Re ceived Time Location / / Volume Laterality Blood 05/10/2017 4:15 PM CDT Afsaneh Machado APRN, C.N.P. LAB BLOOD ADD-ON Performing Organization Address City/State/ZIP Code Phon e Number POWERCHART POWERCHART NA (ABNORMAL) Urinalysis, Complete, Includes Microscopic (05/10/2017 4:15 PM CDT) [facility] Method Time Signature HXUr Color Yellow Colorless POWERCHART Clarity Clear Clear POWERCHART Glucose Negative Negative MGDL POWERCHART Protein, Ur, Dip Negative Negative MGDL POWERCHAR T HXBILIRUBIN Negative Negative POWERCHART Urobilinogen 0.2 0.2 MGDL POWERCHART Comment: Reference Range Urobilinogen: 0.2-1.0 mg/dL pH, POCT, Urine 5.0 <5.0 POWERCHART Comment: UA pH Reference Range pH: 5.0-8.0 HXBLOOD Negative Negative POWERCHART Ketones, QL(U) Trace (A) Negative MGDL POWERCHART HXNITRITE Negative Negative POWERCHART Leukocyte Esterase Negative Negative POWERCHART Specific [place], POCT, U 1.007 ROSMERY RCHART Comment: Reference Range Specific [place]: 1.000-1.035 HXUR WBC. Occ-3 None Seen HPF POWERCHART HXUR RBC. Occ-2 None Seen HPF POWERCHART Squamous Epithelial Occ-3 (A) None Seen HPF POWERC ROSS Mucus Present (A) None Seen POWERCHART Specimen (Source) Anatomical Collection Method Collection Time Re ceived Time Location / / Volume Laterality Urine, First 05/10/2017 4:15 PM Voided CDT Afsaneh Machado APRN, C.N.P. LAB URINE ORDERABLES Performing Organization Address City/State/ZIP Code Phon e Number POWERCHART POWERCHART NA Surgical Pathology (05/10/2017 12:00 AM CDT) Specimen (Source) Anatomical Location Collection Method / Collectio n Time Received Time / Laterality Volume 05/10/2017 Narrative [facility] - 05/17/2017 4:03 PM ENGINEERING FACULTY PATIENT IMAGES Choose the Image button to view related documents. Historical Provider LAB SURG PATH ORDERABLES Performing Organization Address City/State/ZIP Code Phon e Number [facility] Surgical Pathology (05/10/2017 12:00 AM CDT) Specimen (Source) Anatomical Location Collection Method / Collectio n Time Received Time / Laterality Volume 05/10/2017 Narrative [facility] - 05/16/2017 4:08 PM ENGINEERING FACULTY PATIENT IMAGES Choose the Image button to view related documents. Historical Provider LAB SURG PATH ORDERABLES Performing Organization Address City/State/ZIP Code Phon e Number [facility] HX LABORATORY - SCANNED (05/10/2017 12:00 AM CDT) [facility] gist Method Time Signature Hx [facility] nned Hx PATIENT [facility] IMAGES nned Hx Choose the [facility] Image button nned to view Hx related [facility] documents. nned Hx [facility] nned Specimen (Source) Anatomical Location Collection Method / Collectio n Time Received Time / Laterality Volume 05/10/2017 Historical Provider LAB HISTORICAL ORDERS Performing Organization Address City/State/ZIP Code Phon e Number [facility] documented in this encounter Visit Diagnoses Not on filedocumented in this encounter Additional Health Concerns Assessment Noted Time PHQ-9 Depression Total Score: 12 05/10/2017 2:20 PM CD T documented as of this encounter
--- OUTSIDE RECORDS SUMMARY | 2022-05-11 14:20 | XMS_ITS | Encounter Summary ---
:1995 Author Organization [facility] Address [address] [place] [address] Care Team Providers Name Role Phone Unavailable Primary Care Provider Unavailable Encounter Details Date Type Department Care Team Description 01/29/2017 Hospital Encounter HX [facility] Steve Caceres M.D., Ph.D. [address] [place] [phone] (Wo rk) Social History Tobacco Use [...] 12/31/2018 relatives? How often do you attend anabaptism or evangelical Never 12/31/2018 services? Do you belong to any clubs or organizations such as No 12/31/2018 anabaptism groups, unions, fraternal or athletic groups, or [...] a day. documented as of this encounter Plan of Treatment Not on filedocumented as of this encounter Visit Diagnoses Not on filedocumented in this encounter
--- OUTSIDE RECORDS SUMMARY | 2022-05-11 14:20 | XMS_ITS | Encounter Summary ---
:1995 Author Organization [facility] Address [address] [place] [address] Care Team Providers Name Role Phone Unavailable Primary Care Provider Unavailable Encounter Details Date Type Department Care Team Description 12/08/2015 Hospital Encounter HX [facility] Bonifacio Pitts M.D. [address] [place] [address], [address] [place] [address] (Wo rk) Social History Tobacco [...] 12/31/2018 relatives? How often do you attend evangelical or alevism Never 12/31/2018 services? Do you belong to any clubs or organizations such as No 12/31/2018 evangelical groups, unions, fraternal or athletic groups, or [...] Sign Reading Time Taken Comments Blood Pressure 104/58 12/08/2015 11:06 AM CDT Pulse - - Temperature - - Respiratory Rate - - Oxygen Saturation - - Inhaled Oxygen Concentration - - Weight 62.2 kg (137 lb 2 oz) 12/08/2015 11:06 AM CDT Height - - Body Mass Index - - documented in this encounter Medications at Time of Discharge Medication Sig Dispensed Refills Start Date End Date albuterol (VENTOLIN HFA) Inhale 2 puffs 4 0 11/2307/01/2019 90 mcg/actuation inhaler (four) times a day. documented as of this encounter Progress Notes Johana Pitts M.D. - 12/08/2015 10:55 AM CDT [id number] WORKER'S COMPENSATION VISIT CHIEF COMPLAINT/REASON FOR VISIT Follow up low back pain. HISTORY OF PRESENT ILLNESS Ms. Ram returns today in followup. She had an MRI performed of her lumbar spine on November 29. I reviewed the images with her in detail. Significant findings include at L4-L5 there is a central to left paracentral annular fissure. There is mild bilateral facet hypertrophy at L4-L5. At L5-S1 there beth 2 mm central disk protrusion without central canal traversing nerve root compression. There is mild bilateral facet hypertrophy at L5-S1. There is generalized external curvature with 1 to 2 mm of retrolisthesis of L4 on L5. Ms. Simentals symptoms have not changed since I saw her just previous to the MRI. PHYSICAL EXAMINATION None performed today. IMPRESSION/REPORT/PLAN 1. Low back pain following an injury at work in June 2015. Ms. Simentals MRI does show evidence of a 2 mm disk protrusion at L5-S1 and a left annular fissure at L4-L5. As I have mentioned in my notes previously, I do feel that her symptoms are multifactorial including a potentially discogenic etiology for her pain as well as a significant component of myofascial pain. PLAN: 1. I am going to have Ms. Ram involved in physical therapy working [facility] with the [facility]. I discussed this program in detail with her. Ms. Ram is motivated to be involved in this program. 2. We did discuss the possibility of an L5-S1 interlaminar epidural corticosteroid injection, but weare going to defer that at the current time and see how Ms. Ram initially progresses working in the [facility] program. 3. I am going to keep her on her current work restrictions of no lifting or carrying greater than 10pounds and will limit her bending and twisting. 4. I will plan on seeing Ms. Ram in approximately 5 weeks to assess her progress working in the [facility] program, or sooner if she notes any worsening or worrisome symptoms which we went over in detailtoday. Ms. Ram voiced agreement and understanding with this plan. Johana Pitts M.D./merrill Electronically Signed By: JOHANA PITTS MD On: 12/09/2015 07:56 AM Modified by and Electronically Signed by: JOHANA PITTS MD On: 12/09/2015 07:56 AM Source: [facility] MHSDOLBEYNONRADSYS Document Id: [id number] documented in this encounter Nursing Notes Mayra Amaya L.P.N. - 12/08/2015 4:35 PM CDT Work Comp Approval Approval received from Josefa Enriquez [phone] for [facility]. Patient notified. Electronically Signed By: MAYRA AMAYA LPN On: 12/08/2015 04:37 PM Source: [facility] POWERCHART Document Id: [id number] documented in this encounter Miscellaneous Notes Telephone Encounter - Conversion, Historical Provider Ser - 12/29/2015 3:22 PM CDT *Phone Message/Pitts Document Contains Addenda Addendum by MAYRA AMAYA LPN on January 17, 2016 09:01:57 CDT Approved and order faxed. From: JOSE ELIAS LOUIS ( [facility] [address]) To: Physical Medicine and Rehabilitation Staff; Sent: 12/29/2015 15:22:25 CDT Subject: *Phone Message/Pitts Caller is: ( x ) Patient ( ) Mother ( ) Father ( ) Spouse ( ) Daughter ( ) Son ( ) Pharmacy ( ) Other: Physician: Patient MRN #: Reason for Call: Chiqui is wondering if you have received approval from work comp for her to have her injection. She can be reached at [phone]. Patient is aware that Dr. Pitts is out until 01-03-16. Message: Advice/Action: Source used: ( ) Verbalizes [...] back cell phone number ( ) [facility] Document Id: [id number] Telephone Encounter - Conversion, Historical Provider Ser - 12/23/2015 9:05 AM CDT *Phone Message/Dr. Pitts Document Contains Addenda Addendum by SRINI KOEHLER on December 27, 2015 14:33:26 CDT patient is returning a call Addendum by JOHANA PITTS MD on December 27, 2015 11:44:08 CDT From: JOHANA PITTS MD To: [facility] Medicine [facility] Rehabilitation Staff; Sent: 12/27/2015 11:44:08 CDT Subject: RE: *Phone Message/Dr. Pitts Please arrange for a L5-S1 interlaminar epidural. Thanks. Addendum by MAYRA AMAYA LPN on December 23, 2015 11:24:32 CDT From: MAYRA AMAYA LPN ( [facility]) To: JOHANA PITTS MD; Sent: 12/23/2015 11:24:32 CDT Subject: FW: *Phone Message/Dr. Pitts From: ROLAND MARTINEZ ( [employer]) To: [facility] Medicine [facility] Rehabilitation Staff; Sent: 12/23/2015 09:05:09 CDT Subject: *Phone Message/Dr. Pitts Caller is: ( x) Patient ( ) Mother ( ) Father ( ) Spouse ( ) Daughter ( ) Son ( ) Pharmacy ( ) Other: Physician: Dr. Pitts Patient MRN #: Reason for Call: Message: Patient states that they discussed having a shot in her back prior to therapy or afterwards. She is a week into therapy now and her back is really hurting. She would like to have the shot sooner. Please call her back at [phone] to advise. Advice/Action: Source used: ( ) Verbalizes understanding [...] back cell phone number ( ) Source: [facility] CoreXchangeCHART Document Id: [id number] Miscellaneous - Johana Pitts M.D. - 12/08/2015 11:45 AM CDT Ambulatory Patient Summary [address] [id number] Visit Information Name: CHIQUI RAM [facility] Number: [id number] Current Date: 12/08/2015 11:45:41 Physicians Attending Provider: JOHANA PITTS MD Primary [...] the Following Medications: Medication list as of 12-08-15 11:45 Attention: If you have any medications at [...] Electronically Signed By: JOHANA PITTS MD Signed On:08-DEC-2015 11:45:28 Your Allergies & Intolerances Substance Reaction Symptoms [...] if you dont have one. Go to [email or web address] and click on Create Your Account. Then, follow the directions to complete the online form. Youll be asked for your [facility] number which you can find at the top of this document. Your Goals/Additional instructions: Source: [facility] POWERCHART Document Id: [id number] Miscellaneous - Johana Pitts M.D. - 12/08/2015 11:45 AM CDT Ambulatory Discharge Medication List [address] [id number] Visit Information Name: CHIQUI RAM [facility] Number: [id number] Visit Date: 12/08/2015 11:45:40 Attending Provider: JOHANA PITTS MD Primary Care [...] the Following Medications: Medication list as of 12-08-15 11:45 Attention: If you have any medications at [...] Electronically Signed By: JOHANA PITTS MD Signed On:08-DEC-2015 11:45:28 Additional Information: Source: [facility] POWERCHART Document Id: [id number] Miscellaneous - Johana Pitts M.D. - 12/08/2015 11:39 AM CDT Return to Work Status Return to Work Status Entered On: 12/08/2015 11:40 CDT Performed On: 12/08/2015 11:39 CDT by JOHANA PITTS MD Return to Work Status Employer : [employer] Work Injury : Yes Work Status : Other: No lifting or carrying greater than 10 pounds. No repetitive bending or twisting. Restricted Work Start Date : 12/08/2015 CDT Restricted Work Stop Date : 02/06/2016 CDT JOHANA PITTS MD - 12/08/2015 11:39 CDT Work Restrictions Grid Reaching Below Knees : Rarely Squatting : Rarely Twisting/Turning : Rarely JOHANA PITTS MD - 12/08/2015 11:39 CDT Follow Up Appointment Needed : Yes Follow Up Physician Name : JOHANA Syed MD - 12/08/2015 11:39 CDT Source: [facility] POWERCHART Document Id: [id number] CDT!13 Miscellaneous - Diane Logan L.P.N. 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 : No DIANE LOGAN LPN - 12/08/2015 11:06 CDT Subjective Pain Symptoms : No DIANE LOGAN LPN - 12/08/2015 11:06 CDT Dependent Habits Smoking Status : Former smoker Tobacco 2A : Yes Tobacco Use/Currently Using : No Tobacco Use/Last 30 Days : No Tobacco Use/Last 12 months : Yes Type : Cigarettes: Less than 20 per day Tobacco Use/Advised to Quit : Yes DIANE LOGAN LPN - 12/08/2015 11:06 CDT Source: [facility] POWERCHART Document Id: [id number] CDT!26 documented in this encounter Plan of Treatment Not on filedocumented as of this encounter Visit Diagnoses Not on filedocumented in this encounter
[2022-05-11 16:23] LABS: Chloride* 103 mmol/L (96-114); Sodium* 139 mmol/L (135-149)
[2022-05-11 16:26] LABS: Carbon Dioxide* 26 mmol/L (20-32); Cholesterol* 189 mg/dL (90-199); Creatinine* 0.9 mg/dL (0.5-1.5); Estimated Glomerular Filt Rate 89 ml/min
[2022-05-11 16:27] LABS: Blood Urea Nitrogen* 14 mg/dL (5-24); Calcium* 9.2 mg/dL (8.4-10.6); Glucose* 73 mg/dL (60-115); HDL Cholesterol* 83 mg/dL (>=50); LDL Cholesterol Calculated 85 mg/dL (<100); Triglycerides* 104 mg/dL (40-149)
[2022-05-11 16:57] LABS: Thyroid Stimulating Hormone* 0.843 uIU/mL (0.270-4.20)
== END 2022-05-11 14:07 | disposition home or self-care (01) ==
PROVIDERS: PCP Family Medicine; Visit Provider Family Medicine
DX: R00.0 Tachycardia, unspecified (principal); Z13.6 Encounter for screening for cardiovascular disorders
CPT/HCPCS: 80048; 80061; 84443

== ENCOUNTER 2023-02-23 13:35 | Outpatient (CLI) | payer BC, SELFPAY | END 2023-02-23 13:36 | disposition home or self-care (01) | PROVIDERS: PCP Family Medicine; Visit Provider Family Medicine | DX: Z00.00 Encounter for general adult medical examination without abnormal findings (principal); Z13.6 Encounter for screening for cardiovascular disorders | CPT/HCPCS: 80048; 80061 ==

== ENCOUNTER 2023-05-15 06:46 | Day surgery (SDC) | payer BC, SELFPAY ==
[2023-05-15] VITALS (13 sets, daily range): BP systolic 114–135; BP diastolic 75–90; PULSE 67–75; RESP 15–18; TEMP 36.6–36.8; O2SAT 98–99; BMI 20.7
[2023-05-15 07:09] LABS: Ur HCG Qualitative* Negative (Negative)
[2023-05-15] MEDS: LACTATED RINGERS 1000 ML 1,000 ML 100 ML IV (07:10)
[2023-05-15] MEDS: SODIUM CHLORIDE 0.9 % (FLUSH) 10 ML SYRINGE IVF (07:10)
--- NOTE | 2023-05-15 08:03 | W.PM.H&PU ---
History & Physical Update History & Physical Update H&P Reviewed and patient assessed: No changes noted H&P Updates: Surgery consultation note to serve as pre op history and physical.
[2023-05-15] MEDS: CEFAZOLIN 2 GM INJ IVP (08:11)
[2023-05-15] MEDS: BUPIVACAINE 0.25% 30 ML INJECTION (08:45)
[2023-05-15] MEDS: ACETAMINOPHEN 325 MG TABLET 650 MG PO (08:56)
--- NOTE | 2023-05-15 08:59 | PM.GSPRC ---
Operative Note Pre-op diagnosis: Umbilical hernia Post-op diagnosis: Same Type of Procedure: Open umbilical hernia with placement of mesh Indications: Patient is a 27-year-old female who presented to clinic with a symptomatic umbilical hernia. Please see consultation note for full discussion and treatment options. Risks and benefits of operative intervention were discussed at length with the patient. Risks included but was not limited to: Bleeding, infection, risk of damage to surrounding structures, possible need for additional procedures, possible need to convert to an open operation and postoperative complications such as pneumonia, pulmonary emboli or MD. All questions and concerns were addressed with the patient agreeing to proceed. Procedure Description: After discussing the risks and benefits of the procedure, the patient signed informed consent.? The operative site was marked and the patient was brought to the operating room and placed on the operating table in supine position.? Care was taken to pad the patient's pressure points.?? The patient was then intubated by anesthesia.?? The operative site was then prepped and draped in the usual sterile fashion.? A time-out was then performed. A curvilinear incision was made at the umbilicus. Dissection was carried down into the subcutaneous tissue using cautery. The hernia sac was encountered and taken off the umbilical stalk. Dissection was taken down to the fascia. Once the hernia sac was dissected out circumferentially, it was reduced. The fascial edges were then cleared circumferentially. The hernia was 2 cm in size and so the decision was made to use a piece of mesh. A preperitoneal pocket was created using a combination of blunt dissection and cautery. Patient with very little preperitoneal fat present, a small tear in the peritoneal lining was present with exposed bowel. An attempt was made to close this with interrupted 3-0 Vicryl. Hemostasis appeared adequate. Once the posterior fascia was clear, a piece of small Ventralex ST hernia mesh was placed in the preperitoneal space with care to ensure that it laid flat. This was secured into place using 2 0 PDS interrupted sutures. The tails were then trimmed and the fascial opening was closed with a running 0 Vicryl. Local anesthetic was injected into the fascia, skin and subcutaneous tissues. The umbilicus was reapproximated to the fascia. The skin was then closed with running absorbable suture. A sterile dressing was then applied. Sterile dressings were then applied. ? The patient was then woken and transported to the recovery area in stable condition. ? The patient tolerated the procedure well. Findings: 2 cm umbilical hernia. Anesthesia: GETA Surgeon: Jovana Connelly MD Estimated blood loss (mL): 2 Condition: stable Disposition: PACU Date of procedure: 05/15/23
--- NOTE | 2023-05-15 09:12 | W.ANESCHARGE ---
Anesthesia Charges Start Date/Time Anesthesia Start Date: 05/15/23 Anesthesia Start Time: 08:02 Stop Date/Time Anesthesia Stop Date: 05/15/23 Anesthesia Stop Time: 09:09
[2023-05-15] MEDS: HYDROmorphone 0.5 mg/0.5 ml inj IVP (09:19)
== END 2023-05-15 10:45 | disposition home or self-care (01) ==
PROVIDERS: Nurse Anesthetist, Certified Registered; PCP Family Medicine; Visit Provider Surgery
PROC: (CPT 49591; principal; 2023-05-15 08:00)
DX: K42.9 Umbilical hernia without obstruction or gangrene (principal)
CPT/HCPCS: 49591; 00830; 81025; A9270; C1781; J0330; J0665; J0690; J1100; J1170; J2250; J2405; J2704; J2710; J3010; J7120

== ENCOUNTER 2023-10-09 12:05 | Outpatient (CLI) | payer BC, SELFPAY | END 2023-10-09 12:06 | disposition home or self-care (01) | LOC: NFLDREF 12:06 | PROVIDERS: PCP Family Medicine; Visit Provider Registered Nurse | DX: N91.2 Amenorrhea, unspecified (principal); Z13.29 Encounter for screening for other suspected endocrine disorder | CPT/HCPCS: 84443 ==

== ENCOUNTER 2024-01-28 13:39 | Outpatient (CLI) | payer BC, SELFPAY ==
--- OUTSIDE RECORDS SUMMARY | 2024-01-28 13:48 | XMS_ITS | Referral Summary ---
Author Organization [facility] Address [address] [place] [address] Care Team Providers Care Client Experience Consultant Name Role Phone Jonny Moralez MD Primary Care Provider [phone] Allergies No known active allergies Medications Medication Sig Dispensed Refills Start Date End Date Status buPROPion (WELLBUTRIN XL) 300 MG 24 hr tablet Take 300 mg by mouth every morning Active ALBUTEROL IN Inhale into the lungs as needed Active WEI 07/28 1-20 MG-MCG tablet 01/19/2021 Active AZAR 3-0.03 MG tablet 03/27/2022 Ac tive Social History Tobacco Use Types Packs/Day Years Used Date Smoking Tobacco: Former Cigarettes 0 07/09/2010 - 07/09/2016 Smokeless Tobacco: Never Adolescent Education Answer Date Record ed Getting School Help Needed Not on file 04/16 Sex and Gender Information Value Date Recorded Sex Assigned at Not on file Gender Identity Not on file Sexual Orientation Not on file Last Filed Vital Signs Vital Sign Reading Time Taken Comments Blood Pressure 105/67 02/25/2021 8:45 AM CDT Pulse 84 02/25/2021 8:45 AM CDT Temperature - - Respiratory Rate - - Oxygen Saturation 95% 02/25/2021 8:45 AM CDT Inhaled Oxygen Concentration - - Weight - - Height - - Body Mass Index - - Plan of Treatment Not on file Medical Devices Explanted Type Area Manager Of Community Relations Device Identifier Shelf Expiration Date Model / Serial / Lot Catheter-02/12/20 21 Implanted:02/11 by Arnol Cesar MD (Quantity not on file) Explanted:02/11 by Arnol Cesar MD (Quantity not on file) Catheter MEDTRONIC [id number] 09/05/2022 / / [id number] Catheter- 021 Implanted:02/25 by Arnol Cesar MD (Quantity not on file) Explanted:02/25 by Arnol Cesar MD (Quantity not on file) Catheter [employer] [id number] 09/05/2022 / / [id number] Care Teams Client Experience Consultant Relationship Specialty Start Date End Date Jonny Moralez MD PCP - General Family Medicine 02/11/21
--- OUTSIDE RECORDS SUMMARY | 2024-01-28 13:48 | XMS_ITS | Encounter Summary ---
Author Organization [facility] Address [address] [place] [address] Care Team Providers Care Vending Machine Servicer Name Role Phone Arnol Cesar MD Unavailable Jonny Moralez MD Primary Care Provider Reason for Visit * Reason Onset Date Comments Clinic Care Coordination - Follow-up 08/02/2022 Encounter Details Date Type Department Care Team (Late st Contact Info) Description 08/02/2022 Telephone [facility] [place] [address] [place] [address] Arnol Cesar MD [address] [place], [place] [id number] Clinic Care Coordination - Follow-up Social History Tobacco Use Types Packs/Day Years Used Date Smoking Tobacco: Former Cigarettes 0 07/09/2010 - 07/09/2016 Smokeless Tobacco: Never Sex and Gender Information Value Date Recorded Sex Assigned at Not on file Gender Identity Not on file Sexual Orientation Not on file documented as of this encounter Miscellaneous Notes * Telephone Encounter - Kadi Lira RN - 08/03/2022 9:28 AM CST Patient reports right lower leg numbness still present, slowly improving. No further questions or concerns at this time. 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 DOS: 02/25/21 Lt GSV VNUS w/ phlebs 6 Month PO: 04/10/22 numbness still present at the right medial malleolus. 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
--- OUTSIDE RECORDS SUMMARY | 2024-01-28 13:48 | XMS_ITS | Encounter Summary ---
Author Organization [place] Address [address] [place] [address] Care Team Providers Care Curriculum Supervisor Name Role Phone Arnol Cesar MD Unavailable [phone] Jonny Moralez MD Primary Care Provider Encounter Details Date Type Department Care Team (Late st Contact Info) Description 04/09/2022 MyC Medical Advice Initial Department Celia Montez Social History Tobacco Use Types Packs/Day Years Used Date Smoking Tobacco: Former Cigarettes 0 07/09/2010 - 07/09/2016 Smokeless Tobacco: Never Sex and Gender Information Value Date Recorded Sex Assigned at Not on file Gender Identity Not on file Sexual Orientation Not on file COVID-19 Exposure Response Date Recorded In the last 10 days, have yo u been in contact with someone who was confirmed or suspected to have Coronavirus/COVID-19? No / Unsure 04/10/2022 3:07 PM CDT documented as of this encounter Plan of Treatment Not on file documented as of this encounter Visit Diagnoses Not on filedocumented in this encounter Care Teams Curriculum Supervisor Relationship Specialty Start Date End Date Jonny Moralez MD [address] [place] [id number] PCP - General Family Medicine 02/11/21 Arnol Cesar MD [address] [place] [address] Assigned Heart and Vascular Provider 11/21/20 10/29/23 documented as of this encounter
--- OUTSIDE RECORDS SUMMARY | 2024-01-28 13:48 | XMS_ITS | Clinical Summary ---
Author Organization [facility] Address [address] [place] [address] Care Team Providers Care Aging Room Hand Name Role Phone Jonny Moralez MD Primary Care Provider Allergies No known active [...] PAP 2014 YEARLY PREVENTIVE VISIT 02/19/2020 02/18/2019, 04/23 COVID-19 Vaccine ( season) 2023 08/27/2020, 07/30/2020 PHQ-2 (once per calendar year) 2023 INFLUENZA VACCINE (Season Ended) 2024 04/09/2018, 04/10/2017 DTAP/TDAP/TD IMMUNIZATION (8 - Td or Tdap) 05/27/2029 05/27/2019, 10/16/2017, 12/20/2005, Additional history exists HEPATITIS B IMMUNIZATION Completed 994, 01/11/1994, 1993 IPV IMMUNIZATION Completed 09/29/1998, , 04/23/1995, Additional history exists MENINGITIS IMMUNIZATION Aged Out 03/01/2005 No l onger eligible based on patient's age to complete this topic HPV IMMUNIZATION Aged Out No longer e ligible based on patient's age to complete this topic Pneumococcal Vaccine: Pediatrics (0 to 5 Years) and At-Risk Patients (6 to 64 Years) Aged Out No longer eligible based on patient's age to complete this topic RSV MONOCLONAL ANTIBODY Aged Out No l onger eligible based on patient's age to complete this topic Medical Devices Explanted Type Area Glass Block Installer Device Identifier Shelf Expiration Date Model / Serial / Lot Catheter-02/12/20 21 Implanted:02/11 by Arnol Cesar MD (Quantity not on file) Explanted:02/11 by Arnol Cesar MD (Quantity not on file) Catheter [employer] [id number] 09/05/2022 / / [id number] Catheter- 021 Implanted:02/25 by Arnol Cesar MD (Quantity not on file) Explanted:02/25 by Arnol Cesar MD (Quantity not on file) Catheter [employer] [id number] 09/05/2022 / / [id number] Care Teams Aging Room Hand Relationship Specialty Start Date End Date Jonny Moralez MD PCP - General Family Medicine 02/11/21
== END 2024-01-28 13:40 | disposition home or self-care (01) ==
PROVIDERS: PCP Family Medicine; Visit Provider Registered Nurse
DX: R10.9 Unspecified abdominal pain (principal)
CPT/HCPCS: 80053; 83690

== ENCOUNTER 2024-01-31 16:55 | Emergency (ER) | payer BC, SELFPAY ==
[2024-01-31 17:07] VITALS: BP 124/83; PULSE 93; RESP 16; TEMP 37.2; O2SAT 100; BMI 19.3
--- OUTSIDE RECORDS SUMMARY | 2024-01-31 17:42 | XMS_ITS | Encounter Summary ---
Author Organization [facility] Address [address] [place] [address] Care Team Providers Care Sintering Plant Supervisor Name Role Phone Arnol Cesar MD Unavailable Jonny Moralez MD Primary Care Provider Encounter [...] on filedocumented in this encounter Care Teams Sintering Plant Supervisor Relationship Specialty Start Date End Date Jonny Moralez MD [address] [place] [id number] PCP - General Family Medicine 02/11/21 Arnol Cesar MD [address] [place] [address] Assigned Heart and Vascular Provider 11/21/20 10/29/23 documented as of this encounter
--- OUTSIDE RECORDS SUMMARY | 2024-01-31 17:42 | XMS_ITS | Encounter Summary ---
Author Organization [facility] Address [address] [place] [address] Care Team Providers Care Inventory Assistant Name Role Phone Arnol Cesar MD Unavailable Jonny Moralez MD Primary Care Provider Reason for Visit * Reason Onset Date Comments Clinic Care Coordination - Follow-up 08/02/2022 Encounter Details Date Type Department Care Team (Late st Contact Info) Description 08/02/2022 Telephone [facility] [place] [address] [place] [address] Arnol Cesar MD [address] [place], [place] [phone] Clinic Care Coordination - Follow-up Social History [...] further questions or concerns at this time. CONTROL ENGINEER * Telephone Encounter - Diane Aguilera - 08/02/2022 3:31 PM CST Vein RN: Please chart on patients Lt leg numbness noted at 6 Month PO with WRO. DOS: 02/25/21 Lt GSV VNUS w/ phlebs 6 Month PO: 04/10/22 numbness still present at the right medial malleolus. CONTROL ENGINEER documented in this encounter Plan of Treatment Not on file documented as of this encounter Visit Diagnoses Not on filedocumented in this encounter Care Teams Inventory Assistant Relationship Specialty Start Date End Date Jonny Moralez MD [address] [place] [address] PCP - General Family Medicine 02/11/21 Arnol Cesar MD [address] [place] [address] Assigned Heart and Vascular Provider 11/21/20 10/29/23 documented as of this encounter
--- OUTSIDE RECORDS SUMMARY | 2024-01-31 17:42 | XMS_ITS | Data Portability ---
Author Organization [place] [facility], [employer] Address [address] [place] [address] Assessment Encounter Date Assessment Date Assessment LastModified by Organization Details LastModified Time 08/29/2022 08/29/2022 Discussed postop findings with the patient. Reviewed x-ray results with the patient. Patient was educated on proper incision care, showering/bath ing, exercises , icing and activity level. Patient will keep the dressing on/clean/dry. We discussed use of cam walker. Sx shoe to be used at night in bed, and the patient was instructed on the proper application and use. Patient was instructed on use of the pump for edema control. Patient will rtc in 1 wk for suture removal or sooner if problems. Not available 08/29/2022 14:22:17 09/05/2022 09/05/2022 Discussed postop findings with the patient. Patient was educated on proper incision care, showering/bath ing, exercises , icing and activity level. We discussed use of cam walker. Sx shoe to be used at night in bed, and the patient was instructed on the proper application and use. Patient was instructed on use of the pump for edema control. Patient will rtc in 2 wk for follow up and xrays [email or web address] Not available 09/08/2022 16:45:23 09/19/2022 09/19/2022 Discussed postop findings with the patient. Patient was educated on proper incision care, showering/bath ing, exercises , icing and activity level. We discussed use of cam walker. Sx shoe to be used at night in bed, and the patient was instructed on the proper application and use. Patient was instructed on use of the pump for edema control. Patient will rtc in 2 wk for follow up and xrays [email or web address] Not available 09/19/2022 19:27:13 10/10/2022 10/10/2022 Discussed postop findings with the patient. Continue to increase activity. Follow one year or PRN. [email or web address] Not available 10/11/2022 22:22:27 Plan of Treatment Reminders Order Date Submit Date Provider Last Modified By Organization Details Last Modified Time Details Appointments None record ed. Lab None record ed. Referral None record ed. Procedures None record ed. Surgeries None record ed. Imaging XR, foot, 3 or more view 2022 023 [facility], [address] [place] [address], [id number], 3 09:51:00 XR, foot, 3 or more view 2022 023 [facility], [address] [place] [address], [id number], 3 15:26:14 XR, foot, 3 or more view 2022 023 [facility], [address] [place] [address], [id number], 3 10:57:21 Medication Orders None record ed. Patient TargetsNo targets recorded. Patient InstructionsNo instructions recorded. Reason for Referral None Reported. Results Created Date Observation Date Name Description Value Unit Range Abnormal Flag LastModifiedBy Organization Detail LastModifiedTime 08/29/19 23 XR, foot, 3 or more view No observ ation record ed. [facility] [address] [place] [address], [id number], 08/29/2022 14:21:41 09/20/19 23 XR, foot, 3 or more view No observ ation record ed. [email or web address] [facility] [address] [place] [address], [id number], 09/19/2022 19:30:24 10/11/19 23 XR, foot, 3 or more view No observ ation record ed. [email or web address] [facility] [address] [place] [address], [id number], 10/11/2022 22:21:49 Result Notes None recorded. Problems Name Status Onset Date Resolution Date Notes Provider Name and Address Organization Details Recorded Time Ingrowing nail Active 12/29/19 Ingrowing nail; Original Code: 5465137617 Original Codesystem: SNOMED CT Classifi cation: Medical Con firmation Status: Confirmed Not Available [facility] 09/12/2022 09:05:44 Acquired hallux valgus Active 12/29/19 Acquired hallux valgus; Original Code: 610319523 O riginal Codesystem: SNOMED CT Classifi cation: Medical Con firmation Status: Confirmed Not Available [facility] 09/12/2022 09:05:44 Notes:Acquired deformity of left foot Original Code: 9528311661 Original Codesystem: SNOMED CT Classification: Medical Confirmation Status: Confirmed Acquired deformity of right foot Original Code: 3335578827 Original Codesystem: SNOMED CT Classification: Medical Confirmation Status: Confirmed Problem Notes None recorded. Procedures Surgical History None recorded. Imaging Results Imaging Date Name Status LastModified by Organiz ation Details LastModified Time 08/29/2022 XR, foot, 3 or more view active [email or web address] [facility] [address] [place] [address], [id number], 08/29/2022 14:21:41 09/19/2022 XR, foot, 3 or more view active [email or web address] [facility] [address] [place] [address], [id number], 09/19/2022 19:30:24 10/10/2022 XR, foot, 3 or more view active [facility] [address] [place] [address], [id number], 10/11/2022 22:21:49 Procedure Notes None recorded. Medical Equipment None Reported. Allergies No known drug allergies Medications Name Sig Start Date Stop Date Status Note LastModified by Organization Details LastModified Time fluoxetine 40 mg capsule active Not Available Not Available Not Available cyclobenzapr ine 10 mg tablet active Not Available Not Available Not Available ibuprofen 800 mg tablet active Not Available Not Available Not Available hydrocodone 5 mg-acetamino phen 325 mg tablet active Not Available Not Available Not Available cephalexin 500 mg capsule active Not Available Not Available Not Available mupirocin 2 % topical ointment MIX 11 WITH CLOBETASOL AND APPLY TO LOWER LEGS 1-2X DAILY FOR UP TO 2 WEEKS AT A TIME active Not Available Not Available No t Available clobetasol 0.05 % topical ointment MIX 11 WITH MUPIROCIN AND APPLY TO LOWER LEGS 1-2X DAILY FOR UP TO 2 WEEKS active Not Available Not Available No t Available fluoxetine 20 mg capsule active Not Available Not Available Not Available bupropion HCl XL 300 mg 24 hr tablet, extended release active Not Available Not Available Not Available duloxetine 30 mg capsule,varinder yed release active Not Available Not Available Not Available duloxetine 60 mg capsule,varinder yed release active Not Available Not Available Not Available Stacey 3 mg-0.03 mg tablet active Not Available Not Available Not Available [place] 0.25 mg-35 mcg tablet active Not Available Not Available N ot Available Flowflex COVID-19 Antigen Home Test kit active Not Available Not Available Not Available Vitals None Recorded Social History None recorded. Functional Status None recorded. Mental Status None recorded. Family History Nothing Reported. Medical History No medical history recorded. Gynecological HistoryNo gynecological history recorded. Obstetrics History GPAL:G 0 P 0 0 0 0 Past Encounters Encounter ID Performer Location Encounter Start Date Encounter Closed Date Diagnosis/Indication Diagnosis SNOMED-CT Code [id number] Marty Bauman DPM [facility] [address] [place] [phone] 05/25/2022 11:45:36 05/25/2022 12:46:20 Bunion [id number] Orthopedic hardware in situ 443772685 Pain in right foot [address] [id number] Marty Bauman DPM [facility] [address] [place] [phone] 06/15/2022 10:33:51 06/15/2022 16:57:24 [id number] [address] [place] [phone] 08/03/2022 10:00:50 08/07/2022 09:29:04 Pain in right foot [id number] 7 Hallux isidro wiliam AND bunion [id number] Marty Bauman DPM [facility] [address] [facility] [place] [address] 08/22/2022 09:11:15 08/25/2022 14:21:31 Pain in right foot [id number] 7 Orthopedic hardware in situ 918687209 Hallux isidro wiliam interphalangeus 103598257 [id number] [facility] [address] [place] [phone] 08/29/2022 13:51:34 09/01/2022 09:51:00 Pain in right foot [id number] Marty Bauman [facility] [address] [place] [phone] 09/05/2022 15:10:03 09/11/2022 09:59:30 Pain in right foot [id number] Marty Bauman [facility] [address] [place] [phone] 09/19/2022 14:43:21 09/20/2022 10:59:01 Pain in right foot [id number] 7 Hallux isidro wiliam AND bunion [id number] [facility] [address] [place] [id number] 10/10/2022 14:17:04 10/12/2022 09:52:39 Pain in right foot [id number] 7 Hallux isidro wiliam AND bunion [id number] Health Concerns Section Related Observation LastModified by Organization Detai ls LastModified Time None Recorded Concern Status LastModified by Organization Details LastModified Time None Recorded Advance Directives Directive None Recorded Payers Encounter Date Sequence Insurance Name Policy Number Policy Cole Covered Member ID Cole Member ID Guarantor Name 08/22/2022 1 [employer] [id number] 2 Chiqui Duke [id number] Chiqui Duke 08/29/2022 1 [employer] [id number] 2 Chiqui Duke [id number] Chiqui Duke 09/05/2022 1 [employer] [id number] 2 Chiqui Duke [id number] Chiqui Duke 09/19/2022 1 [employer] [id number] 2 Chiqui Duke [id number] 84 Chiqui Duke 10/10/2022 1 [employer] [id number] 2 Chiqui Duke [id number] Chiqui Duke Notes Date Note Type Note Provider Name and Address Organization Details Recorded Time 08/29/2022 text/html HPI Notes: Harshil nt 1 wk postop right foot surgery for Bunionectomy /Misael/ Hardware removal and is doing well. Patient denies significant pain. Pain is controlled with PO meds. Patient has been resting, elevating and icing. Patient has ambulated minimally in the surgical shoe/ weight on heel. Patient denies n/v/f/c/calf pain or SOB. Marty Bauman, SHAMAR [address] [place], [address], [facility] 08/29/2022 14:23:13 09/05/2022 text/html HPI Notes: Harshil nt 2 wk postop right foot surgery for Bunionectomy /Misael/ Hardware removal and is doing well. Patient denies significant pain. Pain is controlled with PO meds. Patient has been resting, elevating and icing. Patient has ambulated minimally in the surgical shoe/ weight on heel. Patient denies n/v/f/c/calf pain or SOB. Marty Bauman DPM [address] [place], [address], [facility] 09/09/2022 11:21:43 09/19/2022 text/html HPI Notes: Harshil nt 4 wk postop right foot surgery for Bunionectomy /Misael/ Hardware removal and is doing well. Patient denies significant pain. Patient has ambulated in the cam boot and returned to work one week ago. Patient denies n/v/f/c/calf pain or SOB. Marty Bauman DPM [address] [place], [address], [facility] 09/19/2022 19:30:48 10/10/2022 text/html HPI Notes: Harshil nt 7 wk postop right foot surgery for Bunionectomy /Misael/ Hardware removal and is doing well. Patient denies significant pain. She relates she has resumed work and regular shoes. She had a stitch come out. Patient denies n/v/f/c/calf pain or SOB. Marty Bauman, SHAMAR [address] [place], [address], [facility] 10/11/2022 22:22:44 OBGyn Episode No OBEpisode recorded.
--- OUTSIDE RECORDS SUMMARY | 2024-01-31 17:42 | XMS_ITS | Referral Summary ---
Author Organization [facility] Address [address] [place] [address] Care Team Providers Care Storage Battery Inspector Name Role Phone Jonny Moralez MD Primary Care Provider [phone] Allergies No known active allergies Medications Medication [...] on file Medical Devices Explanted Type Area Coder Device Identifier Shelf Expiration Date Model / Serial / Lot Catheter-02/12/20 21 Implanted:02/11 by Arnol Cesar MD (Quantity not on file) Explanted:02/11 by Arnol Cesar MD (Quantity not on file) Catheter [employer] [id number] 09/05/2022 / / [id number] Catheter- 021 Implanted:02/25 by Arnol Cesar MD (Quantity not on file) Explanted:02/25 by Arnol Cesar MD (Quantity not on file) Catheter [employer] [id number] 09/05/2022 / / [id number] Care Teams Storage Battery Inspector Relationship Specialty Start Date End Date Jonny Moralez MD PCP - General Family Medicine 02/11/21
--- OUTSIDE RECORDS SUMMARY | 2024-01-31 17:42 | XMS_ITS | Clinical Summary ---
Author Organization [facility] Address [address] [place] [address] Care Team Providers Care Chinese Language Professor Name Role Phone Jonny Moralez MD Primary [...] this topic Medical Devices Explanted Type Area Mid Level Net Developer Device Identifier Shelf Expiration Date Model / Serial / Lot Catheter-02/12/20 21 Implanted:02/11 by Arnol Cesar MD (Quantity not on file) Explanted:02/11 by Arnol Cesar MD (Quantity not on file) Catheter [employer] CF7-7-100 09/05/2022 / / [id number] Catheter- 021 Implanted:02/25 by Arnol Cesar MD (Quantity not on file) Explanted:02/25 by Arnol Cesar MD (Quantity not on file) Catheter [employer] [id number] 09/05/2022 / / [id number] Care Teams Chinese Language Professor Relationship Specialty Start Date End Date Jonny Moralez MD PCP - General Family Medicine 02/11/21
[2024-01-31 17:53] LABS: Lactate* 0.8 mmol/L (0.5-1.9)
[2024-01-31 17:57] LABS: Bilirubin Urine Negative (Negative); Blood Urine Negative (Negative); Color Urine Yellow (Yellow); Glucose Urine Negative (Negative); Ketones Urine Trace (Negative); Leukocyte Esterase Urine Negative (Negative); Nitrite Urine Negative (Negative); Protein Urine Negative (Negative); Urobilinogen Urine 0.2 (0.2-1.0); pH Urine 7.5 (5.0-8.5)
[2024-01-31 18:08] LABS: Ur HCG Qualitative* Negative (Negative)
[2024-01-31 18:11] LABS: Albumin* 3.9 g/dL (3.3-5.0)
[2024-01-31 18:12] LABS: Chloride* 104 mmol/L (96-114); Potassium* 3.5 mmol/L (3.6-5.1); Sodium* 136 mmol/L (135-149)
[2024-01-31 18:14] LABS: Basophils Absolute Auto 0.03 K/uL (0.00-0.30); Basophils Percent Auto 0.4 % (0.0-3.0); Creatinine* 0.8 mg/dL (0.5-1.5); Eosinophils Absolute Auto 0.06 K/uL (0.00-0.50); Eosinophils Percent Auto 0.8 % (0.0-7.0); Est. Creatinine Clearance* 96.46; Estimated Glomerular Filt Rate 102 ml/min; Hematocrit 37.4 % (33.0-51.0); Hemoglobin* 12.5 gm/dL (12.0-16.0); Immature Granulocytes Abs Auto 0.03 K/uL (0.00-0.30); Immature Granulocytes Pct Auto 0.4 %; Lymphocytes Absolute Auto 2.96 K/uL (0.90-2.90); Lymphocytes Percent Auto 41.7 % (20-44); Mean Corpuscular HGB Conc 33 gm/dL (32-36); Mean Corpuscular Hemoglobin 30 pg (26-34); Mean Corpuscular Volume 91 fL (80-100); Monocytes Percent Auto 9.9 % (0.0-11.0); Neutrophils Absolute Auto 3.31 K/uL (1.7-7.0); Neutrophils Percent Auto 46.8 % (42.0-72.0); Platelet Count* 247 K/uL (140-440); RDW Coefficient of Variation % 11.6 % (11.5-15.5); Red Blood Count 4.12 m/uL (4.00-5.20); White Blood Count* 7.09 K/uL (4.50-11.00)
[2024-01-31 18:15] LABS: Alanine Aminotransferase* 15 U/L (4-35); Alkaline Phosphatase* 38 U/L (40-150); Anion Gap 3 mEq/L (7-15); Aspartate Amino Transferase* 22 U/L (12-35); Bilirubin Direct* 0.2 mg/dL (0.0-0.5); Bilirubin Total* 0.5 mg/dL (0.1-1.5); Blood Urea Nitrogen* 12 mg/dL (5-24); Carbon Dioxide* 29 mmol/L (20-32); Glucose* 124 mg/dL (60-115); Lipase* 64 U/L (23-300); Total Protein* 6.5 g/dL (6.0-8.3)
--- NOTE | 2024-01-31 18:16 | CRLHL7_ITS ---
For Patients: As a result of the Century Cures Act, medical imaging exams and procedure reports are released immediately into your electronic medical record. You may view this report before your referring provider. If you have questions, please contact your health care provider. INDICATION: Periumbilical pain, recent hernia repair. TECHNIQUE: CT abdomen and pelvis acquired with 64 cc Isovue 370 IV contrast. COMPARISON: June 23, 2015. FINDINGS: Lower chest: Unremarkable. Liver: Unremarkable. Normal in size and attenuation. No suspicious masses. Gallbladder and bile ducts: Unremarkable. No stones or inflammation. No biliary dilatation. Pancreas: Unremarkable. No mass or inflammation. Spleen: Unremarkable. Normal in size. No masses. Adrenal glands: Unremarkable. No nodules. Kidneys: Unremarkable. No suspicious masses, stones, or hydronephrosis. GI tract: Moderate colonic stool burden. No bowel obstruction. No sign of mass or inflammation. Prior appendectomy. Vasculature: Abdominal aorta is normal in caliber. Mesenteric arteries are patent. Lymph nodes: No lymphadenopathy. Peritoneum/Abdominal Wall: Unremarkable. No sign of mass or infiltration. No free air or significant free fluid. Pelvis: Tiny right ovarian cyst.. Bones: Unremarkable for age. IMPRESSION: No acute intra-abdominal/pelvic abnormality. Moderate colonic stool burden. Please note that all CT scans at this facility use dose modulation, iterative reconstruction, and/or weight-based dosing when appropriate to reduce radiation dose to as low as reasonably achievable. Dictated by Hunter Real MD @ 01/31/2024 7:15:31 PM (Electronically Signed)
[2024-01-31 18:23] LABS: C Reactive Protein* < 0.5 mg/dL (0.5-1.0)
[2024-01-31 18:25] LABS: Slide Review Reflex No
[2024-01-31] MEDS: ACETAMINOPHEN 500 MG TABLET 1000 MG PO (18:30)
[2024-01-31 18:35] LABS: Appearance Urine Clear (Clear); RBC Urine 0-2 (0-2); Squamous Epithelial Cell Urine Few (None-Few); WBC Urine 0-2 (0-5)
[2024-01-31 19:07] LABS: Strep A DNA Probe* NOT DETECTED (Not Detectd)
--- NOTE | 2024-01-31 19:23 | ED.GENADULT ---
HPI - General Adult General Chief complaint: Abdominal Pain Stated complaint: stomach pain Time Seen by Provider: 01/31/24 17:14 History of Present Illness HPI narrative: 28-year-old female coming in today complaining of periumbilical abdominal pain that started a few days ago. She denies chills but states that she had a fever this morning. She has not taken any medication as she is currently afebrile. She feels nauseated vomited 1 time 4 days ago and nothing since. Last bowel movement was 4 days ago, this is not unusual for her. She denies any urinary frequency, urgency or dysuria. Nothing makes the pain better, sometimes movement makes it worse. It comes and goes and is not constant. Related Data Home Medications ?Medication ?Instructions ?Recorded ?Confirmed albuterol sulfate 90 mcg/actuation 2 puff inhalation PRN 11/03/22 01/28/24 aerosol inhaler clobetasol 0.05 % topical ointment 1 applic topical PRN 11/03/22 01/28/24 Previous Rx's ?Medication ?Instructions ?Recorded duloxetine 30 mg capsule,delayed 30 mg PO QDAY #90 caps 08/30/23 release (Cymbalta) ondansetron 8 mg disintegrating 8 mg PO TID PRN nausea and 09/19/23 tablet vomiting #20 tabs bupropion HCl 300 mg 24 hr tablet, 300 mg PO QAM #90 tabs 12/18/23 extended release drospirenone 3 mg-ethinyl 1 tab PO DAILY #84 tabs 12/21/23 estradiol 0.03 mg tablet ondansetron 4 mg disintegrating 4 mg PO Q8H PRN nausea and 01/28/24 tablet vomiting #10 tabs Allergies Allergy/AdvReac Type Severity Reaction Status Date / Time No Known Drug Allergies Allergy Verified 01/31/24 17:07 Review of Systems Status of ROS: Reports: 10 or more systems reviewed and unremarkable except as noted in History and below [facility] Medical History Umbilical hernia ?K42.9 - Umbilical hernia without obstruction or gangrene (ICD-10) Panic attack ?F41.0 - Panic disorder [episodic paroxysmal anxiety] (ICD-10) Moderate episode of recurrent major depressive disorder (05/10/16) ?F33.1 - Major depressive disorder, recurrent, moderate (ICD-10) History of chlamydia infection ?Z86.19 - Personal history of other infectious and parasitic diseases (ICD-10) Bilateral bunions ?M21.611 - Bunion of right foot (ICD-10) ?M21.612 - Bunion of left foot (ICD-10) Anxiety ?F41.9 - Anxiety disorder, unspecified (ICD-10) Surgical History History of bunionectomy of right great toe ?Z98.890 - Other specified postprocedural states (ICD-10) Status post vaginal delivery (01/02/18) Status post dilation and curettage (07/26/19) ?Z98.890 - Other specified postprocedural states (ICD-10) History of dilation and curettage ?Z98.890 - Other specified postprocedural states (ICD-10) History of appendectomy ?Z90.49 - Acquired absence of other specified parts of digestive tract (ICD-10) Family History Grandmother Osteoporosis Social History Narrative: Single, 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, 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[employer], 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, tattoos What is your current living situation?: I presently have a place to live Problems where you live: no known problems In the past 12 months, utilities in danger of being shut off: no In the past 12 mos, have been you worried that your food would run out before you had money to buy more?: never true In the past 12 mos, the food you bought just didn't last and you didn't have money to buy more?: never true Smoking Status: Current some day smoker Do you use any of these nicotine containing products: Vaping Products How often do you have a drink containing alcohol: never AUDIT-C Alcohol total score: 0 Non-prescribed substance use: marijuana (any form) Caffeine: Yes How often does anyone, including family, friends and others, physically hurt you: never How often does anyone, including family, friends and others, insult or talk down to you: never How often does anyone, including family, friends and others, threaten you with harm: never How often does anyone, including family, friends and others, scream or curse at you: never Little interest or pleasure in doing things: nearly every day Feeling down, depressed, or hopeless: more than half the days Exam Narrative: Exam Narrative: Well-nourished well-developed patient in no acute distress. Alert and oriented. Answers questions appropriately. Mood and affect are appropriate. Thoughts are goal oriented and rational. No tangential or magical thinking noted. Patient speaks in full sentences without needing to catch her breath. HEENT: Normocephalic atraumatic. Pupils are equally round reactive to light. Extraocular muscles are intact. Conjunctivae are moist without any icterus noted. Moist mucous membranes. Posterior pharynx is normal. Neck is soft without any lymphadenopathy or thyromegaly. No masses are appreciated. Cardiovascular: Heart is regular rate and rhythm S1 and S2 are present without any murmurs. Lungs: Clear to auscultation bilaterally no wheezes rhonchi or rales are appreciated. Patient takes deep breaths without any discomfort. Abdomen: Soft and nondistended, no guarding, no peritoneal signs. Normal bowel sounds. Patient has a heightened pain response to periumbilical palpation that is light. Extremities: Bilateral lower extremities are without edema. Normal DP and PT pulses. Skin: Well perfused without any obvious rashes. Const: Vital Signs, click to edit/add: Vital Signs - 24 hr 01/31/24 17:07 Temperature 99 F Pulse Rate [Pulse Oximeter] 93 Respiratory Rate 16 Blood Pressure [Ri ght Upper Arm] 124/83 Pulse Oximetry 100 Oxygen Delivery Me thod Room Air Course Course ED Course: Blood work is unremarkable. CT was done secondary to patient's recent hernia repair, she was concerned that there is a potential complication with that. CT was only positive for moderate colonic stool burden. Vital Signs Vital signs: Initial Vital Signs Temperature 99 F 01/31/24 17:07 Temperature Source Temporal Artery Scan 01/31/24 17:07 Pulse Rate 93 01/31/24 17:07 Respiratory Rate 16 01/31/24 17:07 Blood Pressure 124/83 01/31/24 17:07 Blood Pressure Mean 96 01/31/24 17:07 Blood Pressure Position Sitting 01/31/24 17:07 Pulse Oximetry 100 01/31/24 17:07 Oxygen Delivery Method Room Air 01/31/24 17:07 Vital Signs Temperature 99 F 01/31/24 17:07 Pulse Rate 93 01/31/24 17:07 Respiratory Rate 16 01/31/24 17:07 Blood Pressure 124/83 01/31/24 17:07 Pulse Oximetry 100 01/31/24 17:07 Oxygen Delivery Method Room Air 01/31/24 17:07 Temperature 99 F 01/31/24 17:07 Pulse Rate 93 01/31/24 17:07 Respiratory Rate 16 01/31/24 17:07 Blood Pressure 124/83 01/31/24 17:07 Pulse Oximetry 100 01/31/24 17:07 Oxygen Delivery Method Room Air 01/31/24 17:07 Medications Administered Medications: Discontinued Medications Generic Name Dose Route Start Last Admin Trade Name Freq PRN Reason Stop Dose Admin Acetaminophen 1,000 mg 01/31/24 18:59 01/31/24 18:30 Acetaminophen 500 Mg Tablet PO 01/31/24 19:00 1,000 mg ONCE ONE Administration Medical Decision Making MDM Narrative Medical decision making narrative: 28-year-old female with constipation. We discussed symptomatic treatment with fluids, exercise and MiraLax. Lab Data Lab results reviewed: Yes I reviewed the patient's lab results Labs: Lab Results 01/31/24 Range/Units 17:40 WBC 7.09 (4.50-11.00) K/uL RBC 4.12 (4.00-5.20) m/uL Hgb 12.5 (12.0-16.0) gm/dL Hct 37.4 (33.0-51.0) % MCV 91 (80-100) fL MCH 30 (26-34) pg MCHC 33 (32-36) gm/dL RDW Coeff of Parth 11.6 (11.5-15.5) % Plt Count 247 (140-440) K/uL Neut % (Auto) 46.8 (42.0-72.0) % Lymph % (Auto) 41.7 (20-44) % Mccracken % (Auto) 9.9 (0.0-11.0) % Eos % (Auto) 0.8 (0.0-7.0) % Baso % (Auto) 0.4 (0.0-3.0) % Neut # (Auto) 3.31 (1.7-7.0) K/uL Lymph # (Auto) 2.96 H (0.90-2.90) K/uL Mccracken # (Auto) 0.70 (0.00-0.90) K/UL Eos # (Auto) 0.06 (0.00-0.50) K/uL Baso # (Auto) 0.03 (0.00-0.30) K/uL Abs Immat Gran (auto) 0.03 (0.00-0.30) K/uL Imm/Tot Granulo (auto) 0.4 % Sodium 136 (135-149) mmol/L Potassium 3.5 L (3.6-5.1) mmol/L Chloride 104 (96-114) mmol/L Carbon Dioxide 29 (20-32) mmol/L Anion Gap 3 L (7-15) mEq/L BUN 12 (5-24) mg/dL Creatinine 0.8 (0.5-1.5) mg/dL Estimated Creat Clear 96.46 Estimated GFR 102 ml/min Glucose 124 H (60-115) mg/dL Lactate 0.8 (0.5-1.9) mmol/L Calcium 9.0 (8.4-10.6) mg/dL Total Bilirubin 0.5 (0.1-1.5) mg/dL Direct Bilirubin 0.2 (0.0-0.5) mg/dL AST 22 (12-35) U/L ALT 15 (4-35) U/L Alkaline Phosphatase 38 L (40-150) U/L C-Reactive Protein < 0.5 L (0.5-1.0) mg/dL Total Protein 6.5 (6.0-8.3) g/dL Albumin 3.9 (3.3-5.0) g/dL Lipase 64 (23-300) U/L Urine Color Yellow (Yellow) Urine Appearance Clear (Clear) Urine pH 7.5 (5.0-8.5) Ur Specific [place]burn 1.020 (1.000-1.030) Urine Protein Negative (Negative) Urine Glucose (UA) Negative (Negative) Urine Ketones Trace A (Negative) Urine Blood Negative (Negative) Urine Nitrite Negative (Negative) Urine Bilirubin Negative (Negative) Urine Urobilinogen 0.2 (0.2-1.0) Ur Leukocyte Esterase Negative (Negative) Urine RBC 0-2 (0-2) Urine WBC 0-2 (0-5) Ur Squamous Epith Cells Few (None-Few) Urine Bacteria None (None) Urine HCG, Qual Negative (Negative) Group A Strep DNA NOT DETECTED (Not Detectd) Imaging Data CT scan - abdomen: Attestation: I have reviewed the pertinent imaging results. Radiologist's impression: INDICATION: Periumbilical pain, recent hernia repair. TECHNIQUE: CT abdomen and pelvis acquired with 64 cc Isovue 370 IV contrast. COMPARISON: June 23, 2015. FINDINGS: Lower chest: Unremarkable. Liver: Unremarkable. Normal in size and attenuation. No suspicious masses. Gallbladder and bile ducts: Unremarkable. No stones or inflammation. No biliary dilatation. Pancreas: Unremarkable. No mass or inflammation. Spleen: Unremarkable. Normal in size. No masses. Adrenal glands: Unremarkable. No nodules. Kidneys: Unremarkable. No suspicious masses, stones, or hydronephrosis. GI tract: Moderate colonic stool burden. No bowel obstruction. No sign of mass or inflammation. Prior appendectomy. Vasculature: Abdominal aorta is normal in caliber. Mesenteric arteries are patent. Lymph nodes: No lymphadenopathy. Peritoneum/Abdominal Wall: Unremarkable. No sign of mass or infiltration. No free air or significant free fluid. Pelvis: Tiny right ovarian cyst.. Bones: Unremarkable for age. IMPRESSION: No acute intra-abdominal/pelvic abnormality. Moderate colonic stool burden. Discharge Plan Discharge Clinical Impression: Constipation Patient Disposition: Home, Self-Care Condition: Stable Additional Instructions: Increase daily fluid intake. Start daily MiraLax 1 scoop per day. Do this at least for 3 weeks. Prescriptions: No Action albuterol sulfate 90 mcg/actuation HFA aerosol inhaler 2 puff inhalation PRN ondansetron 4 mg tablet,disintegrating 4 mg PO Q8H PRN (Reason: nausea and vomiting) Qty: 10 0RF clobetasol 0.05 % ointment 1 applic topical PRN Patient Comments: for legs duloxetine [Cymbalta] 30 mg capsule,delayed release(DR/EC) 30 mg PO QDAY Qty: 90 1RF ondansetron 8 mg tablet,disintegrating 8 mg PO TID PRN (Reason: nausea and vomiting) Qty: 20 0RF bupropion HCl 300 mg tablet extended release 24 hr 300 mg PO QAM Qty: 90 0RF drospirenone-ethinyl estradiol 3-0.03 mg tablet 1 tab PO DAILY Qty: 84 3RF Follow Up/Referrals: Jonny Moralez MD [Primary Care Provider] - Stand Alone Forms: [employer] Info Instructions
== END 2024-01-31 19:52 | disposition home or self-care (01) ==
PROVIDERS: Emergency Provider Family Medicine; PCP Family Medicine
DX: K59.00 Constipation, unspecified (principal)
CPT/HCPCS: 36415; 74177; 80048; 80076; 81001; 81025; 83605; 83690; 85025; 86140; 87086; 87651; 99283; 99284; A9270; Q9967

== ENCOUNTER 2024-02-26 11:30 | Outpatient (CLI) | payer BC, SELFPAY ==
--- OUTSIDE RECORDS SUMMARY | 2024-03-07 08:57 | XMS_ITS | Encounter Summary ---
Author Organization [facility] Address [address] [place] [address] Care Team Providers Care Operations Mgr Name Role Phone Arnol Cesar MD Unavailable [phone] Jonny Moralez MD Primary Care Provider Reason for Visit * Reason Onset Date Comments Clinic Care Coordination - Follow-up 08/02/2022 Encounter Details Date Type Department Care Team (Late st Contact Info) Description 08/02/2022 Telephone [facility] [address] [place] [address] Arnol Cesar MD [address] [place], [place] [id number] Clinic Care Coordination - Follow-up Social History [...] further questions or concerns at this time. GER AGENCY * Telephone Encounter - Diane Aguilera - 08/02/2022 3:31 PM CST Vein RN: Please chart on patients Lt leg numbness noted at 6 Month PO with WRO. DOS: 02/25/21 Lt GSV VNUS w/ phlebs 6 Month PO: 04/10/22 numbness still present at the right medial malleolus. GER AGENCY documented in this encounter Plan of Treatment Not on file documented as of this encounter Visit Diagnoses Not on filedocumented in this encounter Care Teams Operations Mgr Relationship Specialty Start Date End Date Jonny Moralez MD [address] [place] [address] PCP - General Family Medicine 02/11/21 Arnol Cesar MD [address] [place] [address] Assigned Heart and Vascular Provider 11/21/20 10/29/23 documented as of this encounter
--- OUTSIDE RECORDS SUMMARY | 2024-03-07 08:57 | XMS_ITS | Referral Summary ---
Author Organization [facility] Address [address] [place] [address] Care Team Providers Care Direct Sales Representative Name Role Phone Jonny Moralez MD Primary [...] on file Medical Devices Explanted Type Area Dye Tub Tender Device Identifier Shelf Expiration Date Model / Serial / Lot Catheter-02/12/20 21 Implanted:02/11 by Arnol Cesar MD (Quantity not on file) Explanted:02/11 by Arnol Cesar MD (Quantity not on file) Catheter [employer] [id number] 09/05/2022 / / [id number] Catheter- 021 Implanted:02/25 by Arnol Cesar MD (Quantity not on file) Explanted:02/25 by Arnol Cesar MD (Quantity not on file) Catheter [employer] [id number] 09/05/2022 / / [id number] Care Teams Direct Sales Representative Relationship Specialty Start Date End Date Jonny Moralez MD PCP - General Family Medicine 02/11/21
--- OUTSIDE RECORDS SUMMARY | 2024-03-07 08:57 | XMS_ITS | Clinical Summary ---
Author Organization [facility] Address [address] [place] [address] Care Team Providers Care Repair Service Dispatcher Name Role Phone Jonny Moralez MD Primary Care Provider [phone] Allergies No known active allergies Medications Medication [...] (once per calendar year) 2023 INFLUENZA VACCINE (#1) 2024 04/09/2018, 2016 DTAP/TDAP/TD IMMUNIZATION (8 - Td or Tdap) 05/27/2029 05/27/2019, 10/16/2017, 12/20/2005, Additional history exists HEPATITIS B IMMUNIZATION Completed 994, 01/11/1994, 1993 MENINGITIS IMMUNIZATION Aged Out 03/01/2005 No l [...] this topic Medical Devices Explanted Type Area Chairman And Ceo Device Identifier Shelf Expiration Date Model / Serial / Lot Catheter-02/12/20 21 Implanted:02/11 by Arnol Cesar MD (Quantity not on file) Explanted:02/11 by Arnol Cesar MD (Quantity not on file) Catheter [employer] [id number] 09/05/2022 / / [id number] Catheter- 021 Implanted:02/25 by Arnol Cesar MD (Quantity not on file) Explanted:02/25 by Arnol Cesar MD (Quantity not on file) Catheter [employer] [id number] 09/05/2022 / / [id number] Care Teams Repair Service Dispatcher Relationship Specialty Start Date End Date Jonny Moralez MD PCP - General Family Medicine 02/11/21
--- OUTSIDE RECORDS SUMMARY | 2024-03-07 08:57 | XMS_ITS | Data Portability ---
Author Organization [place] [facility], [employer] Address [address] [facility] [place] [address] Assessment Encounter Date Assessment Date Assessment LastModified [...] 2 wk for follow up and xrays [email or web address] Not available 09/08/2022 16:45:23 09/19/2022 09/19/2022 Discussed [...] 2 wk for follow up and xrays [email or web address] Not available 09/19/2022 19:27:13 10/10/2022 10/10/2022 Discussed postop findings with the patient. Continue to increase activity. Follow one year or PRN. Not available 10/11/2022 22:22:27 Plan of Treatment Reminders Order Date Submit Date Provider Last Modified By Organization Details Last Modified Time Details Appointments None record ed. Lab None record ed. Referral None record ed. Procedures None record ed. Surgeries None record ed. Imaging XR, foot, 3 or more view 2022 023 [facility], [address] [place] [address], [id number], 3 09:51:00 XR, foot, 3 or more view 2022 023 [facility] Office, [address] [place] [address], [id number], 3 15:26:14 XR, foot, 3 or more view 2022 023 [facility] Office, [address] [place] [address], [phone], 3 10:57:21 Medication Orders None record ed. Patient TargetsNo targets recorded. Patient InstructionsNo instructions recorded. Reason for Referral None Reported. Results Created Date Observation Date Name Description Value Unit Range Abnormal Flag Note LastModifiedBy Organization Detail LastModifiedTime 08/29/19 23 XR, foot, 3 or more view No observ ation record ed. [email or web address] [facility] [address] [place] [address], [phone], 08/29/2022 14:21:41 09/20/19 23 XR, foot, 3 or more view No observ ation record ed. [facility] [address] [place] [address], [id number], 09/19/2022 19:30:24 10/11/19 23 XR, foot, 3 or more view No observ ation record ed. [email or web address] [facility] [address] [place] [address], [phone], 10/11/2022 22:21:49 Result Notes None recorded. Problems Name Problem SNOMED Code Status Onset Date Resolution Date Notes Provider Name and Address Organization Details Recorded Time Ingrowing nail 403812464 Active 2020 Ingrowing nail; Original Code: 5726631222 Original Codesystem : SNOMED CT Classif ication: Medical Co nfirmation Status: Confirmed Not Available [facility] 3 09:05:44 Acquired hallux valgus 43162652 Active 2020 Acquired hallux valgus; Original Code: 241272716 Original Codesystem : SNOMED CT Classif ication: Medical Co nfirmation Status: Confirmed Not Available [facility] 3 09:05:44 Notes:Acquired deformity of left foot Original Code: 3737897771 Original Codesystem: SNOMED CT Classification: Medical Confirmation Status: Confirmed Acquired deformity of right foot Original Code: 3470575420 Original Codesystem: SNOMED CT Classification: Medical Confirmation Status: Confirmed Problem Notes None recorded. Procedures Surgical History None recorded. Imaging Results Imaging Date Name Status LastModified by Organiz ation Details LastModified Time 08/29/2022 XR, foot, 3 or more view active [email or web address] [facility] [address] [place] [address], [id number], 08/29/2022 14:21:41 09/19/2022 XR, foot, 3 or more view active [facility] [address] [place] [address], [phone], 09/19/2022 19:30:24 10/10/2022 XR, foot, 3 or more view active [email or web address] [facility] [address] [place] [address], [phone], 10/11/2022 22:21:49 Procedure Notes None recorded. Medical [...] active Not Available Not Available Not Available Lajas-Linyah 0.25 mg-35 mcg tablet active Not Available [...] Encounter Closed Date Diagnosis/Indication Diagnosis SNOMED-CT Code Diagnosis ICD10 Code [id number] Marty Bauman DPM [facility] [address] [place] [address] 05/25/2022 11:45:36 05/25/2022 12:46:20 Bunion 995367436 M21.619 Orthopedic hardware in situ 938431299 Z97.8 T84.223A Pain in right foot [address] 25951 90194 M79.671 [id number] Marty Bauman DPM [facility] [address] [place] [address] 4 06/15/2022 10:33:51 06/15/2022 16:57:24 [id number] [facility] [address] [place] [phone] 4 08/03/2022 10:00:50 08/07/2022 09:29:04 Pain in right foot 7625793581 59938 M79.671 Hallux isidro wiliam AND bunion 449667271 M20.11 [id number] Marty Bauman DPM [facility] [address] [place] [address] 08/22/2022 09:11:15 08/25/2022 14:21:31 Pain in right foot 8839222579 87634 M79.671 Orthopedic hardware in situ 680555944 Z97.8 T84.223A Hallux isidro wiliam interphalangeus 965642330 M20.11 [id number] [facility] [address] [place] [address] 08/29/2022 13:51:34 09/01/2022 09:51:00 Pain in right foot 1605055938 97600 M79.671 [id number] [facility] [address] [place] [address] 09/05/2022 15:10:03 09/11/2022 09:59:30 Pain in right foot 7182052594 93383 M79.671 [id number] Marty Bauman [facility] [address] [place] [address] 09/19/2022 14:43:21 09/20/2022 10:59:01 Pain in right foot 7170353940 75765 M79.671 Hallux isidro wiliam AND bunion 528480945 M20.11 [id number] [facility] [address] [place] [address] 10/10/2022 14:17:04 10/12/2022 09:52:39 Pain in right foot 9029599799 50690 M79.671 Hallux isidro wiliam AND bunion 382828410 M20.11 Health Concerns Section Related Observation LastModified by Organization Detai ls LastModified Time None Recorded Concern Status LastModified by Organization Details LastModified Time None Recorded Advance Directives Directive None Recorded Payers Encounter Date Sequence Insurance Name Policy Number Policy Cole Covered Member ID Cole Member ID Guarantor Name 08/22/2022 1 [employer] [id number] 2 Chiqui Olmos Leilani [id number] Chiqui Nickolas Leilani 08/29/2022 1 [employer] [id number] 2 Chiqui Olmos Leilani [id number] Chiqui Nickolas Leilani 09/05/2022 1 [employer] [id number] 2 Chiqui Nickolas Leilani [id number] Chiqui Nickolas Leilani 09/19/2022 1 [employer] [id number] 2 Chiqui Olmos Leilani [id number] Chiqui Nickolas Leilani 10/10/2022 1 [employer] [id number] 2 Chiqui Olmos Leilani [id number] Chiqui Duke Notes Date Note Type Note Provider Name and Address Organization Details Recorded Time 08/29/2022 text/html HPI Notes: Patie nt 1 wk postop right foot surgery for Bunionectomy /Misael/ Hardware removal and is doing well. Patient denies significant pain. Pain is controlled with PO meds. Patient has been resting, elevating and icing. Patient has ambulated minimally in the surgical shoe/ weight on heel. Patient denies n/v/f/c/calf pain or SOB. Marty Bauman DPM [address] [place], [address], [facility] 08/29/2022 14:23:13 09/05/2022 text/html HPI Notes: Patie nt 2 wk postop right foot surgery for Bunionectomy /Misael/ Hardware removal and is doing well. Patient denies significant pain. Pain is controlled with PO meds. Patient has been resting, elevating and icing. Patient has ambulated minimally in the surgical shoe/ weight on heel. Patient denies n/v/f/c/calf pain or SOB. Marty Bauman DPM [address] [place], [address], [facility] 09/09/2022 11:21:43 09/19/2022 text/html HPI Notes: Harshil nt 4 wk postop right foot surgery for Bunionectomy /Misael/ Hardware removal and is doing well. Patient denies significant pain. Patient has ambulated in the cam boot and returned to work one week ago. Patient denies n/v/f/c/calf pain or SOB. Marty Bauman DPM [address] [place], [address], [facility] 09/19/2022 19:30:48 10/10/2022 text/html HPI Notes: Harshil nt 7 wk postop right foot surgery for Bunionectomy /Misael/ Hardware removal and is doing well. Patient denies significant pain. She relates she has resumed work and regular shoes. She had a stitch come out. Patient denies n/v/f/c/calf pain or SOB. Marty Bauman DPM [address] [place], [address], [facility] 10/11/2022 22:22:44 OBGyn Episode No OBEpisode recorded.
--- OUTSIDE RECORDS SUMMARY | 2024-03-07 08:58 | XMS_ITS | Encounter Summary ---
Author Organization [facility] Address [address] [place] [address] Care Team Providers Care Deburr Operator Name Role Phone Arnol Cesar MD Unavailable [phone] Jonny Moralez MD Primary Care Provider [phone] Encounter Details Date Type Department Care Team [...] on filedocumented in this encounter Care Teams Deburr Operator Relationship Specialty Start Date End Date Jonny Moralez MD [address] [place] [address] PCP - General Family Medicine 02/11/21 Arnol Cesar MD [address] [place] [address] Assigned Heart and Vascular Provider 11/21/20 10/29/23 documented as of this encounter
== END 2024-02-26 11:31 | disposition home or self-care (01) ==
PROVIDERS: PCP Family Medicine; Referring Provider Family Medicine; Visit Provider Surgery
DX: K62.9 Disease of anus and rectum, unspecified (principal); K64.9 Unspecified hemorrhoids
CPT/HCPCS: 88112

== ENCOUNTER 2024-04-10 08:30 | Outpatient (CLI) | payer BC, SELFPAY ==
--- OUTSIDE RECORDS SUMMARY | 2024-04-10 12:28 | XMS_ITS | Encounter Summary ---
Author Organization [facility] Address [address] [place] [address] Care Team Providers Care Soccer Player Name Role Phone Arnol Cesar MD Unavailable [phone] Jonny Moralez MD Primary Care Provider Encounter [...] on filedocumented in this encounter Care Teams Soccer Player Relationship Specialty Start Date End Date Jonny Moralez MD [address] [place] [id number] PCP - General Family Medicine 02/11/21 Arnol Cesar MD [address] [place] [id number] Assigned Heart and Vascular Provider 11/21/20 10/29/23 documented as of this encounter
--- OUTSIDE RECORDS SUMMARY | 2024-04-10 12:28 | XMS_ITS | Encounter Summary ---
Author Organization [facility] Address [address] [place] [id number] Care Team Providers Care Instructional Specialist Name Role Phone Arnol Cesar MD Unavailable [phone] Jonny Moralez MD Primary Care Provider [phone] Reason for Visit * Reason Onset Date Comments Clinic Care Coordination - Follow-up 08/02/2022 Encounter Details Date Type Department Care Team (Late st Contact Info) Description 08/02/2022 Telephone [facility] [place] [address] [place] [id number] Arnol Cesar MD [address] [place], [place] [id number] Clinic Care Coordination - Follow-up Social History [...] further questions or concerns at this time. CARRIER * Telephone Encounter - Diane Aguilera - 08/02/2022 3:31 PM CST Vein RN: Please chart on patients Lt leg numbness noted at 6 Month PO with WRO. DOS: 02/25/21 Lt GSV VNUS w/ phlebs 6 Month PO: 04/10/22 numbness still present at the right medial malleolus. CARRIER documented in this encounter Plan of Treatment Not on file documented as of this encounter Visit Diagnoses Not on filedocumented in this encounter Care Teams Instructional Specialist Relationship Specialty Start Date End Date Jonny Moralez MD [address] [place] [id number] PCP - General Family Medicine 02/11/21 Arnol Cesar MD [address] [place] [id number] Assigned Heart and Vascular Provider 11/21/20 10/29/23 documented as of this encounter
--- OUTSIDE RECORDS SUMMARY | 2024-04-10 12:28 | XMS_ITS | Clinical Summary ---
Author Organization [facility] Address [address] [place] [address] Care Team Providers Care Electric Shaver Mechanic Name Role Phone Jonny Moralez MD Primary [...] 2014 YEARLY PREVENTIVE VISIT 02/19/2020 02/18/2019, 04/23 PHQ-2 (once per calendar year) 2023 COVID-19 Vaccine (3 - 2024-25 season) 2024 08/27/2020, 07/30/2020 INFLUENZA VACCINE (#1) 2024 04/09/2018, 2016 DTAP/TDAP/TD IMMUNIZATION (8 - Td or Tdap) 05/27/2029 05/27/2019, 10/16/2017, 12/20/2005, Additional history exists RSV VACCINE (1 - 1-dose 75+ series) 2068 HEPATITIS B IMMUNIZATION Completed 994, 01/11/1994, 1993 [...] this topic Medical Devices Explanted Type Area Executive Secretary Social Welfare Device Identifier Shelf Expiration Date Model / Serial / Lot Catheter-02/12/20 21 Implanted:02/11 by Arnol Cesar MD (Quantity not on file) Explanted:02/11 by Arnol Cesar MD (Quantity not on file) Catheter [employer] [id number] 09/05/2022 / / [id number] Catheter- 021 Implanted:02/25 by Arnol Cesar MD (Quantity not on file) Explanted:02/25 by Arnol Cesar MD (Quantity not on file) Catheter [employer] [id number] 09/05/2022 / / [id number] Care Teams Electric Shaver Mechanic Relationship Specialty Start Date End Date Jonny Moralez MD PCP - General Family Medicine 02/11/21
--- OUTSIDE RECORDS SUMMARY | 2024-04-10 12:28 | XMS_ITS | Referral Summary ---
Author Organization [facility] Address [address] [place] [address] Care Team Providers Care Microstrategy Architect Name Role Phone Jonny Moralez MD Primary [...] on file Medical Devices Explanted Type Area Vp Construction Device Identifier Shelf Expiration Date Model / Serial / Lot Catheter-02/12/20 21 Implanted:02/11 by Arnol Cesar MD (Quantity not on file) Explanted:02/11 by Arnol Cesar MD (Quantity not on file) Catheter [employer] [id number] 09/05/2022 / / [id number] Catheter- 021 Implanted:02/25 by Arnol Cesra MD (Quantity not on file) Explanted:02/25 by Arnol Cesar MD (Quantity not on file) Catheter [employer] [id number] 09/05/2022 / / [id number] Care Teams Microstrategy Architect Relationship Specialty Start Date End Date Jonny Moralez MD PCP - General Family Medicine 02/11/21
== END 2024-04-10 08:31 | disposition home or self-care (01) ==
LOC: NFLDREF 12:27
PROVIDERS: PCP Registered Nurse; Referring Provider Registered Nurse; Visit Provider Registered Nurse
DX: Z13.1 Encounter for screening for diabetes mellitus (principal); Z13.6 Encounter for screening for cardiovascular disorders
CPT/HCPCS: 80061; 82947